=== PATIENT | male | born 1960 | race Caucasian/White ===

== ENCOUNTER 2017-02-27 17:40 | Emergency (ER) | payer MEDICARE ==
[~2017-02-27 17:40] MED LIST: APIX5TAB PO; ASPI-630 PO; ATOR20TA58 PO; FISH1CAP PO; GLIM4TAB2 PO; LISI2.5T PO; LOSA25TA4 PO; LOSA50TA6; Lisinopril PO; METF500T4 PO; METF500T9; METO-269 PO; METO50TA10; METO50TA2 PO; MULT-658 PO
[2017-02-27 17:55] VITALS: BP 146/93
[2017-02-27] MEDS ORDERED: DIPHTH,PERTUSS(ACELL),TET TOX 0.5 ML DISP.SYRIN. VAX IM ONE (18:00)
--- NOTE | 2017-02-27 18:25 | PHYS DOC ---
Past Medical History Past Medical History: Diabetes-Type II, High Cholesterol, Hypertension Past Surgical History: Appendectomy Alcohol Use: None Drug Use: None Adult General Chief Complaint Chief Complaint: LOWEREXTREMITY INJURY HPI HPI Patient is a 56 year old male presents to the emergency department with a history of left lower leg pain and discomfort. Patient states he was weed eating the yard when a branch came up and hit him in the left lower leg. Patient states he has bruising with bleeding and large black and blue area noted to the louie. Patient states he is a diabetic and wanted to have his legs evaluated. He is unsure when his last tetanus immunization occurred. Patient also states he is on Xarelto. Review of Systems Review of Systems Constitutional: Denies fever or chills [] Eyes: Denies change in visual acuity, redness, or eye pain [] HENT: Denies nasal congestion or sore throat [] Respiratory: Denies cough or shortness of breath [] Cardiovascular: No additional information not addressed in HPI [] GI: Denies abdominal pain, nausea, vomiting, bloody stools or diarrhea [] : Denies dysuria or hematuria [] Musculoskeletal: Denies back pain. C/o leg lower leg pain Integument: Denies rash or skin lesions. Abrasion, bruising and blister to left lower leg Neurologic: Denies headache, focal weakness or sensory changes [] Endocrine: Denies polyuria or polydipsia [] Current Medications Current Medications Current Medications Medications (Trade) Dose Ordered Sig/Missael Start Time Stop Time Status Last Admin Dose Admin Diphtheria/ Tetanus/Acell Pertussis (Boostrix) 0.5 ml ONCE ONCE 02/27/17 18:00 02/27/17 18:04 DC 02/27/17 18:45 0.5 ML Allergies Allergies Allergies Coded Allergies Type Severity Reaction Last Updated Verified No Known Drug Allergies 11/09/14 No Physical Exam Physical Exam Constitutional: Well developed, well nourished, no acute distress, non-toxic appearance. [] HENT: Normocephalic, atraumatic, bilateral external ears normal, oropharynx moist, no oral exudates, nose normal. [] Eyes: PERRLA, EOMI, conjunctiva normal, no discharge. [] Neck: Normal range of motion, no tenderness, supple, no stridor. [] Cardiovascular:Heart rate regular rhythm, no murmur [] Lungs & Thorax: Bilateral breath sounds clear to auscultation [] Skin: Warm, dry, no erythema, no rash. Left lower leg with bruising, tenderness , abrasion and swelling noted. Back: No tenderness Extremities: No tenderness, no cyanosis, no clubbing, ROM intact, no edema. Peripheral pulses 2+ cap refill brisk < 2 seconds. Neurologic: Alert and oriented X 3, normal motor function, normal sensory function, no focal deficits noted. [] Psychologic: Affect normal, judgement normal, mood normal. [] Current Patient Data Vital Signs Vital Signs Date Time Temp Pulse Resp B/P (MAP) Pulse Ox O2 Delivery O2 Flow Rate FiO2 02/27/17 17:55 97.6 75 16 96 Room Air 97.6 Lab Values Laboratory Tests Test 02/27/17 18:14 Prothrombin Time 20.2 SEC (11.7-14.0) H Prothrombin Time INR 1.9 (0.8-1.1) H EKG EKG [] Radiology/Procedures Radiology/Procedures [] Course & Med Decision Making Course & Med Decision Making Pertinent Labs and Imaging studies reviewed. (See chart for details) X-rays were negative for any bony abnormalities per Dr. Gandhi. Patient's PT/ INR was elevated secondary used to Xarelto. Patient will be placed on an antibiotic, Bactrim. Patient was encouraged to keep the area clean and dry. Recommended ice packs on 20 minutes off 20 minutes several times a day. Elevation as much as possible. Recommended Tylenol for pain and discomfort. Patient will also be encouraged to keep the pressure dressing over the area due to the fact of it possibility of increased bleeding. Patient was also instructed to call her primary care physician in regards to the elevation of the PT/INR. Patient will be discharged home in stable condition signs symptoms to return back to emergency department as been provided. [] Dragon Disclaimer Dragon Disclaimer This electronic medical record was generated, in whole or in part, using a voice recognition dictation system. Departure Departure Impression: Primary Impression: Left leg pain Additional Impression: Abrasion of left lower leg Disposition: HOME, SELF-CARE Condition: STABLE Referrals: NELLI BURRIS MD (PCP) Patient Instructions: Contusion, [id number], Wound Care, [id number] Additional Instructions: Your x-rays were negative for any bony abnormalities. Ice packs on 20 minutes off 20 minutes several times a day. Elevation as much as possible. Keep the area clean dry. Clean the site twice over soap and water and apply antibiotic ointment to the area. The pressure dressing may also help with controlled bleeding. You will need to call your primary care physician in regards to your PT INR being elevated. PT 20.2 and INR 1.9 Tylenol for pain and discomfort. Antibiotics as prescribed. Follow-up through primary care physician in 3-5 days. Call them tomorrow in regards to the information above. Return back to emergency department for signs and symptoms of become worse. Scripts Cephalexin (KEFLEX) 500 Mg Capsule 1 CAP PO BID, #20 CAP Prov: KIRAN GUY APRN 02/27/17 Problem Qualifiers KIRAN GUY APRN Feb 27, 2017 18:25
[2017-02-27 18:35] LABS: INR 1.9 (0.8-1.1); PROTHROMBIN TIME PATIENT 20.2 SEC (11.7-14.0)
[2017-02-27] MEDS ORDERED: NEOMY/BACITR/POLYMYXIN OINT PACKET. TP ONE (19:00)
[2017-02-27] MEDS ORDERED: CEPH-264 PO (19:05)
--- NOTE | 2017-02-28 07:52 | RAD ---
Two-view study of the left tibia and fibula History: [place] e[employer] accident. Pain and laceration injury of the distal tibial area. Findings: No acute fracture or dislocation or osteolytic process is seen. There is cortical thickening of the posterior aspect of the proximal right tibial shaft which may be related to an old injury. Plantar spur of the calcaneus is seen. Bandage is seen around the lower leg. Otherwise no other radiopaque foreign body is seen. IMPRESSION: No acute osseous abnormality.
== END 2017-02-27 19:12 | disposition home or self-care (01) ==
LOC: ER 17:40
DX: S80.12XA Contusion of left lower leg, initial encounter (principal); S80.812A Abrasion, left lower leg, initial encounter; E11.9 Type 2 diabetes mellitus without complications; E78.00 Pure hypercholesterolemia, unspecified; I10 Essential (primary) hypertension; Z90.49 Acquired absence of other specified parts of digestive tract; Z79.01 Long term (current) use of anticoagulants; W22.8XXA Striking against or struck by other objects, initial encounter; Y93.89 Activity, other specified; Y92.096 Garden or yard of other non-institutional residence as the place of occurrence of the external cause; Y99.8 Other external cause status
CPT/HCPCS: 36415; 73590; 85610; 90471; 90715; 99285-25

== ENCOUNTER → 2017-04-11 | Outpatient (CLI) | payer MEDICARE ==
[~2017-04-11] MED LIST changes: +CEPH-264 PO; +INSU100V13 SQ; +RISP0.2519 PO; +RIVA20TA2 PO
[2017-04-11 11:55] LABS: BASO # 0.1 x10^3/uL (0.0-0.2); BASO % 1 % (0-3); CREATININE 1.1 mg/dL (0.7-1.3); EOS % 1 % (0-3); GFR 68.8; HEMOGLOBIN 13.8 g/dL (13.0-17.5); LYMPH # 1.9 x10^3/uL (1.0-4.8); LYMPH % 37 % (24-48); MEAN CORPUSCULAR HEMOGLOBIN 30 pg (25-35); MEAN CORPUSCULAR HGB CONC 34 g/dL (31-37); MEAN CORPUSCULAR VOLUME 86 fL (79-100); MONO % 9 % (0-9); NEUT % 51 % (31-73); PLATELET COUNT 223 x10^3/uL (140-400); POTASSIUM 4.2 mmol/L (3.5-5.1); RED BLOOD COUNT 4.66 x10^6/uL (4.30-5.70); RED CELL DISTRIBUTION WIDTH 13.7 % (11.5-14.5); WHITE BLOOD COUNT 5.1 x10^3/uL (4.0-11.0)
--- NOTE | 2017-04-11 12:14 | EKG ---
[facility] [address] [place] [address] Test Date: 2017-04-11 Test Time: 12:17:26 Pat Name: MEGGAN CARDOSO Department: Room: Gender: M [employer]: : 1960 Requested By: HEIDE WERNER Order Number: [id number] Reading MD: Measurements Intervals Gila Rate: 73 P: 38 PA: 160 QRS: 7 QRSD: 80 T: 35 QT: 360 QTc: 400 Interpretive Statements SINUS RHYTHM NORMAL ECG RI6.01 Compared to ECG 08/25/2015 19:30:29 No significant changes
== END | disposition home or self-care (01) ==
LOC: SURGPAT 11:09
PROVIDERS: ATTEND Surgery
DX: K40.90 Unilateral inguinal hernia, without obstruction or gangrene, not specified as recurrent (principal)
CPT/HCPCS: 36415; 80048; 85027; 93005

== ENCOUNTER 2017-04-18 06:13 | Day surgery (SDC) | payer MEDICARE ==
[~2017-04-18] VITALS: Ht 175.3 cm; Wt 97.7 kg
[2017-04-18] MEDS ORDERED: fentaNYL PF VIAL 100 MCG/2 ML VIAL IV PRN ×2 (07:00)
[2017-04-18] MEDS ORDERED: PROCHLORPERAZINE 10 MG/2 ML VIAL. IV PRN (07:00)
[2017-04-18] MEDS ORDERED: MORPHINE SULFATE 2 MG/ML DISP.SYRIN. IV PRN (07:00)
[2017-04-18] MEDS ORDERED: HYDROmorphone 2 MG/ML VIAL IV PRN (07:00)
[2017-04-18] MEDS ORDERED: LIDOCAINE 1% 1 ML SYRINGE. ID PRN (07:00)
[2017-04-18] MEDS ORDERED: ONDANSETRON PF 4 MG/2 ML VIAL. IV PRN (07:00)
[2017-04-18] MEDS ORDERED: IV RINGERS,LACTATED 1000ML 1,000 ML IV SCH (07:00)
[2017-04-18] MEDS ORDERED: BUPIVACAINE-EPI 0.5%-1:200000 50 ML VIAL. ONE (07:05)
[2017-04-18] MEDS ORDERED: PROPOFOL 100 ML IV ONE (07:15)
[2017-04-18] MEDS ORDERED: ROCURONIUM 100 MG/10 ML VIAL. ONE (07:15)
[2017-04-18] MEDS ORDERED: LIDOCAINE 1% PF 5 ML VIAL. ONE (07:15)
[2017-04-18] MEDS ORDERED: fentaNYL PF VIAL 100 MCG/2 ML VIAL ONE ×2 (07:15→09:07)
[2017-04-18] MEDS ORDERED: SUCCINYLCHOLINE 200 MG/10 ML VIAL. ONE (07:16)
[2017-04-18] MEDS ORDERED: DEXAMETHASONE SOD PHOS 20 MG/5 ML VIAL. ONE (07:54)
[2017-04-18] MEDS ORDERED: DESFLURANE 31 TO 60 MINUTES IH ONE (07:54)
[2017-04-18] MEDS ORDERED: ONDANSETRON PF 4 MG/2 ML VIAL. ONE (08:06)
[2017-04-18] MEDS ORDERED: GLYCOPYRROLATE 1 MG/5 ML VIAL. ONE (08:06)
[2017-04-18] MEDS ORDERED: NEOSTIGMINE 10 MG/10 ML VIAL. ONE (08:06)
[2017-04-18] MEDS ORDERED: LIDOCAINE 2% PF Vial for OR 5 ML VIAL. ONE (08:22)
--- NOTE | 2017-04-18 08:51 | PDOC4 ---
Operative Note Operative Note Date: 04/18/2017 Preoperative diagnosis: Right inguinal hernia Postoperative diagnosis: The same Procedure: Robotic-assisted laparoscopic right inguinal hernia repair with mesh Specimen: None Surgeon: Ramez Dictation: Mr. Limon is a 56-year-old male with complaints of a painful bulge in his right groin. The procedure of robotic-assisted laparoscopic right inguinal hernia repair with mesh was explained to the patient in detail all risks benefits were also discussed including bleeding infection injury to intra- abdominal contents possibly necessitating further or an open operation. The patient seemed understanding gave both verbal and written consent to have the procedure performed. Patient was taken to the operating room placed in the supine position general anesthesia was initiated once the patient was asleep and intubated he was placed in low lithotomy and his abdomen was prepped and draped usual sterile fashion using ChloraPrep. An area just above the umbilicus was injected with half percent Marcaine with epinephrine and an incision was made with 11 blade scalpel a varies needle was placed within the abdomen and a pneumoperitoneum was achieved. At this point an 8 mm da Funmilayo port was placed and a camera was then placed within the abdomen and the abdomen was inspected no other abnormalities were noted other than an incarcerated right inguinal hernia. At this point 2 more 8 mm ports were placed under direct visualization one in the left mid abdomen and one in the right mid abdomen. The surgeon went to the robotic console using a grasper and Endo Gurpreet scissors the incarcerated omentum was reduced from the hernia defect. He peritoneum was then incised and a window was propagated inferiorly reducing the hernia sac from the hernia defect at this point a large piece of Pro help desk specialist mesh was placed over the hernia defect. The peritoneum was then closed with a running V lock suture. Once this was complete the V lock needle was removed and the pneumoperitoneum was reduced all ports removed. Skin incisions were all closed with 4 septic Monocryl Mastisol Steri-Strips and Band-Aids were applied as dressings. Patient was awakened and extubated in the operating room taken to recovery in stable condition all sponge instrument and needle counts were listed as correct. The middle blood loss 10 mL. HEIDE WERNER MD Apr 18, 2017 08:50
--- NOTE | 2017-04-18 08:52 | DISCH ---
DISCHARGE INSTRUCTIONS Condition on Discharge Condition on Discharge: Stable Activity After Discharge Activity Instructions for Disc: Avoid exertion Other activity instructions: No lifting>20lbs for 2 weeks Lifting Instructions after Dis: No heavy lifting Diet after Discharge Diet after Discharge: Regular Wound Incision Care Other wound/incision instructi: May shower in 24 hours Contacting the after DC Call your doctor for: If your condition worsens Follow-Up Follow up with: Dr Werner in 2 weeks HEIDE WERNER MD Apr 18, 2017 08:52
[2017-04-18] MEDS ORDERED: INSULIN ASPART 300 UNITS/3 ML INSULN.PEN SQ SCH (09:00)
[2017-04-18] MEDS ORDERED: HYDR-971 PO (09:12)
[2017-04-18] MEDS ORDERED: INSULIN ASPART 100 UNIT/ML 10ML VIAL. SQ ONE (09:15)
[2017-04-18] MEDS ORDERED: HYDROcodone/APAP 5/325MG 1 TAB TABLET ONE (09:19)
[2017-04-18 09:45] VITALS: BP 131/84
[2017-04-18] MEDS ORDERED: HYDROcodone/APAP 5/325MG 1 TAB TABLET PO ONE (09:45)
== END 2017-04-18 10:17 | disposition home or self-care (01) ==
LOC: SURG 06:13
PROVIDERS: ATTEND Surgery
DX: K40.90 Unilateral inguinal hernia, without obstruction or gangrene, not specified as recurrent (principal); E78.00 Pure hypercholesterolemia, unspecified; I48.91 Unspecified atrial fibrillation; I10 Essential (primary) hypertension; E11.9 Type 2 diabetes mellitus without complications; Z86.39 Personal history of other endocrine, nutritional and metabolic disease; Z83.3 Family history of diabetes mellitus; Z98.49 Cataract extraction status, unspecified eye
CPT/HCPCS: 49650; 82962; C1781; J0330; J0690; J1100; J1815; J2405; J2704; J2710; J3010; J3490; J2001

== ENCOUNTER → 2017-12-24 | Outpatient (CLI) | payer OTHER ==
[2017-12-24 10:15] LABS: ANION GAP 7 (6-14); BLOOD UREA NITROGEN 21 mg/dL (8-26); CALCIUM 9.5 mg/dL (8.5-10.1); CARBON DIOXIDE 28 mmol/L (21-32); CHLORIDE 107 mmol/L (98-107); GFR 76.5; GLUCOSE 73 mg/dL (70-99); POTASSIUM 4.4 mmol/L (3.5-5.1); SODIUM 142 mmol/L (136-145)
== END | disposition home or self-care (01) ==
LOC: LAB 09:45
DX: I10 Essential (primary) hypertension (principal)
CPT/HCPCS: 36415; 80048

== ENCOUNTER → 2018-01-14 | Outpatient (CLI) | payer OTHER ==
[2018-01-14 08:50] LABS: HEMATOCRIT 40.4 % (39.0-53.0); MEAN CORPUSCULAR HEMOGLOBIN 31 pg (25-35); MEAN CORPUSCULAR HGB CONC 35 g/dL (31-37); MEAN CORPUSCULAR VOLUME 88 fL (79-100); PLATELET COUNT 180 x10^3/uL (140-400); RED BLOOD COUNT 4.59 x10^6/uL (4.30-5.70); RED CELL DISTRIBUTION WIDTH 13.5 % (11.5-14.5); WHITE BLOOD COUNT 5.3 x10^3/uL (4.0-11.0)
[2018-01-14 09:16] LABS: ANION GAP 9 (6-14); BLOOD UREA NITROGEN 14 mg/dL (8-26); CALCIUM 9.5 mg/dL (8.5-10.1); CARBON DIOXIDE 28 mmol/L (21-32); CHLORIDE 106 mmol/L (98-107); CHOLESTEROL 102 mg/dL (0-200); CHOLESTEROL/HDL RATIO 2.6; GFR 76.5; GLUCOSE 82 mg/dL (70-99); HDLC 39 mg/dL (40-60); LDLC 41 mg/dL (0-100); NON-HDL CHOLESTEROL 63 mg/dL (0-129); POTASSIUM 3.6 mmol/L (3.5-5.1); SODIUM 143 mmol/L (136-145); TRIGLYCERIDES 109 mg/dL (0-150); VLDLC 22 mg/dL (0-40)
[2018-01-15 00:12] LABS: HEMOGLOBIN A1C 7.2 % (4.8-5.6)
[2018-01-15 11:24] LABS: MICROALBUMIN, RANDOM URINE 16.8 ug/mL (Not Estab.)
== END | disposition home or self-care (01) ==
LOC: LAB 07:35
DX: E11.65 Type 2 diabetes mellitus with hyperglycemia (principal); I10 Essential (primary) hypertension; E78.2 Mixed hyperlipidemia
CPT/HCPCS: 36415; 80048; 80061; 82043; 83036; 85027

== ENCOUNTER → 2018-03-26 | Day surgery (SDC) | payer OTHER ==
[~2018-03-26] MED LIST changes: -APIX5TAB PO; -ASPI-630 PO; -ATOR20TA58 PO; -CEPH-264 PO; +CIPROFLOXACIN 0.3% OPHTH SOLUTION 5ML BOTTLE. OS; +CYCLOPENTOLATE 1% OPTH SOLUTION 2ML BOTTLE. OS; -FISH1CAP PO; -GLIM4TAB2 PO; -INSU100V13 SQ; +IV RINGERS,LACTATED 1000ML 1,000 ML IV; +LIDOCAINE 1% PF 2 ML VIAL. ID; +LIDOCAINE 2% JELLY 6ML IN APPLICATOR. MM; -LISI2.5T PO; -LOSA25TA4 PO; -LOSA50TA6; -Lisinopril PO; -METF500T4 PO; -METF500T9; -METO-269 PO; -METO50TA10; -METO50TA2 PO; +MORPHINE SULFATE 2 MG/ML DISP.SYRIN. IV; -MULT-658 PO; +ONDANSETRON PF 4 MG/2 ML VIAL. IV; +PHENYLEPHRINE 10% OPHTH SOLUTION 5ML BOTTLE. OS; +PROCHLORPERAZINE 10 MG/2 ML VIAL. IV; +PROPARACAINE 0.5% OPHTH SOLUTION 15ML BOTTLE. OS; -RISP0.2519 PO; -RIVA20TA2 PO; +fentaNYL PF VIAL 100 MCG/2 ML VIAL IV
== END | disposition home or self-care (01) ==
LOC: SURG 08:38
DX: E11.36 Type 2 diabetes mellitus with diabetic cataract (principal); H26.9 Unspecified cataract; Z53.8 Procedure and treatment not carried out for other reasons; R06.02 Shortness of breath; Z98.42 Cataract extraction status, left eye; Z96.1 Presence of intraocular lens; E78.00 Pure hypercholesterolemia, unspecified; I48.91 Unspecified atrial fibrillation; I10 Essential (primary) hypertension; G47.30 Sleep apnea, unspecified; Z90.49 Acquired absence of other specified parts of digestive tract; K21.9 Gastro-esophageal reflux disease without esophagitis; F32.9 Major depressive disorder, single episode, unspecified; Z72.89 Other problems related to lifestyle; Z79.84 Long term (current) use of oral hypoglycemic drugs
CPT/HCPCS: 93005; J0171

== ENCOUNTER 2018-03-28 20:57 | Emergency (ER) | payer OTHER ==
[2018-03-28] MEDS: dilTIAZem IV PUSH 25 MG/5 ML VIAL IVP (21:16)
[2018-03-28 21:18] LABS: ADD MAN DIFF? NO
[2018-03-28 21:20] LABS: BASO # 0.1 x10^3/uL (0.0-0.2); BASO % 1 % (0-3); EOS # 0.1 x10^3/uL (0.0-0.7); EOS % 2 % (0-3); HEMATOCRIT 41.2 % (39.0-53.0); HEMOGLOBIN 14.7 g/dL (13.0-17.5); LYMPH # 2.2 x10^3/uL (1.0-4.8); LYMPH % 39 % (24-48); MEAN CORPUSCULAR HEMOGLOBIN 32 pg (25-35); MEAN CORPUSCULAR HGB CONC 36 g/dL (31-37); MEAN CORPUSCULAR VOLUME 89 fL (79-100); MONO # 0.6 x10^3/uL (0.0-1.1); MONO % 10 % (0-9); NEUT # 2.7 x10^3uL (1.8-7.7); NEUT % 48 % (31-73); PLATELET COUNT 172 x10^3/uL (140-400); RED BLOOD COUNT 4.65 x10^6/uL (4.30-5.70); WHITE BLOOD COUNT 5.6 x10^3/uL (4.0-11.0)
[2018-03-28 21:29] LABS: ANION GAP 7 (6-14); BLOOD UREA NITROGEN 14 mg/dL (8-26); BUN/CREATININE RATIO 14 (6-20); CARBON DIOXIDE 27 mmol/L (21-32); CHLORIDE 106 mmol/L (98-107); GFR 76.5; GLUCOSE 207 mg/dL (70-99); POTASSIUM 4.2 mmol/L (3.5-5.1); SODIUM 140 mmol/L (136-145)
[2018-03-28 21:35] LABS: ALBUMIN 3.6 g/dL (3.4-5.0); ALBUMIN/GLOBULIN RATIO 1.2 (1.0-1.7); ALK PHOS 58 U/L (46-116); ALT (SGPT) 28 U/L (16-63); AST (SGOT) 15 U/L (15-37); TOTAL BILIRUBIN 0.4 mg/dL (0.2-1.0); TOTAL PROTEIN 6.6 g/dL (6.4-8.2)
[2018-03-28 21:36] LABS: TROPONINI < 0.017 ng/mL (0.000-0.055)
[2018-03-28] MEDS ORDERED: METOPROLOL TARTRATE 5 MG/5 ML VIAL. IVP (22:15)
== END 2018-03-28 22:50 | disposition home or self-care (01) ==
LOC: ER 20:57
DX: I48.91 Unspecified atrial fibrillation (principal); R00.0 Tachycardia, unspecified; E11.9 Type 2 diabetes mellitus without complications; E78.00 Pure hypercholesterolemia, unspecified; I10 Essential (primary) hypertension
CPT/HCPCS: 36415; 71045; 80053; 84484; 85025; 93005; 96374; 99285-25; J3490

== ENCOUNTER → 2018-05-27 | Outpatient (CLI) | payer OTHER, MEDICARE ==
[2018-03-28 21:16] VITALS: BP 175/119
[~2018-05-27] MED LIST changes: +APIX5TAB PO; +ASPI-630 PO; +ATOR20TA58 PO; +CEPH-264 PO; -CIPROFLOXACIN 0.3% OPHTH SOLUTION 5ML BOTTLE. OS; -CYCLOPENTOLATE 1% OPTH SOLUTION 2ML BOTTLE. OS; +DILT180C29 PO; +FISH1CAP PO; +GLIM4TAB2 PO; +HYDR-971 PO; +INSU100I11 SQ; +INSU100V13 SQ; +INSU300I SQ; -IV RINGERS,LACTATED 1000ML 1,000 ML IV; -LIDOCAINE 1% PF 2 ML VIAL. ID; -LIDOCAINE 2% JELLY 6ML IN APPLICATOR. MM; +LISI-338 PO; +LISI10TA2 PO; +LISI2.5T PO; +LOSA25TA5 PO; +LOSA50TA7; +Lisinopril PO; +MELO15TA23 PO; +MELO7.5T29 PO; +METF500T16 PO; +METF500T9; +METO-269 PO; +METO50TA29; +METO50TA6 PO; -MORPHINE SULFATE 2 MG/ML DISP.SYRIN. IV; +MULT-658 PO; -ONDANSETRON PF 4 MG/2 ML VIAL. IV; -PHENYLEPHRINE 10% OPHTH SOLUTION 5ML BOTTLE. OS; -PROCHLORPERAZINE 10 MG/2 ML VIAL. IV; -PROPARACAINE 0.5% OPHTH SOLUTION 15ML BOTTLE. OS; +RISP0.2519 PO; +RIVA20TA2 PO; -fentaNYL PF VIAL 100 MCG/2 ML VIAL IV
[2018-05-28 01:13] LABS: HEMOGLOBIN A1C 9.6 % (4.8-5.6)
== END | disposition home or self-care (01) ==
LOC: LAB 09:57
PROVIDERS: ATTEND Family Medicine
DX: E11.65 Type 2 diabetes mellitus with hyperglycemia (principal)
CPT/HCPCS: 36415; 83036

== ENCOUNTER → 2018-06-02 | Outpatient (CLI) | payer OTHER, MEDICARE ==
[2018-03-28 21:16] VITALS: BP 175/119
[2018-06-02 12:47] LABS: BILIRUBIN,URINE NEGATIVE (NEG); CLARITY,URINE CLEAR; COLOR,URINE YELLOW; NITRITE,URINE NEGATIVE (NEG); PH,URINE 5.5; PROTEIN,URINE NEGATIVE (NEG-TRACE)
[2018-06-02 12:51] LABS: BASO % 1 % (0-3); EOS # 0.2 x10^3/uL (0.0-0.7); EOS % 3 % (0-3); HEMATOCRIT 41.9 % (39.0-53.0); HEMOGLOBIN 14.4 g/dL (13.0-17.5); LYMPH % 33 % (24-48); MEAN CORPUSCULAR HEMOGLOBIN 30 pg (25-35); MEAN CORPUSCULAR HGB CONC 34 g/dL (31-37); MEAN CORPUSCULAR VOLUME 89 fL (79-100); MONO # 0.6 x10^3/uL (0.0-1.1); MONO % 11 % (0-9); NEUT # 3.3 x10^3uL (1.8-7.7); NEUT % 53 % (31-73); PLATELET COUNT 201 x10^3/uL (140-400); RED BLOOD COUNT 4.73 x10^6/uL (4.30-5.70); RED CELL DISTRIBUTION WIDTH 13.5 % (11.5-14.5); WHITE BLOOD COUNT 6.1 x10^3/uL (4.0-11.0)
[2018-06-02 13:04] LABS: BACTERIA,URINE 0 /HPF (0-FEW); RBC,URINE 0 /HPF (0-2); WBC,URINE 0 /HPF (0-4)
[2018-06-02 13:10] LABS: CALCIUM 9.5 mg/dL (8.5-10.1); GFR 76.2; POTASSIUM 4.5 mmol/L (3.5-5.1)
== END | disposition home or self-care (01) ==
LOC: LAB 12:03
PROVIDERS: ATTEND Family Medicine
DX: I10 Essential (primary) hypertension (principal); R41.0 Disorientation, unspecified; E11.9 Type 2 diabetes mellitus without complications; E78.5 Hyperlipidemia, unspecified; E78.00 Pure hypercholesterolemia, unspecified; K21.9 Gastro-esophageal reflux disease without esophagitis; I48.0 Paroxysmal atrial fibrillation; Z86.39 Personal history of other endocrine, nutritional and metabolic disease; Z90.49 Acquired absence of other specified parts of digestive tract; Z83.3 Family history of diabetes mellitus; Z82.49 Family history of ischemic heart disease and other diseases of the circulatory system; Z82.3 Family history of stroke
CPT/HCPCS: 36415; 80048; 81001; 85025

== ENCOUNTER → 2018-08-08 | Day surgery (SDC) | payer OTHER, MEDICARE ==
[~2018-08-08] MED LIST changes: +FLEC100T PO; +HYDR-3164 PO; -HYDR-971 PO; +HYDROmorphone 2 MG/ML VIAL IV PRN; +IV RINGERS,LACTATED 1000ML 1,000 ML IV SCH; +LIDOCAINE 1% PF 2 ML VIAL. ID PRN; +LOSA-73; -LOSA25TA5 PO; +LOSA25TA54 PO; -LOSA50TA7; +MIDAZOLAM HCL/PF 2 MG/2 ML VIAL. IV PRN; +MORPHINE SULFATE 2 MG/ML VIAL. IV PRN; +ONDANSETRON PF 4 MG/2 ML VIAL. IV PRN; +PROCHLORPERAZINE 10 MG/2 ML VIAL. IV PRN; +PROPOFOL 40 ML IV ONE; +fentaNYL PF VIAL 100 MCG/2 ML VIAL IV PRN
[2018-08-08 08:50] VITALS: BP 99/63
== END | disposition home or self-care (01) ==
LOC: SURG 07:03
PROVIDERS: ATTEND Internal Medicine Gastroenterology
DX: Z12.11 Encounter for screening for malignant neoplasm of colon (principal); K57.30 Diverticulosis of large intestine without perforation or abscess without bleeding; K64.0 First degree hemorrhoids; I10 Essential (primary) hypertension; E11.9 Type 2 diabetes mellitus without complications; I25.10 Atherosclerotic heart disease of native coronary artery without angina pectoris; I25.2 Old myocardial infarction; Z79.84 Long term (current) use of oral hypoglycemic drugs; Z79.899 Other long term (current) drug therapy; Z90.49 Acquired absence of other specified parts of digestive tract
CPT/HCPCS: 45378; J2704

== ENCOUNTER → 2018-08-28 | Outpatient (CLI) | payer OTHER, MEDICARE ==
[2018-08-08 08:50] VITALS: BP 99/63
[~2018-08-28] MED LIST changes: -HYDROmorphone 2 MG/ML VIAL IV PRN; -IV RINGERS,LACTATED 1000ML 1,000 ML IV SCH; -LIDOCAINE 1% PF 2 ML VIAL. ID PRN; -MIDAZOLAM HCL/PF 2 MG/2 ML VIAL. IV PRN; -MORPHINE SULFATE 2 MG/ML VIAL. IV PRN; -ONDANSETRON PF 4 MG/2 ML VIAL. IV PRN; -PROCHLORPERAZINE 10 MG/2 ML VIAL. IV PRN; -PROPOFOL 40 ML IV ONE; -fentaNYL PF VIAL 100 MCG/2 ML VIAL IV PRN
[2018-08-28 11:37] LABS: CALCIUM 9.4 mg/dL (8.5-10.1); GFR 76.2; POTASSIUM 4.7 mmol/L (3.5-5.1)
[2018-08-28 20:10] LABS: HEMOGLOBIN A1C 9.3 % (4.8-5.6)
== END | disposition home or self-care (01) ==
LOC: LAB 10:48
PROVIDERS: ATTEND Family Medicine
DX: E11.65 Type 2 diabetes mellitus with hyperglycemia (principal); I48.91 Unspecified atrial fibrillation; I10 Essential (primary) hypertension; Z79.84 Long term (current) use of oral hypoglycemic drugs
CPT/HCPCS: 36415; 80048; 83036; 84443

== ENCOUNTER → 2018-11-05 | Outpatient (CLI) | payer OTHER, MEDICARE ==
[2018-08-08 08:50] VITALS: BP 99/63
[2018-11-06 00:11] LABS: HEMOGLOBIN A1C 10.5 % (4.8-5.6)
== END | disposition home or self-care (01) ==
LOC: LAB 09:49
PROVIDERS: ATTEND Family Medicine
DX: E11.65 Type 2 diabetes mellitus with hyperglycemia (principal)
CPT/HCPCS: 36415; 83036

== ENCOUNTER 2019-05-18 21:29 | Emergency (ER) | payer OTHER, MEDICARE ==
[~2019-05-18] VITALS: Ht 167.6 cm; Wt 113.4 kg
[~2019-05-18 21:29] MED LIST changes: +METF500T11; -METF500T9
[2019-05-18 22:18] LABS: BILIRUBIN,URINE SMALL (NEG); CLARITY,URINE CLEAR; COLOR,URINE AMBER; NITRITE,URINE NEGATIVE (NEG); PROTEIN,URINE NEGATIVE (NEG-TRACE)
[2019-05-18 22:22] LABS: HYALINE CASTS, URINE MANY /HPF
[2019-05-18 22:23] LABS: BACTERIA,URINE 0 /HPF (0-FEW); RBC,URINE 0 /HPF (0-2)
[2019-05-18] MEDS ORDERED: HYDR-3164 PO (22:29)
[2019-05-18] MEDS ORDERED: METH4TAB2 PO (22:29)
--- NOTE | 2019-05-18 22:30 | PHYS DOC ---
Past Medical History Past Medical History: A-Fib, Diabetes-Type II, High Cholesterol, Hypertension (KIRAN GILLESPIE APRN) Past Surgical History: Appendectomy Additional Past Surgical Histo: EYE (KRIAN GILLESPIE APRN) Alcohol Use: None Drug Use: None (KIRAN GILLESPIE APRN) Adult General Chief Complaint Chief Complaint: LOWER BACK PAIN OR INJURY HPI HPI Patient is a 59 year old male who presents with right lower back pain that is sharp and shooting down the back of his right leg into the buttock. Patient states is worse with movement. Patient rates his pain a 10 out of 10. Patient states that he's also been coughing up mucus for the last hour needs concerned about this. (KIRAN GILLESPIE APRN) Review of Systems Review of Systems Constitutional: Denies fever or chills [] Respiratory: cough or denies shortness of breath [] Musculoskeletal: Low back pain that radiates down the back of leg or joint pain [] All other systems were reviewed and found to be within normal limits, except as documented in this note. (KIRAN GILLESPIE APRN) Current Medications Current Medications Current Medications Medications (Trade) Dose Ordered Sig/Missael Start Time Stop Time Status Last Admin Dose Admin Acetaminophen/ Hydrocodone Bitart (Lortab 5/325) 1 tab 1X ONCE 05/18/19 22:45 05/18/19 22:46 DC 05/18/19 22:49 1 TAB Orphenadrine Citrate (Norflex) 60 mg 1X ONCE 05/18/19 22:45 05/18/19 22:46 DC 05/18/19 22:49 60 MG (GABY CRISOSTOMO DO) Allergies Allergies Allergies Coded Allergies Type Severity Reaction Last Updated Verified No Known Drug Allergies 08/08/18 No (GABY CRISOSTOMO DO) Physical Exam Physical Exam Constitutional: Well developed, well nourished, no acute distress, non-toxic appearance. [] HENT: Normocephalic, atraumatic, bilateral external ears normal, oropharynx moist, no oral exudates, nose normal. [] Eyes: PERRLA, EOMI, conjunctiva normal, no discharge. [] Cardiovascular:Heart rate regular rhythm, no murmur [] Lungs & Thorax: Bilateral breath sounds clear to auscultation [] Abdomen: Bowel sounds normal, soft, no tenderness, no masses, no pulsatile masses. [] Skin: Warm, dry, no erythema, no rash. [] Back: No tenderness, no CVA tenderness. [] Extremities: No tenderness, no cyanosis, no clubbing, ROM intact, no edema. [] Neurologic: Alert and oriented X 3, normal motor function, normal sensory function, no focal deficits noted. [] Psychologic: Affect normal, judgement normal, mood normal. [] (KIRAN GILLESPIE APRN) Current Patient Data Vital Signs Vital Signs Date Time Temp Pulse Resp B/P (MAP) Pulse Ox O2 Delivery O2 Flow Rate FiO2 05/18/19 23:00 90 18 136/84 (101) 95 Room Air 05/18/19 21:37 98.7 98.7 (GABY CRISOSTOMO DO) Lab Values Laboratory Tests Test 05/18/19 21:37 Urine Collection Type Unknown Urine Color Eliza Urine Clarity Clear Urine pH 5.0 Urine Specific [place] >=1.030 Urine Protein Negative mg/dL (NEG-TRACE) Urine Glucose (UA) >=1000 mg/dL (NEG) Urine Ketones (Stick) Negative mg/dL (NEG) Urine Blood Negative (NEG) Urine Nitrite Negative (NEG) Urine Bilirubin Small (NEG) Urine Urobilinogen Dipstick 1.0 mg/dL (0.2 mg/dL) Urine Leukocyte Esterase Negative (NEG) Urine RBC 0 /HPF (0-2) Urine WBC 5-10 /HPF (0-4) Urine Transitional Epithelial Cells Occ /LPF Urine Bacteria 0 /HPF (0-FEW) Urine Hyaline Casts Many /HPF Urine Mucus Marked /LPF (GABY CRISOSTOMO DO) Lab Values Laboratory Tests Test 05/18/19 21:37 Urine Collection Type Unknown Urine Color Eliza Urine Clarity Clear Urine pH 5.0 Urine Specific [place] >=1.030 Urine Protein Negative mg/dL (NEG-TRACE) Urine Glucose (UA) >=1000 mg/dL (NEG) Urine Ketones (Stick) Negative mg/dL (NEG) Urine Blood Negative (NEG) Urine Nitrite Negative (NEG) Urine Bilirubin Small (NEG) Urine Urobilinogen Dipstick 1.0 mg/dL (0.2 mg/dL) Urine Leukocyte Esterase Negative (NEG) Urine RBC 0 /HPF (0-2) Urine WBC 5-10 /HPF (0-4) Urine Transitional Epithelial Cells Occ /LPF Urine Bacteria 0 /HPF (0-FEW) Urine Hyaline Casts Many /HPF Urine Mucus Marked /LPF (KIRAN GILLESPIE APRN) EKG EKG [] (KIRAN GILLESPIE APRN) Radiology/Procedures Radiology/Procedures [] (KIRAN GILLESPIE APRN) Course & Med Decision Making Course & Med Decision Making Patient is a 59 year old male who presents with right lower back pain that is sharp and shooting down the back of his right leg into the buttock. Patient states is worse with movement. Patient rates his pain a 10 out of 10. Patient states that he's also been coughing up mucus for the last hour needs concerned about this. Ambulatory with a steady gait. No extremity edema. No CVA tenderness. No tenderness to the lower back with palpation. There is no bruising or swelling to lower back or the leg. Patient denies any fevers, numbness or tingling, dysuria, chest pain, sore throat, nasal congestion, abdominal pain, nausea, vomiting, diarrhea, shortness of air, headache, dizziness, palpitations. Abdomen is soft and nontender. Alert and oriented. Skin pink warm and dry. Mucus membranes moist. Patient speaks in full clear sentences. Urinalysis shows no infection. Patient is educated to drink plenty of fluids. Chest xray is read by Dr Crisostomo and shows possible bronchitis. (KIRAN GILLESPIE APRN) Dragon Disclaimer Dragon Disclaimer This electronic medical record was generated, in whole or in part, using a voice recognition dictation system. (KIRAN GILLESPIE APRN) Departure Departure Impression: Primary Impression: Sciatica Additional Impression: Cough Disposition: HOME, SELF-CARE Condition: STABLE Referrals: ALESHA MEYER MD (PCP) Patient Instructions: Bronchitis, Cough, Adult, Sciatica Additional Instructions: Follow up with primary care provider. Take medications with food and as prescribed. Scripts Amoxicillin (AMOXICILLIN) 500 Mg Capsule 1 CAP PO BID, #20 CAP Prov: KIRAN GILLESPIE APRN 05/18/19 Hydrocodone/Apap 5-325 (NORCO 5-325 TABLET) 1 Each Tablet 1 TAB PO PRN Q6HRS PRN for PAIN, #10 TAB 0 Refills Prov: KIRAN GILLESPIE APRN 05/18/19 Methylprednisolone (MEDROL) 4 Mg Tab.ds.pk 1 PKG PO UD, #1 PKG Prov: VERNAKIRAN Nice APRN 05/18/19 Attending Signature Attending Signature I have reviewed the PA/WARPER CREELER's note and plan of care. I was available for consultation as needed during the patient's visit in the emergency department. I agree with the clinical impression, plan, and disposition. (GABY CRISOSTOMO DO) Problem Qualifiers Primary Impression: Sciatica Laterality: right Qualified Codes: M54.31 - Sciatica, right side KIRAN GILLESPIE APRN May 18, 2019 22:30 GABY CRISOSTOMO DO May 19, 2019 04:36
[2019-05-18] MEDS ORDERED: HYDROcodone/APAP 5/325MG 1 TAB TABLET PO ONE (22:45)
[2019-05-18] MEDS ORDERED: ORPHENADRINE CITRATE 60 MG/2 ML VIAL. IM ONE (22:45)
[2019-05-18] MEDS ORDERED: AMOX500C PO (22:54)
[2019-05-18 23:00] VITALS: BP 136/84
--- NOTE | 2019-05-19 08:24 | RAD ---
Single AP view of the chest. Comparison: 03/28/2018. Indication: Cough and back pain Findings: There is an old right clavicular fracture. The heart is enlarged but stable. There is no pneumothorax or effusion. No air space or interstitial disease. Impression: 1. No acute cardiopulmonary process. Electronically signed by: Umair Ewing MD (05/19/2019 8:21 AM) [facility]
== END 2019-05-18 23:00 | disposition home or self-care (01) ==
LOC: ER 21:29
DX: M54.41 Lumbago with sciatica, right side (principal); R05 Cough; I48.91 Unspecified atrial fibrillation; E78.00 Pure hypercholesterolemia, unspecified; E11.9 Type 2 diabetes mellitus without complications; I10 Essential (primary) hypertension; Z90.89 Acquired absence of other organs
CPT/HCPCS: 71045; 81001; 87086; 96372; 99285; J2360

== ENCOUNTER 2019-06-05 11:05 | Day surgery (SDC) | payer OTHER, MEDICARE ==
[~2019-06-05 11:05] MED LIST changes: +AMOX500C PO; +CIPROFLOXACIN 0.3% OPHTH SOLUTION 5ML BOTTLE. OS ONE; -GLIM4TAB2 PO; +GLIM4TAB4 PO; +HYDROmorphone 2 MG/ML VIAL IV PRN; +IV RINGERS,LACTATED 1000ML 1,000 ML IV SCH; +LIDOCAINE 1% PF 2 ML VIAL. ID PRN; +LIDOCAINE 2% JELLY 6ML IN APPLICATOR. MM SCH; +METH4TAB2 PO; +MORPHINE SULFATE 2 MG/ML VIAL. IV PRN; +PROCHLORPERAZINE 10 MG/2 ML VIAL. IV PRN; +PROPARACAINE 0.5% OPHTH SOLUTION 15ML BOTTLE. OS ONE; +fentaNYL PF VIAL 100 MCG/2 ML VIAL IV PRN
[2019-06-05] MEDS: INSULIN LISPRO 100 UNIT/ML 3ML VIAL for OP,RR ONLY. SQ PRN ×2 (12:23→14:30)
[2019-06-05] MEDS: PHENYLEPHRINE 10% OPHTH SOLUTION 5ML BOTTLE. OS SCH ×3 (12:34→12:45)
[2019-06-05] MEDS: CYCLOPENTOLATE 1% OPTH SOLUTION 2ML BOTTLE. OS SCH ×3 (12:35→12:45)
[2019-06-05] MEDS ORDERED: NEO/POLYMYX/DEXAMETH OPHTH OINTMENT 3.5GM TUBE. ONE (13:20)
[2019-06-05] MEDS ORDERED: BALANCED SALT IRRIG OPHTH SOLN 15 ML BOTTLE. ONE (13:20)
[2019-06-05] MEDS ORDERED: CHONDROIT-SOD-HYALURONATE KIT. ONE (13:21)
[2019-06-05] MEDS ORDERED: LIDOCAINE 1% PF 2 ML VIAL. ONE (13:21)
[2019-06-05] MEDS ORDERED: LIDOCAINE 2% JELLY 6ML IN APPLICATOR. ONE (13:21)
--- NOTE | 2019-06-05 13:53 | OP ---
DATE OF SURGERY: 06/05/2019 PREOPERATIVE DIAGNOSIS: Senile cataract, left eye. POSTOPERATIVE DIAGNOSIS: Senile cataract, left eye. PROCEDURE: Phacoemulsification with posterior chamber lens implant, left eye. ANESTHESIA: Local with MAC. DESCRIPTION OF PROCEDURE: The patient's dilator and anesthetic drops were applied in the Outpatient Department and the [place] balloon cuff used for about 10 minutes. The patient was then brought to the operating room, positioned on the table. The eye was prepped and draped in the usual sterile manner for an intraocular procedure and a lid speculum placed between the eyelids. The operating microscope was brought into position and a paracentesis was made inferotemporally. A phenylid was injected into the anterior chamber, followed by an injection of Viscoat. A 2.4-mm incision was then made temporally. A capsulorrhexis was then made about the dilated pupillary border, which measured about 5.5 to 6 mm in diameter. The lens nucleus was then hydrodissected and then phacoemulsified with the phaco handpiece. The cortical cleanup was done with the I/A handpiece. Provisc was then injected into the anterior chamber to insufflate the bag and a posterior chamber lens placed into the bag without difficulty. The viscoelastic was aspirated with the I/A handpiece. The eye was pressurized by hydrating the temporal incision and the wound checked for leaks and there were none. The eye looked good at the end of the case, and the speculum and drape were removed. Maxitrol ointment was instilled in the conjunctival sac and the eye was shielded. The patient was taken to the recovery room in satisfactory condition. There were no complications and I will see the patient in 3 days in my office. I will follow up with him by phone if there are any problems. K DIAMANTE SHAFER MD DR: ESEQUIEL/pepper JOB#: [id number] / [id number]
[2019-06-05] MEDS ORDERED: MIDAZOLAM HCL/PF 2 MG/2 ML VIAL. ONE (13:54)
[2019-06-05 14:25] VITALS: BP 139/94
== END 2019-06-05 15:07 | disposition home or self-care (01) ==
LOC: SURG 11:05
PROVIDERS: ATTEND Ophthalmology
DX: H25.12 Age-related nuclear cataract, left eye (principal); E11.9 Type 2 diabetes mellitus without complications; I10 Essential (primary) hypertension; E78.5 Hyperlipidemia, unspecified; G47.30 Sleep apnea, unspecified; I48.91 Unspecified atrial fibrillation; Z98.890 Other specified postprocedural states; Z87.39 Personal history of other diseases of the musculoskeletal system and connective tissue; Z72.89 Other problems related to lifestyle; Z79.4 Long term (current) use of insulin; Z96.1 Presence of intraocular lens
CPT/HCPCS: 66984; 82962; C1780; J0171; J2250

== ENCOUNTER → 2019-11-10 | Outpatient (CLI) | payer OTHER, MEDICARE ==
[~2019-11-10] MED LIST changes: -CIPROFLOXACIN 0.3% OPHTH SOLUTION 5ML BOTTLE. OS ONE; -GLIM4TAB4 PO; +GLIM4TAB8 PO; -HYDROmorphone 2 MG/ML VIAL IV PRN; -IV RINGERS,LACTATED 1000ML 1,000 ML IV SCH; -LIDOCAINE 1% PF 2 ML VIAL. ID PRN; -LIDOCAINE 2% JELLY 6ML IN APPLICATOR. MM SCH; -MORPHINE SULFATE 2 MG/ML VIAL. IV PRN; -PROCHLORPERAZINE 10 MG/2 ML VIAL. IV PRN; -PROPARACAINE 0.5% OPHTH SOLUTION 15ML BOTTLE. OS ONE; -fentaNYL PF VIAL 100 MCG/2 ML VIAL IV PRN
[2019-11-10 09:39] LABS: HEMATOCRIT 44.3 % (39.0-53.0); HEMOGLOBIN 15.2 g/dL (13.0-17.5); RED BLOOD COUNT 5.04 x10^6/uL (4.30-5.70); RED CELL DISTRIBUTION WIDTH 13.5 % (11.5-14.5); WHITE BLOOD COUNT 5.5 x10^3/uL (4.0-11.0)
[2019-11-10 09:56] LABS: ALBUMIN 3.6 g/dL (3.4-5.0); ALBUMIN/GLOBULIN RATIO 1.1 (1.0-1.7); CALCIUM 9.1 mg/dL (8.5-10.1); POTASSIUM 4.2 mmol/L (3.5-5.1); TOTAL BILIRUBIN 0.5 mg/dL (0.2-1.0); TOTAL PROTEIN 6.8 g/dL (6.4-8.2)
[2019-11-10 10:01] LABS: CHOLESTEROL/HDL RATIO 3.3
[2019-11-10 23:08] LABS: HEMOGLOBIN A1C 10.4 % (4.8-5.6)
== END | disposition home or self-care (01) ==
LOC: LAB 09:04
PROVIDERS: ATTEND Family Medicine
DX: I10 Essential (primary) hypertension (principal); E11.65 Type 2 diabetes mellitus with hyperglycemia
CPT/HCPCS: 36415; 80053; 80061; 83036; 85027

== ENCOUNTER → 2020-02-23 | Outpatient (CLI) | payer OTHER, MEDICARE ==
[~2020-02-23] MED LIST changes: +METF-658; -METF500T11
[2020-02-23 11:49] LABS: ALBUMIN 3.6 g/dL (3.4-5.0); CREATININE 1.1 mg/dL (0.7-1.3); GFR 68.1; POTASSIUM 4.3 mmol/L (3.5-5.1); TOTAL BILIRUBIN 0.5 mg/dL (0.2-1.0); TOTAL PROTEIN 7.2 g/dL (6.4-8.2)
[2020-02-23 11:50] LABS: CHOLESTEROL/HDL RATIO 3.8
[2020-02-24 01:10] LABS: HEMOGLOBIN A1C 8.9 % (4.8-5.6)
== END | disposition home or self-care (01) ==
LOC: LAB 10:39
PROVIDERS: ATTEND Family Medicine
DX: E11.65 Type 2 diabetes mellitus with hyperglycemia (principal); E78.2 Mixed hyperlipidemia
CPT/HCPCS: 36415; 80053; 80061; 83036

== ENCOUNTER → 2020-04-29 | Outpatient (CLI) | payer OTHER, MEDICARE ==
[2020-04-29 13:13] LABS: ALBUMIN 3.6 g/dL (3.4-5.0); CALCIUM 8.8 mg/dL (8.5-10.1); CREATININE 1.1 mg/dL (0.7-1.3); GFR 68.1; POTASSIUM 4.4 mmol/L (3.5-5.1); TOTAL BILIRUBIN 0.3 mg/dL (0.2-1.0); TOTAL PROTEIN 7.2 g/dL (6.4-8.2)
[2020-04-29 13:15] LABS: CHOLESTEROL/HDL RATIO 3.6
== END ==
LOC: LAB 11:38
PROVIDERS: ATTEND Hospitalist
DX: E78.2 Mixed hyperlipidemia (principal); E11.9 Type 2 diabetes mellitus without complications; I10 Essential (primary) hypertension
CPT/HCPCS: 36415; 80053; 80061; 83036

== ENCOUNTER → 2020-05-24 | Outpatient (CLI) | payer OTHER, MEDICARE ==
--- NOTE | 2020-05-24 16:41 | KCIC ---
MRI Lumbar Spine without contrast History: Low back pain, right leg pain for 2 to 3 weeks, pain with walking, lumbar radiculopathy Technique: Multiplanar, multi sequential noncontrast MR imaging was performed of the lumbar spine. Comparison: CT lumbar spine exam November 09, 2014 Findings: There is transitional anatomy of the lumbar spine. Based on the assumption of 12 ribs and 5 lumbar type vertebral bodies, there is a rudimentary intervertebral disc space at what is considered L5-S1. Most inferior fully formed intervertebral disc space is considered L4-5. Lumbar vertebral body stature is mostly preserved other than small superior L4 and L3 Schmorl's nodes. Vertebral body AP alignment is overall maintained. There is mild degenerative disc disease L2-3 and L4-5 and mild disc desiccation at L3-4. Conus terminates at L1. L1-L2: This level was not included on the axial images. Neural foramina and spinal canal are adequate. L2-L3: There is minimal disc osteophyte complex and bulge. Spinal canal and neural foramina are adequate. There is mild facet hypertrophic change. L3-L4: There is very shallow posterior bulge with mild indentation upon the ventral thecal sac without significant spinal stenosis. There is mild facet degenerative change. There is mild neural foramina compromise bilaterally primarily from posteriorly by facets. L4-L5: There is moderate to severe facet degenerative change bilaterally, some fluid in the facet articulations bilaterally. There is mild buckling of the ligamentum flavum. There is synovial cyst in the right lateral recess on the order of 8 mm AP by about 8 mm transverse by 8 mm CC located at and just below the intervertebral disc space level. There is resultant fairly severe right lateral recess stenosis from posteriorly with contact of the descending right L5 nerve root in the right lateral recess. There is mild narrowing of the far left lateral recess. There is moderate to severe bilateral neural foramina compromise mostly from posteriorly by facet and ligamentum flavum although also very minimal disc osteophyte complex inferiorly. L5-S1: Spinal canal and neural foramina are adequate. Impression: 1. There is transitional anatomy of the lumbar spine as described, most inferior fully formed intervertebral disc space considered L4-5, rudimentary intervertebral disc space at what is considered L5-S1. 2. 8 mm synovial cyst contributes to fairly severe right lateral recess stenosis from posteriorly at the L4-5 level with contact of the descending right L5 nerve root. 3. There is moderate to severe neural foramina compromise bilaterally at L4-5, minimal narrowing bilaterally at L3-4. 4. There is mild degenerative disc disease greatest at L2-3 and L4-5. There is multilevel facet degenerative change greatest at L4-5. Electronically signed by: Ezequiel Ortiz MD (05/24/2020 4:38 PM) [id number]
== END ==
LOC: KCIC MRI 15:03
PROVIDERS: ATTEND Family Medicine
DX: M51.16 Intervertebral disc disorders with radiculopathy, lumbar region (principal); M48.061 Spinal stenosis, lumbar region without neurogenic claudication; M71.30 Other bursal cyst, unspecified site
CPT/HCPCS: 72148

== ENCOUNTER 2020-06-13 | Observation (INO) | payer OTHER, MEDICARE ==
[~2020-06-13] VITALS: Ht 167.6 cm; Wt 90.9 kg
[2020-06-13 00:46] LABS: BASO % 1 % (0-3); EOS # 0.2 x10^3/uL (0.0-0.7); EOS % 2 % (0-3); HEMATOCRIT 40.3 % (39.0-53.0); HEMOGLOBIN 13.8 g/dL (13.0-17.5); LYMPH # 2.6 x10^3/uL (1.0-4.8); LYMPH % 32 % (24-48); MEAN CORPUSCULAR HEMOGLOBIN 30 pg (25-35); MEAN CORPUSCULAR HGB CONC 34 g/dL (31-37); MEAN CORPUSCULAR VOLUME 88 fL (79-100); MONO # 0.8 x10^3/uL (0.0-1.1); MONO % 10 % (0-9); NEUT # 4.7 x10^3/uL (1.8-7.7); NEUT % 56 % (31-73); PLATELET COUNT 204 x10^3/uL (140-400); RED BLOOD COUNT 4.58 x10^6/uL (4.30-5.70); RED CELL DISTRIBUTION WIDTH 13.5 % (11.5-14.5); WHITE BLOOD COUNT 8.4 x10^3/uL (4.0-11.0)
--- NOTE | 2020-06-13 00:52 | PHYS DOC ---
Past Medical History Past Medical History: A-Fib, Diabetes-Type II, High Cholesterol, Hypertension Past Surgical History: Appendectomy Additional Past Surgical Histo: EYE Smoking Status: Never Smoker Alcohol Use: None Drug Use: None General Adult EDM: Chief Complaint: CHEST PAIN HPI: HPI: Patient is a 60 year old [f__sex] who presents with [] Review of Systems: Review of Systems: Constitutional: Denies fever or chills. [] Eyes: Denies change in visual acuity. [] HENT: Denies nasal congestion or sore throat. [] Respiratory: Denies cough or shortness of breath. [] Cardiovascular: Denies chest pain or edema. [] GI: Denies abdominal pain, nausea, vomiting, bloody stools or diarrhea. [] : Denies dysuria. [] Musculoskeletal: Denies back pain or joint pain. [] Integument: Denies rash. [] Neurologic: Denies headache, focal weakness or sensory changes. [] Endocrine: Denies polyuria or polydipsia. [] Lymphatic: Denies swollen glands. [] Psychiatric: Denies depression or anxiety. [] Heart Score: Risk Factors: Risk Factors: DM, Current or recent (<one month) smoker, HTN, HLP, family history of CAD, obesity. Risk Scores: Score 0 - 3: 2.5% MACE over next 6 weeks - Discharge Home Score 4 - 6: 20.3% MACE over next 6 weeks - Admit for Clinical Observation Score 7 - 10: 72.7% MACE over next 6 weeks - Early Invasive Strategies Current Medications: Current Medications Medications (Trade) Dose Ordered Sig/[facility] Start Time Stop Time Status Last Admin Dose Admin Aspirin (Mike Aspirin) 325 mg 1X ONCE 06/13/20 01:00 06/13/20 01:01 Fentanyl Citrate (Fentanyl 2ml Vial) 50 mcg 1X ONCE 06/13/20 01:00 06/13/20 01:01 Sodium Chloride 1,000 ml @ 1,000 mls/hr 1X ONCE 06/13/20 01:00 06/13/20 01:59 Allergies: Allergies: Allergies Coded Allergies Type Severity Reaction Last Updated Verified No Known Drug Allergies 06/05/19 No Physical Exam: PE: Constitutional: Well developed, well nourished, no acute distress, non-toxic appearance. [] HENT: Normocephalic, atraumatic, bilateral external ears normal, oropharynx moist, no oral exudates, nose normal. [] Eyes: PERRLA, EOMI, conjunctiva normal, no discharge. [] Neck: Normal range of motion, no tenderness, supple, no stridor. [] Cardiovascular:Heart rate regular rhythm, no murmur [] Lungs & Thorax: Bilateral breath sounds clear to auscultation [] Abdomen: Bowel sounds normal, soft, no tenderness, no masses, no pulsatile masses. [] Skin: Warm, dry, no erythema, no rash. [] Back: No tenderness, no CVA tenderness. [] Extremities: No tenderness, no cyanosis, no clubbing, ROM intact, no edema. [] Neurologic: Alert and oriented X 3, normal motor function, normal sensory function, no focal deficits noted. [] Psychologic: Affect normal, judgement normal, mood normal. [] Current Patient Data: Labs: Laboratory Tests Test 06/13/20 00:20 White Blood Count 8.4 x10^3/uL (4.0-11.0) Red Blood Count 4.58 x10^6/uL (4.30-5.70) Hemoglobin 13.8 g/dL (13.0-17.5) Hematocrit 40.3 % (39.0-53.0) Mean Corpuscular Volume 88 fL (79-100) Mean Corpuscular Hemoglobin 30 pg (25-35) Mean Corpuscular Hemoglobin Concent 34 g/dL (31-37) Red Cell Distribution Width 13.5 % (11.5-14.5) Platelet Count 204 x10^3/uL (140-400) Neutrophils (%) (Auto) 56 % (31-73) Lymphocytes (%) (Auto) 32 % (24-48) Monocytes (%) (Auto) 10 % (0-9) H Eosinophils (%) (Auto) 2 % (0-3) Basophils (%) (Auto) 1 % (0-3) Neutrophils # (Auto) 4.7 x10^3/uL (1.8-7.7) Lymphocytes # (Auto) 2.6 x10^3/uL (1.0-4.8) Monocytes # (Auto) 0.8 x10^3/uL (0.0-1.1) Eosinophils # (Auto) 0.2 x10^3/uL (0.0-0.7) Basophils # (Auto) 0.0 x10^3/uL (0.0-0.2) Laboratory Tests 06/13/20 00:20 EKG: EKG: @0009 Afib at 75bpm, NO ST elevation, QRS 82ms, QT/QTc 304/342ms Radiology/Procedures: Radiology/Procedures: [] Course & Med Decision Making: Course & Med Decision Making Pertinent Labs and Imaging studies reviewed. (See chart for details) [] Dragon Disclaimer: Dragon Disclaimer: This electronic medical record was generated, in whole or in part, using a voice recognition dictation system. Departure Departure Referrals: ALESHA MEYER MD (PCP) GABY CRISOSTOMO DO Jun 13, 2020 00:52
[2020-06-13 00:56] LABS: PROTHROMBIN TIME PATIENT 22.3 SEC (11.7-14.0)
[2020-06-13 01:00] LABS: CALCIUM 8.6 mg/dL (8.5-10.1); CREATININE 1.1 mg/dL (0.7-1.3); GFR 67.8; POTASSIUM 4.1 mmol/L (3.5-5.1)
[2020-06-13] MEDS ORDERED: IV NORMAL SALINE 1000ML BAG 1,000 ML IV ONE (01:00)
[2020-06-13] MEDS ORDERED: fentaNYL PF VIAL 100 MCG/2 ML VIAL IVP ONE (01:00)
[2020-06-13] MEDS ORDERED: ASPIRIN 325 MG TABLET PO ONE (01:00)
[2020-06-13 01:01] LABS: D-DIMER < 0.27 ug/mlFEU (0.00-0.50)
[2020-06-13 01:05] LABS: ALBUMIN 3.5 g/dL (3.4-5.0); ALBUMIN/GLOBULIN RATIO 1.3 (1.0-1.7); MAGNESIUM 1.4 mg/dL (1.8-2.4); TOTAL BILIRUBIN 0.4 mg/dL (0.2-1.0); TOTAL PROTEIN 6.2 g/dL (6.4-8.2)
--- NOTE | 2020-06-13 02:20 | RAD ---
EXAM: CHEST AP ONLY 06/13/2020 1:27 AM CLINICAL INDICATION: Left chest wall pain COMPARISON: Chest radiograph 05/18/2019 TECHNIQUE: AP upright view of the chest FINDINGS: Cardiomegaly is redemonstrated. Lungs are well-expanded and clear. No consolidation, pleural effusion, or pneumothorax. Pulmonary vascularity is normal. Old healed right mid clavicle fracture. No acute fracture. IMPRESSION: Cardiomegaly. Electronically signed by: Holly Perera MD (06/13/2020 2:17 AM) [id number]
[2020-06-13 02:32] LABS: DIG 0.9 ng/mL (0.9-2.0)
[2020-06-13] MEDS ORDERED: MAGNESIUM SULFATE 2GM 50 ML IV ONE (03:00)
[2020-06-13] MEDS ORDERED: DEXTROSE 50% 25 GM / 50ML DISP.SYRIN. IV PRN ×2 (03:00→08:15)
[2020-06-13] MEDS ORDERED: fentaNYL PF VIAL 100 MCG/2 ML VIAL IV PRN (03:00)
[2020-06-13] MEDS ORDERED: ZOLPIDEM 5 MG TABLET. PO PRN (08:00)
[2020-06-13] MEDS ORDERED: MORPHINE SULFATE 2 MG/ML VIAL. IV PRN ×2 (08:00)
[2020-06-13] MEDS ORDERED: ACETAMINOPHEN 325 MG TABLET. PO PRN (08:00)
[2020-06-13] MEDS ORDERED: INSULIN LISPRO 300 UNITS/3 ML VIAL. SQ SCH ×2 (08:00→12:00)
[2020-06-13] MEDS ORDERED: LISI-338 PO (08:04)
[2020-06-13] MEDS ORDERED: METO25TA4 PO (08:04)
[2020-06-13] MEDS ORDERED: INSU100C SQ (08:04)
--- NOTE | 2020-06-13 08:08 | PDOC1 ---
History and Physical Date of Admission Date of Admission DATE: 06/13/20 TIME: 07:59 Identification/Chief Complaint Chief Complaint Chest pain Source Source: Chart review, Patient History of Present Illness History of Present Illness Patient 60-year-old male with past medical history of type 2 diabetes, hypertension, who presents to the ER with complaints of left-sided chest pain since yesterday morning. Patient reports sharp, intermittent, left chest pain, 10/10, without radiation. Denies any aggravating factors, pain improved with medication received in the ER. Due to his cardiac risk factors asked to admit for further evaluation. Patient currently denies any aggravating factors, denies any chest pain at rest, but states his pain is reproducible. He takes Xarelto for history of A. fib. Denies any shortness of breath, nausea, vomiting, fever. Troponin <0.017 x 3, d-dimer <0.27, CBG 185, INR 2.0 Past Medical History Cardiovascular: AFIB, HTN, Hyperlipidemia Pulmonary: Other CENTRAL NERVOUS SYSTEM: Other Heme/Onc: No pertinent hx Hepatobiliary: No pertinent hx Psych: No pertinent hx Musculoskeletal: Osteoarthritis Rheumatologic: No pertinent hx Infectious disease: No pertinent hx Renal/: No pertinent hx Endocrine: Diabetes Past Surgical History Past Surgical History: Appendectomy, Cataract Removal, Hernia Repair, Tonsillectomy Family History Family History: Stroke Social History Smoke: No ALCOHOL: none Drugs: None Current Medications Current Medications Current Medications Aspirin (Mike Aspirin) 325 mg 1X ONCE PO Last administered on 06/13/20at 01:08; Start 06/13/20 at 01:00; Stop 06/13/20 at 01:01; Status DC Fentanyl Citrate (Fentanyl 2ml Vial) 50 mcg 1X ONCE IVP Last administered on 06/13/20at 01:08; Start 06/13/20 at 01:00; Stop 06/13/20 at 01:01; Status DC Sodium Chloride 1,000 ml @ 1,000 mls/hr 1X ONCE IV Last administered on 06/13/20at 01:09; Start 06/13/20 at 01:00; Stop 06/13/20 at 01:59; Status DC Magnesium Sulfate 50 ml @ 25 mls/hr 1X ONCE IV Last administered on 06/13/20at 03:00; Start 06/13/20 at 03:00; Stop 06/13/20 at 04:59; Status DC Fentanyl Citrate (Fentanyl 2ml Vial) 50 mcg PRN Q2HRS PRN IV SEVERE PAIN 7-10; Start 06/13/20 at 03:00 Insulin Human Lispro (HumaLOG) 0-5 UNITS TIDWMEALS SQ ; Start 06/13/20 at 08:00 Dextrose (Dextrose 50%-Water Syringe) 12.5 gm PRN Q15MIN PRN IV SEE COMMENTS; Start 06/13/20 at 03:00 Active Scripts Active Lisinopril 10 Mg Tablet 10 Mg PO DAILY Diltiazem 24HR Cd (Diltiazem Hcl) 180 Mg Cap.er.24h 180 Mg PO DAILY Xarelto (Rivaroxaban) 20 Mg Tablet 20 Mg PO QHS Reported Humalog (Insulin Lispro) 100 Unit/1 Ml Insuln.pen 15 Unit SQ TIDAC Toujeo Solostar (Insulin Glargine,Hum.rec.anlog) 300 Unit/1 Ml Insuln.pen 80 Unit SQ QHS Risperdal (Risperidone) 0.25 Mg Tablet 2 Mg PO HS Centrum Silver Tablet (Multivits-Min/Fa/Lycopene/Lut) 1 Each Tablet 1 Each PO DAILY Fish Oil 1,200 Mg Fish Oil (Fish Oil/Dha/Epa) 1 Each Capsule 1 Each PO DAILY Atorvastatin Calcium 20 Mg Tablet 20 Mg PO HS Metoprolol Tartrate 50 Mg Tablet 50 Mg PO BID Aspirin 81 Mg Tab.chew 81 Mg PO DAILY Glimepiride 4 Mg Tablet 4 Mg PO BID Metformin Hcl 500 Mg Tablet 1,000 Mg PO BIDWMEALS Allergies Allergies: Coded Allergies: No Known Drug Allergies (Unverified , 06/05/19) ROS Review of System GENERAL: No history of weight change, weakness or fevers. SKIN: No bruising, hair changes or rashes. EYES: No blurred, double or loss of vision. NOSE AND THROAT: No history of nosebleeds, hoarseness or sore throat. HEART: Chest pain. Denies palpitations. LUNGS: Denies cough, hemoptysis, wheezing or shortness of breath. GASTROINTESTINAL: Denies nausea, vomiting, abdominal pain. GENITOURINARY: Denies dysuria, frequency, urgency, hematuria. NEUROLOGIC: Denies history of numbness, tingling, tremor or weakness. PSYCHIATRIC: Denies anxiety, denies depression. ENDOCRINE: No history of heat or cold intolerance, polyuria or polydipsia. EXTREMITIES: Denies muscle weakness, joint pain, pain on walking or stiffness. Physical Exam Physical Exam General: Alert, Oriented X3, obese, cooperative, No acute distress HEENT: PERRLA, EOMI Lungs: Clear to auscultation, Normal air movement Heart: RRR, no murmurs Cardiovascular: S1, S2 Abdomen: Normal bowel sounds, Soft, No tenderness Extremities: No clubbing, No cyanosis Skin: No rashes, No significant lesion Neuro: Normal speech, Normal tone, Sensation intact Psych/Mental Status: Mental status NL, Mood NL Vitals Vitals Vital Signs Date Time Temp Pulse Resp B/P (MAP) Pulse Ox O2 Delivery O2 Flow Rate FiO2 06/13/20 07:50 97.7 85 16 148/101 (117) 97 Room Air 97.7 Labs Labs Laboratory Tests Test 06/13/20 00:20 06/13/20 02:58 06/13/20 06:05 06/13/20 07:37 White Blood Count 8.4 x10^3/uL (4.0-11.0) Red Blood Count 4.58 x10^6/uL (4.30-5.70) Hemoglobin 13.8 g/dL (13.0-17.5) Hematocrit 40.3 % (39.0-53.0) Mean Corpuscular Volume 88 fL (79-100) Mean Corpuscular Hemoglobin 30 pg (25-35) Mean Corpuscular Hemoglobin Concent 34 g/dL (31-37) Red Cell Distribution Width 13.5 % (11.5-14.5) Platelet Count 204 x10^3/uL (140-400) Neutrophils (%) (Auto) 56 % (31-73) Lymphocytes (%) (Auto) 32 % (24-48) Monocytes (%) (Auto) 10 % (0-9) Eosinophils (%) (Auto) 2 % (0-3) Basophils (%) (Auto) 1 % (0-3) Neutrophils # (Auto) 4.7 x10^3/uL (1.8-7.7) Lymphocytes # (Auto) 2.6 x10^3/uL (1.0-4.8) Monocytes # (Auto) 0.8 x10^3/uL (0.0-1.1) Eosinophils # (Auto) 0.2 x10^3/uL (0.0-0.7) Basophils # (Auto) 0.0 x10^3/uL (0.0-0.2) Prothrombin Time 22.3 SEC (11.7-14.0) Prothromb Time International Ratio 2.0 (0.8-1.1) D-Dimer (Susy) < 0.27 ug/mlFEU Sodium Level 139 mmol/L (136-145) Potassium Level 4.1 mmol/L (3.5-5.1) Chloride Level 103 mmol/L (98-107) Carbon Dioxide Level 26 mmol/L (21-32) Anion Gap 10 (6-14) Blood Urea Nitrogen 17 mg/dL (8-26) Creatinine 1.1 mg/dL (0.7-1.3) Estimated GFR (Cockcroft-Gault) 67.8 BUN/Creatinine Ratio 15 (6-20) Glucose Level 185 mg/dL (70-99) Calcium Level 8.6 mg/dL (8.5-10.1) Magnesium Level 1.4 mg/dL (1.8-2.4) Total Bilirubin 0.4 mg/dL (0.2-1.0) Aspartate Amino Transf (AST/SGOT) 16 U/L (15-37) Alanine Aminotransferase (ALT/SGPT) 27 U/L (16-63) Alkaline Phosphatase 44 U/L (46-116) Troponin I Quantitative < 0.017 ng/mL (0.000-0.055) < 0.017 ng/mL (0.000-0.055) < 0.017 ng/mL (0.000-0.055) PQ-Rvq-M-Type Natriuretic Peptide 468 pg/mL (0-124) Total Protein 6.2 g/dL (6.4-8.2) Albumin 3.5 g/dL (3.4-5.0) Albumin/Globulin Ratio 1.3 (1.0-1.7) Lipase 101 U/L (73-393) Digoxin Level 0.9 ng/mL (0.9-2.0) Digoxin Last Dose Date Digoxin Last Dose Time Glucose (Fingerstick) 80 mg/dL (70-99) Laboratory Tests Test 06/13/20 00:20 06/13/20 02:58 06/13/20 06:05 06/13/20 07:37 White Blood Count 8.4 x10^3/uL (4.0-11.0) Red Blood Count 4.58 x10^6/uL (4.30-5.70) Hemoglobin 13.8 g/dL (13.0-17.5) Hematocrit 40.3 % (39.0-53.0) Mean Corpuscular Volume 88 fL (79-100) Mean Corpuscular Hemoglobin 30 pg (25-35) Mean Corpuscular Hemoglobin Concent 34 g/dL (31-37) Red Cell Distribution Width 13.5 % (11.5-14.5) Platelet Count 204 x10^3/uL (140-400) Neutrophils (%) (Auto) 56 % (31-73) Lymphocytes (%) (Auto) 32 % (24-48) Monocytes (%) (Auto) 10 % (0-9) Eosinophils (%) (Auto) 2 % (0-3) Basophils (%) (Auto) 1 % (0-3) Neutrophils # (Auto) 4.7 x10^3/uL (1.8-7.7) Lymphocytes # (Auto) 2.6 x10^3/uL (1.0-4.8) Monocytes # (Auto) 0.8 x10^3/uL (0.0-1.1) Eosinophils # (Auto) 0.2 x10^3/uL (0.0-0.7) Basophils # (Auto) 0.0 x10^3/uL (0.0-0.2) Prothrombin Time 22.3 SEC (11.7-14.0) Prothromb Time International Ratio 2.0 (0.8-1.1) D-Dimer (Susy) < 0.27 ug/mlFEU Sodium Level 139 mmol/L (136-145) Potassium Level 4.1 mmol/L (3.5-5.1) Chloride Level 103 mmol/L (98-107) Carbon Dioxide Level 26 mmol/L (21-32) Anion Gap 10 (6-14) Blood Urea Nitrogen 17 mg/dL (8-26) Creatinine 1.1 mg/dL (0.7-1.3) Estimated GFR (Cockcroft-Gault) 67.8 BUN/Creatinine Ratio 15 (6-20) Glucose Level 185 mg/dL (70-99) Calcium Level 8.6 mg/dL (8.5-10.1) Magnesium Level 1.4 mg/dL (1.8-2.4) Total Bilirubin 0.4 mg/dL (0.2-1.0) Aspartate Amino Transf (AST/SGOT) 16 U/L (15-37) Alanine Aminotransferase (ALT/SGPT) 27 U/L (16-63) Alkaline Phosphatase 44 U/L (46-116) Troponin I Quantitative < 0.017 ng/mL (0.000-0.055) < 0.017 ng/mL (0.000-0.055) < 0.017 ng/mL (0.000-0.055) PE-Xer-J-Type Natriuretic Peptide 468 pg/mL (0-124) Total Protein 6.2 g/dL (6.4-8.2) Albumin 3.5 g/dL (3.4-5.0) Albumin/Globulin Ratio 1.3 (1.0-1.7) Lipase 101 U/L (73-393) Digoxin Level 0.9 ng/mL (0.9-2.0) Digoxin Last Dose Date Digoxin Last Dose Time Glucose (Fingerstick) 80 mg/dL (70-99) Images Images EXAM: CHEST AP ONLY 06/13/2020 1:27 AM CLINICAL INDICATION: Left chest wall pain COMPARISON: Chest radiograph 05/18/2019 TECHNIQUE: AP upright view of the chest FINDINGS: Cardiomegaly is redemonstrated. Lungs are well-expanded and clear. No consolidation, pleural effusion, or pneumothorax. Pulmonary vascularity is normal. Old healed right mid clavicle fracture. No acute fracture. IMPRESSION: Cardiomegaly. VTE Prophylaxis Ordered VTE Prophylaxis Devices: No VTE Pharmacological Prophylaxi: Yes Assessment/Plan Assessment/Plan Unstable angina Chest pain Type 2 diabetes Plan: Serial troponins undetectable. Pain is reproducible and discussed with patient and that this is musculoskeletal in nature Consultations placed to cardiology, will defer to their expertise for further work-up. Sliding-scale insulin Patient will likely discharge today, with close PCP follow-up. FEN - Cardiac diet PPX - Xarelto FULL CODE Dispo - observation for above Justifications for Admission Other Justification NICOLE CHOWDARY MD Jun 13, 2020 08:08
[2020-06-13] MEDS ORDERED: DILT180C64 PO (08:16)
--- NOTE | 2020-06-13 10:02 | NUR ---
Assumed care of patient this AM as ER hold. Patient stated he came in due to pain in his left chest that he believes is coming from his back. He has a known cyst in his back that needs surgical intervention but is causing lots of pain down his leg and believes now radiating to chest. at bedside stated patient may have heartburn pain. She stated she gave him a soda when he first complained about the pain and drinking the soda made him belch really loud. Advised for now and due to chest pain complaint, patient has to remain NPO until cardiology assesses patient
[2020-06-13 10:18] VITALS: BP 180/110
--- NOTE | 2020-06-13 10:44 | PDOC2 ---
KAYLENE STAFFORD [employer] ARCHITECT 06/13/20 1044: CARDIAC CONSULT DATE OF CONSULT Date of Consult DATE: 06/13/20 TIME: 10:41 REASON FOR CONSULT Reason for Consult: Chest pain REFERRING PHYSICIAN Referring Physician: Dr. Ramirez SOURCE Source: Chart review, Patient HISTORY OF PRESENT ILLNESS HISTORY OF PRESENT ILLNESS This is a 60 yo male who presented secondary to chest pain. Patient reports having intermittent stabbing in his left chest yesterday. Nonradiating. No associated dizziness, diaphoresis, palpitations, or SOA. Pain would last seconds and resolved without intervention. No recent illness/fevers. Pain was recurrent so he decided to come to the ED for further evaluation and treatment. Does report soreness in the left chest upon palpation. PAST MEDICAL HISTORY Cardiovascular: AFIB, HTN, Hyperlipidemia Endocrine: Diabetes PAST SURGICAL HISTORY Past Surgical History: Appendectomy, Cataract Removal, Tonsillectomy FAMILY HISTORY Family History: Diabetes, Stroke SOCIAL HISTORY Smoke: No ALCOHOL: none Drugs: None Lives: with Family CURRENT MEDICATIONS CURRENT MEDICATIONS Current Medications Medications (Trade) Dose Ordered Sig/[place] Route PRN Reason Start Time Stop Time Status Last Admin Dose Admin Aspirin (Mike Aspirin) 325 mg 1X ONCE PO 06/13/20 01:00 06/13/20 01:01 DC 06/13/20 01:08 Fentanyl Citrate (Fentanyl 2ml Vial) 50 mcg 1X ONCE IVP 06/13/20 01:00 06/13/20 01:01 DC 06/13/20 01:08 Sodium Chloride 1,000 ml @ 1,000 mls/hr 1X ONCE IV 06/13/20 01:00 06/13/20 01:59 DC 06/13/20 01:09 Magnesium Sulfate 50 ml @ 25 mls/hr 1X ONCE IV 06/13/20 03:00 06/13/20 04:59 DC 06/13/20 03:00 ALLERGIES ALLERGIES: Coded Allergies: No Known Drug Allergies (Unverified , 06/05/19) ROS Review of System 14 point ROS conducted with pertinent positives noted above in HPI PHYSICAL EXAM General: Alert, Oriented X3, Cooperative, No acute distress HEENT: Atraumatic, Mucous membr. moist/pink Lungs: Clear to auscultation Heart: Normal S1, Normal S2, Other (AFIB, rate controlled ) Abdomen: Soft, No tenderness Extremities: No edema, Normal pulses Skin: No significant lesion Neuro: Normal speech, Sensation intact Psych/Mental Status: Mental status NL, Mood NL MUSCULOSKELETAL: Osteoarthritic changes both hands VITALS/I&O VITALS/I&O: Vital Signs Date Time Temp Pulse Resp B/P (MAP) Pulse Ox O2 Delivery O2 Flow Rate FiO2 06/13/20 10:18 98.4 97 18 180/110 (133) 96 Room Air 98.4 I & O 06/12/20 06/12/20 06/13/20 15:00 23:00 07:00 Intake Total 1050 ml Balance 1050 ml LABS Lab: Laboratory Tests Test 06/13/20 00:20 06/13/20 02:58 06/13/20 06:05 06/13/20 07:37 White Blood Count 8.4 x10^3/uL (4.0-11.0) Red Blood Count 4.58 x10^6/uL (4.30-5.70) Hemoglobin 13.8 g/dL (13.0-17.5) Hematocrit 40.3 % (39.0-53.0) Mean Corpuscular Volume 88 fL (79-100) Mean Corpuscular Hemoglobin 30 pg (25-35) Mean Corpuscular Hemoglobin Concent 34 g/dL (31-37) Red Cell Distribution Width 13.5 % (11.5-14.5) Platelet Count 204 x10^3/uL (140-400) Neutrophils (%) (Auto) 56 % (31-73) Lymphocytes (%) (Auto) 32 % (24-48) Monocytes (%) (Auto) 10 % (0-9) H Eosinophils (%) (Auto) 2 % (0-3) Basophils (%) (Auto) 1 % (0-3) Neutrophils # (Auto) 4.7 x10^3/uL (1.8-7.7) Lymphocytes # (Auto) 2.6 x10^3/uL (1.0-4.8) Monocytes # (Auto) 0.8 x10^3/uL (0.0-1.1) Eosinophils # (Auto) 0.2 x10^3/uL (0.0-0.7) Basophils # (Auto) 0.0 x10^3/uL (0.0-0.2) Prothrombin Time 22.3 SEC (11.7-14.0) H Prothrombin Time INR 2.0 (0.8-1.1) H D-Dimer (Susy) < 0.27 ug/mlFEU Sodium Level 139 mmol/L (136-145) Potassium Level 4.1 mmol/L (3.5-5.1) Chloride Level 103 mmol/L (98-107) Carbon Dioxide Level 26 mmol/L (21-32) Anion Gap 10 (6-14) Blood Urea Nitrogen 17 mg/dL (8-26) Creatinine 1.1 mg/dL (0.7-1.3) Estimated GFR (Cockcroft-Gault) 67.8 BUN/Creatinine Ratio 15 (6-20) Glucose Level 185 mg/dL (70-99) H Calcium Level 8.6 mg/dL (8.5-10.1) Magnesium Level 1.4 mg/dL (1.8-2.4) L Total Bilirubin 0.4 mg/dL (0.2-1.0) Aspartate Amino Transferase (AST) 16 U/L (15-37) Alanine Aminotransferase (ALT) 27 U/L (16-63) Alkaline Phosphatase 44 U/L (46-116) L Troponin I Quantitative < 0.017 ng/mL (0.000-0.055) < 0.017 ng/mL (0.000-0.055) < 0.017 ng/mL (0.000-0.055) OP-Xpl-J-Type Natriuretic Peptide 468 pg/mL (0-124) H Total Protein 6.2 g/dL (6.4-8.2) L Albumin 3.5 g/dL (3.4-5.0) Albumin/Globulin Ratio 1.3 (1.0-1.7) Lipase 101 U/L (73-393) Digoxin Level 0.9 ng/mL (0.9-2.0) Digoxin Last Dose Date Digoxin Last Dose Time Glucose (Fingerstick) 80 mg/dL (70-99) Laboratory Tests 06/13/20 00:20 Laboratory Tests 06/13/20 00:20 ECHOCARDIOGRAM ECHOCARDIOGRAM <Conclusion> The left ventricular systolic function is normal and the ejection fraction is within normal range. The Ejection Fraction is 55-60%. There is normal LV segmental wall motion. DATE: 03/26/18 1724 STRESS TEST STRESS TEST Conclusion 1. No evidence of EKG changes with stress testing to suggest ischemia. 2. Normal perfusion at stress/rest. 3. Low risk study. 4. EF > 60%. DATE: 05/20/18 1051 ASSESSMENT/PLAN ASSESSMENT/PLAN 1. Chest pain, atypical; AMI ruled out. Most probably MSK in origin as pain is reproducible 2. Hypomagnesemia ; replaced 3. Chronic AFIB; rate controlled on Xarelto for stroke prophylaxis 4. Hypertension; mildly elevated 5. Hyperlipemia; statin 6. Diabetes, II 7. SUMMER with CPAP Recommendations Resume Cardizem, metoprolol for rate control Xarelto for stroke prophylaxis Will arrange outpatient echo to assess LV systolic function Consider outpatient ischemic evaluation Follow up with Dr. Li June 30 at 11:00am. KELLY LI MD 06/13/20 1706: CARDIAC CONSULT ASSESSMENT/PLAN ASSESSMENT/PLAN Patient seen and examined Atypical chest pain. Negative troponin x3. No acute ischemic changes. Most consistent with musculoskeletal pain. We will continue on Cardizem and metoprolol. Outpatient echo and outpatient ischemia evaluation. Chronic atrial fibrillation. Rate controlled. On Xarelto. Hypertension. Mildly elevated. Cardizem as above. Hypomagnesemia has been replaced. Hyperlipidemia. Will continue statin medication. Diabetes mellitus. As per the primary service. Thank you for allowing us to participate in the care of your patient KAYLENE STAFFORD REGINALD Jun 13, 2020 10:44 KELLY LI MD Jun 13, 2020 17:06
[2020-06-13] MEDS ORDERED: METOPROLOL TART IMMED RELEASE 25 MG TABLET. PO SCH (12:00)
[2020-06-13] MEDS ORDERED: LISINOPRIL 5 MG TABLET. PO SCH (12:00)
[2020-06-13 12:52] VITALS: BP 143/92
[2020-06-13 14:28] VITALS: BP 165/91
--- NOTE | 2020-06-13 15:25 | PDOC3 ---
Discharge Summary Visit Information Date of Admission: Jun 13, 2020 Date of Discharge: Jun 13, 2020 Brief Hospital Course Allergies Allergies Coded Allergies Type Severity Reaction Last Updated Verified No Known Drug Allergies 06/05/19 No Vital Signs Vital Signs Date Time Temp Pulse Resp B/P (MAP) Pulse Ox O2 Delivery O2 Flow Rate FiO2 06/13/20 14:55 Room Air 06/13/20 14:28 97.8 87 18 165/91 (115) 95 97.8 Lab Results Laboratory Tests Test 06/13/20 00:20 06/13/20 02:58 06/13/20 06:05 06/13/20 07:37 White Blood Count 8.4 x10^3/uL (4.0-11.0) Red Blood Count 4.58 x10^6/uL (4.30-5.70) Hemoglobin 13.8 g/dL (13.0-17.5) Hematocrit 40.3 % (39.0-53.0) Mean Corpuscular Volume 88 fL (79-100) Mean Corpuscular Hemoglobin 30 pg (25-35) Mean Corpuscular Hemoglobin Concent 34 g/dL (31-37) Red Cell Distribution Width 13.5 % (11.5-14.5) Platelet Count 204 x10^3/uL (140-400) Neutrophils (%) (Auto) 56 % (31-73) Lymphocytes (%) (Auto) 32 % (24-48) Monocytes (%) (Auto) 10 % (0-9) Eosinophils (%) (Auto) 2 % (0-3) Basophils (%) (Auto) 1 % (0-3) Neutrophils # (Auto) 4.7 x10^3/uL (1.8-7.7) Lymphocytes # (Auto) 2.6 x10^3/uL (1.0-4.8) Monocytes # (Auto) 0.8 x10^3/uL (0.0-1.1) Eosinophils # (Auto) 0.2 x10^3/uL (0.0-0.7) Basophils # (Auto) 0.0 x10^3/uL (0.0-0.2) Prothrombin Time 22.3 SEC (11.7-14.0) Prothromb Time International Ratio 2.0 (0.8-1.1) D-Dimer (Susy) < 0.27 ug/mlFEU Sodium Level 139 mmol/L (136-145) Potassium Level 4.1 mmol/L (3.5-5.1) Chloride Level 103 mmol/L (98-107) Carbon Dioxide Level 26 mmol/L (21-32) Anion Gap 10 (6-14) Blood Urea Nitrogen 17 mg/dL (8-26) Creatinine 1.1 mg/dL (0.7-1.3) Estimated GFR (Cockcroft-Gault) 67.8 BUN/Creatinine Ratio 15 (6-20) Glucose Level 185 mg/dL (70-99) Calcium Level 8.6 mg/dL (8.5-10.1) Magnesium Level 1.4 mg/dL (1.8-2.4) Total Bilirubin 0.4 mg/dL (0.2-1.0) Aspartate Amino Transf (AST/SGOT) 16 U/L (15-37) Alanine Aminotransferase (ALT/SGPT) 27 U/L (16-63) Alkaline Phosphatase 44 U/L (46-116) Troponin I Quantitative < 0.017 ng/mL (0.000-0.055) < 0.017 ng/mL (0.000-0.055) < 0.017 ng/mL (0.000-0.055) AM-Lww-Z-Type Natriuretic Peptide 468 pg/mL (0-124) Total Protein 6.2 g/dL (6.4-8.2) Albumin 3.5 g/dL (3.4-5.0) Albumin/Globulin Ratio 1.3 (1.0-1.7) Lipase 101 U/L (73-393) Digoxin Level 0.9 ng/mL (0.9-2.0) Digoxin Last Dose Date Digoxin Last Dose Time Glucose (Fingerstick) 80 mg/dL (70-99) Test 06/13/20 11:14 Glucose (Fingerstick) 76 mg/dL (70-99) Laboratory Tests Test 06/13/20 00:20 06/13/20 02:58 06/13/20 06:05 06/13/20 07:37 White Blood Count 8.4 x10^3/uL (4.0-11.0) Red Blood Count 4.58 x10^6/uL (4.30-5.70) Hemoglobin 13.8 g/dL (13.0-17.5) Hematocrit 40.3 % (39.0-53.0) Mean Corpuscular Volume 88 fL (79-100) Mean Corpuscular Hemoglobin 30 pg (25-35) Mean Corpuscular Hemoglobin Concent 34 g/dL (31-37) Red Cell Distribution Width 13.5 % (11.5-14.5) Platelet Count 204 x10^3/uL (140-400) Neutrophils (%) (Auto) 56 % (31-73) Lymphocytes (%) (Auto) 32 % (24-48) Monocytes (%) (Auto) 10 % (0-9) Eosinophils (%) (Auto) 2 % (0-3) Basophils (%) (Auto) 1 % (0-3) Neutrophils # (Auto) 4.7 x10^3/uL (1.8-7.7) Lymphocytes # (Auto) 2.6 x10^3/uL (1.0-4.8) Monocytes # (Auto) 0.8 x10^3/uL (0.0-1.1) Eosinophils # (Auto) 0.2 x10^3/uL (0.0-0.7) Basophils # (Auto) 0.0 x10^3/uL (0.0-0.2) Prothrombin Time 22.3 SEC (11.7-14.0) Prothromb Time International Ratio 2.0 (0.8-1.1) D-Dimer (Susy) < 0.27 ug/mlFEU Sodium Level 139 mmol/L (136-145) Potassium Level 4.1 mmol/L (3.5-5.1) Chloride Level 103 mmol/L (98-107) Carbon Dioxide Level 26 mmol/L (21-32) Anion Gap 10 (6-14) Blood Urea Nitrogen 17 mg/dL (8-26) Creatinine 1.1 mg/dL (0.7-1.3) Estimated GFR (Cockcroft-Gault) 67.8 BUN/Creatinine Ratio 15 (6-20) Glucose Level 185 mg/dL (70-99) Calcium Level 8.6 mg/dL (8.5-10.1) Magnesium Level 1.4 mg/dL (1.8-2.4) Total Bilirubin 0.4 mg/dL (0.2-1.0) Aspartate Amino Transf (AST/SGOT) 16 U/L (15-37) Alanine Aminotransferase (ALT/SGPT) 27 U/L (16-63) Alkaline Phosphatase 44 U/L (46-116) Troponin I Quantitative < 0.017 ng/mL (0.000-0.055) < 0.017 ng/mL (0.000-0.055) < 0.017 ng/mL (0.000-0.055) GN-Bob-C-Type Natriuretic Peptide 468 pg/mL (0-124) Total Protein 6.2 g/dL (6.4-8.2) Albumin 3.5 g/dL (3.4-5.0) Albumin/Globulin Ratio 1.3 (1.0-1.7) Lipase 101 U/L (73-393) Digoxin Level 0.9 ng/mL (0.9-2.0) Digoxin Last Dose Date Digoxin Last Dose Time Glucose (Fingerstick) 80 mg/dL (70-99) Test 06/13/20 11:14 Glucose (Fingerstick) 76 mg/dL (70-99) Brief Hospital Course Mr. Limon is a 60 old male who presented with chest pain. Troponins were trended and negative x3. D-dimer was undetectable. Consultations with cardiology. No cardiac intervention was necessary, recommended to follow-up with PCP. Discharge Information Condition at Discharge: Stable Follow Up: Weeks Disposition/Orders: D/C to Home Scheduled Aspirin (Aspirin) 81 Mg Tab.chew, 81 MG PO DAILY for heart, (Reported) Entered as Reported by: GABRIELA CLAROS on 11/10/14 1227 Last Action: Reviewed on 06/13/20803 by Alise Burr Atorvastatin Calcium (Atorvastatin Calcium) 20 Mg Tablet, 20 MG PO HS for FOR CHOLESTEROL, #30 Ref 0 (Reported) Entered as Reported by: NAZ CASTANEDA on 08/26/15 0133 Last Action: Reviewed on 06/13/20803 by Alise Burr Diltiazem Hcl (Cartia Xt) 180 Mg Cap.er.24h, 180 CAP PO BID for , (Reported) Entered as Reported by: Alise Burr on 06/13/20 0816 Last Taken: 180 on Unknown Date & Time Last Action: Continued on 06/13/201119 by Alise uBrr Fish Oil/Dha/Epa (Fish Oil 1,200 Mg Fish Oil) 1 Each Capsule, 1 EACH PO DAILY, (Reported) Entered as Reported by: NAZ CASTANEDA on 08/26/15 0133 Last Action: Reviewed on 06/13/20803 by Alise Burr Insulin Glargine,Hum.rec.anlog (Toujeo Solostar) 300 Unit/1 Ml Insuln.pen, 80 UNIT SQ QHS for DIABETES, (Reported) Entered as Reported by: SEPIDEH SUAREZ on 03/24/18 1648 Last Action: Reviewed on 06/13/20803 by Alise Burr Insulin Lispro (Humalog) 100 Unit/1 Ml Cartridge, 20 UNIT SQ TIDAFTMEAL for , (Reported) Entered as Reported by: Alise Burr on 06/13/20803 Last Action: New Order on 06/13/20803 by Alise Burr Lisinopril (Lisinopril) 5 Mg Tablet, 5 MG PO DAILY for FOR HYPERTENSION, #30 Ref 0 (Reported) Entered as Reported by: Alise Burr on 06/13/20803 Last Taken: 5 on Unknown Date & Time Last Action: Continued on 06/13/201119 by Alise Burr Metformin Hcl (Metformin Hcl) 500 Mg Tablet, 1,000 MG PO BIDWMEALS for ANTI- DIABETIC, Ref 0 (Reported) Entered as Reported by: ETHAN TOLBERT on 11/09/14 1342 Last Action: Reviewed on 06/13/20803 by Alise Burr Metoprolol Tartrate (Metoprolol Tartrate) 25 Mg Tablet, 25 MG PO BID for FOR HYPERTENSION, #60 Ref 0 (Reported) Entered as Reported by: Alise Burr on 06/13/20803 Last Action: Continued on 06/13/201119 by Alise Burr Multivits-Min/Fa/Lycopene/Lut (Centrum Silver Tablet) 1 Each Tablet, 1 EACH PO DAILY, (Reported) Entered as Reported by: NAZ CASTANEDA on 08/26/15132 Last Action: Reviewed on 06/13/20803 by Alise Burr Rivaroxaban (Xarelto) 20 Mg Tablet, 20 MG PO QHS, #30 Ref 2 Prescribed by: HESHAM UPTON on 03/27/18 0955 Last Action: Reviewed on 06/13/20803 by Alise Burr Discontinued Medications Metoprolol Tartrate (Metoprolol Tartrate) 50 Mg Tablet, 50 MG PO BID for FOR HYPERTENSION, #60 Ref 0 (Reported) Discontinued Reason: Prescription changed Entered as Reported by: NAZ CASTANEDA on 08/26/15132 Justicifation of Admission Dx: Justifications for Admission: Justification of Admission Dx: Yes (Chest pain) NICOLE CHOWDARY MD Jun 13, 2020 15:25
[2020-06-13] MEDS ORDERED: FLU VACC QS 2020-21(6MOS+)/PF 0.5 ML SYRINGE. VAX IM ONE (15:45)
--- NOTE | 2020-06-13 16:18 | NUR ---
Discharge Note: MEGGAN CARDOSO PED HOLD Discharge instructions and discharge home medications reviewed with Patient and a copy given. All questions have been answered and understanding verbalized. The following instructions and handouts were given: discharge medication list and follow up appointment Discontinued lines and drains: peripheral IV discontinued, dressing clean dry andintact. Patient discharged to home with via wheelchair
--- NOTE | 2020-06-13 17:09 | EKG ---
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
[2020-06-14] MEDS ORDERED: FLU VACC QS 2020-21(6MOS+)/PF 0.5 ML SYRINGE. VAX IM ONE (09:00)
== END 2020-06-13 16:25 | disposition home or self-care (01) ==
LOC: ER → ED HOLD 05:02
PROVIDERS: ADMIT Family Medicine; ATTEND Family Medicine
DX: I20.0 Unstable angina (principal); R07.89 Other chest pain; I10 Essential (primary) hypertension; E11.9 Type 2 diabetes mellitus without complications; I48.91 Unspecified atrial fibrillation; E78.00 Pure hypercholesterolemia, unspecified; I48.20 Chronic atrial fibrillation, unspecified; G47.33 Obstructive sleep apnea (adult) (pediatric); E83.42 Hypomagnesemia; E78.5 Hyperlipidemia, unspecified; M19.90 Unspecified osteoarthritis, unspecified site; Z23 Encounter for immunization; Z90.49 Acquired absence of other specified parts of digestive tract; Z98.49 Cataract extraction status, unspecified eye; Z98.890 Other specified postprocedural states; Z79.82 Long term (current) use of aspirin; Z79.4 Long term (current) use of insulin; Z79.899 Other long term (current) drug therapy
CPT/HCPCS: 36415; 71045; 80053; 80162; 82962; 83690; 83735; 83880; 84484; 85025; 85379; 85610; 90471; 90686; 93005; 96361; 96365; 96366; 96375; 99285; G0378; J1815; J3010; J3475; J7030; G0379

== ENCOUNTER → 2020-06-20 | Outpatient (CLI) | payer OTHER, MEDICARE ==
[2020-06-13 14:28] VITALS: BP 165/91
[~2020-06-20] MED LIST changes: +DILT180C64 PO; +INSU100C SQ; +METO25TA4 PO
--- NOTE | 2020-06-20 13:13 | CARD ---
MR#: [id number] Date of Study: 06/20/2020 Ordering Physician: KELLY LI, Referring Physician: KELLY LI, Tech: Cristela Mcarthur RDCS APPROVED REPORT EXAM: Two-dimensional and M-mode echocardiogram with Doppler and color Doppler. Other Information Quality : Good Rhythm : Atrial Fibrillation INDICATION Atrial Fibrillation 2D DIMENSIONS RVDd2.9 (2.9-3.5cm)Left Atrium(2D)4.4 (1.6-4.0cm) IVSd1.2 (0.7-1.1cm)Aortic Root(2D)3.8 (2.0-3.7cm) LVDd6.1 (3.9-5.9cm)LVOT Diameter2.3 (1.8-2.4cm) PWd1.2 (0.7-1.1cm)LVDs4.6 (2.5-4.0cm) FS (%) 24.7 %SV88.7 ml LVEF(%)48.1 (>50%) Aortic Valve AoV Peak Anthony.112.1cm/sAoV VTI18.5cm AO Peak GR.5.0mmHgLVOT Peak Anthony.102.1cm/s AO Mean GR.3mmHgAVA (VMAX)3.94cm2 GUSTAVO (VTI)4.00cm2 Tricuspid Valve TR P. Esvaotpp244xj/sRAP BZERKGSE8nvBq TR Peak Gr.57peZlSYLQ38vxGl Pulmonary Vein S1 Manvogfy55.7cm/sD2 Jxdwcrxu79.6cm/s LEFT VENTRICLE The Left Ventricle is mildly dilated. There is mild concentric left ventricular hypertrophy. Left barrett tricle systolic function is low normal. The Ejection Fraction is 50-55%. There is normal LV segmental wall motion. The left ventricular diastolic function and filling is normal for age. RIGHT VENTRICLE The right ventricle is normal size. The right ventricular systolic function is normal. ATRIA The left atrium is mildly dilated. The right atrium size is normal. The interatrial septum is intact with no evidence for an atrial septal defect or patent foramen ovale as noted on 2-D or Doppler imagi ng. AORTIC VALVE The aortic valve is calcified but opens well. Doppler and Color Flow revealed trace aortic regurgitat ion. There is no significant aortic valvular stenosis. MITRAL VALVE The mitral valve is calcified but opens well. There is no evidence of mitral valve prolapse. There is no mitral valve stenosis. Doppler and Color-flow revealed trace to mild mitral regurgitation. TRICUSPID VALVE The tricuspid valve is normal in structure and function. Doppler and Color Flow revealed trace tricus pid regurgitation. The PA pressure was estimated at 21 mmHg. There is no tricuspid valve stenosis. PULMONIC VALVE The pulmonic valve is not well visualized. Doppler and Color Flow revealed no pulmonic valvular regur gitation. There is no pulmonic valvular stenosis. GREAT VESSELS The aortic root is normal in size. The ascending aorta is not well seen. The IVC is normal in size an d collapses >50% with inspiration. PERICARDIAL EFFUSION There is no evidence of significant pericardial effusion. Critical Notification Critical Value: No <Conclusion> Left ventricle systolic function is low normal. The Ejection Fraction is 50-55%. There is normal LV segmental wall motion. Signed by : Andrew Robbins, Electronically Approved : 06/20/2020 13:12:48
== END ==
LOC: ECHO 10:22
PROVIDERS: ATTEND Internal Medicine Cardiovascular Disease
DX: I08.0 Rheumatic disorders of both mitral and aortic valves (principal); I48.91 Unspecified atrial fibrillation
CPT/HCPCS: 93306

== ENCOUNTER → 2020-07-04 | Outpatient (CLI) | payer OTHER, MEDICARE ==
[2020-06-13 14:28] VITALS: BP 165/91
[~2020-07-04] MED LIST changes: +DIGO250T3 PO; +DOCU-109 PO; +DULA1.5P SQ; +HYDR-2761 PO; +HYDR-3165 PO; +METH750T2 PO
--- NOTE | 2020-07-04 15:54 | EKG ---
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
[2020-07-04 15:56] LABS: BASO % 1 % (0-3); EOS % 1 % (0-3); HEMATOCRIT 42.1 % (39.0-53.0); HEMOGLOBIN 14.4 g/dL (13.0-17.5); LYMPH # 1.9 x10^3/uL (1.0-4.8); LYMPH % 21 % (24-48); MEAN CORPUSCULAR HEMOGLOBIN 31 pg (25-35); MEAN CORPUSCULAR HGB CONC 34 g/dL (31-37); MEAN CORPUSCULAR VOLUME 90 fL (79-100); MONO # 0.7 x10^3/uL (0.0-1.1); MONO % 8 % (0-9); NEUT # 6.4 x10^3/uL (1.8-7.7); NEUT % 71 % (31-73); PLATELET COUNT 228 x10^3/uL (140-400); RED CELL DISTRIBUTION WIDTH 13.5 % (11.5-14.5); WHITE BLOOD COUNT 9.1 x10^3/uL (4.0-11.0)
[2020-07-04 16:13] LABS: ALBUMIN 3.6 g/dL (3.4-5.0); ALBUMIN/GLOBULIN RATIO 1.2 (1.0-1.7); CALCIUM 8.7 mg/dL (8.5-10.1); CREATININE 1.3 mg/dL (0.7-1.3); GFR 55.9; POTASSIUM 4.2 mmol/L (3.5-5.1); TOTAL BILIRUBIN 0.6 mg/dL (0.2-1.0); TOTAL PROTEIN 6.7 g/dL (6.4-8.2)
[2020-07-05 06:15] LABS: HEMOGLOBIN A1C 7.6 % (4.8-5.6)
== END ==
LOC: SURGPAT 13:30
PROVIDERS: ATTEND Neurological Surgery
DX: Z01.818 Encounter for other preprocedural examination (principal); M71.38 Other bursal cyst, other site; M48.062 Spinal stenosis, lumbar region with neurogenic claudication; M54.16 Radiculopathy, lumbar region; R94.31 Abnormal electrocardiogram [ECG] [EKG]; I48.91 Unspecified atrial fibrillation; Z20.828 Contact with and (suspected) exposure to other viral communicable diseases
CPT/HCPCS: 80053; 83036; 85025; 87641; 93005; U0003

== ENCOUNTER 2020-07-07 07:01 | Day surgery (SDC) | payer OTHER, MEDICARE ==
--- NOTE | 2020-07-06 14:48 | HP ---
ADMIT DATE: 07/07/2020. DATE OF SURGERY: 07/07/2020. HISTORY OF PRESENT ILLNESS: The patient is a pleasant 60-year-old who is having difficulty with low back pain that radiates to his right hip, buttock and posterior lateral thigh and leg. He has no pain in the left leg. He said that the problem began on 04/13/2020 when he was getting up at night, he used the restroom and he fell. He rates his pain as a 10/10. He is in constant pain. He says that it is worse when he is walking, standing, and doing any activity. It improves with lying down. He has been taking hydrocodone. He did one visit with physical therapy, but was unable to afford it. He was given exercises, which he has been doing at home and those are not helping. He did receive steroid injection by his primary care office, which did help him, but also increased his blood sugars significantly. He ambulates with a cane. PAST MEDICAL HISTORY: Hypertension, diabetes, heart disease, arthritis. PAST SURGICAL HISTORY: Denies past surgical history. FAMILY HISTORY: Diabetes. SOCIAL HISTORY: He is retired. . Does not smoke. Drinks alcohol 1-2 times per year. ALLERGIES: No known drug allergies. CURRENT MEDICATIONS: [place], fish oil, Centrum, Xarelto, lisinopril, Cardizem, digoxin, metoprolol, metformin, atorvastatin, calcium, aspirin. REVIEW OF SYSTEMS: A 12-point review of systems was obtained and is noncontributory except that mentioned above. PHYSICAL EXAMINATION: NEUROSURGERY EXAMINATION: GENERAL APPEARANCE: Alert, pleasant, in no acute distress. HEAD: Normocephalic and atraumatic. SKIN: Warm and dry. MUSCULOSKELETAL: Lumbar paraspinal muscle bulk is normal, restricted range of motion of the lumbar spine, afmc-he-bxrzvbex tenderness of lower lumbar spine with palpation, normal range of motion of the lower extremities bilaterally. EXTREMITIES: No clubbing, cyanosis or edema. NEUROLOGIC: Alert and oriented x 3, normal recent and remote memory, strength is 5/5 in bilateral lower extremities, sensory was intact to light touch in bilateral lower extremities. Reflexes are present and symmetric in lower extremities bilaterally, negative straight leg raising bilaterally, ambulates with a cane. IMAGING: I reviewed a lumbar MRI scan. On that study at L4-L5, there is an 8 mm synovial cyst with severe right lateral recess stenosis and contact with the descending right L5 nerve root. ASSESSMENT/PLAN: I believe the problems at L4-L5 on the right are responsible for his symptoms. He has been doing physical therapy exercises with no improvement. He is unable to have further steroid injections due to issues with his diabetes and blood sugar elevation. I recommended a laminectomy at L4-5 with removal of synovial cyst. The surgery including the technique, risk and expected postoperative course. He understands. 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 We will make the arrangements. ROSAMARIA ANDERSON MD DR: TIFFANIE/pepper JOB#: [id number] / [id number] TORI
[~2020-07-07] VITALS: Ht 180.3 cm; Wt 110.7 kg
[~2020-07-07 07:01] MED LIST changes: +BACITRACIN 50,000 UNIT in IV NORMAL SALINE 1000ML BAG 1,000 ML IRR ONE; -DOCU-109 PO; +GELATIN SPONGE SIZE 100. ONE; -HYDR-3165 PO; +HYDROmorphone 2 MG/ML VIAL IV PRN; +KETOROLAC 60 MG/2 ML VIAL. ONE; +LIDOCAINE 1%/EPI 1:100,000 20 ML VIAL. ONE; +MORPHINE SULFATE 2 MG/ML VIAL. IV PRN; +ONDANSETRON PF 4 MG/2 ML VIAL. IV PRN; +PROCHLORPERAZINE 10 MG/2 ML VIAL. IV PRN; +THROMBIN TOPICAL 20,000 UNIT SPRAY.SYRN KIT TP ONE; +fentaNYL PF VIAL 100 MCG/2 ML VIAL IV PRN
[2020-07-07] MEDS ORDERED: PROPOFOL 10 MG/ML (20ML) VIAL. IV ONE (07:43)
[2020-07-07] MEDS ORDERED: ONDANSETRON PF 4 MG/2 ML VIAL. ONE (07:44)
[2020-07-07] MEDS ORDERED: LIDOCAINE 2% PF 5 ML VIAL. ONE (07:44)
[2020-07-07] MEDS ORDERED: ROCURONIUM 50 MG/5 ML VIAL. ONE (07:44)
[2020-07-07] MEDS ORDERED: DEXAMETHASONE SOD PHOS 4 MG/ML VIAL ONE (07:44)
[2020-07-07] MEDS: IV RINGERS,LACTATED 1000ML 1,000 ML IV SCH ×2 (07:45→13:44)
[2020-07-07] MEDS ORDERED: REMIFENTANIL 2 MG VIAL. IV ONE (08:12)
[2020-07-07] MEDS ORDERED: PROPOFOL 50 ML IV ONE ×2 (08:13→10:19)
[2020-07-07] MEDS ORDERED: GLYCOPYRROLATE 1 MG/5 ML VIAL. ONE (08:13)
[2020-07-07] MEDS ORDERED: DESFLURANE > 120 MINUTES IH ONE (08:13)
[2020-07-07] MEDS ORDERED: MIDAZOLAM HCL/PF 2 MG/2 ML VIAL. ONE (08:13)
[2020-07-07] MEDS ORDERED: PHENYLEPHRINE 10 MG/ML VIAL. ONE (08:17)
[2020-07-07] MEDS ORDERED: ePHEDrine PF IN SALINE 50 MG/10 ML SYRINGE. IV ONE (10:01)
[2020-07-07] MEDS ORDERED: NEOSTIGMINE METHYLSULFATE 5 MG/5 ML SYRINGE. ONE (10:43)
[2020-07-07] MEDS ORDERED: fentaNYL PF VIAL 100 MCG/2 ML VIAL ONE ×2 (10:58→13:36)
[2020-07-07] MEDS ORDERED: REMIFENTANIL 1 MG VIAL. IV ONE (11:45)
--- NOTE | 2020-07-07 13:27 | DISCH ---
DISCHARGE INSTRUCTIONS Condition on Discharge Condition on Discharge: Stable Activity After Discharge Activity Instructions for Disc: Activity as tolerated, Avoid exertion Other activity instructions: no driving for a week Lifting Instructions after Dis: No heavy lifting, No pulling or pushing, Do not lift >10 pounds Exercise Instruction after Dis: Progress as tolerated Weight Bearing Status after Di: As tolerated Diet after Discharge Diet after Discharge: Cardiac Additional Diet Restrictions: resume home diet Diet Texture: Regular Liquid Texture: Thin Liquid Swallowing Supervision: None needed Wound Incision Care Wound/Incision Care: Ice to area for comfort, No wound care needed Other wound/incision instructi: may remove dressing in 48 hours if dry, no soaking Checks after Discharge Checks after discharge: Check blood press - daily, Check blood sugar, ac/hs Contacting the DRNyla after DC Call your doctor for: Concerns you may have Follow-Up Follow up with: Dr. Anderson's nurse im 2 weeks [phone] Treatment/Equipment after DC Adaptive Equipment Issued: None ROSAMARIA ANDERSON MD Jul 07, 2020 13:27
[2020-07-07] MEDS ORDERED: DOCU-109 PO (13:30)
[2020-07-07] MEDS ORDERED: HYDR-3165 PO (13:30)
[2020-07-07] MEDS: fentaNYL PF VIAL 100 MCG/2 ML VIAL IV PRN ×2 (13:44→14:06)
[2020-07-07] MEDS ORDERED: HYDROcodone/APAP 7.5/325MG 1 TAB TABLET PO PRN (13:45)
[2020-07-07] MEDS ORDERED: HYDROcodone/APAP 7.5/325MG 1 TAB TABLET PO ONE (13:45)
[2020-07-07] MEDS ORDERED: INSULIN LISPRO 100 UNIT/ML 3ML VIAL for OP,RR ONLY. SQ PRN (14:00)
[2020-07-07] MEDS ORDERED: INSULIN LISPRO 100 UNIT/ML 3ML VIAL for OP,RR ONLY. SQ ONE (14:05)
[2020-07-07 14:45] VITALS: BP 124/61
--- NOTE | 2020-07-11 15:08 | PATHOLOGY ---
[facility] Accession Number: [id number] . 01 Material submitted: . vertebral column - LUMBAR DECOMPRESSION AND SYNOVIAL CYST . 01 Clinical history: . LUMBAR SYNOVIAL CYST, STENOSIS, RADICULOPATHY . 02 Diagnosis: Segments of fibrocartilaginous, synovial, and skeletal muscle tissue and bone, lumbar decompression and synovial cyst removal L4-5: - Degenerative changes of fibrocartilaginous tissue. - Focal presence of synovial tissue consistent with synovial cyst. (JPM:[facility] 07/11/2020) [facility] 07/11/2020 1449 Local . 02 Comment: There is no evidence of an acute inflammatory process or malignancy. (JPM:[facility] 07/11/2020) . 02 Electronically signed: . Carlos Grover MD, Pathologist NPI- [id number] . 01 Gross description: . Received in formalin labeled "Mack Limon, lumbar decompression and synovial cyst" is a 3.0 x 3.0 x 1.8 cm aggregate of patterson-white ragged tissue and scant possible bone. Optical Mechanic tissue is submitted in cassette A1. ([facility]; 07/10/2020) [facility] 07/10/2020 1020 Local . 02 Pathologist provided ICD-10: M51.36 . 02 CPT . 999515 Specimen Comment: A courtesy copy of this report has been sent to [phone], [phone] Specimen Comment: [id number] Specimen Comment: Report sent to / DR MEYER Performed at: 01 [facility] [address], [place], [place] [id number] MD Simon Marcos MD Phone: [phone] Performed at: [facility] [address] [place], [place] [id number] MD Carlos Grover MD Phone: [phone]
--- NOTE | 2020-07-21 17:41 | OP ---
DATE OF SURGERY: 07/07/2020 PREOPERATIVE DIAGNOSES: Synovial cyst, right L4-L5 with severe right lumbar radiculopathy. POSTOPERATIVE DIAGNOSES: Synovial cyst, right L4-L5 with severe right lumbar radiculopathy. OPERATION PERFORMED: Lumbar laminectomy, right direct L4-L5 with virtual complete removal of synovial cyst. The operation was done with multimodality monitoring including SSEP, EMG, fluoroscopy, microscopy were also used. SURGEON: Guillermo Anderson M.D. NATURAL GAS INSPECTOR: CECILIA West, assisted with the surgery. She assisted with the exposure, removal of synovial cyst as well as the closure. OPERATIVE INDICATIONS: The patient is a pleasant 60-year-old man who developed very severe pain in his right hip, buttock and right leg. On imaging studies, he was found to have a large synovial cyst based on the right lumbar facet which was protruding into the canal and markedly narrowing the right lateral recess. He did try physical therapy, but he was unable to afford it. He did home exercises, which did not help him. He received a steroid injection by his primary care, which did not help him. After evaluating the patient, I felt that the most prudent course would be to perform a surgery to remove the synovial cyst. I discussed this with him. DESCRIPTION OF PROCEDURE: Following general endotracheal anesthesia, the patient was positioned prone on the Felipe table. Lumbar region prepped and draped in the standard fashion. RAFAELA hose and AV impulse boots were applied for DVT prophylaxis. The microscope was draped. Fluoroscopy was draped and brought into field. Monitoring was established. Ancef 2 grams was given less than 1 hour prior to initiation of the surgery. Using fluoroscopic guidance, an incision was made directly over the L4-L5 interspace and dissected down through skin and subcutaneous tissue and reflected the paraspinal muscles, placed a [place] microdisk retractor. I brought in the microscope. I burred down a generous hemilaminotomy and carried from the midline and across the midline down to the right side and gently worked superiorly, inferiorly and created a wide exposure. I then began to peel down the ligamentum flavum from above, it was densely scarred to the underlying dura and as I worked, I was able to largely until I came to the mid portion of the synovial cyst. As I worked, I was able to remove the lateral portion of the synovial cyst, but medially the lining of the cyst was densely adherent to the dura and I was afraid I was going to cause a dural laceration. I did remove the vast majority of the synovial cyst and fully decompressed the root. I performed a generous partial foraminotomy. I went back to the facet and drilled this down to prevent a recurrence. I then irrigated copiously with antibiotic solution. I obtained excellent hemostasis with a combination of the bipolar as well as bone wax. I gently removed the retractor, obtained hemostasis in the muscle and I closed the wound in layers with absorbable suture. The skin was closed with 4-0 subcuticular stitch. I felt the surgery went very well and the patient was taken to recovery room in excellent condition. I was quite pleased with the surgery. GUILLERMO ANDERSON MD DR: TIFFANIE/pepper JOB#: [id number] / [id number] TORI
== END 2020-07-07 15:41 | disposition home or self-care (01) ==
LOC: SURG 07:01
PROVIDERS: ATTEND Neurological Surgery
DX: M71.38 Other bursal cyst, other site (principal); M48.062 Spinal stenosis, lumbar region with neurogenic claudication; M54.16 Radiculopathy, lumbar region; I11.9 Hypertensive heart disease without heart failure; E11.9 Type 2 diabetes mellitus without complications; M19.90 Unspecified osteoarthritis, unspecified site; E78.00 Pure hypercholesterolemia, unspecified; I48.91 Unspecified atrial fibrillation; K21.9 Gastro-esophageal reflux disease without esophagitis; F32.9 Major depressive disorder, single episode, unspecified; Z79.899 Other long term (current) drug therapy; Z98.890 Other specified postprocedural states; Z82.49 Family history of ischemic heart disease and other diseases of the circulatory system; Z83.3 Family history of diabetes mellitus; Z79.82 Long term (current) use of aspirin; Z79.4 Long term (current) use of insulin; Z87.891 Personal history of nicotine dependence
CPT/HCPCS: 63267; 76000; 82962; 88304; 97116; 97162; 97530; A7015; J0690; J1100; J1815; J1885; J2250; J2370; J2405; J2704; J2710; J3010; J3490; J7030

== ENCOUNTER → 2020-08-10 | Outpatient (CLI) | payer OTHER, MEDICARE ==
[~2020-08-10] MED LIST changes: -BACITRACIN 50,000 UNIT in IV NORMAL SALINE 1000ML BAG 1,000 ML IRR ONE; +DOCU-109 PO; -GELATIN SPONGE SIZE 100. ONE; +HYDR-3165 PO; -HYDROmorphone 2 MG/ML VIAL IV PRN; -KETOROLAC 60 MG/2 ML VIAL. ONE; -LIDOCAINE 1%/EPI 1:100,000 20 ML VIAL. ONE; -MORPHINE SULFATE 2 MG/ML VIAL. IV PRN; -ONDANSETRON PF 4 MG/2 ML VIAL. IV PRN; -PROCHLORPERAZINE 10 MG/2 ML VIAL. IV PRN; -THROMBIN TOPICAL 20,000 UNIT SPRAY.SYRN KIT TP ONE; -fentaNYL PF VIAL 100 MCG/2 ML VIAL IV PRN
[2020-08-10 08:56] LABS: ALBUMIN 3.7 g/dL (3.4-5.0); ALBUMIN/GLOBULIN RATIO 1.1 (1.0-1.7); CALCIUM 9.4 mg/dL (8.5-10.1); CHOLESTEROL/HDL RATIO 3.2; CREATININE 0.9 mg/dL (0.7-1.3); GFR 85.5; POTASSIUM 4.2 mmol/L (3.5-5.1); TOTAL BILIRUBIN 0.4 mg/dL (0.2-1.0)
[2020-08-11 01:08] LABS: HEMOGLOBIN A1C 7.5 % (4.8-5.6)
== END ==
LOC: LAB 08:04
PROVIDERS: ATTEND Internal Medicine
DX: E78.2 Mixed hyperlipidemia (principal); E11.9 Type 2 diabetes mellitus without complications
CPT/HCPCS: 36415; 80053; 80061; 83036

== ENCOUNTER → 2021-02-16 | Outpatient (CLI) | payer OTHER, MEDICARE ==
[~2021-02-16] MED LIST changes: -LISI-338 PO; +LISI-517 PO; +LISI10TA16 PO; -LISI10TA2 PO; +METH-562 PO; -METH750T2 PO
[2021-02-16 07:42] LABS: BASO # 0.1 x10^3/uL (0.0-0.2); BASO % 1 % (0-3); EOS # 0.1 x10^3/uL (0.0-0.7); EOS % 2 % (0-3); HEMATOCRIT 43.2 % (39.0-53.0); HEMOGLOBIN 14.7 g/dL (13.0-17.5); LYMPH # 2.4 x10^3/uL (1.0-4.8); LYMPH % 31 % (24-48); MEAN CORPUSCULAR HEMOGLOBIN 31 pg (25-35); MEAN CORPUSCULAR HGB CONC 34 g/dL (31-37); MEAN CORPUSCULAR VOLUME 91 fL (79-100); MONO # 0.7 x10^3/uL (0.0-1.1); MONO % 9 % (0-9); NEUT # 4.5 x10^3/uL (1.8-7.7); NEUT % 57 % (31-73); PLATELET COUNT 193 x10^3/uL (140-400); RED BLOOD COUNT 4.75 x10^6/uL (4.30-5.70); RED CELL DISTRIBUTION WIDTH 13.4 % (11.5-14.5); WHITE BLOOD COUNT 7.9 x10^3/uL (4.0-11.0)
[2021-02-16 08:17] LABS: ALBUMIN 3.7 g/dL (3.4-5.0); ALBUMIN/GLOBULIN RATIO 1.2 (1.0-1.7); CALCIUM 8.3 mg/dL (8.5-10.1); CREATININE 1.2 mg/dL (0.7-1.3); GFR 61.3; POTASSIUM 4.6 mmol/L (3.5-5.1); TOTAL BILIRUBIN 0.5 mg/dL (0.2-1.0); TOTAL PROTEIN 6.7 g/dL (6.4-8.2)
== END ==
LOC: LAB 07:16
PROVIDERS: ATTEND Family Medicine
DX: Z12.5 Encounter for screening for malignant neoplasm of prostate (principal); E11.65 Type 2 diabetes mellitus with hyperglycemia; E78.2 Mixed hyperlipidemia
CPT/HCPCS: 36415; 80053; 80061; 83036; 85025; G0103

== ENCOUNTER 2021-04-26 21:09 | Emergency (ER) | payer OTHER, MEDICARE ==
[~2021-04-26] VITALS: Ht 172.7 cm; Wt 122.7 kg
[~2021-04-26 21:09] MED LIST changes: -LISI2.5T PO; +LISI2.5T12 PO
--- NOTE | 2021-04-27 00:24 | PHYS DOC ---
Past Medical History Past Medical History: A-Fib, Diabetes-Type II, High Cholesterol, Hypertension Past Surgical History: Appendectomy Additional Past Surgical Histo: EYE Smoking Status: Former Smoker Alcohol Use: None Drug Use: None General Adult EDM: Chief Complaint: NAUSEA/VOMITING/DIARRHEA HPI: HPI: 60-year-old male presenting to the emergency department complaining of 3 days of periumbilical abdominal pain associated vomiting and diarrhea, he believes he may have eaten some bad tunafish, or a stomach bug he says, no fevers or chills, pain worse with eating, no chest pain or shortness of breath, no blood in urine or stool, says he does not have his appendix but does still have his gallbladder, no recent travel or antibiotic use and he says he is vaccinated to COVID-19 Review of Systems: Review of Systems: General: no fevers , no chills, no general weakness Eyes: no blurred vision, no diplopia Skin: no rashes Neck: no swelling, no neck stiffness, no neck pain Heme: no bleeding, no lymph node enlargement Ear/Nose/Throat: No sore throat, no runny nose, no hearing loss, no difficulty swallowing Cardiovascular: no Chest pain, no palpitations Respiratory: No dyspnea, no cough, no hemoptysis Gastrointestinal: positive for abdominal pain, vomiting and diarrhea, no blood in the stool Genitourinary: no dysuria, no hematuria Musculoskeletal: no back pain, no leg pain, no arm pain, no arthralgia Neurologic: no headaches, no dizziness, no focal numbness/tingling, no focal weakness Psych: no depression, no anxiety, no SI/HI *All review of systems are negative other than what is noted above Heart Score: C/O Chest Pain: No Risk Factors: Risk Factors: DM, Current or recent (<one month) smoker, HTN, HLP, family hist ory of CAD, obesity. Risk Scores: Score 0 - 3: 2.5% MACE over next 6 weeks - Discharge Home Score 4 - 6: 20.3% MACE over next 6 weeks - Admit for Clinical Observation Score 7 - 10: 72.7% MACE over next 6 weeks - Early Invasive Strategies Allergies: Allergies: Allergies Coded Allergies Type Severity Reaction Last Updated Verified No Known Drug Allergies 07/07/20 No Physical Exam: PE: Gen-well appearing, no acute distress Head: Normocephalic/Atraumatic ENT: atraumatic, PERRLA, EOMI, oropharynx clear Neck: supple, full ROM/strength, no JVD, no nuchal rigidity Lungs: no distress, speaks in full sentences, Clear to auscultation bilaterally CV: reg rate, rhythm, no murmus/rubs/gallops, peripheral pulses equal in all extremities Abdomen: soft/nontender, no guarding/rebound tenderness, no rigidity, non distended, normoactive bowel sounds Musculoskeletal: full ROM/strength in all extremities, atraumatic, no swelling Back: full range of motion/strength Skin: intact, no rashes Lymph: no gross DANIELLE Neuro: alert and oriented x 4, CN 2-12 grossly intact, Motor strength is 5/5 in all extremities, no focal sensory deficits, no focal ataxia, ambulatory with steady gait Psych: normal mood/affect Current Patient Data: Vital Signs: Vital Signs Date Time Temp Pulse Resp B/P (MAP) Pulse Ox O2 Delivery O2 Flow Rate FiO2 04/26/21 23:51 88 18 113/72 (82) 93 Room Air EKG: EKG: [] Twelve-lead EKG was done at 2:54 AM: A. fib, rate 78, inverted T waves laterally, Q waves in inferior leads, no old EKG for comparison Radiology/Procedures: Radiology/Procedures: [] Course & Med Decision Making: Course & Med Decision Making Pertinent Labs and Imaging studies reviewed. (See chart for details) [] Patient presents to the ER with lower abdominal pain as well as vomiting and diarrhea, the pertinent differential diagnosis includes but not limited to gastroenteritis, diverticulitis, colitis, pancreatitis, UTI/pyelonephritis, kidney stone, unlikely AAA, SBO, mesenteric ischemia, unlikely cholecystitis, no pain to proportion on exam, no clinical signs of incarcerated hernia, plan times check urine, labs and a CT of the abdomen pelvis, my suspicion for any acute cardiac etiology is very low, will closely monitor, reevaluate and reexamine the patient during his work-up to determine the best course of action is data becomes available Reevaluation 3:45 AM: Feeling better, abdomen not tender, work-up consistent with colitis but otherwise normal labs, light of clinical improvement and otherwise negative work-up I believe he is stable for discharge at this time Patient was seen in the ED for abdominal pain that appears to be clinically consistent with uncomplicated colitis there is no apparent evidence of any emergency medical pathology at this time, patient was advised follow-up with their primary care provider /physician in the next 24-48 hours and to return to the ED before then if any new or worsening / concerning symptoms had developed. All questions and concerns were addressed at time of disposition Aparna Disclaimer: Aparna Disclaimer: This electronic medical record was generated, in whole or in part, using a voice recognition dictation system. Departure Departure Impression: Primary Impression: Abdominal pain Qualified Codes: R10.33 - Periumbilical pain Additional Impression: Colitis Disposition: HOME / SELF CARE / HOMELESS Condition: IMPROVED Referrals: ALESHA MEYER MD (PCP) 2 days Patient Instructions: Colitis Additional Instructions: You have some inflammation in the colon, nothing to be worried about, I will give you some antibiotics and bowel medicine, drink plenty of fluids, follow-up with your primary care doctor in the next 48 hours and return to the ER before then if any new or worsening/concerning symptoms develop Scripts Metronidazole (FLAGYL) 375 Mg Capsule 375 MG PO TID for 7 Days, #21 TAB Prov: NADIA LEIGH MD 04/27/21 Ciprofloxacin Hcl (CIPRO) 250 Mg Tablet 1 TAB PO BID for infection, #14 TAB Prov: NADIA LEIGH MD 04/27/21 Ondansetron (ONDANSETRON ODT) 4 Mg Tab.rapdis 1 TAB PO PRN Q6-8HRS, #20 TAB Prov: NADIA LEIGH MD 04/27/21 Dicyclomine Hcl (DICYCLOMINE HCL) 20 Mg Tablet 1 TAB PO TID PRN for PAIN, #20 TAB 1 Refill Prov: NADIA LEIGH MD 04/27/21 NADIA LEIGH MD Apr 27, 2021 00:24
[2021-04-27 01:25] VITALS: BP 120/57
[2021-04-27 02:52] LABS: BASO % 1 % (0-3); EOS # 0.1 x10^3/uL (0.0-0.7); EOS % 1 % (0-3); HEMATOCRIT 42.4 % (39.0-53.0); HEMOGLOBIN 14.7 g/dL (13.0-17.5); LYMPH # 1.5 x10^3/uL (1.0-4.8); LYMPH % 26 % (24-48); MEAN CORPUSCULAR HEMOGLOBIN 31 pg (25-35); MEAN CORPUSCULAR HGB CONC 35 g/dL (31-37); MEAN CORPUSCULAR VOLUME 90 fL (79-100); MONO # 0.7 x10^3/uL (0.0-1.1); MONO % 13 % (0-9); NEUT # 3.4 x10^3/uL (1.8-7.7); NEUT % 60 % (31-73); PLATELET COUNT 172 x10^3/uL (140-400); RED CELL DISTRIBUTION WIDTH 13.4 % (11.5-14.5); WHITE BLOOD COUNT 5.8 x10^3/uL (4.0-11.0)
[2021-04-27 03:01] LABS: CALCIUM 8.7 mg/dL (8.5-10.1); CREATININE 1.2 mg/dL (0.7-1.3); GFR 61.3
[2021-04-27 03:07] LABS: ALBUMIN 3.3 g/dL (3.4-5.0); TOTAL BILIRUBIN 0.4 mg/dL (0.2-1.0); TOTAL PROTEIN 6.5 g/dL (6.4-8.2)
[2021-04-27] MEDS ORDERED: CONTRAST GIVEN. MC PRN (03:15)
[2021-04-27] MEDS ORDERED: IOHEXOL 300 MG/ML 100ML VIAL. IV ONE (03:30)
--- NOTE | 2021-04-27 03:40 | RAD ---
PQRS Compliance Statement: One or more of the following individualized dose reduction techniques were utilized for this examinat ion: 1. Automated exposure control 2. Adjustment of the mA and/or kV according to patient size 3. Use of iterative reconstruction technique CT ABDOMEN+PELVIS W Clinical Indication: Reason: abd pain Comparison: CT abdomen and pelvis without contrast November 09, 2014. Technique: Helical CT imaging of the abdomen and pelvis is performed after 75 cc of Omnipaque 300 IV contrast. Oral contrast not administered. Findings: Respiratory motion artifact degrades image quality. Minimal atelectasis or scarring in the bilateral lung bases. Cardiac size upper limits of normal. Cholelithiasis. Liver, spleen, pancreas, adrenal glands, abdominal aorta caliber, and kidneys are nor mal. The stomach is unremarkable. There is a 3.7 cm diverticulum of the distal duodenum. There is no dilat ed small bowel. There is wall thickening of the sigmoid colon. There is wall thickening of the descen ding colon. There is wall thickening of the colon at the hepatic flexure. The appendix is not identif ied, no secondary signs of appendicitis. There is ectasia of the left internal iliac artery measuring 1.7 cm. There is no abdominal adenopathy or free fluid. The urinary bladder is normal. The prostate and seminal vesicles are normal. There is no pelvic free fluid. No acute bone abnormality. Large posterior disc bulge of L5/S1. There appears to be right hemilaminot clau. IMPRESSION: 1. There is wall thickening of the descending and sigmoid colon and the colon at the hepatic flexure suggesting colitis, probably infectious or inflammatory bowel disease. 2. Cholelithiasis. 3. Duodenal diverticulum. Electronically signed by: Goran Murillo MD (04/27/2021 3:38 AM) [facility]
[2021-04-27] MEDS ORDERED: DICY20TA3 PO (03:46)
[2021-04-27] MEDS ORDERED: METR375C PO (03:46)
[2021-04-27] MEDS ORDERED: ONDA4TAB12 PO (03:46)
[2021-04-27] MEDS ORDERED: CIPR250T30 PO (03:46)
--- NOTE | 2021-04-27 05:03 | EKG ---
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
== END 2021-04-27 04:30 | disposition home or self-care (01) ==
LOC: ER 21:09
DX: K52.9 Noninfective gastroenteritis and colitis, unspecified (principal); I48.91 Unspecified atrial fibrillation; E11.9 Type 2 diabetes mellitus without complications; E78.00 Pure hypercholesterolemia, unspecified; I10 Essential (primary) hypertension; Z87.891 Personal history of nicotine dependence
CPT/HCPCS: 36415; 74177; 80053; 83690; 83880; 84484; 85025; 93005; 99285; Q9967

== ENCOUNTER 2021-06-02 12:48 | Day surgery (SDC) | payer OTHER, MEDICARE ==
[~2021-06-02] VITALS: Ht 167.6 cm; Wt 97.7 kg
[~2021-06-02 12:48] MED LIST changes: +CIPR250T30 PO; +DICY20TA3 PO; +HYDROmorphone 2 MG/ML VIAL IVP PRN; +IV RINGERS,LACTATED 1000ML 1,000 ML IV SCH; +METR375C PO; +MORPHINE SULFATE 2 MG/ML INJ. IVP PRN; +MULT-697 PO; +ONDA4TAB12 PO; +PROCHLORPERAZINE 10 MG/2 ML VIAL. IVP PRN; +fentaNYL PF VIAL 100 MCG/2 ML VIAL IVP PRN
[2021-06-02 13:22] VITALS: BP 128/84
[2021-06-02 13:25] LABS: BASO # 0.1 x10^3/uL (0.0-0.2); BASO % 1 % (0-3); EOS # 0.1 x10^3/uL (0.0-0.7); EOS % 2 % (0-3); HEMATOCRIT 44.8 % (39.0-53.0); HEMOGLOBIN 15.4 g/dL (13.0-17.5); LYMPH # 2.3 x10^3/uL (1.0-4.8); LYMPH % 37 % (24-48); MEAN CORPUSCULAR HEMOGLOBIN 31 pg (25-35); MEAN CORPUSCULAR HGB CONC 34 g/dL (31-37); MEAN CORPUSCULAR VOLUME 90 fL (79-100); MONO # 0.6 x10^3/uL (0.0-1.1); MONO % 10 % (0-9); NEUT # 3.1 x10^3/uL (1.8-7.7); NEUT % 51 % (31-73); PLATELET COUNT 200 x10^3/uL (140-400); RED BLOOD COUNT 4.96 x10^6/uL (4.30-5.70); WHITE BLOOD COUNT 6.2 x10^3/uL (4.0-11.0)
[2021-06-02 13:33] LABS: PROTHROMBIN TIME PATIENT 14.1 SEC (11.7-14.0)
[2021-06-02 13:34] LABS: ANION GAP 10 (6-14); BLOOD UREA NITROGEN 14 mg/dL (8-26); CALCIUM 8.8 mg/dL (8.5-10.1); CARBON DIOXIDE 27 mmol/L (21-32); CHLORIDE 103 mmol/L (98-107); CREATININE 1.1 mg/dL (0.7-1.3); GFR 67.6; GLUCOSE 112 mg/dL (70-99); POTASSIUM 3.9 mmol/L (3.5-5.1); SODIUM 140 mmol/L (136-145)
[2021-06-02 13:44] LABS: DIG 0.7 ng/mL (0.9-2.0)
--- NOTE | 2021-06-02 13:51 | EKG ---
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
[2021-06-02] MEDS ORDERED: LIDOCAINE 2% VISCOUS 15 ML SOLUTION. SWSW ONE (14:15)
[2021-06-02] MEDS ORDERED: BENZOCAINE ONE 20% MUCOSAL SPRAY. MM (14:15)
[2021-06-02] MEDS ORDERED: LIDOCAINE 2% PF 5 ML VIAL. ONE (14:33)
[2021-06-02] MEDS ORDERED: PROPOFOL 10 MG/ML (20ML) VIAL. IV ONE (14:33)
--- NOTE | 2021-06-02 15:18 | EKG ---
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
[2021-06-02 15:25] VITALS: BP 146/84
--- NOTE | 2021-06-02 16:26 | PDOC4 ---
Procedure Note: Procedure Note: Procedure electrical cardioversion. The patient is a 61-year-old male with a history of atrial fibrillation. The patient has had increased rate on his atrial fibrillation and was seen by the EP service. He was started on flecainide and scheduled for outpatient cardioversion. Morning lab was within normal limits with a normal potassium and digoxin level. Risks and benefits of the procedure were discussed with the patient. The anesthesiology service reviewed and examined the patient. The patient gave consent for an electrocardioversion. As per the anesthesiology service the patient was sedated to an appropriate level of consciousness. He was cardioverted from atrial fibrillation to sinus rhythm with 1 synchronized 200 J discharge. He awoke normally from the procedure. He remained in sinus rhythm. Conclusion. Successful cardioversion of atrial fibrillation to a sinus rhythm. KELLY LI MD Jun 02, 2021 16:26
== END 2021-06-02 15:45 | disposition home or self-care (01) ==
LOC: SURG 12:48
PROVIDERS: ATTEND Internal Medicine Cardiovascular Disease
DX: I48.91 Unspecified atrial fibrillation (principal); I10 Essential (primary) hypertension; E78.00 Pure hypercholesterolemia, unspecified; G47.30 Sleep apnea, unspecified; K21.9 Gastro-esophageal reflux disease without esophagitis; E11.9 Type 2 diabetes mellitus without complications; F41.9 Anxiety disorder, unspecified; F32.9 Major depressive disorder, single episode, unspecified; Z79.82 Long term (current) use of aspirin; Z79.84 Long term (current) use of oral hypoglycemic drugs; Z79.899 Other long term (current) drug therapy; Z86.73 Personal history of transient ischemic attack (TIA), and cerebral infarction without residual deficits; Z98.890 Other specified postprocedural states; Z82.49 Family history of ischemic heart disease and other diseases of the circulatory system; Z83.3 Family history of diabetes mellitus
CPT/HCPCS: 36415; 80048; 80162; 85025; 85610; 85730; 92960; 93005; J2704

== ENCOUNTER 2021-07-29 19:33 | Emergency (ER) | payer OTHER, MEDICARE ==
[~2021-07-29] VITALS: Ht 167.6 cm; Wt 97.0 kg
[~2021-07-29 19:33] MED LIST changes: +DICY20TA PO; -DICY20TA3 PO; -HYDROmorphone 2 MG/ML VIAL IVP PRN; -IV RINGERS,LACTATED 1000ML 1,000 ML IV SCH; -LISI-517 PO; +LISI5TAB15 PO; -MORPHINE SULFATE 2 MG/ML INJ. IVP PRN; -PROCHLORPERAZINE 10 MG/2 ML VIAL. IVP PRN; -fentaNYL PF VIAL 100 MCG/2 ML VIAL IVP PRN
--- NOTE | 2021-07-29 20:04 | PHYS DOC ---
Past Medical History Past Medical History: A-Fib, Diabetes-Type II, High Cholesterol, Hypertension (KIRAN GILLESPIE SIGNAL SUPERVISOR) Past Surgical History: Appendectomy Additional Past Surgical Histo: EYE (KIRAN GILLESPIE SIGNAL SUPERVISOR) Smoking Status: Never Smoker Alcohol Use: None Drug Use: None (KIRAN GILLESPIE APRN) General Adult EDM: Chief Complaint: CHEST PAIN HPI: HPI: Patient is a 61 year old male who presents with 30 minutes ago began having sharp chest pain on the left side that feels like " being stuck with a needle in the heart" and tingling to his left fingers and hand. He states her last couple nights he has been getting these pains. He states on this coming supposed to have a heart surgery for a " leaky valve". He denies shortness of air, abdominal pain, nausea, vomiting, diarrhea, fever, cough, dizziness, headache, back pain, focal weakness, vision change. Patient has a history of A. fib for which she is on Xarelto, high cholesterol, diabetes, hypertension, spinal stenosis, appendectomy, incarcerated hernia. His bodywork therapist is Dr. Flores. Rating his pain a 8 out of 10. (KIRAN GILLESPIE SIGNAL SUPERVISOR) Review of Systems: Review of Systems: Constitutional: Denies fever or chills. [] Eyes: Denies change in visual acuity. [] HENT: Denies nasal congestion or sore throat. [] Respiratory: Denies cough or shortness of breath. [] Cardiovascular: +chest pain or denies edema. [] GI: Denies abdominal pain, nausea, vomiting, bloody stools or diarrhea. [] : Denies dysuria. [] Musculoskeletal: Denies back pain or joint pain. [] Integument: Denies rash. [] Neurologic: Denies headache, focal weakness or sensory changes. +Left hand t ingling Endocrine: Denies polyuria or polydipsia. [] Lymphatic: Denies swollen glands. [] Psychiatric: Denies depression or anxiety. [] (KIRAN GILLESPIE SIGNAL SUPERVISOR) Heart Score: C/O Chest Pain: Yes HEART Score for Chest Pain: HEART Score for Chest Pain Response (Comments) Value History Moderately Suspicious 1 ECG Nonspecific Repolarizatio 1 Age >45 - < 65 1 Risk Factors 1 or 2 Risk Factors 1 Troponin < Normal Limit 0 Total 4 Risk Factors: Risk Factors: DM, Current or recent (<one month) smoker, HTN, HLP, family history of CAD, obesity. Risk Scores: Score 0 - 3: 2.5% MACE over next 6 weeks - Discharge Home Score 4 - 6: 20.3% MACE over next 6 weeks - Admit for Clinical Observation Score 7 - 10: 72.7% MACE over next 6 weeks - Early Invasive Strategies ([facility]) Current Medications: Current Medications Medications (Trade) Dose Ordered Sig/Missael Start Time Stop Time Status Last Admin Dose Admin Nitroglycerin (Nitrostat) 0.4 mg PRN Q5MIN PRN 07/29/21 20:00 UNV ([facility]VIS[facility]) Allergies: Allergies: Allergies Coded Allergies Type Severity Reaction Last Updated Verified No Known Drug Allergies 07/07/20 No ([facility] SIGNAL SUPERVISOR) Physical Exam: PE: Constitutional: Well developed, well nourished, no acute distress, non-toxic appearance. [] HENT: Normocephalic, atraumatic, bilateral external ears normal, oropharynx moist, no oral exudates, nose normal. [] Eyes: PERRLA, EOMI, conjunctiva normal, no discharge. [] Neck: Normal range of motion, no tenderness, supple, no stridor. [] Cardiovascular:Heart rate irregular afib rhythm, no murmur [] Lungs & Thorax: Bilateral upper breath sounds clear and lower diminished to auscultation [] Abdomen: Bowel sounds normal, soft, no tenderness, no masses, no pulsatile masses. [] Skin: Warm, dry, no erythema, no rash. [] Back: No tenderness, no CVA tenderness. [] Extremities: No tenderness, no cyanosis, no clubbing, ROM intact, no edema. [] Neurologic: Alert and oriented X 3, normal motor function, normal sensory function, no focal deficits noted. [] Psychologic: Affect normal, judgement normal, mood normal. [] ([facility]) EKG: EK and read by Dr. Roque as A. fib but no STEMI ([facility] Radiology/Procedures: Radiology/Procedures: [] Impression: [facility] [address] [place] [address] IMAGING REPORT Signed PATIENT: MEGGAN CARDOSO ACCOUNT: [id number] : 1960 LOCATION: ER AGE: 61 SEX: M EXAM STATUS: REG ER ORD. PHYSICIAN: KIRAN GILLESPIE APRN REASON: chest pain PROCEDURE: PORTABLE CHEST 1V Exam: Chest one view INDICATION: Chest pain TECHNIQUE: Frontal view of the chest Comparisons: 06/13/2020 FINDINGS: Heart is mildly enlarged pulmonary vessels are within normal limits. The lung and pleural spaces are clear. IMPRESSION: No acute pulmonary process. Electronically signed by: Nadeem Mendez MD (07/29/2021 9:31 PM) [facility] DICTATED and SIGNED BY: NADEEM MENDEZ MD DATE: 07/29/[id number] 0 (KIRAN GILLESPIE APRN) Course & Med Decision Making: Course & Med Decision Making Pertinent Labs and Imaging studies reviewed. (See chart for details) See HPI. Alert and oriented x4. Ambulatory steady gait. Speaks in full clear sentences. Vital signs are within normal limits. He is in A. fib but at a stable rate at 79. Skin pink warm and dry. Chest x-ray read by Dr. Roque as no obvious acute findings. Troponin negative. Patient's magnesium is slightly low so it will be replaced in the ED. Patient is admitted to the hospital by hospitalist. He was given 1 nitroglycerin sublingual he states that he has no chest pain. Vital signs remained stable. [] (KIRAN GILLESPIE APRN) Course & Med Decision Making Patients Care and treatment plan provided by ER Nurse Practitioner. I was available for consult. Patient's chart reviewed. (DAYNE ROQUE DO) Aparna Disclaimer: Aparna Disclaimer: This electronic medical record was generated, in whole or in part, using a voice recognition dictation system. (KIRAN GILLESPIE APRN) Departure Departure Impression: Primary Impression: Chest pain Qualified Codes: R07.9 - Chest pain, unspecified Additional Impression: Hypomagnesemia Disposition: ADMITTED INPATIENT Admitting Physician: MYA (KIRAN GILLESPIE APRN) Condition: STABLE Referrals: ALESHA MEYER MD (PCP) Scripts Metoprolol Tartrate (METOPROLOL TARTRATE) 25 Mg Tablet 25 MG PO BID for FOR HYPERTENSION for 30 Days, #60 TAB 0 Refills Prov: ALTHEA LOPEZ MD 07/30/21 KIRAN GILLESPIE APRN Jul 29, 2021 20:04 DAYNE ROQUE DO Jul 31, 2021 01:30
[2021-07-29 20:08] LABS: BASO # 0.1 x10^3/uL (0.0-0.2); BASO % 1 % (0-3); EOS # 0.2 x10^3/uL (0.0-0.7); EOS % 2 % (0-3); HEMATOCRIT 43.5 % (39.0-53.0); HEMOGLOBIN 15.3 g/dL (13.0-17.5); LYMPH # 2.6 x10^3/uL (1.0-4.8); LYMPH % 37 % (24-48); MEAN CORPUSCULAR HEMOGLOBIN 32 pg (25-35); MEAN CORPUSCULAR HGB CONC 35 g/dL (31-37); MEAN CORPUSCULAR VOLUME 90 fL (79-100); MONO # 0.7 x10^3/uL (0.0-1.1); MONO % 10 % (0-9); NEUT # 3.5 x10^3/uL (1.8-7.7); NEUT % 49 % (31-73); PLATELET COUNT 242 x10^3/uL (140-400); RED BLOOD COUNT 4.84 x10^6/uL (4.30-5.70); RED CELL DISTRIBUTION WIDTH 13.2 % (11.5-14.5); WHITE BLOOD COUNT 7.1 x10^3/uL (4.0-11.0)
[2021-07-29] MEDS: NITROGLYCERIN SUBLINGUAL 0.4 MG BOTTLE OF 25. SL PRN ×2 (20:15→20:29)
[2021-07-29 20:17] LABS: PROTHROMBIN TIME PATIENT 11.6 SEC (11.7-14.0)
[2021-07-29 20:21] LABS: CALCIUM 8.9 mg/dL (8.5-10.1); GFR 75.5
[2021-07-29 20:27] LABS: ALBUMIN 3.6 g/dL (3.4-5.0); MAGNESIUM 1.6 mg/dL (1.8-2.4); TOTAL BILIRUBIN 0.5 mg/dL (0.2-1.0)
[2021-07-29 20:44] LABS: TOTAL PROTEIN 7.1 g/dL (6.4-8.2)
[2021-07-29] MEDS ORDERED: MAGNESIUM SULFATE 2GM 50 ML IV ONE (21:00)
--- NOTE | 2021-07-29 21:33 | RAD ---
Exam: Chest one view INDICATION: Chest pain TECHNIQUE: Frontal view of the chest Comparisons: 06/13/2020 FINDINGS: Heart is mildly enlarged pulmonary vessels are within normal limits. The lung and pleural spaces are clear. IMPRESSION: No acute pulmonary process. Electronically signed by: Nadeem Anders MD (07/29/2021 9:31 PM) JUSTIN
--- NOTE | 2021-07-29 22:25 | EKG ---
[facility] [address] [place] [address] Test Date: 2021-07-29 Test Time: 19:49:50 Pat Name: MEGGAN CARDOSO Department: Room: ED HOLD 21 Gender: M Lap Layer: : 1960 Requested By: KIRAN GILLESPIE Order Number: [id number] Reading MD: Andrew Robbins MD Measurements Intervals [place] Rate: 79 P: [place]: QRS: -23 QRSD: 94 T: 141 QT: 302 QTc: 347 Interpretive Statements ATRIAL FIBRILLATION Electronically Signed On 07-30-2021 9:01:14 GOVERNMENT AFFAIRS DIRECTOR by Andrew Robbins MD
[2021-07-29 23:14] LABS: BILIRUBIN,URINE NEGATIVE (NEG); CLARITY,URINE CLEAR; COLOR,URINE YELLOW; NITRITE,URINE NEGATIVE (NEG); PROTEIN,URINE NEGATIVE (NEG-TRACE); UROBILINOGEN,URINE 0.2 mg/dL (0.2 mg/dL)
[2021-07-29 23:22] LABS: BACTERIA,URINE 0 /HPF (0-FEW); RBC,URINE 0 /HPF (0-2); WBC,URINE RARE /HPF (0-4)
[2021-07-30] MEDS ORDERED: DEXTROSE 50% 25 GM / 50ML DISP.SYRIN. IV PRN (07:30)
[2021-07-30] MEDS ORDERED: ONDANSETRON PF 4 MG/2 ML VIAL. IVP PRN (07:30)
[2021-07-30] MEDS ORDERED: ACETAMINOPHEN 325 MG TABLET. PO PRN (07:30)
[2021-07-30] MEDS ORDERED: traMADol 50 MG TABLET PO PRN (07:30)
[2021-07-30] MEDS ORDERED: INSULIN LISPRO 300 UNITS/3 ML VIAL. SQ SCH (08:00)
[2021-07-30 08:45] LABS: CALCIUM 8.3 mg/dL (8.5-10.1); CREATININE 0.9 mg/dL (0.7-1.3); GFR 85.2; MAGNESIUM 1.8 mg/dL (1.8-2.4); POTASSIUM 3.9 mmol/L (3.5-5.1)
[2021-07-30] MEDS ORDERED: METOPROLOL TART IMMED RELEASE 25 MG TABLET. PO SCH (09:00)
[2021-07-30] MEDS ORDERED: ASPIRIN CHEWABLE 81 MG TABLET. PO SCH (09:00)
[2021-07-30] MEDS ORDERED: LISINOPRIL 5 MG TABLET. PO SCH (09:00)
[2021-07-30] MEDS ORDERED: FLECAINIDE ACETATE 50 MG TABLET. PO SCH (09:00)
[2021-07-30] MEDS ORDERED: FAMOTIDINE 20 MG/2 ML VIAL IVP SCH (09:00)
--- NOTE | 2021-07-30 09:13 | PDOC1 ---
History and Physical Date of Admission Date of Admission DATE: 07/30/21 TIME: 08:59 Identification/Chief Complaint Chief Complaint Chest pain Source Source: Patient History of Present Illness History of Present Illness Mr Limon is a 61 yo male with PMHx HLD, HTN, DM2, afib who presents to the ED for chest pain that was sudden onset at 08 30 on 07/29/2021 about an hour after completing dinner. He had some pain after lunch earlier in the day that was similar and has not recurred his insisted he come to the emergency department. He noted some pain in his left arm and some numbness in his left hand that was associated had mild nausea as well. Pain resolved with rest and was also given nitroglycerin. He recently underwent cardioversion in June and has been on Xarelto metoprolol and Cardizem. He has had digoxin and flecainide added. He notes he has had a referral to CT surgery for valve assessment this coming 08/03/2021 No abdominal pain, nausea, vomiting, diarrhea, fever, cough, dizziness, headache, back pain, focal weakness, vision change EKG atrial fibrillation with rate of 79 bpm Labs with WBC 7.1, Hb 15.3, platelets 242, K4 magnesium 1.6, glucose 352, urinalysis bland, rapid COVID-19 negative, INR 0.8. NT proBNP 243 and high-sensitivity troponin is 7 chest radiograph with no acute abnormalities. Admitted for observation Past Medical History Cardiovascular: AFIB, HTN, Hyperlipidemia Pulmonary: Other CENTRAL NERVOUS SYSTEM: Other Heme/Onc: No pertinent hx Hepatobiliary: No pertinent hx Psych: No pertinent hx Musculoskeletal: Osteoarthritis Rheumatologic: No pertinent hx Infectious disease: No pertinent hx Renal/: No pertinent hx Endocrine: Diabetes Past Surgical History Past Surgical History: Appendectomy, Cataract Removal, Tonsillectomy Family History Family History: Diabetes, Stroke Social History Smoke: 1 pack per day ALCOHOL: none Drugs: None Current Problem List Problem List Problems Medical Problems: (1) Chest pain Status: Acute (2) Hypomagnesemia Status: Acute Current Medications Current Medications Current Medications Nitroglycerin (Nitrostat) 0.4 mg PRN Q5MIN PRN SL CHEST PAIN Last administered on 07/29/21at 20:29; Start 07/29/21 at 20:00 Magnesium Sulfate 50 ml @ 25 mls/hr 1X ONCE IV Last administered on 07/29/21at 21:11; Start 07/29/21 at 21:00; Stop 07/29/21 at 22:59; Status DC Insulin Human Lispro (HumaLOG) 0-9 UNITS TIDWMEALS SQ Last administered on 07/30/21at 07:44; Start 07/30/21 at 08:00 Dextrose (Dextrose 50%-Water Syringe) 12.5 gm PRN Q15MIN PRN IV SEE COMMENTS; Start 07/30/21 at 07:30 Ondansetron HCl (Zofran) 4 mg PRN Q4HRS PRN IVP NAUSEA/VOMITING; Start 07/30/21 at 07:30 Acetaminophen (Tylenol) 650 mg PRN Q6HRS PRN PO MILD PAIN / TEMP > 100.3'F; Start 07/30/21 at 07:30 Tramadol HCl (Ultram) 50 mg PRN Q6HRS PRN PO PAIN; Start 07/30/21 at 07:30 Famotidine (Pepcid Vial) 20 mg BID IVP ; Start 07/30/21 at 09:00 Aspirin (Aspirin Chewable) 81 mg DAILY PO ; Start 07/30/21 at 09:00 Atorvastatin Calcium (Lipitor) 20 mg HS PO ; Start 07/30/21 at 21:00 Diltiazem HCl (Cardizem 24hr Cd) 180 mg BID PO Last administered on 07/30/21at 08:48; Start 07/30/21 at 09:00 Lisinopril (Prinivil) 5 mg DAILY PO ; Start 07/30/21 at 09:00 Metoprolol Tartrate (Lopressor) 25 mg BID PO ; Start 07/30/21 at 09:00 Flecainide Acetate (Tambocor) 100 mg Q12HR PO ; Start 07/30/21 at 09:00 Rivaroxaban (Xarelto) 20 mg DAILYWSUP PO ; Start 07/30/21 at 17:00 Active Scripts Active Xarelto (Rivaroxaban) 20 Mg Tablet 20 Mg PO QHS Reported Flecainide Acetate 100 Mg Tablet 100 Mg PO BID Centrum Adults Tablet (Multivitamin/Iron/Folic Acid) 1 Each Tablet 1 Each PO DAILY Trulicity (Dulaglutide) 1.5 Mg/0.5 Ml Pen.injctr 0.75 Mg SQ WEEKLY Digoxin 250 Mcg Tablet 250 Mcg PO DAILYWSUP Cartia Xt (Diltiazem Hcl) 180 Mg Cap.er.24h 180 Mg PO BID Lisinopril 5 Mg Tablet 5 Mg PO DAILY Humalog (Insulin Lispro) 100 Unit/1 Ml Cartridge 28 Unit SQ TIDAFTMEAL Metoprolol Tartrate 25 Mg Tablet 25 Mg PO BID Tourachel Solostar (Insulin Glargine,Hum.rec.anlog) 300 Unit/1 Ml Insuln.pen 100 Unit SQ QHS Fish Oil 1,200 Mg Fish Oil (Fish Oil/Dha/Epa) 1 Each Capsule 1 Each PO DAILY Atorvastatin Calcium 20 Mg Tablet 20 Mg PO HS Aspirin 81 Mg Tab.chew 81 Mg PO DAILY Metformin Hcl 500 Mg Tablet 1,000 Mg PO BIDWMEALS Allergies Allergies: Coded Allergies: No Known Drug Allergies (Unverified , 07/07/20) ROS General: No: Chills, Night Sweats, Fatigue, Malaise, Appetite, Other PSYCHOLOGICAL ROS: No: Anxiety, Behavioral Disorder, Concentration difficultie, Decreased libido, Depression, Disorientation, Hallucinations, Hostility, Irritablity, Memory difficulties, Mood Swings, Obsessive thoughts, Physical abuse, Sexual abuse, Sleep disturbances, Suicidal ideation, Other Eyes: No Blurry vision, No Decreased vision, No Double vision, No Dry eyes, No Excessive tearing, No Eye Pain, No Itchy Eyes, No Loss of vision, No Photophobia, No Scotomata, No Uses contacts, No Uses glasses, No Other HEENT: No: Heacaches, Visual Changes, Hearing change, Nasal congestion, Nasal discharge, Oral lesions, Sinus pain, Sore Throat, Epistaxis, Sneezing, Snoring, Tinnitus, Vertigo, Vocal changes, Other ALLERGY AND IMMUNOLOGY: No: Hives, Insect Bite Sensitivity, Itchy/Watery Eyes, Nasal Congestion, Post Nasal Drip, Seasonal Allergies, Other Hematological and Lymphatic: No: Bleeding Problems, Blood Clots, Blood Transfusions, Brusing, Night Sweats, Pallor, Swollen Lymph Nodes, Other ENDOCRINE: No: Breast Changes, Galactorrhea, Hair Pattern Changes, Hot Flashes, Malaise/lethargy, Mood Swings, Palpitations, Polydipsia/polyuria, Skin Changes, Temperature Intolerance, Unexpected Weight Changes, Other Breast: No New/Changing Breast Lumps, No Nipple changes, No Nipple discharge, No Other Respiratory: No: Cough, Hemoptysis, Orthopnea, Pleuritic Pain, Shortness of breath, SOB with excertion, Sputum Changes, Stridor, Tachypnea, Wheezing, Other Cardiovascular: yes Chest Pain; No Palpitations, No Orthopnea, No Paroxysmal Noc. Dyspnea, No Edema, No Lt Headedness, No Other Gastrointestinal: Yes Nausea; No Vomiting, No Abdominal Pain, No Diarrhea, No Constipation, No Melena, No Hematochezia, No Other Genitourinary: No Dysuria, No Frequency, No Incontinence, No Hematuria, No Retention, No Discharge, No Urgency, No Pain, No Flank Pain, No Other, No , No , No , No , No , No , No Musculoskeletal: No Gait Disturbance, No Joint Pain, No Joint Stiffness, No Joint Swelling, No Muscle Pain, No Muscular Weakness, No Pain In:, No Swelling In:, No Other Neurological: No Behavorial Changes, No Bowel/Bladder ControlChng, No Confusion, No Dizziness, No Gait Disturbance, No Headaches, No Impaired Coord/balance, No Memory Loss, No Numbness/Tingling, No Seizures, No Speech Problems, No Tremors, No Visual Changes, No Weakness, No Other Skin: No Dry Skin, No Eczema, No Hair Changes, No Lumps, No Mole Changes, No Mottling, No Nail Changes, No Pruritus, No Rash, No Skin Lesion Changes, No Other, No Acne Physical Exam General: Alert, Oriented X3, Cooperative, No acute distress HEENT: Atraumatic, PERRLA, EOMI, Mucous membr. moist/pink Lungs: Clear to auscultation, Normal air movement Heart: irregularly irregular Extremities: No clubbing, No cyanosis, No edema, Normal pulses, No tenderness/swelling Skin: No rashes, No breakdown, No significant lesion Neuro: Normal gait, Normal speech, Strength at 5/5 X4 ext, Normal tone, Sensation intact, Cranial nerves 3-12 NL, Reflexes 2+ Psych/Mental Status: Mental status NL, Mood NL Vitals Vitals Vital Signs Date Time Temp Pulse Resp B/P (MAP) Pulse Ox O2 Delivery O2 Flow Rate FiO2 07/30/21 08:48 75 167/95 07/30/21 08:24 16 95 Room Air 07/29/21 19:40 98.6 98.6 Labs Labs Laboratory Tests Test 07/29/21 20:00 07/29/21 21:06 07/29/21 22:50 07/29/21 23:08 White Blood Count 7.1 x10^3/uL (4.0-11.0) Red Blood Count 4.84 x10^6/uL (4.30-5.70) Hemoglobin 15.3 g/dL (13.0-17.5) Hematocrit 43.5 % (39.0-53.0) Mean Corpuscular Volume 90 fL (79-100) Mean Corpuscular Hemoglobin 32 pg (25-35) Mean Corpuscular Hemoglobin Concent 35 g/dL (31-37) Red Cell Distribution Width 13.2 % (11.5-14.5) Platelet Count 242 x10^3/uL (140-400) Neutrophils (%) (Auto) 49 % (31-73) Lymphocytes (%) (Auto) 37 % (24-48) Monocytes (%) (Auto) 10 % (0-9) Eosinophils (%) (Auto) 2 % (0-3) Basophils (%) (Auto) 1 % (0-3) Neutrophils # (Auto) 3.5 x10^3/uL (1.8-7.7) Lymphocytes # (Auto) 2.6 x10^3/uL (1.0-4.8) Monocytes # (Auto) 0.7 x10^3/uL (0.0-1.1) Eosinophils # (Auto) 0.2 x10^3/uL (0.0-0.7) Basophils # (Auto) 0.1 x10^3/uL (0.0-0.2) Prothrombin Time 11.6 SEC (11.7-14.0) Prothromb Time International Ratio 0.8 (0.8-1.1) Sodium Level 137 mmol/L (136-145) Potassium Level 4.0 mmol/L (3.5-5.1) Chloride Level 98 mmol/L (98-107) Carbon Dioxide Level 28 mmol/L (21-32) Anion Gap 11 (6-14) Blood Urea Nitrogen 22 mg/dL (8-26) Creatinine 1.0 mg/dL (0.7-1.3) Estimated GFR (Cockcroft-Gault) 75.5 BUN/Creatinine Ratio 22 (6-20) Glucose Level 352 mg/dL (70-99) Calcium Level 8.9 mg/dL (8.5-10.1) Magnesium Level 1.6 mg/dL (1.8-2.4) Total Bilirubin 0.5 mg/dL (0.2-1.0) Aspartate Amino Transf (AST/SGOT) 24 U/L (15-37) Alanine Aminotransferase (ALT/SGPT) 33 U/L (16-63) Alkaline Phosphatase 78 U/L (46-116) Troponin I High Sensitivity 7 ng/L (4-75) 7 ng/L (4-75) VV-Lxa-O-Type Natriuretic Peptide 273 pg/mL (0-124) Total Protein 7.1 g/dL (6.4-8.2) Albumin 3.6 g/dL (3.4-5.0) Albumin/Globulin Ratio 1.0 (1.0-1.7) SARS-CoV-2 Antigen (Rapid) Negative (NEGATIVE) Urine Collection Type Unknown Urine Color Yellow Urine Clarity Clear Urine pH 6.0 (<5.0-8.0) Urine Specific [place] >=1.030 (1.000-1.030) Urine Protein Negative mg/dL (NEG-TRACE) Urine Glucose (UA) >=1000 mg/dL (NEG) Urine Ketones (Stick) Trace mg/dL (NEG) Urine Blood Negative (NEG) Urine Nitrite Negative (NEG) Urine Bilirubin Negative (NEG) Urine Urobilinogen Dipstick 0.2 mg/dL (0.2 mg/dL) Urine Leukocyte Esterase Negative (NEG) Urine RBC 0 /HPF (0-2) Urine WBC Rare /HPF (0-4) Urine Squamous Epithelial Cells Occ /LPF Urine Bacteria 0 /HPF (0-FEW) Test 07/30/21 01:55 07/30/21 07:20 07/30/21 07:33 Troponin I High Sensitivity 7 ng/L (4-75) Glucose (Fingerstick) 254 mg/dL (70-99) Sodium Level 137 mmol/L (136-145) Potassium Level 3.9 mmol/L (3.5-5.1) Chloride Level 100 mmol/L (98-107) Carbon Dioxide Level 26 mmol/L (21-32) Anion Gap 11 (6-14) Blood Urea Nitrogen 17 mg/dL (8-26) Creatinine 0.9 mg/dL (0.7-1.3) Estimated GFR (Cockcroft-Gault) 85.2 Glucose Level 250 mg/dL (70-99) Calcium Level 8.3 mg/dL (8.5-10.1) Magnesium Level 1.8 mg/dL (1.8-2.4) Laboratory Tests Test 07/29/21 20:00 07/29/21 21:06 07/29/21 22:50 07/29/21 23:08 White Blood Count 7.1 x10^3/uL (4.0-11.0) Red Blood Count 4.84 x10^6/uL (4.30-5.70) Hemoglobin 15.3 g/dL (13.0-17.5) Hematocrit 43.5 % (39.0-53.0) Mean Corpuscular Volume 90 fL (79-100) Mean Corpuscular Hemoglobin 32 pg (25-35) Mean Corpuscular Hemoglobin Concent 35 g/dL (31-37) Red Cell Distribution Width 13.2 % (11.5-14.5) Platelet Count 242 x10^3/uL (140-400) Neutrophils (%) (Auto) 49 % (31-73) Lymphocytes (%) (Auto) 37 % (24-48) Monocytes (%) (Auto) 10 % (0-9) Eosinophils (%) (Auto) 2 % (0-3) Basophils (%) (Auto) 1 % (0-3) Neutrophils # (Auto) 3.5 x10^3/uL (1.8-7.7) Lymphocytes # (Auto) 2.6 x10^3/uL (1.0-4.8) Monocytes # (Auto) 0.7 x10^3/uL (0.0-1.1) Eosinophils # (Auto) 0.2 x10^3/uL (0.0-0.7) Basophils # (Auto) 0.1 x10^3/uL (0.0-0.2) Prothrombin Time 11.6 SEC (11.7-14.0) Prothromb Time International Ratio 0.8 (0.8-1.1) Sodium Level 137 mmol/L (136-145) Potassium Level 4.0 mmol/L (3.5-5.1) Chloride Level 98 mmol/L (98-107) Carbon Dioxide Level 28 mmol/L (21-32) Anion Gap 11 (6-14) Blood Urea Nitrogen 22 mg/dL (8-26) Creatinine 1.0 mg/dL (0.7-1.3) Estimated GFR (Cockcroft-Gault) 75.5 BUN/Creatinine Ratio 22 (6-20) Glucose Level 352 mg/dL (70-99) Calcium Level 8.9 mg/dL (8.5-10.1) Magnesium Level 1.6 mg/dL (1.8-2.4) Total Bilirubin 0.5 mg/dL (0.2-1.0) Aspartate Amino Transf (AST/SGOT) 24 U/L (15-37) Alanine Aminotransferase (ALT/SGPT) 33 U/L (16-63) Alkaline Phosphatase 78 U/L (46-116) Troponin I High Sensitivity 7 ng/L (4-75) 7 ng/L (4-75) CP-Zck-F-Type Natriuretic Peptide 273 pg/mL (0-124) Total Protein 7.1 g/dL (6.4-8.2) Albumin 3.6 g/dL (3.4-5.0) Albumin/Globulin Ratio 1.0 (1.0-1.7) SARS-CoV-2 Antigen (Rapid) Negative (NEGATIVE) Urine Collection Type Unknown Urine Color Yellow Urine Clarity Clear Urine pH 6.0 (<5.0-8.0) Urine Specific [place] >=1.030 (1.000-1.030) Urine Protein Negative mg/dL (NEG-TRACE) Urine Glucose (UA) >=1000 mg/dL (NEG) Urine Ketones (Stick) Trace mg/dL (NEG) Urine Blood Negative (NEG) Urine Nitrite Negative (NEG) Urine Bilirubin Negative (NEG) Urine Urobilinogen Dipstick 0.2 mg/dL (0.2 mg/dL) Urine Leukocyte Esterase Negative (NEG) Urine RBC 0 /HPF (0-2) Urine WBC Rare /HPF (0-4) Urine Squamous Epithelial Cells Occ /LPF Urine Bacteria 0 /HPF (0-FEW) Test 07/30/21 01:55 07/30/21 07:20 07/30/21 07:33 Troponin I High Sensitivity 7 ng/L (4-75) Glucose (Fingerstick) 254 mg/dL (70-99) Sodium Level 137 mmol/L (136-145) Potassium Level 3.9 mmol/L (3.5-5.1) Chloride Level 100 mmol/L (98-107) Carbon Dioxide Level 26 mmol/L (21-32) Anion Gap 11 (6-14) Blood Urea Nitrogen 17 mg/dL (8-26) Creatinine 0.9 mg/dL (0.7-1.3) Estimated GFR (Cockcroft-Gault) 85.2 Glucose Level 250 mg/dL (70-99) Calcium Level 8.3 mg/dL (8.5-10.1) Magnesium Level 1.8 mg/dL (1.8-2.4) Images Images Chest radiograph: Heart is mildly enlarged pulmonary vessels are within normal limits. The lung and pleural spaces are clear. IMPRESSION: No acute pulmonary process. VTE Prophylaxis Ordered VTE Prophylaxis Devices: No VTE Pharmacological Prophylaxi: Yes Assessment/Plan Assessment/Plan A/P: Chest pain - not completely typical, though did remit after NTG. High sensitivity troponin negative. EKG rate controlled afib. Will d/w cardiology, this is likely GERD HLD - statin HTN - cont BB, CCB DM2 - insulin, metformin, continue therapy Afib - on BB, CCB, and digoxin, flecainide as well as xarelto. FEN - Cardiac ADA diet PPX - xarelto FULL CODE Dispo - observation Justifications for Admission Other Justification ALTHEA LOPEZ MD Jul 30, 2021 09:13
--- NOTE | 2021-07-30 09:17 | PDOC2 ---
CARDIOLOGY CONSULT NOTE DATE OF SERVICE: DATE: 07/30/21 TIME: 09:08 CHIEF COMPLAINT: Chest discomfort HPI: Mr. Limon is a 61-year-old man with past medical history as noted below who presented to the hospital yesterday evening with onset of chest discomfort. He apparently was in his usual state of health and began to notice some discomfort and some palpitations. Upon arrival to the ER he was noted to have recurrent atrial fibrillation. Patient of note was recently cardioverted in June to sinus rhythm and is currently planned for possible atrial fibrillation ablation. The details of which are currently unclear but the patient denies any current angina or exertional dyspnea. He denies any syncope. No orthopnea or PND. He reports compliance with his medications. No other recent hospitalizations or ER visits. The patient does report to me that there may be some concern for valvular heart disease as he thinks he has a leaky heart valve for which he is supposed to see a doctor but I feel that he may be confused and is referring to the ablation he has scheduled for atrial fibrillation in the near future. PMHX: 1. Persistent atrial fibrillation 2. Hypertension 3. Dyslipidemia 4. Obstructive sleep apnea 5. Type 2 diabetes SOCHX: No alcohol, tobacco or illicit drug use. He lives at home with his . FAMHX: Noncontributory CURRENT MEDS: Diltiazem 100 mg twice daily Digoxin 0.250 mg daily Flecainide 100 mg p.o. twice daily Xarelto 20 mg daily ALLERGIES: Allergies Coded Allergies Type Severity Reaction Last Updated Verified No Known Drug Allergies 07/07/20 No ROS: Negative for 10 out of 14 systems reviewed unless otherwise mentioned above in HPI PHYSICAL EXAM: Vital Signs/I&O: Vital Signs Date Time Temp Pulse Resp B/P (MAP) Pulse Ox O2 Delivery O2 Flow Rate FiO2 07/30/21 08:48 75 167/95 07/30/21 08:24 16 95 Room Air 07/29/21 19:40 98.6 98.6 I & O 07/29/21 07/29/21 07/30/21 15:00 23:00 07:00 Intake Total 50 ml Balance 50 ml Physical Exam: The patient appeared well nourished and normally developed. He does appear to have some mild cognitive impairment with his speech. Head exam is unremarkable. No scleral icterus or corneal arcus noted. Neck is without jugular venous distension, thyromegaly, or carotid bruits. Carotid upstrokes are brisk bilaterally. Lungs are clear to auscultation and percussion. Cardiac exam reveals the PMI to be normally sized and situated. Rhythm is irregular. First and second heart sounds normal. No murmurs, rubs or gallops. Abdominal exam reveals normal bowel sounds, no masses, no organomegaly and no aortic enlargement. Extremities are nonedematous and both femoral and pedal pulses are normal. Msk: No traumua Neuro: No focal deficits DIAGNOSTIC TESTING: Echocardiogram and stress testing in 2019 were unremarkable Current EKG demonstrates atrial fibrillation with a controlled ventricular response Cardiac enzymes are negative Laboratory studies are unremarkable ASSESSMENT: 1. Recurrent atrial fibrillation, failed flecainide therapy 2. Hypertension 3. Dyslipidemia PLAN: 1. At this present time the patient appears to be rate controlled. We will stop his flecainide as he has failed this antiarrhythmic drug therapy. Initiate metoprolol 25 mg p.o. twice daily and we will uptitrate on an outpatient basis as needed. 2. Continue diltiazem and digoxin. He has a atrial fibrillation ablation planned in the near future. Supportive care for now. Okay to discharge from a cardiovascular perspective on anticoagul ation, metoprolol, diltiazem and digoxin. We will follow along closely if he remains in the hospital. EYL POTTS MD Jul 30, 2021 09:17
[2021-07-30] MEDS ORDERED: METO25TA4 PO (09:55)
--- NOTE | 2021-07-30 10:13 | PDOC3 ---
Discharge Summary Visit Information Date of Admission: Jul 30, 2021 Date of Discharge: Jul 30, 2021 Admitting Diagnosis: Chest pain Final Diagnosis Problems Medical Problems: (1) Chest pain Status: Acute (2) Hypomagnesemia Status: Acute Brief Hospital Course Allergies Allergies Coded Allergies Type Severity Reaction Last Updated Verified No Known Drug Allergies 07/07/20 No Vital Signs Vital Signs Date Time Temp Pulse Resp B/P (MAP) Pulse Ox O2 Delivery O2 Flow Rate FiO2 07/30/21 09:12 77 167/95 07/30/21 08:24 16 95 Room Air 07/29/21 19:40 98.6 98.6 Lab Results Laboratory Tests Test 07/29/21 20:00 07/29/21 21:06 07/29/21 22:50 07/29/21 23:08 White Blood Count 7.1 x10^3/uL (4.0-11.0) Red Blood Count 4.84 x10^6/uL (4.30-5.70) Hemoglobin 15.3 g/dL (13.0-17.5) Hematocrit 43.5 % (39.0-53.0) Mean Corpuscular Volume 90 fL (79-100) Mean Corpuscular Hemoglobin 32 pg (25-35) Mean Corpuscular Hemoglobin Concent 35 g/dL (31-37) Red Cell Distribution Width 13.2 % (11.5-14.5) Platelet Count 242 x10^3/uL (140-400) Neutrophils (%) (Auto) 49 % (31-73) Lymphocytes (%) (Auto) 37 % (24-48) Monocytes (%) (Auto) 10 % (0-9) Eosinophils (%) (Auto) 2 % (0-3) Basophils (%) (Auto) 1 % (0-3) Neutrophils # (Auto) 3.5 x10^3/uL (1.8-7.7) Lymphocytes # (Auto) 2.6 x10^3/uL (1.0-4.8) Monocytes # (Auto) 0.7 x10^3/uL (0.0-1.1) Eosinophils # (Auto) 0.2 x10^3/uL (0.0-0.7) Basophils # (Auto) 0.1 x10^3/uL (0.0-0.2) Prothrombin Time 11.6 SEC (11.7-14.0) Prothromb Time International Ratio 0.8 (0.8-1.1) Sodium Level 137 mmol/L (136-145) Potassium Level 4.0 mmol/L (3.5-5.1) Chloride Level 98 mmol/L (98-107) Carbon Dioxide Level 28 mmol/L (21-32) Anion Gap 11 (6-14) Blood Urea Nitrogen 22 mg/dL (8-26) Creatinine 1.0 mg/dL (0.7-1.3) Estimated GFR (Cockcroft-Gault) 75.5 BUN/Creatinine Ratio 22 (6-20) Glucose Level 352 mg/dL (70-99) Calcium Level 8.9 mg/dL (8.5-10.1) Magnesium Level 1.6 mg/dL (1.8-2.4) Total Bilirubin 0.5 mg/dL (0.2-1.0) Aspartate Amino Transf (AST/SGOT) 24 U/L (15-37) Alanine Aminotransferase (ALT/SGPT) 33 U/L (16-63) Alkaline Phosphatase 78 U/L (46-116) Troponin I High Sensitivity 7 ng/L (4-75) 7 ng/L (4-75) EM-Khp-Q-Type Natriuretic Peptide 273 pg/mL (0-124) Total Protein 7.1 g/dL (6.4-8.2) Albumin 3.6 g/dL (3.4-5.0) Albumin/Globulin Ratio 1.0 (1.0-1.7) SARS-CoV-2 Antigen (Rapid) Negative (NEGATIVE) Urine Collection Type Unknown Urine Color Yellow Urine Clarity Clear Urine pH 6.0 (<5.0-8.0) Urine Specific [place] >=1.030 (1.000-1.030) Urine Protein Negative mg/dL (NEG-TRACE) Urine Glucose (UA) >=1000 mg/dL (NEG) Urine Ketones (Stick) Trace mg/dL (NEG) Urine Blood Negative (NEG) Urine Nitrite Negative (NEG) Urine Bilirubin Negative (NEG) Urine Urobilinogen Dipstick 0.2 mg/dL (0.2 mg/dL) Urine Leukocyte Esterase Negative (NEG) Urine RBC 0 /HPF (0-2) Urine WBC Rare /HPF (0-4) Urine Squamous Epithelial Cells Occ /LPF Urine Bacteria 0 /HPF (0-FEW) Test 07/30/21 01:55 07/30/21 07:20 07/30/21 07:33 Troponin I High Sensitivity 7 ng/L (4-75) Glucose (Fingerstick) 254 mg/dL (70-99) Sodium Level 137 mmol/L (136-145) Potassium Level 3.9 mmol/L (3.5-5.1) Chloride Level 100 mmol/L (98-107) Carbon Dioxide Level 26 mmol/L (21-32) Anion Gap 11 (6-14) Blood Urea Nitrogen 17 mg/dL (8-26) Creatinine 0.9 mg/dL (0.7-1.3) Estimated GFR (Cockcroft-Gault) 85.2 Glucose Level 250 mg/dL (70-99) Calcium Level 8.3 mg/dL (8.5-10.1) Magnesium Level 1.8 mg/dL (1.8-2.4) Laboratory Tests Test 07/29/21 20:00 07/29/21 21:06 07/29/21 22:50 07/29/21 23:08 White Blood Count 7.1 x10^3/uL (4.0-11.0) Red Blood Count 4.84 x10^6/uL (4.30-5.70) Hemoglobin 15.3 g/dL (13.0-17.5) Hematocrit 43.5 % (39.0-53.0) Mean Corpuscular Volume 90 fL (79-100) Mean Corpuscular Hemoglobin 32 pg (25-35) Mean Corpuscular Hemoglobin Concent 35 g/dL (31-37) Red Cell Distribution Width 13.2 % (11.5-14.5) Platelet Count 242 x10^3/uL (140-400) Neutrophils (%) (Auto) 49 % (31-73) Lymphocytes (%) (Auto) 37 % (24-48) Monocytes (%) (Auto) 10 % (0-9) Eosinophils (%) (Auto) 2 % (0-3) Basophils (%) (Auto) 1 % (0-3) Neutrophils # (Auto) 3.5 x10^3/uL (1.8-7.7) Lymphocytes # (Auto) 2.6 x10^3/uL (1.0-4.8) Monocytes # (Auto) 0.7 x10^3/uL (0.0-1.1) Eosinophils # (Auto) 0.2 x10^3/uL (0.0-0.7) Basophils # (Auto) 0.1 x10^3/uL (0.0-0.2) Prothrombin Time 11.6 SEC (11.7-14.0) Prothromb Time International Ratio 0.8 (0.8-1.1) Sodium Level 137 mmol/L (136-145) Potassium Level 4.0 mmol/L (3.5-5.1) Chloride Level 98 mmol/L (98-107) Carbon Dioxide Level 28 mmol/L (21-32) Anion Gap 11 (6-14) Blood Urea Nitrogen 22 mg/dL (8-26) Creatinine 1.0 mg/dL (0.7-1.3) Estimated GFR (Cockcroft-Gault) 75.5 BUN/Creatinine Ratio 22 (6-20) Glucose Level 352 mg/dL (70-99) Calcium Level 8.9 mg/dL (8.5-10.1) Magnesium Level 1.6 mg/dL (1.8-2.4) Total Bilirubin 0.5 mg/dL (0.2-1.0) Aspartate Amino Transf (AST/SGOT) 24 U/L (15-37) Alanine Aminotransferase (ALT/SGPT) 33 U/L (16-63) Alkaline Phosphatase 78 U/L (46-116) Troponin I High Sensitivity 7 ng/L (4-75) 7 ng/L (4-75) YF-Cxr-H-Type Natriuretic Peptide 273 pg/mL (0-124) Total Protein 7.1 g/dL (6.4-8.2) Albumin 3.6 g/dL (3.4-5.0) Albumin/Globulin Ratio 1.0 (1.0-1.7) SARS-CoV-2 Antigen (Rapid) Negative (NEGATIVE) Urine Collection Type Unknown Urine Color Yellow Urine Clarity Clear Urine pH 6.0 (<5.0-8.0) Urine Specific [place] >=1.030 (1.000-1.030) Urine Protein Negative mg/dL (NEG-TRACE) Urine Glucose (UA) >=1000 mg/dL (NEG) Urine Ketones (Stick) Trace mg/dL (NEG) Urine Blood Negative (NEG) Urine Nitrite Negative (NEG) Urine Bilirubin Negative (NEG) Urine Urobilinogen Dipstick 0.2 mg/dL (0.2 mg/dL) Urine Leukocyte Esterase Negative (NEG) Urine RBC 0 /HPF (0-2) Urine WBC Rare /HPF (0-4) Urine Squamous Epithelial Cells Occ /LPF Urine Bacteria 0 /HPF (0-FEW) Test 07/30/21 01:55 07/30/21 07:20 07/30/21 07:33 Troponin I High Sensitivity 7 ng/L (4-75) Glucose (Fingerstick) 254 mg/dL (70-99) Sodium Level 137 mmol/L (136-145) Potassium Level 3.9 mmol/L (3.5-5.1) Chloride Level 100 mmol/L (98-107) Carbon Dioxide Level 26 mmol/L (21-32) Anion Gap 11 (6-14) Blood Urea Nitrogen 17 mg/dL (8-26) Creatinine 0.9 mg/dL (0.7-1.3) Estimated GFR (Cockcroft-Gault) 85.2 Glucose Level 250 mg/dL (70-99) Calcium Level 8.3 mg/dL (8.5-10.1) Magnesium Level 1.8 mg/dL (1.8-2.4) Brief Hospital Course Mr Limon is a 61 yo male with PMHx HLD, HTN, DM2, afib who presents to the ED for chest pain that was sudden onset at 08 30 on 07/29/2021 about an hour after completing dinner. He had some pain after lunch earlier in the day that was similar and has not recurred his insisted he come to the emergency department. He noted some pain in his left arm and some numbness in his left hand that was associated had mild nausea as well. Pain resolved with rest and was also given nitroglycerin. He recently underwent cardioversion in June and has been on Xarelto metoprolol and Cardizem. He has had digoxin and flecainide added. He notes he has had a referral to CT surgery for valve assessment this coming 08/03/2021 No abdominal pain, nausea, vomiting, diarrhea, fever, cough, dizziness, headache, back pain, focal weakness, vision change EKG atrial fibrillation with rate of 79 bpm Labs with WBC 7.1, Hb 15.3, platelets 242, K4 magnesium 1.6, glucose 352, urinalysis bland, rapid COVID-19 negative, INR 0.8. NT proBNP 243 and high-sensitivity troponin is 7 chest radiograph with no acute abnormalities. Admitted for observation Troponins trended negative. His telemetry was rate controlled afib. Cardiology was consulted and patient was counseled on outpatient flecainide, cardizem, metoprolol and xarelto, has outpatient ablation scheduled as well. Questions answered. Pain resolved. Physical exam on repeat evaluation: General: Alert, Oriented X3, Cooperative, No acute distress HEENT: Atraumatic, PERRLA, EOMI, Mucous membr. moist/pink Lungs: Clear to auscultation, Normal air movement Heart: irregularly irregular Extremities: No clubbing, No cyanosis, No edema, Normal pulses, No tenderness/swelling Skin: No rashes, No breakdown, No significant lesion Neuro: Normal gait, Normal speech, Strength at 5/5 X4 ext, Normal tone, Sensation intact, Cranial nerves 3-12 NL, Reflexes 2+ Psych/Mental Status: Mental status NL, Mood NL Problem list: Chest pain - not completely typical, though did remit after NTG. High sensitivity troponin negative. EKG rate controlled afib. After d/w cardiology, this is likely GERD HLD - statin HTN - cont BB, CCB DM2 - insulin, metformin, continue therapy Afib - on BB, CCB, and digoxin, flecainide as well as xarelto. 135 minutes spent on same day admit and d/c Discharge Information Condition at Discharge: Improved Follow Up: Weeks (1) Disposition/Orders: D/C to Home Scheduled Aspirin (Aspirin) 81 Mg Tab.chew, 81 MG PO DAILY for heart, (Reported) Entered as Reported by: GABRIELA LCAROS on 11/10/14 1227 Last Action: Continued on 07/30/21 0834 by ALTHEA LOPEZ MD Atorvastatin Calcium (Atorvastatin Calcium) 20 Mg Tablet, 20 MG PO HS for FOR CHOLESTEROL, #30 Ref 0 (Reported) Entered as Reported by: NAZ CASTANEDA on 08/26/15 0133 Last Action: Continued on 07/30/21 0834 by ALTHEA LOPEZ MD Digoxin (Digoxin) 250 Mcg Tablet, 250 MCG PO DAILYWSUP for AFIB/HEART FAILURE, (Reported) Entered as Reported by: OBDULIA BERNARD on 07/05/20 1352 Diltiazem Hcl (Cartia Xt) 180 Mg Cap.er.24h, 180 MG PO BID for , (Reported) Entered as Reported by: Alise Burr on 06/13/20 0816 Last Action: Edited on 07/30/21 08 by Rehana Santamaria [facility] Dulaglutide (Trulicity) 1.5 Mg/0.5 Ml Pen.injctr, 0.75 MG SQ WEEKLY for DIABETES CONTROL, (Reported) Entered as Reported by: OBDULIA BERNARD on 07/05/20 1352 Fish Oil/Dha/Epa (Fish Oil 1,200 Mg Fish Oil) 1 Each Capsule, 1 EACH PO DAILY, (Reported) Entered as Reported by: NAZ CASTANEDA on 08/26/15 0133 Flecainide Acetate (Flecainide Acetate) 100 Mg Tablet, 100 MG PO BID for HEART RHYTHM, (Reported) Entered as Reported by: OBDULIA BERNARD on 06/01/21 1043 Last Action: Converted on 07/30/21833 by ALTHEA LOPEZ MD Insulin Glargine,Hum.rec.anlog (Toujeo Solostar) 300 Unit/1 Ml Insuln.pen, 100 UNIT SQ QHS for DIABETES, (Reported) Entered as Reported by: SEPIDEH SUAREZ on 03/24/18 1648 Insulin Lispro (Humalog) 100 Unit/1 Ml Cartridge, 28 UNIT SQ TIDAFTMEAL for , (Reported) Entered as Reported by: Alise Burr on 06/13/20 0804 Lisinopril (Lisinopril) 5 Mg Tablet, 5 MG PO DAILY for FOR HYPERTENSION, #30 Ref 0 (Reported) Entered as Reported by: Alise Burr on 06/13/20 08 Last Action: Continued on 07/30/21 0834 by ALTHEA LOPEZ MD Metformin Hcl (Metformin Hcl) 500 Mg Tablet, 1,000 MG PO BIDWMEALS for ANTI- DIABETIC, Ref 0 (Reported) Entered as Reported by: ETHAN TOLBERT on 11/09/14 1342 Metoprolol Tartrate (Metoprolol Tartrate) 25 Mg Tablet, 25 MG PO BID for FOR HYPERTENSION for 30 Days, #60 Ref 0 Prescribed by: ALTHEA LOPEZ MD on 07/30/21 0955 Multivitamin/Iron/Folic Acid (Centrum Adults Tablet) 1 Each Tablet, 1 EACH PO DAILY for SUPPLEMENT, (Reported) Entered as Reported by: OBDULIA BERNARD on 06/01/21 0928 Rivaroxaban (Xarelto) 20 Mg Tablet, 20 MG PO QHS, #30 Ref 2 Prescribed by: HESHAM UPTON on 03/27/18 0955 Last Action: Converted on 07/30/21 0834 by ALTHEA LOPEZ MD Justicifation of Admission Dx: Justifications for Admission: Justification of Admission Dx: Yes ALTHEA LOPEZ MD Jul 30, 2021 10:13
[2021-07-30 10:24] VITALS: BP 150/100
[2021-07-30] MEDS ORDERED: RIVAROXABAN 10 MG TABLET. PO SCH (17:00)
[2021-07-30] MEDS ORDERED: ATORVASTATIN CALCIUM 20 MG TABLET PO SCH (21:00)
== END 2021-07-30 22:00 | disposition home or self-care (01) ==
LOC: ER 19:33 → ED HOLD 20:43 → UNDOADMOB 20:43 → ED HOLD 22:08 → ER 22:08 → ED HOLD 07-31 13:55
DX: R07.89 Other chest pain (principal); E83.42 Hypomagnesemia; R20.2 Paresthesia of skin; I48.91 Unspecified atrial fibrillation; E11.9 Type 2 diabetes mellitus without complications; E78.00 Pure hypercholesterolemia, unspecified; I10 Essential (primary) hypertension; Z20.822 Contact with and (suspected) exposure to COVID-19; Z90.89 Acquired absence of other organs
CPT/HCPCS: 36415; 71045; 80048; 80053; 81001; 82962; 83735; 83880; 84484; 85025; 85610; 87426; 93005; 96365; 96366; 96372; 96375; 99285; J1815; J3475; J3490; U0003; U0005

== ENCOUNTER 2021-09-15 14:27 | Observation (INO) | payer OTHER, MEDICARE ==
[~2021-09-15] VITALS: Ht 177.8 cm; Wt 100.9 kg
[2021-09-15 14:59] LABS: BASO % 0 % (0-3); EOS % 0 % (0-3); HEMATOCRIT 44.7 % (39.0-53.0); HEMOGLOBIN 15.5 g/dL (13.0-17.5); LYMPH # 1.8 x10^3/uL (1.0-4.8); LYMPH % 20 % (24-48); MEAN CORPUSCULAR HEMOGLOBIN 31 pg (25-35); MEAN CORPUSCULAR HGB CONC 35 g/dL (31-37); MEAN CORPUSCULAR VOLUME 88 fL (79-100); MONO # 0.5 x10^3/uL (0.0-1.1); MONO % 6 % (0-9); NEUT # 6.5 x10^3/uL (1.8-7.7); NEUT % 73 % (31-73); PLATELET COUNT 212 x10^3/uL (140-400); RED BLOOD COUNT 5.06 x10^6/uL (4.30-5.70); RED CELL DISTRIBUTION WIDTH 13.4 % (11.5-14.5); WHITE BLOOD COUNT 8.9 x10^3/uL (4.0-11.0)
[2021-09-15] MEDS ORDERED: NITROGLYCERIN SUBLINGUAL 0.4 MG BOTTLE OF 25. SL PRN (15:00)
[2021-09-15] MEDS ORDERED: ASPIRIN CHEWABLE 81 MG TABLET. PO ONE (15:00)
[2021-09-15 15:07] LABS: CALCIUM 9.3 mg/dL (8.5-10.1); GFR 75.5; POTASSIUM 4.1 mmol/L (3.5-5.1)
[2021-09-15 15:13] LABS: ALBUMIN 4.2 g/dL (3.4-5.0); ALBUMIN/GLOBULIN RATIO 1.2 (1.0-1.7); TOTAL BILIRUBIN 0.7 mg/dL (0.2-1.0); TOTAL PROTEIN 7.8 g/dL (6.4-8.2)
--- NOTE | 2021-09-15 15:25 | RAD ---
Left hip 2 views with one view pelvis, AP chest. HISTORY: Atraumatic hip pain, chest pain Left hip Single view was taken of the pelvis with AP and lateral views of the left hip. Right hip appears unre markable. A pelvic fracture is not identified. There is slight spurring at the femoral head on the le ft from mild arthritis. IMPRESSION: 1. No pelvic fracture or acute osseous abnormality. 2. Mild arthritis left hip, no other osseous abnormality left hip. End impression AP chest AP view was taken of the chest. There is an old healed right clavicle fracture. Heart is normal in si ze. Lungs are free of infiltrates. There is no effusion. IMPRESSION: 1. No acute chest disease. Electronically signed by: El Jenkins MD (09/15/2021 3:23 PM) [facility]
[2021-09-15] MEDS ORDERED: MORPHINE SULFATE 2 MG/ML INJ. IVP ONE (15:30)
--- NOTE | 2021-09-15 15:41 | PHYS DOC ---
Past Medical History Past Medical History: A-Fib, Diabetes-Type II, High Cholesterol, Hypertension Past Surgical History: Other Additional Past Surgical Histo: EYE Smoking Status: Never Smoker Alcohol Use: None Drug Use: None General Adult EDM: Chief Complaint: CHEST PAIN HPI: HPI: Patient is a 61 year old male with history of valvular replacement, A. fib on Xarelto, HTN, HLD, DM who presents with chest pain and left hip pain. States left hip pain started on Saturday of this week. Is atraumatic. Has progressively worsened. Has been put on some sort of pain medication as an outpatient (patient does not know what) and stated that there was a plan for x- ray if did not improve. Today at approximately 2 PM started having substernal chest pain. Described as sharp. Not pleuritic. Does complain of shortness of breath. He initially states that he has had a coronary stent in the past, but later states that he has had a valve replacement. On further questioning he is certain that he has had a valve replacement, (does not know what valve) but does not know if he has had coronary stents. Chart review shows that he was admitted in July of last year with chest pain and had serial negative troponins, but further provocative or invasive testing was not pursued. Review of Systems: Review of Systems: Constitutional: Denies fever or chills. [] Eyes: Denies change in visual acuity. [] HENT: Denies nasal congestion or sore throat. [] Respiratory: Denies cough or shortness of breath. [] Cardiovascular: Reports chest pain GI: Denies abdominal pain, nausea, vomiting, bloody stools or diarrhea. [] : Denies dysuria. [] Musculoskeletal: Reports left hip and leg pain Integument: Denies rash. [] Neurologic: Denies headache, focal weakness or sensory changes. [] Endocrine: Denies polyuria or polydipsia. [] Lymphatic: Denies swollen glands. [] Psychiatric: Denies depression or anxiety. [] Heart Score: C/O Chest Pain: Yes HEART Score for Chest Pain: HEART Score for Chest Pain Response (Comments) Value History Moderately Suspicious [address] Depression 2 Age >45 - < 65 1 Risk Factors >3 Risk Factors or Hx CAD 2 Troponin < Normal Limit 0 Total 6 Risk Factors: Risk Factors: DM, HTN, HLD (? CAD, patient is unsure) Risk Scores: Score 4 - 6: 20.3% MACE over next 6 weeks - Admit for Clinical Observation Current Medications: Current Medications Medications (Trade) Dose Ordered Sig/Missael Start Time Stop Time Status Last Admin Dose Admin Aspirin (Aspirin Chewable) 324 mg 1X ONCE 09/15/21 15:00 09/15/21 15:01 DC 09/15/21 15:00 324 MG Morphine Sulfate (Morphine Sulfate) 2 mg 1X ONCE 09/15/21 15:30 09/15/21 15:31 09/15/21 15:25 2 MG Nitroglycerin (Nitrostat) 0.4 mg PRN Q5MIN PRN 09/15/21 15:00 09/15/21 15:14 0.4 MG Allergies: Allergies: Allergies Coded Allergies Type Severity Reaction Last Updated Verified No Known Drug Allergies 07/07/20 No Physical Exam: PE: Constitutional: Appears uncomfortable. Mild tachypnea. Neck: Normal range of motion, no tenderness, supple, no stridor. [] Cardiovascular:Heart rate regular rhythm, no murmur [] Lungs & Thorax: Mild tachypnea, bilateral breath sounds clear to auscultation [] Abdomen: Bowel sounds normal, soft, no tenderness, no masses, no pulsatile masses. [] Skin: Warm, dry, no erythema, no rash. [] Extremities: Tenderness over the greater trochanter on the left hip. Complains of pain with passive range of motion of the entire left leg. Brisk cap refill. DP and PT pulse 2+. Neurologic: Alert and oriented X 3, normal motor function, normal sensory function, no focal deficits noted. [] Psychologic: Affect normal, judgement normal, mood normal. [] Current Patient Data: Labs: Laboratory Tests Test 09/15/21 14:43 White Blood Count 8.9 x10^3/uL (4.0-11.0) Red Blood Count 5.06 x10^6/uL (4.30-5.70) Hemoglobin 15.5 g/dL (13.0-17.5) Hematocrit 44.7 % (39.0-53.0) Mean Corpuscular Volume 88 fL (79-100) Mean Corpuscular Hemoglobin 31 pg (25-35) Mean Corpuscular Hemoglobin Concent 35 g/dL (31-37) Red Cell Distribution Width 13.4 % (11.5-14.5) Platelet Count 212 x10^3/uL (140-400) Neutrophils (%) (Auto) 73 % (31-73) Lymphocytes (%) (Auto) 20 % (24-48) L Monocytes (%) (Auto) 6 % (0-9) Eosinophils (%) (Auto) 0 % (0-3) Basophils (%) (Auto) 0 % (0-3) Neutrophils # (Auto) 6.5 x10^3/uL (1.8-7.7) Lymphocytes # (Auto) 1.8 x10^3/uL (1.0-4.8) Monocytes # (Auto) 0.5 x10^3/uL (0.0-1.1) Eosinophils # (Auto) 0.0 x10^3/uL (0.0-0.7) Basophils # (Auto) 0.0 x10^3/uL (0.0-0.2) D-Dimer (Susy) 0.31 ug/mlFEU (0.00-0.50) Sodium Level 140 mmol/L (136-145) Potassium Level 4.1 mmol/L (3.5-5.1) Chloride Level 104 mmol/L (98-107) Carbon Dioxide Level 21 mmol/L (21-32) Anion Gap 15 (6-14) H Blood Urea Nitrogen 15 mg/dL (8-26) Creatinine 1.0 mg/dL (0.7-1.3) Estimated GFR (Cockcroft-Gault) 75.5 BUN/Creatinine Ratio 15 (6-20) Glucose Level 214 mg/dL (70-99) H Calcium Level 9.3 mg/dL (8.5-10.1) Total Bilirubin 0.7 mg/dL (0.2-1.0) Aspartate Amino Transferase (AST) 26 U/L (15-37) Alanine Aminotransferase (ALT) 48 U/L (16-63) Alkaline Phosphatase 66 U/L (46-116) Troponin I High Sensitivity 9 ng/L (4-75) Total Protein 7.8 g/dL (6.4-8.2) Albumin 4.2 g/dL (3.4-5.0) Albumin/Globulin Ratio 1.2 (1.0-1.7) Laboratory Tests 09/15/21 14:43 Laboratory Tests 09/15/21 14:43 Vital Signs: Vital Signs Date Time Temp Pulse Resp B/P (MAP) Pulse Ox O2 Delivery O2 Flow Rate FiO2 09/15/21 15:25 Room Air 09/15/21 15:14 90 219/100 09/15/21 14:45 98.4 16 95 98.4 EKG: EKG: Sinus rhythm. Rate 70. Left axis deviation. Inferior Q waves. ST depression mild in [address]VL[address] And slight [address] depression laterally in the 46. [] Radiology/Procedures: Radiology/Procedures: [] Impression: [facility] [address] [place], [place] [id number] IMAGING REPORT Signed PATIENT: MEGGAN CARDOSO ACCOUNT: [id number] : 1960 LOCATION: ER AGE: 61 SEX: M EXAM STATUS: PRE ER ORD. PHYSICIAN: LATOSHA LANZA MD REASON: chest pain PROCEDURE: CHEST AP ONLY Left hip 2 views with one view pelvis, AP chest. HISTORY: Atraumatic hip pain, chest pain Left hip Single view was taken of the pelvis with AP and lateral views of the left hip. Right hip appears unremarkable. A pelvic fracture is not identified. There is slight spurring at the femoral head on the left from mild arthritis. IMPRESSION: 1. No pelvic fracture or acute osseous abnormality. 2. Mild arthritis left hip, no other osseous abnormality left hip. End impression AP chest AP view was taken of the chest. There is an old healed right clavicle fracture. Heart is normal in size. Lungs are free of infiltrates. There is no effusion. IMPRESSION: 1. No acute chest disease. Electronically signed by: El Jenkins MD (09/15/2021 3:23 PM) [facility] DICTATED and SIGNED BY: EL JENKINS MD DATE: 09/15/21 [id number] 0 Course & Med Decision Making: Course & Med Decision Making Pertinent Labs and Imaging studies reviewed. (See chart for details) Patient is 61-year-old male with history of HTN, HLD, DM, A. fib, valvular replacement on Xarelto, and ? CAD (pt does not know if he has had coronary stents) who presents with chest pain and atraumatic left hip pain. On arrival is afebrile and hemodynamically stable. Slightly tachypneic on exam but with clear lung. He does have tenderness over the left greater trochanter. X-ray does not show any acute fracture. Chest x-ray without acute process. EKG shows ST depressions in the high lateral and lateral leads with acute deflections in the inferior leads. Initial troponin is negative, but given pain onset just 1 hour prior to arrival will require serial examinations to exclude myocardial infarction. HEART score is 6, has been admitted as recently as July for chest pain observation, but just had serial troponins without provocative or invasive testing at that time. Left leg is warm, well perfused, with good distal pulses. Doubt vascular occlusion. Doubt aortic dissection. Dimer negative and no lower extremity edema. No further work up for PE. Feel patient will require observation admission for high risk chest pain. [id number] Aparna Disclaimer: Aparna Disclaimer: This electronic medical record was generated, in whole or in part, using a voice recognition dictation system. Departure Departure Impression: Primary Impression: Chest pain Additional Impression: Left hip pain Disposition: ADMITTED INPATIENT Condition: STABLE Referrals: ALESHA MEYER MD (PCP) LATOSHA LANZA MD Sep 15, 2021 15:41
--- NOTE | 2021-09-15 18:07 | EKG ---
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
--- NOTE | 2021-09-15 18:16 | PDOC2 ---
CONSULT Date of Consult Date of Consult DATE: 09/15/21 TIME: 18:10 Reason for Consult Reason for Consult: Chest pain, atrial fibrillation Referring Physician Referring Physician: Dr. Armenta Identification/Chief Complaint Chief Complaint Chest pain and hip pain Source Source: Chart review, Patient History of Present Illness Reason for Visit: The patient is a 61-year-old male who developed left hip and back pain approximately 5 days ago. This has been attempted to be treated as an outpatient but has progressively increased. Also this afternoon the patient developed episodes of chest pain. He was brought to the emergency room. His history as per old records is significant for atrial fibrillation for which she has been treated with anticoagulation and beta-blockers. He is being evaluated by the EP service for possible ablation although do we do not have updated records on this. Earlier this year he had a low risk Lexiscan nuclear stress test. Echocardiogram from 06/20/2020 shows normal left ventricular size and systolic function with trace tricuspid regurgitation and mild mitral regurgitation. His initial labs significant for troponin of 9 and a D-dimer of 0.31. He has no documented history of coronary disease or valve replacement. Past Medical History Cardiovascular: AFIB, HTN, Hyperlipidemia Pulmonary: Pneumonia, Other (Sleep apnea) CENTRAL NERVOUS SYSTEM: Other Heme/Onc: No pertinent hx Hepatobiliary: No pertinent hx Psych: No pertinent hx Musculoskeletal: Osteoarthritis Rheumatologic: No pertinent hx Infectious disease: No pertinent hx Renal/: No pertinent hx Endocrine: Diabetes Past Surgical History Past Surgical History: Appendectomy, Cataract Removal, Tonsillectomy Family History Family History: Diabetes, Stroke Social History No ALCOHOL: none Drugs: None Lives: with Family Domestic Violence: Neg Current Problem List Problem List Problems Medical Problems: (1) Chest pain Status: Acute (2) Left hip pain Status: Acute Current Medications Current Medications Current Medications Aspirin (Aspirin Chewable) 324 mg 1X ONCE PO Last administered on 09/15/21at 15:00; Start 09/15/21 at 15:00; Stop 09/15/21 at 15:01; Status DC Nitroglycerin (Nitrostat) 0.4 mg PRN Q5MIN PRN SL CHEST PAIN Last administered on 09/15/21at 15:14; Start 09/15/21 at 15:00 Morphine Sulfate (Morphine Sulfate) 2 mg 1X ONCE IVP Last administered on 09/15/21at 15:25; Start 09/15/21 at 15:30; Stop 09/15/21 at 15:31; Status DC Active Scripts Active Metoprolol Tartrate 25 Mg Tablet 25 Mg PO BID 30 Days Xarelto (Rivaroxaban) 20 Mg Tablet 20 Mg PO QHS Reported Flecainide Acetate 100 Mg Tablet 100 Mg PO BID Centrum Adults Tablet (Multivitamin/Iron/Folic Acid) 1 Each Tablet 1 Each PO DAILY Trulicity (Dulaglutide) 1.5 Mg/0.5 Ml Pen.injctr 0.75 Mg SQ WEEKLY Digoxin 250 Mcg Tablet 250 Mcg PO DAILYWSUP Cartia Xt (Diltiazem Hcl) 180 Mg Cap.er.24h 180 Mg PO BID Lisinopril 5 Mg Tablet 5 Mg PO DAILY Humalog (Insulin Lispro) 100 Unit/1 Ml Cartridge 28 Unit SQ TIDAFTMEAL Toujeo Solostar (Insulin Glargine,Hum.rec.anlog) 300 Unit/1 Ml Insuln.pen 100 Un it SQ QHS Fish Oil 1,200 Mg Fish Oil (Fish Oil/Dha/Epa) 1 Each Capsule 1 Each PO DAILY Atorvastatin Calcium 20 Mg Tablet 20 Mg PO HS Aspirin 81 Mg Tab.chew 81 Mg PO DAILY Metformin Hcl 500 Mg Tablet 1,000 Mg PO BIDWMEALS Allergies Allergies: Coded Allergies: No Known Drug Allergies (Unverified , 07/07/20) ROS General: YES: Fatigue Cardiovascular: yes Chest Pain Musculoskeletal: Yes Other (Left hip pain) Physical Exam General: mild distress HEENT: Atraumatic Lungs: Clear to auscultation Heart: Other (Irregular rhythm) Abdomen: Normal bowel sounds Extremities: Normal pulses Vitals VITALS Vital Signs Date Time Temp Pulse Resp B/P (MAP) Pulse Ox O2 Delivery O2 Flow Rate FiO2 09/15/21 16:46 97 16 195/113 (140) 98 Room Air 09/15/21 14:45 98.4 98.4 Labs Labs Laboratory Tests Test 09/15/21 14:43 White Blood Count 8.9 x10^3/uL (4.0-11.0) Red Blood Count 5.06 x10^6/uL (4.30-5.70) Hemoglobin 15.5 g/dL (13.0-17.5) Hematocrit 44.7 % (39.0-53.0) Mean Corpuscular Volume 88 fL (79-100) Mean Corpuscular Hemoglobin 31 pg (25-35) Mean Corpuscular Hemoglobin Concent 35 g/dL (31-37) Red Cell Distribution Width 13.4 % (11.5-14.5) Platelet Count 212 x10^3/uL (140-400) Neutrophils (%) (Auto) 73 % (31-73) Lymphocytes (%) (Auto) 20 % (24-48) Monocytes (%) (Auto) 6 % (0-9) Eosinophils (%) (Auto) 0 % (0-3) Basophils (%) (Auto) 0 % (0-3) Neutrophils # (Auto) 6.5 x10^3/uL (1.8-7.7) Lymphocytes # (Auto) 1.8 x10^3/uL (1.0-4.8) Monocytes # (Auto) 0.5 x10^3/uL (0.0-1.1) Eosinophils # (Auto) 0.0 x10^3/uL (0.0-0.7) Basophils # (Auto) 0.0 x10^3/uL (0.0-0.2) D-Dimer (Susy) 0.31 ug/mlFEU (0.00-0.50) Sodium Level 140 mmol/L (136-145) Potassium Level 4.1 mmol/L (3.5-5.1) Chloride Level 104 mmol/L (98-107) Carbon Dioxide Level 21 mmol/L (21-32) Anion Gap 15 (6-14) Blood Urea Nitrogen 15 mg/dL (8-26) Creatinine 1.0 mg/dL (0.7-1.3) Estimated GFR (Cockcroft-Gault) 75.5 BUN/Creatinine Ratio 15 (6-20) Glucose Level 214 mg/dL (70-99) Calcium Level 9.3 mg/dL (8.5-10.1) Total Bilirubin 0.7 mg/dL (0.2-1.0) Aspartate Amino Transf (AST/SGOT) 26 U/L (15-37) Alanine Aminotransferase (ALT/SGPT) 48 U/L (16-63) Alkaline Phosphatase 66 U/L (46-116) Troponin I High Sensitivity 9 ng/L (4-75) Total Protein 7.8 g/dL (6.4-8.2) Albumin 4.2 g/dL (3.4-5.0) Albumin/Globulin Ratio 1.2 (1.0-1.7) Laboratory Tests Test 09/15/21 14:43 White Blood Count 8.9 x10^3/uL (4.0-11.0) Red Blood Count 5.06 x10^6/uL (4.30-5.70) Hemoglobin 15.5 g/dL (13.0-17.5) Hematocrit 44.7 % (39.0-53.0) Mean Corpuscular Volume 88 fL (79-100) Mean Corpuscular Hemoglobin 31 pg (25-35) Mean Corpuscular Hemoglobin Concent 35 g/dL (31-37) Red Cell Distribution Width 13.4 % (11.5-14.5) Platelet Count 212 x10^3/uL (140-400) Neutrophils (%) (Auto) 73 % (31-73) Lymphocytes (%) (Auto) 20 % (24-48) Monocytes (%) (Auto) 6 % (0-9) Eosinophils (%) (Auto) 0 % (0-3) Basophils (%) (Auto) 0 % (0-3) Neutrophils # (Auto) 6.5 x10^3/uL (1.8-7.7) Lymphocytes # (Auto) 1.8 x10^3/uL (1.0-4.8) Monocytes # (Auto) 0.5 x10^3/uL (0.0-1.1) Eosinophils # (Auto) 0.0 x10^3/uL (0.0-0.7) Basophils # (Auto) 0.0 x10^3/uL (0.0-0.2) D-Dimer (Susy) 0.31 ug/mlFEU (0.00-0.50) Sodium Level 140 mmol/L (136-145) Potassium Level 4.1 mmol/L (3.5-5.1) Chloride Level 104 mmol/L (98-107) Carbon Dioxide Level 21 mmol/L (21-32) Anion Gap 15 (6-14) Blood Urea Nitrogen 15 mg/dL (8-26) Creatinine 1.0 mg/dL (0.7-1.3) Estimated GFR (Cockcroft-Gault) 75.5 BUN/Creatinine Ratio 15 (6-20) Glucose Level 214 mg/dL (70-99) Calcium Level 9.3 mg/dL (8.5-10.1) Total Bilirubin 0.7 mg/dL (0.2-1.0) Aspartate Amino Transf (AST/SGOT) 26 U/L (15-37) Alanine Aminotransferase (ALT/SGPT) 48 U/L (16-63) Alkaline Phosphatase 66 U/L (46-116) Troponin I High Sensitivity 9 ng/L (4-75) Total Protein 7.8 g/dL (6.4-8.2) Albumin 4.2 g/dL (3.4-5.0) Albumin/Globulin Ratio 1.2 (1.0-1.7) Images Images Chest x-ray with no acute disease. X-ray of the hip and pelvis showed no acute changes Assessment/Plan Assessment/Plan 1. Chest pain. Initial troponin is normal. Would rule out patient on a rule out protocol. Continue baseline medications. 2. Atrial fibrillation. Rate control and anticoagulation. 3. Hypertension. Continue home medications and monitor. 4. Progressive hip pain. Outpatient management has not been successful. As per the primary service. 5. Hyperlipidemia. Continue present medications and check morning lab. 6. Diabetes mellitus. Continue present treatment. KELLY LI MD Sep 15, 2021 18:16
[2021-09-15] MEDS ORDERED: RIVAROXABAN 10 MG TABLET. PO SCH (18:30)
[2021-09-15] MEDS ORDERED: CALCIUM CARBONATE 500 MG TAB.CHEW PO PRN (18:30)
[2021-09-15] MEDS ORDERED: ZOLPIDEM 5 MG TABLET. PO PRN (18:30)
[2021-09-15] MEDS ORDERED: ONDANSETRON PF 4 MG/2 ML VIAL. IVP PRN (18:30)
[2021-09-15] MEDS ORDERED: hydrALAZINE 20 MG/ML VIAL. IVP PRN (18:30)
[2021-09-15] MEDS ORDERED: oxyCODONE/APAP 5/325 1 TAB TABLET PO PRN (18:30)
[2021-09-15] MEDS ORDERED: ACETAMINOPHEN 325 MG TABLET. PO PRN (18:30)
[2021-09-15] MEDS ORDERED: DIGOXIN 125 MCG TABLET. PO SCH (18:30)
[2021-09-15] MEDS ORDERED: ELECTROLYTE (NON-ICU) PROTOCOL. MC PRN (18:30)
[2021-09-15] MEDS: metFORMIN 500 MG TABLET PO SCH (18:31)
[2021-09-15] MEDS: oxyCODONE/APAP 5/325 1 TAB TABLET PO PRN (18:32)
--- NOTE | 2021-09-15 18:43 | PDOC1 ---
History and Physical Date of Service: DOS: DATE: 09/15/21 TIME: 18:39 Chief Complaint: Chief Complain: chest pain History of Present Illness: HPI: Patient is a 61 year old male with history of valvular replacement, A. fib on Xarelto, HTN, HLD, DM who presents with chest pain and left hip pain. States left hip pain started on Saturday of this week. Is atraumatic. Has progressively worsened. Has been put on some sort of pain medication as an outpatient (patient does not know what) and stated that there was a plan for x-ray if did not improve. Today at approximately 2 PM started having substernal chest pain. Described as sharp. Not pleuritic. Does complain of shortness of breath. He initially states that he has had a coronary stent in the past, but later states that he has had a valve replacement. On further questioning he is certain that he has had a valve replacement, (does not know what valve) but does not know if he has had coronary stents. Chart review shows that he was admitted in July of last year with chest pain and had serial negative troponins, but further provocative or invasive testing was not pursued. Past Medical/Surgical History: PMH/PSH: Past Medical History: A-Fib, Diabetes-Type II, High Cholesterol, Hypertension Additional Past Surgical Histo: EYE Allergies: Allergies: Coded Allergies: No Known Drug Allergies (Unverified , 07/07/20) Family History: Family History: HTN Social History: Social History: Smoking Status: Never Smoker Alcohol Use: None Drug Use: None Current Medications: Current Medications Current Medications Aspirin (Aspirin Chewable) 324 mg 1X ONCE PO Last administered on 09/15/21at 15:00; Start 09/15/21 at 15:00; Stop 09/15/21 at 15:01; Status DC Nitroglycerin (Nitrostat) 0.4 mg PRN Q5MIN PRN SL CHEST PAIN Last administered on 09/15/21at 15:14; Start 09/15/21 at 15:00 Morphine Sulfate (Morphine Sulfate) 2 mg 1X ONCE IVP Last administered on 09/15/21at 15:25; Start 09/15/21 at 15:30; Stop 09/15/21 at 15:31; Status DC Aspirin (Aspirin Chewable) 81 mg DAILY PO ; Start 09/16/21 at 09:00 Atorvastatin Calcium (Lipitor) 20 mg HS PO ; Start 09/15/21 at 21:00 Diltiazem HCl (Cardizem 24hr Cd) 180 mg BID PO ; Start 09/15/21 at 21:00 Lisinopril (Prinivil) 5 mg DAILY PO ; Start 09/16/21 at 09:00 Metformin HCl (Glucophage) 1,000 mg BIDWMEALS PO Last administered on 09/15/21at 18:31; Start 09/15/21 at 18:30 Metoprolol Tartrate (Lopressor) 25 mg BID PO ; Start 09/15/21 at 21:00 Digoxin (Lanoxin) 250 mcg DAILYWSUP PO ; Start 09/15/21 at 18:30 Flecainide Acetate (Tambocor) 100 mg BID PO ; Start 09/15/21 at 21:00 Insulin Glargine (Lantus Syringe) 80 unit QHS SQ ; Start 09/15/21 at 21:00 Insulin Human Lispro (HumaLOG) 28 units TIDWMEALS SQ ; Start 09/16/21 at 08:00 Rivaroxaban (Xarelto) 20 mg DAILYWSUP PO ; Start 09/15/21 at 18:30 Hydralazine HCl (Apresoline Inj) 10 mg PRN Q4HRS PRN IVP ELEVATED BP, SEE COMMENTS; Start 09/15/21 at 18:30 Ondansetron HCl (Zofran) 4 mg PRN Q6HRS PRN IVP NAUSEA/VOMITING; Start 09/15/21 at 18:30 Calcium Carbonate/ Glycine (Tums) 500 mg PRN Q3HRS PRN PO UPSET STOMACH; Start 09/15/21 at 18:30 Zolpidem Tartrate (Ambien) 5 mg PRN QHS PRN PO INSOMNIA, MAY REPEAT IN 1HR; Start 09/15/21 at 18:30 Info (Non-Icu Electrolyte Protocol) 1 ea PRN DAILY PRN MC SEE COMMENTS; Start 09/15/21 at 18:30 Oxycodone/ Acetaminophen (Percocet 5/325) 1 tab PRN Q4HRS PRN PO MILD PAIN, 1ST CHOICE; Start 09/15/21 at 18:30 Oxycodone/ Acetaminophen (Percocet 5/325) 2 tab PRN Q4HRS PRN PO MODERATE PAIN, SEVERE PAIN Last administered on 09/15/21at 18:32; Start 09/15/21 at 18:30 Acetaminophen (Tylenol) 650 mg PRN Q6HRS PRN PO Headaches, Temp > 101.5F; Start 09/15/21 at 18:30 Senna/Docusate Sodium (Senna Plus) 1 tab BID PO ; Start 09/15/21 at 21:00 Active Scripts Active Metoprolol Tartrate 25 Mg Tablet 25 Mg PO BID 30 Days Xarelto (Rivaroxaban) 20 Mg Tablet 20 Mg PO QHS Reported Flecainide Acetate 100 Mg Tablet 100 Mg PO BID Centrum Adults Tablet (Multivitamin/Iron/Folic Acid) 1 Each Tablet 1 Each PO DAILY Trulicity (Dulaglutide) 1.5 Mg/0.5 Ml Pen.injctr 0.75 Mg SQ WEEKLY Digoxin 250 Mcg Tablet 250 Mcg PO DAILYWSUP Cartia Xt (Diltiazem Hcl) 180 Mg Cap.er.24h 180 Mg PO BID Lisinopril 5 Mg Tablet 5 Mg PO DAILY Humalog (Insulin Lispro) 100 Unit/1 Ml Cartridge 28 Unit SQ TIDAFTMEAL Toujeo Solostar (Insulin Glargine,Hum.rec.anlog) 300 Unit/1 Ml Insuln.pen 100 Unit SQ QHS Fish Oil 1,200 Mg Fish Oil (Fish Oil/Dha/Epa) 1 Each Capsule 1 Each PO DAILY Atorvastatin Calcium 20 Mg Tablet 20 Mg PO HS Aspirin 81 Mg Tab.chew 81 Mg PO DAILY Metformin Hcl 500 Mg Tablet 1,000 Mg PO BIDWMEALS ROS: Review of Systems Review of System Last known HPI 14 point review of systems was negative Physical Exam: Vital Signs: Vital Signs Date Time Temp Pulse Resp B/P (MAP) Pulse Ox O2 Delivery O2 Flow Rate FiO2 09/15/21 18:32 Room Air 09/15/21 16:46 97 16 195/113 (140) 98 09/15/21 14:45 98.4 98.4 Physcial Exam: GEN: No apparent distress. Alert and oriented HEENT: Normal cephalic, atraumatic, external auditory canals are patent EYES: Extraocular muscles are intact, pupil are equally round and reactive to light and accommodation MUSCULOSKELETAL: Well developed , well nourished, good range of motion ENDOCRINE: No thyromegaly was palpated LYMPHATICS: No cervical chain or axillary nodes were noted HEMATOPOIETIC: No bruising NECK: Supple, no JVD, no thyromegaly was noted LUNGS: Clear to auscultation in all lung blair without rhonchi or wheezing HEART: RRR, S!, S2 present. Peripheral pulses intact, no obvious murmurs noted ABDOMEN: Soft, nontender. Positive bowel sounds, no organomegaly, normal bowel sounds EXTREMITIES: Without clubbing, cyanosis, or edema. Pedal pulses intact. Negative Homans sign NEUROLOGIC: Normal speech and tone. A&O x 3, moves all extremities, no obvious focal deficits PSYCHIATRIC: Normal affect, normal mood. Stable SKIN: No ulcerations or rashes, good skin turgor, no jaundice VASCULAR: Good capillary refill, neurovascular bundle appears to be intact Labs: Labs: Laboratory Tests Test 09/15/21 14:43 White Blood Count 8.9 x10^3/uL (4.0-11.0) Red Blood Count 5.06 x10^6/uL (4.30-5.70) Hemoglobin 15.5 g/dL (13.0-17.5) Hematocrit 44.7 % (39.0-53.0) Mean Corpuscular Volume 88 fL (79-100) Mean Corpuscular Hemoglobin 31 pg (25-35) Mean Corpuscular Hemoglobin Concent 35 g/dL (31-37) Red Cell Distribution Width 13.4 % (11.5-14.5) Platelet Count 212 x10^3/uL (140-400) Neutrophils (%) (Auto) 73 % (31-73) Lymphocytes (%) (Auto) 20 % (24-48) Monocytes (%) (Auto) 6 % (0-9) Eosinophils (%) (Auto) 0 % (0-3) Basophils (%) (Auto) 0 % (0-3) Neutrophils # (Auto) 6.5 x10^3/uL (1.8-7.7) Lymphocytes # (Auto) 1.8 x10^3/uL (1.0-4.8) Monocytes # (Auto) 0.5 x10^3/uL (0.0-1.1) Eosinophils # (Auto) 0.0 x10^3/uL (0.0-0.7) Basophils # (Auto) 0.0 x10^3/uL (0.0-0.2) D-Dimer (Susy) 0.31 ug/mlFEU (0.00-0.50) Sodium Level 140 mmol/L (136-145) Potassium Level 4.1 mmol/L (3.5-5.1) Chloride Level 104 mmol/L (98-107) Carbon Dioxide Level 21 mmol/L (21-32) Anion Gap 15 (6-14) Blood Urea Nitrogen 15 mg/dL (8-26) Creatinine 1.0 mg/dL (0.7-1.3) Estimated GFR (Cockcroft-Gault) 75.5 BUN/Creatinine Ratio 15 (6-20) Glucose Level 214 mg/dL (70-99) Calcium Level 9.3 mg/dL (8.5-10.1) Total Bilirubin 0.7 mg/dL (0.2-1.0) Aspartate Amino Transf (AST/SGOT) 26 U/L (15-37) Alanine Aminotransferase (ALT/SGPT) 48 U/L (16-63) Alkaline Phosphatase 66 U/L (46-116) Troponin I High Sensitivity 9 ng/L (4-75) Total Protein 7.8 g/dL (6.4-8.2) Albumin 4.2 g/dL (3.4-5.0) Albumin/Globulin Ratio 1.2 (1.0-1.7) Laboratory Tests Test 09/15/21 14:43 White Blood Count 8.9 x10^3/uL (4.0-11.0) Red Blood Count 5.06 x10^6/uL (4.30-5.70) Hemoglobin 15.5 g/dL (13.0-17.5) Hematocrit 44.7 % (39.0-53.0) Mean Corpuscular Volume 88 fL (79-100) Mean Corpuscular Hemoglobin 31 pg (25-35) Mean Corpuscular Hemoglobin Concent 35 g/dL (31-37) Red Cell Distribution Width 13.4 % (11.5-14.5) Platelet Count 212 x10^3/uL (140-400) Neutrophils (%) (Auto) 73 % (31-73) Lymphocytes (%) (Auto) 20 % (24-48) Monocytes (%) (Auto) 6 % (0-9) Eosinophils (%) (Auto) 0 % (0-3) Basophils (%) (Auto) 0 % (0-3) Neutrophils # (Auto) 6.5 x10^3/uL (1.8-7.7) Lymphocytes # (Auto) 1.8 x10^3/uL (1.0-4.8) Monocytes # (Auto) 0.5 x10^3/uL (0.0-1.1) Eosinophils # (Auto) 0.0 x10^3/uL (0.0-0.7) Basophils # (Auto) 0.0 x10^3/uL (0.0-0.2) D-Dimer (Susy) 0.31 ug/mlFEU (0.00-0.50) Sodium Level 140 mmol/L (136-145) Potassium Level 4.1 mmol/L (3.5-5.1) Chloride Level 104 mmol/L (98-107) Carbon Dioxide Level 21 mmol/L (21-32) Anion Gap 15 (6-14) Blood Urea Nitrogen 15 mg/dL (8-26) Creatinine 1.0 mg/dL (0.7-1.3) Estimated GFR (Cockcroft-Gault) 75.5 BUN/Creatinine Ratio 15 (6-20) Glucose Level 214 mg/dL (70-99) Calcium Level 9.3 mg/dL (8.5-10.1) Total Bilirubin 0.7 mg/dL (0.2-1.0) Aspartate Amino Transf (AST/SGOT) 26 U/L (15-37) Alanine Aminotransferase (ALT/SGPT) 48 U/L (16-63) Alkaline Phosphatase 66 U/L (46-116) Troponin I High Sensitivity 9 ng/L (4-75) Total Protein 7.8 g/dL (6.4-8.2) Albumin 4.2 g/dL (3.4-5.0) Albumin/Globulin Ratio 1.2 (1.0-1.7) Assessment/Plan Assessment/Plan Chest pain with significant cardiac history; left hip pain; hypertensive urgency. History of atrial fibrillation and hypertension. -Patient presenting with left hip pain and chest pain -Imaging on left hip normal -We will try lidocaine patch. PT OT. If no improvement can consider consult for hip injection -Patient with history of valve replacement. A. fib on home Xarelto resumed this -Continue to trend troponins overnight -Cardiology consulted -Blood pressure meds resumed. As needed hydralazine -Other home meds resumed as indicated -Xarelto serve as dvt ppx -diabetic cardiac diet Justifications for Admission Other Justification ALTHEA NICOLE MD Sep 15, 2021 18:42
[2021-09-15] MEDS ORDERED: PATCH REMOVAL. MC SCH (21:00)
[2021-09-15] MEDS ORDERED: ATORVASTATIN CALCIUM 20 MG TABLET PO SCH (21:00)
[2021-09-15] MEDS ORDERED: INSULIN GLARGINE SYRINGE. SQ SCH (21:00)
[2021-09-15 21:09] VITALS: BP 171/89
[2021-09-15] MEDS: METOPROLOL TART IMMED RELEASE 25 MG TABLET. PO SCH (21:46)
[2021-09-15] MEDS: FLECAINIDE ACETATE 50 MG TABLET. PO SCH (21:46)
[2021-09-15] MEDS: SENNOSIDES/DOCUSATE 8.6/50MG TABLET. PO SCH (21:46)
[2021-09-15 22:55] VITALS: BP 140/96
[2021-09-16] MEDS: oxyCODONE/APAP 5/325 1 TAB TABLET PO PRN (01:42)
[2021-09-16 03:00] VITALS: BP 145/90
[2021-09-16 06:06] VITALS: BP 140/81
[2021-09-16 07:00] VITALS: BP 155/76
[2021-09-16] MEDS ORDERED: INSULIN LISPRO 300 UNITS/3 ML VIAL. SQ SCH (08:00)
[2021-09-16] MEDS ORDERED: LIDOCAINE (700MG/PATCH) PATCH. TD SCH (09:00)
[2021-09-16] MEDS ORDERED: ASPIRIN CHEWABLE 81 MG TABLET. PO SCH (09:00)
[2021-09-16] MEDS ORDERED: LISINOPRIL 5 MG TABLET. PO SCH (09:00)
[2021-09-16] MEDS: METOPROLOL TART IMMED RELEASE 25 MG TABLET. PO SCH (09:07)
[2021-09-16] MEDS: FLECAINIDE ACETATE 50 MG TABLET. PO SCH (09:07)
[2021-09-16] MEDS: SENNOSIDES/DOCUSATE 8.6/50MG TABLET. PO SCH (09:08)
[2021-09-16] MEDS: metFORMIN 500 MG TABLET PO SCH (09:08)
[2021-09-16] MEDS ORDERED: OXYC1TAB15 PO (10:58)
[2021-09-16] MEDS ORDERED: LIDO700A21 TD (10:58)
[2021-09-16 11:00] VITALS: BP 142/76
--- NOTE | 2021-09-16 11:03 | PDOC3 ---
Discharge Summary Visit Information Date of Admission: Sep 15, 2021 Date of Discharge: Sep 16, 2021 Final Diagnosis Chest pain with significant cardiac history; left hip pain; hypertensive urgency. History of atrial fibrillation and hypertension. -Patient presenting with left hip pain and chest pain -Imaging on left hip normal -We will try lidocaine patch. PT OT. If no improvement can consider consult for hip injection -Patient with history of valve replacement. A. fib on home Xarelto resumed this -Continue to trend troponins overnight -Cardiology consulted -Blood pressure meds resumed. As needed hydralazine -Other home meds resumed as indicated -Xarelto serve as dvt ppx -diabetic cardiac diet Problems Medical Problems: (1) Chest pain Status: Acute (2) Left hip pain Status: Acute Brief Hospital Course Allergies Allergies Coded Allergies Type Severity Reaction Last Updated Verified No Known Drug Allergies 07/07/20 No Vital Signs Vital Signs Date Time Temp Pulse Resp B/P (MAP) Pulse Ox O2 Delivery O2 Flow Rate FiO2 09/16/21 09:17 64 140/81 09/16/21 08:00 Room Air 09/16/21 07:00 97.6 20 100 97.6 Lab Results Laboratory Tests Test 09/15/21 14:43 09/15/21 21:01 09/16/21 03:30 09/16/21 07:40 White Blood Count 8.9 x10^3/uL (4.0-11.0) Red Blood Count 5.06 x10^6/uL (4.30-5.70) Hemoglobin 15.5 g/dL (13.0-17.5) Hematocrit 44.7 % (39.0-53.0) Mean Corpuscular Volume 88 fL (79-100) Mean Corpuscular Hemoglobin 31 pg (25-35) Mean Corpuscular Hemoglobin Concent 35 g/dL (31-37) Red Cell Distribution Width 13.4 % (11.5-14.5) Platelet Count 212 x10^3/uL (140-400) Neutrophils (%) (Auto) 73 % (31-73) Lymphocytes (%) (Auto) 20 % (24-48) Monocytes (%) (Auto) 6 % (0-9) Eosinophils (%) (Auto) 0 % (0-3) Basophils (%) (Auto) 0 % (0-3) Neutrophils # (Auto) 6.5 x10^3/uL (1.8-7.7) Lymphocytes # (Auto) 1.8 x10^3/uL (1.0-4.8) Monocytes # (Auto) 0.5 x10^3/uL (0.0-1.1) Eosinophils # (Auto) 0.0 x10^3/uL (0.0-0.7) Basophils # (Auto) 0.0 x10^3/uL (0.0-0.2) D-Dimer (Susy) 0.31 ug/mlFEU (0.00-0.50) Sodium Level 140 mmol/L (136-145) Potassium Level 4.1 mmol/L (3.5-5.1) Chloride Level 104 mmol/L (98-107) Carbon Dioxide Level 21 mmol/L (21-32) Anion Gap 15 (6-14) Blood Urea Nitrogen 15 mg/dL (8-26) Creatinine 1.0 mg/dL (0.7-1.3) Estimated GFR (Cockcroft-Gault) 75.5 BUN/Creatinine Ratio 15 (6-20) Glucose Level 214 mg/dL (70-99) Calcium Level 9.3 mg/dL (8.5-10.1) Total Bilirubin 0.7 mg/dL (0.2-1.0) Aspartate Amino Transf (AST/SGOT) 26 U/L (15-37) Alanine Aminotransferase (ALT/SGPT) 48 U/L (16-63) Alkaline Phosphatase 66 U/L (46-116) Troponin I High Sensitivity 9 ng/L (4-75) 12 ng/L (4-75) Total Protein 7.8 g/dL (6.4-8.2) Albumin 4.2 g/dL (3.4-5.0) Albumin/Globulin Ratio 1.2 (1.0-1.7) Glucose (Fingerstick) 169 mg/dL (70-99) 73 mg/dL (70-99) Laboratory Tests Test 09/15/21 14:43 09/15/21 21:01 09/16/21 03:30 09/16/21 07:40 White Blood Count 8.9 x10^3/uL (4.0-11.0) Red Blood Count 5.06 x10^6/uL (4.30-5.70) Hemoglobin 15.5 g/dL (13.0-17.5) Hematocrit 44.7 % (39.0-53.0) Mean Corpuscular Volume 88 fL (79-100) Mean Corpuscular Hemoglobin 31 pg (25-35) Mean Corpuscular Hemoglobin Concent 35 g/dL (31-37) Red Cell Distribution Width 13.4 % (11.5-14.5) Platelet Count 212 x10^3/uL (140-400) Neutrophils (%) (Auto) 73 % (31-73) Lymphocytes (%) (Auto) 20 % (24-48) Monocytes (%) (Auto) 6 % (0-9) Eosinophils (%) (Auto) 0 % (0-3) Basophils (%) (Auto) 0 % (0-3) Neutrophils # (Auto) 6.5 x10^3/uL (1.8-7.7) Lymphocytes # (Auto) 1.8 x10^3/uL (1.0-4.8) Monocytes # (Auto) 0.5 x10^3/uL (0.0-1.1) Eosinophils # (Auto) 0.0 x10^3/uL (0.0-0.7) Basophils # (Auto) 0.0 x10^3/uL (0.0-0.2) D-Dimer (Susy) 0.31 ug/mlFEU (0.00-0.50) Sodium Level 140 mmol/L (136-145) Potassium Level 4.1 mmol/L (3.5-5.1) Chloride Level 104 mmol/L (98-107) Carbon Dioxide Level 21 mmol/L (21-32) Anion Gap 15 (6-14) Blood Urea Nitrogen 15 mg/dL (8-26) Creatinine 1.0 mg/dL (0.7-1.3) Estimated GFR (Cockcroft-Gault) 75.5 BUN/Creatinine Ratio 15 (6-20) Glucose Level 214 mg/dL (70-99) Calcium Level 9.3 mg/dL (8.5-10.1) Total Bilirubin 0.7 mg/dL (0.2-1.0) Aspartate Amino Transf (AST/SGOT) 26 U/L (15-37) Alanine Aminotransferase (ALT/SGPT) 48 U/L (16-63) Alkaline Phosphatase 66 U/L (46-116) Troponin I High Sensitivity 9 ng/L (4-75) 12 ng/L (4-75) Total Protein 7.8 g/dL (6.4-8.2) Albumin 4.2 g/dL (3.4-5.0) Albumin/Globulin Ratio 1.2 (1.0-1.7) Glucose (Fingerstick) 169 mg/dL (70-99) 73 mg/dL (70-99) Brief Hospital Course Mr. Limon is a 61 old male, admit with chest pain, back pain, pain better with lidoderm patch, has hip pain, Afib stable CV consult, will follow outpatient Discharge Information Condition at Discharge: Improved Follow Up: Weeks Disposition/Orders: D/C to Home Scheduled Aspirin (Aspirin) 81 Mg Tab.chew, 81 MG PO DAILY for heart, (Reported) Entered as Reported by: GABRIELA CLAROS on 11/10/14 1227 Last Action: Continued on 09/15/211815 by ALTHEA NICOLE MD Atorvastatin Calcium (Atorvastatin Calcium) 20 Mg Tablet, 20 MG PO HS for FOR CHOLESTEROL, #30 Ref 0 (Reported) Entered as Reported by: NAZ CASTANEDA on 08/26/15 0133 Last Action: Continued on 09/15/211815 by ALTHEA NICOLE MD Digoxin (Digoxin) 250 Mcg Tablet, 250 MCG PO DAILYWSUP for AFIB/HEART FAILURE, (Reported) Entered as Reported by: OBDULIA BERNARD on 07/05/20 1352 Last Action: Converted on 09/15/211815 by ALTHEA NICOLE MD Diltiazem Hcl (Cartia Xt) 180 Mg Cap.er.24h, 180 MG PO BID for , (Reported) Entered as Reported by: Alise Burr on 06/13/20 0816 Last Action: Continued on 09/15/211815 by ALTHEA NICOLE MD Dulaglutide (Trulicity) 1.5 Mg/0.5 Ml Pen.injctr, 0.75 MG SQ WEEKLY for DIABETES CONTROL, (Reported) Entered as Reported by: OBDULIA BERNARD on 07/05/20 1352 Last Action: HELD on 09/15/211815 by ALTHEA NICOLE MD Fish Oil/Dha/Epa (Fish Oil 1,200 Mg Fish Oil) 1 Each Capsule, 1 EACH PO DAILY, (Reported) Entered as Reported by: NAZ CASTANEDA on 08/26/15 0133 Last Action: HELD on 09/15/211815 by ALTHEA NICOLE MD Flecainide Acetate (Flecainide Acetate) 100 Mg Tablet, 100 MG PO BID for HEART RHYTHM, (Reported) Entered as Reported by: OBDULIA BERNARD on 06/01/21 1043 Last Action: Converted on 09/15/211815 by ALTHEA NICOLE MD Insulin Glargine,Hum.rec.anlog (Toujeo Solostar) 300 Unit/1 Ml Insuln.pen, 100 UNIT SQ QHS for DIABETES, (Reported) Entered as Reported by: SEPIDEH SUAREZ on 03/24/18 1648 Last Action: Converted on 09/15/211815 by ALTHEA NICOLE MD Insulin Lispro (Humalog) 100 Unit/1 Ml Cartridge, 28 UNIT SQ TIDAFTMEAL for , (Reported) Entered as Reported by: Alise Burr on 06/13/20 0804 Last Action: Converted on 09/15/211815 by ALTHEA NICOLE MD Lidocaine (Lidocaine PATCH ) 1 Each Adh..patch, 1 PATCH TD DAILY for hip pain, #7 Prescribed by: HESHAM UPTON on 09/16/21 1058 Lisinopril (Lisinopril) 5 Mg Tablet, 5 MG PO DAILY for FOR HYPERTENSION, #30 Ref 0 (Reported) Entered as Reported by: Alise Burr on 06/13/20 0804 Last Action: Continued on 09/15/211815 by ALTHEA NICOLE MD Metformin Hcl (Metformin Hcl) 500 Mg Tablet, 1,000 MG PO BIDWMEALS for ANTI- DIABETIC, Ref 0 (Reported) Entered as Reported by: ETHAN TOLBERT on 11/09/14 1342 Last Action: Continued on 09/15/211815 by ATLHEA NICOLE MD Metoprolol Tartrate (Metoprolol Tartrate) 25 Mg Tablet, 25 MG PO BID for FOR HYPERTENSION for 30 Days, #60 Ref 0 Prescribed by: ALTHEA LOPEZ MD on 07/30/21954 Last Action: Continued on 09/15/211815 by ALTHEA NICOLE MD Multivitamin/Iron/Folic Acid (Centrum Adults Tablet) 1 Each Tablet, 1 EACH PO DAILY for SUPPLEMENT, (Reported) Entered as Reported by: OBDULIA BERNARD on 06/01/21927 Last Action: HELD on 09/15/211815 by ALTHEA NICOLE MD Rivaroxaban (Xarelto) 20 Mg Tablet, 20 MG PO QHS, #30 Ref 2 Prescribed by: HESHAM UPTON on 03/27/18954 Last Action: Converted on 09/15/211815 by ALTHEA NICOLE MD Scheduled PRN Oxycodone/Apap 5-325 (Percocet 5-325 Mg Tablet ) 1 Each Tablet, 1 TAB PO PRN Q4HRS PRN for PAIN, #20 Prescribed by: HESHAM UPTON on 09/16/21 1101 Patient Instructions Patient Instructions pt seen face to face DC obs Justicifation of Admission Dx: Justifications for Admission: Justification of Admission Dx: Yes HESHAM UPTON MD Sep 16, 2021 11:03
--- NOTE | 2021-09-16 12:45 | NUR ---
DISCHARGED PATIENT HOME. DISCHARGE INSTRUCTIONS GIVEN. PIV AND HEART MONITOR REMOVED. ESCORTED OFF UNIT PER WHEELCHAIR INTO A PRIVATE VEHICLE.
--- NOTE | 2021-09-16 14:01 | PDOC ---
PROGRESS NOTES Date of Service DATE: 09/16/21 TIME: 13:59 Subjective Subjective Patient seen and examined Objective Objective Vital Signs Date Time Temp Pulse Resp B/P (MAP) Pulse Ox O2 Delivery O2 Flow Rate FiO2 09/16/21 11:00 98.0 63 22 142/76 (98) 96 Room Air 98.0 Intake and Output 09/16/21 07:00 Intake Total 260 ml Output Total 150 ml Balance 110 ml Intake Oral 260 ml Output Urine Total 150 ml Physical Exam Abdomen: Normal bowel sounds Heart: Regular rate General: No acute distress Lungs: Clear to auscultation Assessment Assessment Problems Medical Problems: (1) Chest pain Status: Acute (2) Left hip pain Status: Acute 1. Chest pain. Chest pain has resolved. Troponins x2 are normal. We will continue baseline medications. We will arrange outpatient follow-up. 2. Atrial fibrillation. Rate control and anticoagulation. 3. Hypertension. Controlled. Continue home medications and monitor. 4. Progressive hip pain. Outpatient management has not been successful. As per the primary service. 5. Hyperlipidemia. Continue present medications. 6. Diabetes mellitus. Continue present treatment. Comment Review of Relevant I have reviewed the following items noris (where applicable) has been applied. Labs Laboratory Tests Test 09/15/21 14:43 09/15/21 21:01 09/16/21 03:30 09/16/21 07:40 White Blood Count 8.9 x10^3/uL (4.0-11.0) Red Blood Count 5.06 x10^6/uL (4.30-5.70) Hemoglobin 15.5 g/dL (13.0-17.5) Hematocrit 44.7 % (39.0-53.0) Mean Corpuscular Volume 88 fL (79-100) Mean Corpuscular Hemoglobin 31 pg (25-35) Mean Corpuscular Hemoglobin Concent 35 g/dL (31-37) Red Cell Distribution Width 13.4 % (11.5-14.5) Platelet Count 212 x10^3/uL (140-400) Neutrophils (%) (Auto) 73 % (31-73) Lymphocytes (%) (Auto) 20 % (24-48) Monocytes (%) (Auto) 6 % (0-9) Eosinophils (%) (Auto) 0 % (0-3) Basophils (%) (Auto) 0 % (0-3) Neutrophils # (Auto) 6.5 x10^3/uL (1.8-7.7) Lymphocytes # (Auto) 1.8 x10^3/uL (1.0-4.8) Monocytes # (Auto) 0.5 x10^3/uL (0.0-1.1) Eosinophils # (Auto) 0.0 x10^3/uL (0.0-0.7) Basophils # (Auto) 0.0 x10^3/uL (0.0-0.2) D-Dimer (Susy) 0.31 ug/mlFEU (0.00-0.50) Sodium Level 140 mmol/L (136-145) Potassium Level 4.1 mmol/L (3.5-5.1) Chloride Level 104 mmol/L (98-107) Carbon Dioxide Level 21 mmol/L (21-32) Anion Gap 15 (6-14) Blood Urea Nitrogen 15 mg/dL (8-26) Creatinine 1.0 mg/dL (0.7-1.3) Estimated GFR (Cockcroft-Gault) 75.5 BUN/Creatinine Ratio 15 (6-20) Glucose Level 214 mg/dL (70-99) Calcium Level 9.3 mg/dL (8.5-10.1) Total Bilirubin 0.7 mg/dL (0.2-1.0) Aspartate Amino Transf (AST/SGOT) 26 U/L (15-37) Alanine Aminotransferase (ALT/SGPT) 48 U/L (16-63) Alkaline Phosphatase 66 U/L (46-116) Troponin I High Sensitivity 9 ng/L (4-75) 12 ng/L (4-75) Total Protein 7.8 g/dL (6.4-8.2) Albumin 4.2 g/dL (3.4-5.0) Albumin/Globulin Ratio 1.2 (1.0-1.7) Glucose (Fingerstick) 169 mg/dL (70-99) 73 mg/dL (70-99) Test 09/16/21 11:10 Glucose (Fingerstick) 139 mg/dL (70-99) Laboratory Tests Test 09/15/21 14:43 09/15/21 21:01 09/16/21 03:30 1/15/22 07:40 White Blood Count 8.9 x10^3/uL (4.0-11.0) Red Blood Count 5.06 x10^6/uL (4.30-5.70) Hemoglobin 15.5 g/dL (13.0-17.5) Hematocrit 44.7 % (39.0-53.0) Mean Corpuscular Volume 88 fL (79-100) Mean Corpuscular Hemoglobin 31 pg (25-35) Mean Corpuscular Hemoglobin Concent 35 g/dL (31-37) Red Cell Distribution Width 13.4 % (11.5-14.5) Platelet Count 212 x10^3/uL (140-400) Neutrophils (%) (Auto) 73 % (31-73) Lymphocytes (%) (Auto) 20 % (24-48) Monocytes (%) (Auto) 6 % (0-9) Eosinophils (%) (Auto) 0 % (0-3) Basophils (%) (Auto) 0 % (0-3) Neutrophils # (Auto) 6.5 x10^3/uL (1.8-7.7) Lymphocytes # (Auto) 1.8 x10^3/uL (1.0-4.8) Monocytes # (Auto) 0.5 x10^3/uL (0.0-1.1) Eosinophils # (Auto) 0.0 x10^3/uL (0.0-0.7) Basophils # (Auto) 0.0 x10^3/uL (0.0-0.2) D-Dimer (Susy) 0.31 ug/mlFEU (0.00-0.50) Sodium Level 140 mmol/L (136-145) Potassium Level 4.1 mmol/L (3.5-5.1) Chloride Level 104 mmol/L (98-107) Carbon Dioxide Level 21 mmol/L (21-32) Anion Gap 15 (6-14) Blood Urea Nitrogen 15 mg/dL (8-26) Creatinine 1.0 mg/dL (0.7-1.3) Estimated GFR (Cockcroft-Gault) 75.5 BUN/Creatinine Ratio 15 (6-20) Glucose Level 214 mg/dL (70-99) Calcium Level 9.3 mg/dL (8.5-10.1) Total Bilirubin 0.7 mg/dL (0.2-1.0) Aspartate Amino Transf (AST/SGOT) 26 U/L (15-37) Alanine Aminotransferase (ALT/SGPT) 48 U/L (16-63) Alkaline Phosphatase 66 U/L (46-116) Troponin I High Sensitivity 9 ng/L (4-75) 12 ng/L (4-75) Total Protein 7.8 g/dL (6.4-8.2) Albumin 4.2 g/dL (3.4-5.0) Albumin/Globulin Ratio 1.2 (1.0-1.7) Glucose (Fingerstick) 169 mg/dL (70-99) 73 mg/dL (70-99) Test 09/16/21 11:10 Glucose (Fingerstick) 139 mg/dL (70-99) Medications Current Medications Aspirin (Aspirin Chewable) 324 mg 1X ONCE PO Last administered on 09/15/21at 15:00; Start 09/15/21 at 15:00; Stop 09/15/21 at 15:01; Status DC Nitroglycerin (Nitrostat) 0.4 mg PRN Q5MIN PRN SL CHEST PAIN Last administered on 09/15/21at 15:14; Start 09/15/21 at 15:00; Stop 09/16/21 at 13:13; Status DC Morphine Sulfate (Morphine Sulfate) 2 mg 1X ONCE IVP Last administered on 09/15/21at 15:25; Start 09/15/21 at 15:30; Stop 09/15/21 at 15:31; Status DC Aspirin (Aspirin Chewable) 81 mg DAILY PO Last administered on 09/16/21at 09:07; Start 09/16/21 at 09:00; Stop 09/16/21 at 13:13; Status DC Atorvastatin Calcium (Lipitor) 20 mg HS PO Last administered on 09/15/21at 2 1:44; Start 09/15/21 at 21:00; Stop 09/16/21 at 13:13; Status DC Diltiazem HCl (Cardizem 24hr Cd) 180 mg BID PO Last administered on 09/16/21at 09:17; Start 09/15/21 at 21:00; Stop 09/16/21 at 13:13; Status DC Lisinopril (Prinivil) 5 mg DAILY PO Last administered on 09/16/21at 09:08; Start 09/16/21 at 09:00; Stop 09/16/21 at 13:13; Status DC Metformin HCl (Glucophage) 1,000 mg BIDWMEALS PO Last administered on 09/16/21at 09:08; Start 09/15/21 at 18:30; Stop 09/16/21 at 13:13; Status DC Metoprolol Tartrate (Lopressor) 25 mg BID PO Last administered on 09/16/21at 09:07; Start 09/15/21 at 21:00; Stop 09/16/21 at 13:13; Status DC Digoxin (Lanoxin) 250 mcg DAILYWSUP PO Last administered on 09/15/21at 21:47; Start 09/15/21 at 18:30; Stop 09/16/21 at 13:13; Status DC Flecainide Acetate (Tambocor) 100 mg BID PO Last administered on 09/16/21at 09:07; Start 09/15/21 at 21:00; Stop 09/16/21 at 13:13; Status DC Insulin Glargine (Lantus Syringe) 80 unit QHS SQ Last administered on 09/15/21at 21:53; Start 09/15/21 at 21:00; Stop 09/16/21 at 13:13; Status DC Insulin Human Lispro (HumaLOG) 28 units TIDWMEALS SQ ; Start 09/16/21 at 08:00; Stop 09/16/21 at 13:13; Status DC Rivaroxaban (Xarelto) 20 mg DAILYWSUP PO Last administered on 09/15/21at 21:45; Start 09/15/21 at 18:30; Stop 09/16/21 at 13:13; Status DC Hydralazine HCl (Apresoline Inj) 10 mg PRN Q4HRS PRN IVP ELEVATED BP, SEE COMMENTS; Start 09/15/21 at 18:30; Stop 09/16/21 at 13:13; Status DC Ondansetron HCl (Zofran) 4 mg PRN Q6HRS PRN IVP NAUSEA/VOMITING; Start 09/15/21 at 18:30; Stop 09/16/21 at 13:13; Status DC Calcium Carbonate/ Glycine (Tums) 500 mg PRN Q3HRS PRN PO UPSET STOMACH; Start 09/15/21 at 18:30; Stop 09/16/21 at 13:13; Status DC Zolpidem Tartrate (Ambien) 5 mg PRN QHS PRN PO INSOMNIA, MAY REPEAT IN 1HR; Start 09/15/21 at 18:30; Stop 09/16/21 at 13:13; Status DC Info (Non-Icu Electrolyte Protocol) 1 ea PRN DAILY PRN MC SEE COMMENTS; Start 09/15/21 at 18:30; Stop 09/16/21 at 13:13; Status DC Oxycodone/ Acetaminophen (Percocet 5/325) 1 tab PRN Q4HRS PRN PO MILD PAIN, 1ST CHOICE; Start 09/15/21 at 18:30; Stop 09/16/21 at 13:13; Status DC Oxycodone/ Acetaminophen (Percocet 5/325) 2 tab PRN Q4HRS PRN PO MODERATE PAIN, SEVERE PAIN Last administered on 09/16/21at 01:42; Start 09/15/21 at 18:30; Stop 09/16/21 at 13:13; Status DC Acetaminophen (Tylenol) 650 mg PRN Q6HRS PRN PO Headaches, Temp > 101.5F; Start 09/15/21 at 18:30; Stop 09/16/21 at 13:13; Status DC Senna/Docusate Sodium (Senna Plus) 1 tab BID PO Last administered on 09/16/21at 09:08; Start 09/15/21 at 21:00; Stop 09/16/21 at 13:13; Status DC Lidocaine (Lidoderm) 1 patch DAILY TD Last administered on 09/16/21at 09:06; Start 09/16/21 at 09:00; Stop 09/16/21 at 13:13; Status DC Miscellaneous (Lidoderm Patch Removal) 1 ea QHS MC ; Start 09/15/21 at 21:00; Stop 09/16/21 at 13:13; Status DC Active Scripts Active Percocet 5-325 Mg Tablet (Oxycodone/Acetaminophen) 1 Each Tablet 1 Tab PO PRN Q4HRS PRN Lidocaine PATCH (Lidocaine) 1 Each Adh..patch 1 Patch TD DAILY Metoprolol Tartrate 25 Mg Tablet 25 Mg PO BID 30 Days Xarelto (Rivaroxaban) 20 Mg Tablet 20 Mg PO QHS Reported Flecainide Acetate 100 Mg Tablet 100 Mg PO BID Centrum Adults Tablet (Multivitamin/Iron/Folic Acid) 1 Each Tablet 1 Each PO DAILY Trulicity (Dulaglutide) 1.5 Mg/0.5 Ml Pen.injctr 0.75 Mg SQ WEEKLY Digoxin 250 Mcg Tablet 250 Mcg PO DAILYWSUP Cartia Xt (Diltiazem Hcl) 180 Mg Cap.er.24h 180 Mg PO BID Lisinopril 5 Mg Tablet 5 Mg PO DAILY Humalog (Insulin Lispro) 100 Unit/1 Ml Cartridge 28 Unit SQ TIDAFTMEAL Toujeo Solostar (Insulin Glargine,Hum.rec.anlog) 300 Unit/1 Ml Insuln.pen 100 Unit SQ QHS Fish Oil 1,200 Mg Fish Oil (Fish Oil/Dha/Epa) 1 Each Capsule 1 Each PO DAILY Atorvastatin Calcium 20 Mg Tablet 20 Mg PO HS Aspirin 81 Mg Tab.chew 81 Mg PO DAILY Metformin Hcl 500 Mg Tablet 1,000 Mg PO BIDWMEALS Vitals/I & O Vital Sign - Last 24 Hours 09/15/21 09/15/21 09/15/21 09/15/21 14:45 15:14 15:25 16:46 Temp 98.4 98.4 Pulse 76 90 97 Resp 16 16 B/P (MAP) 219/103 (141) 219/100 195/113 (140) Pulse Ox 95 98 O2 Delivery Room Air Room Air Room Air 09/15/21 09/15/21 09/15/21 09/15/21 18:32 18:50 19:55 20:25 Pulse 92 89 94 Resp 15 18 18 B/P (MAP) 166/94 (118) 166/94 (118) 163/92 (115) Pulse Ox 98 97 98 O2 Delivery Room Air Room Air Room Air Room Air 09/15/21 09/15/21 09/15/21 09/15/21 21:00 21:09 21:46 21:46 Temp 98.6 98.6 Pulse 88 88 88 Resp 22 B/P (MAP) 171/89 (116) 171/89 171/89 Pulse Ox 97 O2 Delivery Room Air Room Air 09/15/21 09/15/21 09/15/21 09/16/21 21:47 21:47 22:55 01:42 Temp 98.6 98.6 Pulse 88 88 80 Resp 18 18 B/P (MAP) 171/89 171/89 140/96 (111) Pulse Ox 97 97 O2 Delivery Room Air Room Air 09/16/21 09/16/21 09/16/21 09/16/21 02:12 03:00 06:06 07:00 Temp 98.1 98.0 97.6 98.1 98.0 97.6 Pulse 68 64 71 Resp 18 20 18 20 B/P (MAP) 145/90 (108) 140/81 (100) 155/76 (102) Pulse Ox 97 96 97 100 O2 Delivery Room Air Room Air Room Air Room Air 09/16/21 09/16/21 09/16/21 09/16/21 08:00 09:07 09:07 09:08 Pulse 64 64 64 B/P (MAP) 140/81 140/81 140/81 O2 Delivery Room Air 09/16/21 09/16/21 09:17 11:00 Temp 98.0 98.0 Pulse 64 63 Resp 22 B/P (MAP) 140/81 142/76 (98) Pulse Ox 96 O2 Delivery Room Air Intake and Output 09/15/21 09/15/21 09/16/21 15:00 23:00 07:00 Intake Total 260 ml Output Total 150 ml Balance 110 ml Justifications for Admission Other Justification KELLY LI MD Sep 16, 2021 14:01
== END 2021-09-16 12:45 | disposition home or self-care (01) ==
LOC: ER 14:27 → ED HOLD 16:19 → 6 SOUTH 20:54
PROVIDERS: ADMIT Student in an Organized Health Care Education/Training Program; ATTEND Student in an Organized Health Care Education/Training Program
DX: R07.89 Other chest pain (principal); I16.0 Hypertensive urgency; I48.91 Unspecified atrial fibrillation; I10 Essential (primary) hypertension; M25.552 Pain in left hip; E11.9 Type 2 diabetes mellitus without complications; E78.00 Pure hypercholesterolemia, unspecified; E78.5 Hyperlipidemia, unspecified; M16.12 Unilateral primary osteoarthritis, left hip; G47.30 Sleep apnea, unspecified; Z79.01 Long term (current) use of anticoagulants; Z95.2 Presence of prosthetic heart valve; Z95.5 Presence of coronary angioplasty implant and graft; Z79.899 Other long term (current) drug therapy; Z98.890 Other specified postprocedural states; Z98.49 Cataract extraction status, unspecified eye; Z90.49 Acquired absence of other specified parts of digestive tract
CPT/HCPCS: 36415; 71045; 73502; 80053; 82962; 84484; 85025; 85379; 93005; 96372; 96374; 99285; G0378; J1815; J2270; G0379

== ENCOUNTER → 2021-09-18 | Outpatient (CLI) | payer OTHER, MEDICARE ==
[2021-09-16 11:00] VITALS: BP 142/76
[~2021-09-18] MED LIST changes: +LIDO700A21 TD; +OXYC1TAB15 PO
--- NOTE | 2021-09-18 10:13 | KCIC ---
STUDY: MRI of the lumbar spine without contrast INDICATION: Lumbar radiculopathy. 6. Severe left leg pain and weakness. COMPARISON: Lumbar spine MRI 05/24/2020 TECHNIQUE: Multiplanar MR imaging of the lumbar spine performed without the use of intravenous contra st. FINDINGS: Transitional lumbosacral anatomy. The same numbering scheme is utilized from the comparison MRI with a rudimentary disc at L5-S1. Normal signal and configuration of the conus medullaris which terminates at the upper aspect of L1. U nremarkable cauda equina. Grade 1 anterolisthesis of L4 on L5. Interval operative changes on the right at L4-L5. Similar config uration of the disc spaces from the comparison without disc space collapse. There is a component michael ccation from L2-L3 through L4-L5. Mild degenerative/reactive marrow edema at the posterior/inferior c orner of L4. Degenerative marrow and mild soft tissue edema associated with advanced facet arthrosis on the left at L4-L5. Small facet joint effusion at this location. Small T2 hyperintense cystic focus at the upper pole of the left kidney, image 6 series 7. Mild parti ally assessed arthrosis at the left more so than right sacroiliac joints. T10-11: Only evaluated on the sagittal sequences. Mild facet arthrosis on the right without significa nt neural foraminal stenosis. Patent central canal and left neural foramen. T11-T12: Mild facet arthrosis. Patent central canal and neural foramina. T12-L1: Mild facet hypertrophy. Patent central canal and neural foramina. L1-L2: Mild facet and ligamentum flavum hypertrophy. No significant disc bulge. Patent central canal and neural foramina. L2-L3: Mild facet and ligamentum flavum hypertrophy. Mild lobulated disc bulge and minimal endplate o steophytic ridging. Patent central canal and neural foramina. L3-L4: Mild facet and ligamentum flavum hypertrophy. Mild lobulated disc bulge and minimal endplate o steophytic ridging. Minimal central canal stenosis with a mid sagittal dimension of 9.5 mm. Mild bila teral neural foraminal stenosis. L4-L5: Operative level. The previously described right facet joint cyst is no longer seen. Advanced f acet arthrosis. Anterolisthesis with disc uncovering. Superimposed posterior disc bulge with a centra l protrusion/cephalad extrusion with an annular tear. Decompressed central canal which is patent with a mid sagittal dimension of 1 cm. Development of a mildly complex facet joint cyst on the left exten ding anterior and inferior to the facet joint and propagating downward and lateral into the left L5 s acral foramen. This is difficult to measure but is approximately 11 mm transverse by 8 mm AP on image 22 series 5 and extends craniocaudal by around 12 mm. Compression of the left L5 nerve root. Severe left and moderate/severe right neural foraminal stenosis at L4-L5. L5-S1: Patent central canal and right neural foramen. Compression of the descending and exiting left L5 nerve root from the described facet joint cyst. IMPRESSION: 1. Transitional lumbosacral anatomy. In keeping with the numbering scheme from the comparison MRI th ere is a rudimentary disc at what is considered L5-S1. 2. 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 Resultant compression of the descen ding and exiting L5 nerve root. The cyst is measured at approximately 11 x 8 x 12 mm. 3. Interval operative changes at L4-L5 with the right facet joint cyst at this level on the comparis on no longer seen. 4. On a multifactorial basis, severe left and moderate/severe right neural foraminal stenosis at L4- L5. Also at this level is a posterior disc bulge with a central protrusion/cephalad extrusion with an associated annular tear. The central canal is decompressed/patent. 5. Less pronounced degenerative changes as additional levels described in the body of the report. Electronically signed by: SALMA SOTO MD (09/18/2021 10:10 AM) [facility]
== END ==
LOC: KCIC MRI 08:30
PROVIDERS: ATTEND Family Medicine
DX: M47.26 Other spondylosis with radiculopathy, lumbar region (principal); M43.16 Spondylolisthesis, lumbar region; M48.061 Spinal stenosis, lumbar region without neurogenic claudication; M51.26 Other intervertebral disc displacement, lumbar region; M51.36 Other intervertebral disc degeneration, lumbar region; Z98.1 Arthrodesis status
CPT/HCPCS: 72148

== ENCOUNTER → 2021-11-21 | Outpatient (CLI) | payer OTHER, MEDICARE ==
[~2021-11-21] MED LIST changes: +OMEG1CAP27 PO
[2021-11-21 13:49] LABS: BASO % 1 % (0-3); EOS # 0.1 x10^3/uL (0.0-0.7); EOS % 2 % (0-3); HEMATOCRIT 43.4 % (39.0-53.0); HEMOGLOBIN 14.5 g/dL (13.0-17.5); LYMPH # 2.4 x10^3/uL (1.0-4.8); LYMPH % 40 % (24-48); MEAN CORPUSCULAR HEMOGLOBIN 30 pg (25-35); MEAN CORPUSCULAR HGB CONC 34 g/dL (31-37); MEAN CORPUSCULAR VOLUME 89 fL (79-100); MONO # 0.6 x10^3/uL (0.0-1.1); MONO % 11 % (0-9); NEUT # 2.8 x10^3/uL (1.8-7.7); NEUT % 46 % (31-73); PLATELET COUNT 201 x10^3/uL (140-400); RED BLOOD COUNT 4.86 x10^6/uL (4.30-5.70); RED CELL DISTRIBUTION WIDTH 13.4 % (11.5-14.5); WHITE BLOOD COUNT 6.1 x10^3/uL (4.0-11.0)
[2021-11-21 14:07] LABS: ALBUMIN 3.7 g/dL (3.4-5.0); CALCIUM 9.1 mg/dL (8.5-10.1); GFR 75.5; POTASSIUM 4.3 mmol/L (3.5-5.1); TOTAL BILIRUBIN 0.3 mg/dL (0.2-1.0); TOTAL PROTEIN 7.3 g/dL (6.4-8.2)
[2021-11-22 00:08] LABS: HEMOGLOBIN A1C 8.1 % (4.8-5.6)
== END ==
LOC: SURGPAT 13:19
PROVIDERS: ATTEND Neurological Surgery
DX: Z01.812 Encounter for preprocedural laboratory examination (principal); M71.30 Other bursal cyst, unspecified site; M51.16 Intervertebral disc disorders with radiculopathy, lumbar region
CPT/HCPCS: 36415; 80053; 83036; 85025; 87641

== ENCOUNTER 2021-11-30 06:57 | Day surgery (SDC) | payer OTHER, MEDICARE ==
[2021-11-21 13:47] VITALS: BP 152/99
--- NOTE | 2021-11-29 15:54 | PREOP HP ---
DATE OF SERVICE: 11/30/2021 PREOPERATIVE HISTORY AND PHYSICAL HISTORY OF PRESENT ILLNESS: The patient is a pleasant 61-year-old. He is having difficulty with low back pain, left buttock pain and left posterior thigh pain, which radiates into his leg and into the bottom of his left foot. The problem has been present for several months. He said the pain is severe. He has been to the Emergency Room. Turning over in bed increases his pain. The pain is present all of the time. He said his pain has markedly increased with sneezing. Lying down helps. He is taking tizanidine and hydrocodone. He reports having a cardiac stenting done a few months ago. Occasionally, he uses a crutch because of pain. He has not fallen yet. There is no problem on the right side. He has undergone surgery at L4-L5 on the right in 07/2020 and did well. CURRENT MEDICATIONS: Tizanidine, hydrocodone, fish oil, Centrum, Xarelto, lisinopril, Cardizem, digoxin, metoprolol, metformin, atorvastatin, aspirin, hydrocodone. PAST MEDICAL HISTORY: Hypertension, diabetes, heart disease, arthritis. PAST SURGICAL HISTORY: Lumbar laminectomy, right direct L4-L5 with removal of synovial cyst in 07/2020. FAMILY HISTORY: Diabetes. SOCIAL HISTORY: Retired, , does not smoke. Drinks alcohol 1-2 times per year. ALLERGIES: No known drug allergies. REVIEW OF SYSTEMS: A 12-point review of systems was performed and is noncontributory except that mentioned above. PHYSICAL EXAMINATION: GENERAL: Alert, pleasant, in no acute distress. HEENT: Head is normocephalic, atraumatic. SKIN: Warm and dry. Well-healed lumbar incision. MUSCULOSKELETAL: Lumbar paraspinal muscle bulk is normal, restricted range of motion of the lumbar spine, [id number] tenderness of the lower lumbar spine with palpation, normal range of motion of the lower extremities bilaterally. EXTREMITIES: No clubbing, cyanosis or edema. NEUROLOGIC: Alert and oriented x3. Strength is 5/5 in the lower extremities bilaterally. Sensory is intact to light touch in the lower extremities bilaterally except for decreased sensation in the posterior leg and heel as well as the bottom of his left foot. Reflexes were present and symmetric in the lower extremities bilaterally except for an absent left ankle jerk. There was a positive straight leg raising on the left, relieved by Lasegue's maneuver; negative straight leg raising on the right; antalgic gait favoring his left leg. IMAGING: I reviewed a lumbar MRI scan from 09/18/2021. On that study, there are postoperative changes on the right at L4-L5. On the left side, there is a complex facet joint cyst. It extends anteriorly and inferiorly compressing the left L5 nerve root. It also extends into the left L5 sacral foramen. The cyst measures 11 mm transverse x 8 mm AP by 12 mm craniocaudal. ASSESSMENT AND PLAN: He has a large synovial cyst with significant lumbar radiculopathy related to it and nerve compression associated with the cyst. My recommendation is that he undergo lumbar microsurgery to decompress the nerve root and remove the cyst at L4-L5 on the left. I did speak with him about the rationale, the technique and the risk of surgery as well as the expected postoperative course. He understands and would like to proceed. SAI DR: Josh TID: [id number]
[~2021-11-30] VITALS: Ht 177.8 cm; Wt 101.0 kg
[~2021-11-30 06:57] MED LIST changes: +BUPIVACAINE-EPI 0.5% 30 ML VIAL KIT. ONE; +DEXAMETHASONE SOD PHOS 4 MG/ML VIAL ONE; +GELATIN SPONGE SIZE 100. ONE; +HYDROmorphone 2 MG/ML INJ. IVP PRN; +IV RINGERS,LACTATED 1000ML 1,000 ML IV SCH; +KETOROLAC 60 MG/2 ML VIAL. ONE; +LIDOCAINE 2% PF 5 ML VIAL. ONE; +MORPHINE SULFATE 2 MG/ML INJ. IVP PRN; +ONDANSETRON PF 4 MG/2 ML VIAL. ONE; +PHENYLEPHRINE 10 MG/ML VIAL. ONE; +PROCHLORPERAZINE 10 MG/2 ML VIAL. IVP PRN; +PROPOFOL 10 MG/ML (20ML) VIAL. IV ONE; +PROPOFOL 50 ML IV ONE; +REMIFENTANIL 1 MG VIAL. IV ONE; +SEVOFLURANE > 120 MINUTES. IH ONE; +SUCCINYLCHOLINE 200 MG/10 ML VIAL. ONE; +THROMBIN TOPICAL 20,000 UNIT SPRAY.SYRN KIT TP ONE; +ceFAZolin SODIUM 1 GM in IV NORMAL SALINE 1000ML BAG 1,000 ML IRR ONE; +fentaNYL PF VIAL 100 MCG/2 ML VIAL IVP PRN; +fentaNYL PF VIAL 100 MCG/2 ML VIAL ONE
[2021-11-30] MEDS ORDERED: KETAMINE HCL IN NACL, ISO-OSM 50 MG/5 ML SYRINGE ONE (07:17)
[2021-11-30 07:27] VITALS: BP 144/83
[2021-11-30] MEDS: INSULIN LISPRO 100 UNIT/ML 3ML VIAL for OP,RR ONLY. SQ PRN ×2 (07:55→12:38)
[2021-11-30] MEDS ORDERED: PROPOFOL 10 MG/ML (20ML) VIAL. IV ONE ×3 (08:14→09:15)
[2021-11-30] MEDS ORDERED: DOCU-109 PO (11:59)
[2021-11-30] MEDS ORDERED: METH-562 PO (11:59)
--- NOTE | 2021-11-30 12:01 | DISCH ---
DISCHARGE INSTRUCTIONS Condition on Discharge Condition on Discharge: Stable Activity After Discharge Activity Instructions for Disc: Activity as tolerated, Avoid exertion Other activity instructions: no driving for a week Lifting Instructions after Dis: No heavy lifting, No pulling or pushing, Do not lift >10 pounds Exercise Instruction after Dis: Progress as tolerated Weight Bearing Status after Di: No restrictions Diet after Discharge Diet after Discharge: Cardiac, Diabetic No Calorie Level Additional Diet Restrictions: resume home diet Diet Texture: Regular Liquid Texture: Thin Liquid Swallowing Supervision: None needed Wound Incision Care Wound/Incision Care: Ice to area for comfort, No wound care needed Other wound/incision instructi: may remove dressing in 48 hours if dry, leave steri strips in place Wound Care Equipment: Dressings Checks after Discharge Checks after discharge: Check blood press - daily, Check blood sugar, ac/hs Contacting the DRNyla after DC Call your doctor for: Concerns you may have Follow-Up Follow up with: Dr. Anderson in 2 weeks [phone] Treatment/Equipment after DC Adaptive Equipment Issued: None ROSAMARIA ANDERSON MD Nov 30, 2021 12:01
[2021-11-30] MEDS ORDERED: OXYC1TAB15 PO (12:06)
[2021-11-30] MEDS ORDERED: INSULIN LISPRO 100 UNIT/ML 3ML VIAL for OP,RR ONLY. SQ ONE ×2 (12:40)
[2021-11-30] MEDS ORDERED: oxyCODONE/APAP 5/325 1 TAB TABLET PO ONE (12:45)
[2021-11-30 13:35] VITALS: BP 133/71
--- NOTE | 2021-11-30 22:49 | OP ---
DATE OF SURGERY: 11/30/2021 PREOPERATIVE DIAGNOSIS: Synovial cyst, L4-5 left with compression of the left L5 nerve root. POSTOPERATIVE DIAGNOSIS: Synovial cyst, L4-5 left with compression of the left L5 nerve root. OPERATIONS PERFORMED: Lumbar laminectomy, left L4-5 with transfacet exposure and decompression of the nerve root with excision of synovial cyst. SURGEON: Guillermo Perry M.D. FILM MOUNTER: CECILIA West; assisted with the exposure, the removal of synovial cyst as well as the closure. The operation also incorporated multimodality monitoring including EMG, SSEP. We used fluoroscopy and microscope for microscopic dissection. OPERATIVE INDICATIONS: The patient is a pleasant 61-year-old man who in the past had a right-sided synovial cyst, which was excised and he did well. He then developed problems with left lumbar radiculopathy and found to have a complex synovial cyst, which appeared to emanate from both superior and inferior aspects of the facet at L4-5 on the left and I recommended excision of the cyst and decompression of the nerve root. He understood the surgery and the risks. He wished to go ahead. DESCRIPTION OF PROCEDURE: Following general endotracheal anesthesia, the patient was positioned prone on the Felipe table. Lumbar region was prepped and draped in standard fashion. RAFAELA hose and AV impulse boots were applied for DVT prophylaxis. Microscope was draped, fluoroscopy was draped and brought in the field. The monitoring was established. Ancef 2 grams was given less than 1 hour prior to initiation of surgery. Using fluoroscopic guidance, an incision was made over the midline. I dissected down through skin and subcutaneous tissue, reflected the paraspinal muscles, placed a [place] microdisk retractor, brought in the microscope and the remainder of the surgery was done with microscope using microscopic technique. I confirmed my position fluoroscopically. I used a high-speed air drill to perform significant bone removal above and below the disc space at L4-5 on the left. I followed the nerve root out and did a transfacet exposure and visualized the nerve out into the foramen. Then inferiorly there was a focus of synovial cyst. I then grasped and peeled away ligamentum flavum and followed this by using microscopic technique and the synovial cyst from the underlying dura moving from medial to laterally and then out into the foramen and fully decompressed the cyst at this location. I then worked inferiorly to a separate location and again there was a large synovial cyst, which I freed up from the surrounding dura, unroofed and removed. I then explored carefully. The roots were quite free throughout the course. I felt that the cyst had been removed. I irrigated it copiously. I then closed the wound in layers with absorbable suture and the skin was closed with 4-0 subcuticular stitch. I felt the surgery went very well. TIFFANIE/JACQUELIN/STEPHANIE DR: Mary TID: [id number] TORI
--- NOTE | 2021-12-04 18:06 | PATHOLOGY ---
[facility] Accession Number: [id number] . 01 Material submitted: . vertebral column - LUMBAR DECOMPRESSION AND SYNOVIAL CYST. Modifiers: L4-5 . 01 Clinical history: . SYNOVIAL CYST, HERNIATED DISC WITH RADICULOPATHY . 02 Diagnosis: Segments of fibrocartilaginous and synovial tissue and bone, lumbar decompression and synovial cyst: - Degenerative changes of fibrocartilaginous tissue with focal fibrosis and hemosiderin-laden macrophages, and focal synovial tissue consistent with synovial cyst. (JPM:amaury; 12/04/2021) R 12/04/2021 1719 Local . 02 Comment: There is no evidence of an acute inflammatory process or malignancy. (JPM:amaury; 12/04/2021) . 02 Electronically signed: . Carlos Grover MD, Pathologist NPI- [id number] . 01 Gross description: . The specimen is received in formalin, labeled "Mack Limon, lumbar decompression, synovial cyst". The site is further designated in the operative procedure as "L4-5". Received are multiple segments of pink-patterson fibrous tissue admixed with gritty fragments of bone measuring 3.8 x 3.8 x 0.9 cm in aggregate dimensions. The specimen is submitted representatively in cassette A1, following light decalcification. (CAA; 11/30/2021) QAC/QAC 11/30/2021 1513 Local . 02 Pathologist provided ICD-10: M71.38 . 02 CPT . 361495, [id number] Specimen Comment: A courtesy copy of this report has been sent to [phone], [phone] Specimen Comment: 1510 Specimen Comment: Report sent to / DR MEYER Performed at: 01 [facility] [address], [place] [id number] MD Simon Marcos MD Phone: [phone] Performed at: 02 [facility] [address] [place], [place] [id number] MD Carlos Grover MD Phone: [phone]
== END 2021-11-30 15:04 | disposition home or self-care (01) ==
LOC: SURG 06:57
PROVIDERS: ATTEND Neurological Surgery
DX: M71.38 Other bursal cyst, other site (principal); E11.9 Type 2 diabetes mellitus without complications; I11.9 Hypertensive heart disease without heart failure; M19.90 Unspecified osteoarthritis, unspecified site; I48.91 Unspecified atrial fibrillation; G47.30 Sleep apnea, unspecified; E66.9 Obesity, unspecified; K21.9 Gastro-esophageal reflux disease without esophagitis; F41.9 Anxiety disorder, unspecified; F32.9 Major depressive disorder, single episode, unspecified; Z79.82 Long term (current) use of aspirin; Z79.84 Long term (current) use of oral hypoglycemic drugs; Z79.899 Other long term (current) drug therapy; Z98.890 Other specified postprocedural states; Z82.49 Family history of ischemic heart disease and other diseases of the circulatory system; Z83.3 Family history of diabetes mellitus
CPT/HCPCS: 63267; 82962; 88304; 88311; 97116; 97162; A4364; A4556; A4930; A6254; A6258; J0330; J0690; J1815; J1885; J2370; J2405; J2704; J3010; J3490; J7030; 76000; A4222; A4452; J1100

== ENCOUNTER 2021-12-14 16:04 | Inpatient (IN) | payer OTHER, MEDICARE ==
[~2021-12-14] VITALS: Ht 177.8 cm; Wt 101.7 kg
[~2021-12-14 16:04] MED LIST changes: -BUPIVACAINE-EPI 0.5% 30 ML VIAL KIT. ONE; -DEXAMETHASONE SOD PHOS 4 MG/ML VIAL ONE; -GELATIN SPONGE SIZE 100. ONE; -HYDROmorphone 2 MG/ML INJ. IVP PRN; -IV RINGERS,LACTATED 1000ML 1,000 ML IV SCH; -KETOROLAC 60 MG/2 ML VIAL. ONE; -LIDOCAINE 2% PF 5 ML VIAL. ONE; -MORPHINE SULFATE 2 MG/ML INJ. IVP PRN; -ONDANSETRON PF 4 MG/2 ML VIAL. ONE; -PHENYLEPHRINE 10 MG/ML VIAL. ONE; -PROCHLORPERAZINE 10 MG/2 ML VIAL. IVP PRN; -PROPOFOL 10 MG/ML (20ML) VIAL. IV ONE; -PROPOFOL 50 ML IV ONE; -REMIFENTANIL 1 MG VIAL. IV ONE; -SEVOFLURANE > 120 MINUTES. IH ONE; -SUCCINYLCHOLINE 200 MG/10 ML VIAL. ONE; -THROMBIN TOPICAL 20,000 UNIT SPRAY.SYRN KIT TP ONE; -ceFAZolin SODIUM 1 GM in IV NORMAL SALINE 1000ML BAG 1,000 ML IRR ONE; -fentaNYL PF VIAL 100 MCG/2 ML VIAL IVP PRN; -fentaNYL PF VIAL 100 MCG/2 ML VIAL ONE
[2021-12-14 16:25] VITALS: BP 103/78
[2021-12-14] MEDS ORDERED: MAGNESIUM HYDROXIDE 2,400 MG/30 ML ORAL.SUSP. PO PRN (16:30)
[2021-12-14] MEDS ORDERED: 0.9 % SODIUM CHLORIDE 10 ML DISP.SYRIN. IV PRN (16:30)
[2021-12-14] MEDS ORDERED: diphenhydrAMINE HCL 25 MG CAPSULE PO PRN (16:30)
[2021-12-14] MEDS ORDERED: NALOXONE 0.4 MG/ML VIAL. IV PRN (16:30)
[2021-12-14] MEDS ORDERED: fentaNYL PF VIAL 100 MCG/2 ML VIAL IVP PRN (16:30)
[2021-12-14] MEDS ORDERED: METHOCARBAMOL 750 MG TABLET PO PRN (16:30)
[2021-12-14] MEDS ORDERED: CALCIUM CARBONATE 500 MG TAB.CHEW PO PRN (16:30)
[2021-12-14] MEDS ORDERED: MAG HYDROX/ALUMINUM HYD/SIMETH 30 ML ORAL.SUSP PO PRN (16:30)
[2021-12-14 17:06] LABS: BASO # 0.1 x10^3/uL (0.0-0.2); BASO % 1 % (0-3); EOS % 0 % (0-3); HEMATOCRIT 43.5 % (39.0-53.0); HEMOGLOBIN 14.8 g/dL (13.0-17.5); LYMPH # 1.4 x10^3/uL (1.0-4.8); LYMPH % 9 % (24-48); MEAN CORPUSCULAR HEMOGLOBIN 30 pg (25-35); MEAN CORPUSCULAR HGB CONC 34 g/dL (31-37); MEAN CORPUSCULAR VOLUME 89 fL (79-100); MONO % 6 % (0-9); NEUT % 84 % (31-73); PLATELET COUNT 247 x10^3/uL (140-400); RED BLOOD COUNT 4.91 x10^6/uL (4.30-5.70); RED CELL DISTRIBUTION WIDTH 13.4 % (11.5-14.5); WHITE BLOOD COUNT 16.6 x10^3/uL (4.0-11.0)
[2021-12-14] MEDS ORDERED: IV DEXTROSE 5% 250 ML BAG. IV PRN (17:15)
[2021-12-14] MEDS ORDERED: DEXTROSE 50% 25 GM / 50ML DISP.SYRIN. IV PRN (17:15)
[2021-12-14 17:26] LABS: ALBUMIN 3.9 g/dL (3.4-5.0); CALCIUM 9.7 mg/dL (8.5-10.1); CREATININE 1.2 mg/dL (0.7-1.3); GFR 61.1; TOTAL BILIRUBIN 1.1 mg/dL (0.2-1.0); TOTAL PROTEIN 7.9 g/dL (6.4-8.2)
[2021-12-14 17:46] LABS: % LYMPHS 5 % (24-48); % MONOS 6 % (0-10); % SEGS 89 % (35-66); PLT ESTIMATE ADEQUATE (ADEQUATE)
--- NOTE | 2021-12-14 17:47 | PDOC2 ---
CONSULT Date of Consult Date of Consult DATE: 12/14/21 TIME: 17:02 Reason for Consult Reason for Consult: Medical management Referring Physician Referring Physician: Dr. Guillermo Perry Identification/Chief Complaint Chief Complaint Back pain Source Source: Patient History of Present Illness Reason for Visit: Mr Limon is a 61yo male with PMHx chronic afib, HTN, HLD, DM2, SUMMER on CPAP (hasn't worn it in 1-2years) who comes as a direct admission from neurosurgery clinic for concerns about surgical site infection and worsening left leg pain. He underwent L4-5 laminectomy and L5 nerve root decompression on 11/30/2021 without event and was home recuperating with symptomatic improvement in his left leg pain and weakness, but overnight on 12/13/2021 after holding his grandchild and changing diaper he noted a pop in his back and severe pain in his left gluteal area shooting down his left leg into his foot and noted some leaking down his back and some reddish discharge at the top of his underwear. He also noted subjective fever and chills overnight and pain on urination and on defecation. He had neurosurgery clinic follow up and was sent to the hospital for further care. Bedside his wound does look red, no discharge noted, some right toe tingling and left gluteal pain on palpation. He hasn't check his blood glucose, thinks it is high. CT lumbar spine on my interpretation has post-operative changes and no subcutaneous air-fluid levels, though some soft tissue swelling. No radiology read yet. Past Medical History Cardiovascular: AFIB, HTN, Hyperlipidemia Pulmonary: Pneumonia, Other CENTRAL NERVOUS SYSTEM: Other Heme/Onc: No pertinent hx Hepatobiliary: No pertinent hx Psych: No pertinent hx Musculoskeletal: Osteoarthritis Rheumatologic: No pertinent hx Infectious disease: No pertinent hx Renal/: No pertinent hx Endocrine: Diabetes Past Surgical History Past Surgical History: Appendectomy, Cataract Removal, Tonsillectomy, Other (Lumbar laminectomy 11/30/2021) Family History Family History: Diabetes, Stroke Social History No ALCOHOL: none Drugs: None Lives: with Family Domestic Violence: Neg Current Medications Current Medications Current Medications Fentanyl Citrate (Fentanyl 2ml Vial) 50 mcg PRN Q2HR PRN IVP MODERATE TO SEVERE PAIN; Start 12/14/21 at 16:30 Acetaminophen (Tylenol) 650 mg PRN Q6HRS PRN PO MILD PAIN / TEMP > 100.3'F; Start 12/14/21 at 16:30 Al Hydroxide/Mg Hydroxide (Mylanta Plus Xs) 30 ml PRN Q3HRS PRN PO HEARTBURN / GAS; Start 12/14/21 at 16:30 Calcium Carbonate/ Glycine (Tums) 500 mg PRN Q3HRS PRN PO INDIGESTION; Start 12/14/21 at 16:30 Diphenhydramine HCl (Benadryl) 25 mg PRN Q6HRS PRN PO ITCHING; Start 12/14/21 at 16:30 Naloxone HCl (Narcan) 0.1 mg PRN Q2MIN PRN IV SEE COMMENTS; Start 12/14/21 at 1 6:30 Sodium Chloride (Normal Saline Flush) 3 ml QSHIFT PRN IV AFTER MEDS AND BLOOD DRAWS; Start 12/14/21 at 16:30 Oxycodone/ Acetaminophen (Percocet 5/325) 1 tab PRN Q4HRS PRN PO MILD PAIN, 1ST CHOICE; Start 12/14/21 at 16:30 Oxycodone/ Acetaminophen (Percocet 5/325) 2 tab PRN Q4HRS PRN PO MODERATE PAIN, SEVERE PAIN; Start 12/14/21 at 16:30 Methocarbamol (Robaxin) 750 mg PRN TID PRN PO MUSCLE SPASMS; Start 12/14/21 at 16:30 Docusate Sodium (Colace) 100 mg BID PO ; Start 12/14/21 at 21:00 Magnesium Hydroxide (Milk Of Magnesia) 2,400 mg PRN Q12HR PRN PO CONSTIPATION; Start 12/14/21 at 16:30 Active Scripts Active Percocet 5-325 Mg Tablet (Oxycodone/Acetaminophen) 1 Each Tablet 1 Tab PO QIDPRN PRN MDD 4 Tablet(s) 5 Days Colace (Docusate Sodium) 100 Mg Capsule 100 Mg PO BID Methocarbamol 750 Mg Tablet 750 Mg PO TID PRN PRN Metoprolol Tartrate 25 Mg Tablet 25 Mg PO BID 30 Days Xarelto (Rivaroxaban) 20 Mg Tablet 20 Mg PO QHS Reported Fish Oil 1,000 Mg Softgel (Milan-3 Fatty Acids/Fish Oil) 1 Each Capsule 1 Each PO DAILY Humalog (Insulin Lispro) 100 Unit/1 Ml Cartridge 36 Unit SQ TIDAC Ondansetron Odt (Ondansetron) 4 Mg Tab.rapdis 8 Mg PO BID PRN Trulicity (Dulaglutide) 1.5 Mg/0.5 Ml Pen.injctr 0.75 Mg SQ WEEKLY Digoxin 250 Mcg Tablet 250 Mcg PO DAILYWSUP Cartia Xt (Diltiazem Hcl) 180 Mg Cap.er.24h 180 Mg PO BID Lisinopril 5 Mg Tablet 5 Mg PO DAILY Tourachel Solostar (Insulin Glargine,Hum.rec.anlog) 300 Unit/1 Ml Insuln.pen 100 Unit SQ QHS Fish Oil 1,200 Mg Fish Oil (Fish Oil/Dha/Epa) 1 Each Capsule 1 Each PO DAILY Atorvastatin Calcium 20 Mg Tablet 20 Mg PO HS Aspirin 81 Mg Tab.chew 81 Mg PO DAILY Metformin Hcl 500 Mg Tablet 1,000 Mg PO BIDWMEALS Allergies Allergies: Coded Allergies: No Known Drug Allergies (Unverified , 11/30/21) ROS General: YES: Fatigue, Malaise; No: Chills, Night Sweats, Appetite, Other PSYCHOLOGICAL ROS: No: Anxiety, Behavioral Disorder, Concentration difficultie, Decreased libido, Depression, Disorientation, Hallucinations, Hostility, Irritablity, Memory difficulties, Mood Swings, Obsessive thoughts, Physical abuse, Sexual abuse, Sleep disturbances, Suicidal ideation, Other Eyes: No Blurry vision, No Decreased vision, No Double vision, No Dry eyes, No Excessive tearing, No Eye Pain, No Itchy Eyes, No Loss of vision, No Photophobia, No Scotomata, No Uses contacts, No Uses glasses, No Other HEENT: No: Heacaches, Visual Changes, Hearing change, Nasal congestion, Nasal discharge, Oral lesions, Sinus pain, Sore Throat, Epistaxis, Sneezing, Snoring, Tinnitus, Vertigo, Vocal changes, Other ALLERGY AND IMMUNOLOGY: No: Hives, Insect Bite Sensitivity, Itchy/Watery Eyes, Nasal Congestion, Post Nasal Drip, Seasonal Allergies, Other Hematological and Lymphatic: No: Bleeding Problems, Blood Clots, Blood Transfusions, Brusing, Night Sweats, Pallor, Swollen Lymph Nodes, Other ENDOCRINE: No: Breast Changes, Galactorrhea, Hair Pattern Changes, Hot Flashes, Malaise/lethargy, Mood Swings, Palpitations, Polydipsia/polyuria, Skin Changes, Temperature Intolerance, Unexpected Weight Changes, Other Breast: No New/Changing Breast Lumps, No Nipple changes, No Nipple discharge, No Other Respiratory: No: Cough, Hemoptysis, Orthopnea, Pleuritic Pain, Shortness of breath, SOB with excertion, Sputum Changes, Stridor, Tachypnea, Wheezing, Other Cardiovascular: No Chest Pain, No Palpitations, No Orthopnea, No Paroxysmal Noc. Dyspnea, No Edema, No Lt Headedness, No Other Gastrointestinal: Yes Nausea; No Vomiting, No Abdominal Pain, No Diarrhea, No Constipation, No Melena, No Hematochezia, No Other Genitourinary: No Dysuria, No Frequency, No Incontinence, No Hematuria, No Retention, No Discharge, No Urgency, No Pain, No Flank Pain, No Other, No , No , No , No , No , No , No Musculoskeletal: No Gait Disturbance, No Joint Pain, No Joint Stiffness, No Joint Swelling, No Muscle Pain, No Muscular Weakness, No Pain In:, No Swelling In:, No Other Neurological: No Behavorial Changes, No Bowel/Bladder ControlChng, No Confusion, No Dizziness, No Gait Disturbance, No Headaches, No Impaired Coord/balance, No Memory Loss, No Numbness/Tingling, No Seizures, No Speech Problems, No Tremors, No Visual Changes, No Weakness, No Other Skin: Yes Rash; No Dry Skin, No Eczema, No Hair Changes, No Lumps, No Mole Changes, No Mottling, No Nail Changes, No Pruritus, No Skin Lesion Changes, No Other, No Acne Physical Exam General: Alert, Oriented X3, Cooperative, moderate distress HEENT: Atraumatic, PERRLA, EOMI, Mucous membr. moist/pink Lungs: Clear to auscultation, Normal air movement Heart: Regular rate, Normal S1, Normal S2, No murmurs Abdomen: Normal bowel sounds, Soft, No tenderness, No hepatosplenomegaly, No masses Extremities: No clubbing, No cyanosis, Normal pulses, Other (swelling lower back, bruising on left gluteal area, point tenderness) Skin: Other (Redness at surgical incision with small scab at inferior margin. 4x8cm redness with fluctuance and tenderness) Neuro: Normal gait, Normal speech, Strength at 5/5 X4 ext, Normal tone, Sensation intact, Cranial nerves 3-12 NL, Reflexes 2+ MUSCULOSKELETAL: No joint tenderness, No deformity, No swelling Assessment/Plan Assessment/Plan Cellulitis - with possible abscess of back given fluctuance though on my CT interpretation is likely early infection. Would try to express fluid from wound site, culture, obtain blood cultures and start on antibiotics at the direction of ID Back and left leg pain - redness at laminectomy site, no dehiscence. There is a small site at inferior margin of surgical site that has a scab Chronic AFIB - rate controlled, actually sinus currently on Xarelto for stroke prophylaxis. Will hold pending surgical recommendations. took at dose around 2100 on 12/13/2021 Hypertension - cont home meds, toprol, lisinopril Hyperlipemia - statin Diabetes, II - sliding scale, jardiance. Split his toujeo 100u into 50u BID lantus SUMMER with CPAP - not compliant for 2 years due to missing parts Fever and chills - will check blood and wound cultures FEN - NPO after midnight PPX - xarelto (took dose on 12/13/2021) FULL CODE Dispo - inpatient for concern for abscess on back ALTHEA LOPEZ MD Dec 14, 2021 17:47
[2021-12-14 19:00] VITALS: BP 143/71
--- NOTE | 2021-12-14 19:34 | HP ---
DATE OF SERVICE: 12/14/2021 ADMIT DATE: 12/14/2021 HISTORY OF PRESENT ILLNESS: The patient is a pleasant 61-year-old who underwent lumbar surgery on 11/30/2021 which included a laminectomy at L4-L5 on the left with excision of synovial cyst. He did well following surgery. He was seen in the office today and reports that he was doing well until a few days ago when he developed increasing back and left leg pain. The pain has become severe. He denies fever. He has been taking Percocet as needed for pain. His pain is increased with activity. He also reports that his blood sugars have not been well controlled. PAST MEDICAL HISTORY: Hypertension, diabetes, heart disease, arthritis. PAST SURGICAL HISTORY: Lumbar laminectomy at L4-L5, right with removal of synovial cyst in July of 2020 and 11/30/2021 lumbar laminectomy at L4-L5, left with removal of synovial cyst. MEDICATIONS: Listed on the MRAD. ALLERGIES: No known drug allergies. FAMILY HISTORY: Diabetes. SOCIAL HISTORY: Retired, , does not smoke. Drinks alcohol 1-2 times per year. REVIEW OF SYSTEMS: A 12-point review of systems was performed and is noncontributory except that mentioned above. PHYSICAL EXAMINATION: GENERAL: Alert, pleasant, in moderate distress because of back and left leg pain. HEENT: Head is normocephalic, atraumatic. SKIN: Warm and dry. The lumbar incision has erythema and is tender to touch. There was no drainage noted. MUSCULOSKELETAL: Lumbar paraspinal muscle bulk is normal, restricted range of motion of the lumbar spine, tenderness around the incisional area with palpation. EXTREMITIES: No clubbing, cyanosis or edema. NEUROLOGIC: Alert and oriented x 3. Strength and sensation are intact. Antalgic gait favoring his left leg. ASSESSMENT AND PLAN: The patient will need to be admitted for further evaluation of a postoperative infection. We will obtain a CT scan and laboratory studies. We will consult Infectious Disease. HILDA/IRENE MARRERO: Josh TID: [id number]
[2021-12-14] MEDS: METOPROLOL TART IMMED RELEASE 25 MG TABLET. PO SCH (21:00)
[2021-12-14] MEDS: DOCUSATE SODIUM 100 MG CAPSULE. PO SCH (21:00)
[2021-12-14] MEDS: ATORVASTATIN CALCIUM 20 MG TABLET PO SCH (21:00)
[2021-12-14] MEDS: oxyCODONE/APAP 5/325 1 TAB TABLET PO PRN (21:41)
[2021-12-14] MEDS: INSULIN LISPRO 300 UNITS/3 ML VIAL. SQ SCH (22:06)
[2021-12-14] MEDS: INSULIN GLARGINE SYRINGE. SQ SCH (22:07)
[2021-12-14 23:00] VITALS: BP 117/81
[2021-12-15] VITALS (10 sets, daily range): BP systolic 103–162; BP diastolic 51–79
[2021-12-15] MEDS: INSULIN LISPRO 300 UNITS/3 ML VIAL. SQ SCH ×7 (07:30→21:00)
--- NOTE | 2021-12-15 08:19 | RAD ---
CT LUMBAR SPINE WO History: Postop pain and infection. Technique: Noncontrast CT was performed of the lumbar spine. Multiplanar reconstructions were perform ed. Comparison: MRI lumbar spine 05/24/2020 Findings: There is transitional lumbosacral anatomy with rudimentary L5-S1 disc and sacralization of the transv erse processes of L5. Postsurgical changes from left foraminotomy and partial facet resection at L4-L 5. In the subcutaneous fat overlying the L4-S1 levels, there is a heterogeneous collection of fluid and gas measuring 5.1 x 3.0 x 5.8 cm which approaches the skin surface at the superior aspect and abuts t he paraspinal musculature, approaching the L4 spinous process. Extension into the epidural space is n ot identified. Disc space narrowing redemonstrated at L2-L3, L3-L4 and L4-L5. Rudimentary L5-S1 disc. Mild anterolis thesis of L4 on L5. Limited evaluation of the intra-abdominal contents demonstrates aortoiliac calcification with tortuou s and ectatic common iliac arteries. Mild colonic diverticulosis. Impression: 1. Postsurgical changes at the lower lumbar spine with heterogeneous fluid collection in the subcuta neous fat extending from the near the skin surface to approaching the L4 spinous process most consist ent with abscess. No epidural spread is identified on limited noncontrast evaluation. Exposure: One or more of the following individualized dose reduction techniques were utilized for thi s examination: 1. Automated exposure control 2. Adjustment of the mA and/or kV according to patient size 3. Use of iterative reconstruction technique. Electronically signed by: Odin Wiseman MD (12/15/2021 8:17 AM) [id number]
[2021-12-15 08:32] LABS: BASO % 0 % (0-3); EOS # 0.1 x10^3/uL (0.0-0.7); EOS % 1 % (0-3); HEMATOCRIT 41.6 % (39.0-53.0); HEMOGLOBIN 13.8 g/dL (13.0-17.5); LYMPH # 1.9 x10^3/uL (1.0-4.8); LYMPH % 17 % (24-48); MEAN CORPUSCULAR HEMOGLOBIN 30 pg (25-35); MEAN CORPUSCULAR HGB CONC 33 g/dL (31-37); MEAN CORPUSCULAR VOLUME 89 fL (79-100); MONO % 9 % (0-9); NEUT # 8.2 x10^3/uL (1.8-7.7); NEUT % 73 % (31-73); PLATELET COUNT 216 x10^3/uL (140-400); RED BLOOD COUNT 4.67 x10^6/uL (4.30-5.70); RED CELL DISTRIBUTION WIDTH 13.6 % (11.5-14.5); WHITE BLOOD COUNT 11.3 x10^3/uL (4.0-11.0)
[2021-12-15 08:34] LABS: CALCIUM 8.9 mg/dL (8.5-10.1); CREATININE 0.9 mg/dL (0.7-1.3); GFR 85.2; POTASSIUM 3.6 mmol/L (3.5-5.1)
[2021-12-15] MEDS: INSULIN GLARGINE SYRINGE. SQ SCH ×2 (09:00→21:05)
[2021-12-15] MEDS: METOPROLOL TART IMMED RELEASE 25 MG TABLET. PO SCH ×2 (09:00→20:57)
--- NOTE | 2021-12-15 11:03 | PDOC ---
[employer] PROGRESS NOTE Date of Service DOS: DATE: 12/15/21 TIME: 10:56 Chief Complaint Chief Complaint Cellulitis - with possible abscess of back given fluctuance though on my CT interpretation is likely early infection. Would try to express fluid from wound site, culture, obtain blood cultures and start on antibiotics at the direction of ID Back and left leg pain - redness at laminectomy site, no dehiscence. There is a small site at inferior margin of surgical site that has a scab Chronic AFIB - rate controlled, actually sinus currently on Xarelto for stroke prophylaxis. Will hold pending surgical recommendations. took at dose around 2100 on 12/13/2021 Hypertension - cont home meds, toprol, lisinopril Hyperlipemia - statin Diabetes, II - sliding scale, jardiance. Split his toujeo 100u into 50u BID lantus SUMMER with CPAP - not compliant for 2 years due to missing parts Fever and chills - will check blood and wound cultures History of Present Illness History of Present Illness 12/15: Patient seen working with PT today. I was able to express some fluid from his wound site and collection aerobic and anaerobic cultures; sent to lab. I will defer antibiotic management to ID. Still complaining of back pain 04/11. Discussed with patient, will still keep n.p.o. as to not interfere with any surgical intervention neurosurgery as planned. Discussed with RN. Vitals/I&O Vitals/I&O: Vital Signs Date Time Temp Pulse Resp B/P (MAP) Pulse Ox O2 Delivery O2 Flow Rate FiO2 12/15/21 07:00 97.9 75 18 121/62 (81) 95 Room Air 97.9 I & O 12/14/21 12/14/21 12/15/21 15:00 23:00 07:00 Intake Total 0 ml Output Total 400 ml Balance 0 ml -400 ml Physical Exam General: Alert, Oriented X3, Cooperative, moderate distress Heart: Regular rate, Normal S1, Normal S2, No murmurs Lungs: Clear Abdomen: Normal bowel sounds, Soft, No tenderness, No hepatosplenomegaly, No masses Extremities: No clubbing, No cyanosis, Normal pulses, Other (swelling lower back, bruising on left gluteal area, point tenderness) Skin: Other (Redness at surgical incision with small scab at inferior margin. 4x8cm redness with fluctuance and tenderness) Labs Labs: Laboratory Tests Test 12/14/21 16:48 12/14/21 17:31 12/14/21 20:42 12/15/21 07:05 White Blood Count 16.6 x10^3/uL (4.0-11.0) 11.3 x10^3/uL (4.0-11.0) Red Blood Count 4.91 x10^6/uL (4.30-5.70) 4.67 x10^6/uL (4.30-5.70) Hemoglobin 14.8 g/dL (13.0-17.5) 13.8 g/dL (13.0-17.5) Hematocrit 43.5 % (39.0-53.0) 41.6 % (39.0-53.0) Mean Corpuscular Volume 89 fL (79-100) 89 fL (79-100) Mean Corpuscular Hemoglobin 30 pg (25-35) 30 pg (25-35) Mean Corpuscular Hemoglobin Concent 34 g/dL (31-37) 33 g/dL (31-37) Red Cell Distribution Width 13.4 % (11.5-14.5) 13.6 % (11.5-14.5) Platelet Count 247 x10^3/uL (140-400) 216 x10^3/uL (140-400) Neutrophils (%) (Auto) 84 % (31-73) 73 % (31-73) Lymphocytes (%) (Auto) 9 % (24-48) 17 % (24-48) Monocytes (%) (Auto) 6 % (0-9) 9 % (0-9) Eosinophils (%) (Auto) 0 % (0-3) 1 % (0-3) Basophils (%) (Auto) 1 % (0-3) 0 % (0-3) Neutrophils # (Auto) 14.0 x10^3/uL (1.8-7.7) 8.2 x10^3/uL (1.8-7.7) Lymphocytes # (Auto) 1.4 x10^3/uL (1.0-4.8) 1.9 x10^3/uL (1.0-4.8) Monocytes # (Auto) 1.0 x10^3/uL (0.0-1.1) 1.0 x10^3/uL (0.0-1.1) Eosinophils # (Auto) 0.0 x10^3/uL (0.0-0.7) 0.1 x10^3/uL (0.0-0.7) Basophils # (Auto) 0.1 x10^3/uL (0.0-0.2) 0.0 x10^3/uL (0.0-0.2) Segmented Neutrophils % 89 % (35-66) Lymphocytes % 5 % (24-48) Monocytes % 6 % (0-10) Platelet Estimate Adequate (ADEQUATE) Erythrocyte Sedimentation Rate 13 (0-15) Sodium Level 134 mmol/L (136-145) 134 mmol/L (136-145) Potassium Level 4.0 mmol/L (3.5-5.1) 3.6 mmol/L (3.5-5.1) Chloride Level 100 mmol/L (98-107) 99 mmol/L (98-107) Carbon Dioxide Level 23 mmol/L (21-32) 28 mmol/L (21-32) Anion Gap 11 (6-14) 7 (6-14) Blood Urea Nitrogen 16 mg/dL (8-26) 15 mg/dL (8-26) Creatinine 1.2 mg/dL (0.7-1.3) 0.9 mg/dL (0.7-1.3) Estimated GFR (Cockcroft-Gault) 61.1 85.2 BUN/Creatinine Ratio 13 (6-20) Glucose Level 173 mg/dL (70-99) 83 mg/dL (70-99) Calcium Level 9.7 mg/dL (8.5-10.1) 8.9 mg/dL (8.5-10.1) Total Bilirubin 1.1 mg/dL (0.2-1.0) Aspartate Amino Transf (AST/SGOT) 15 U/L (15-37) Alanine Aminotransferase (ALT/SGPT) 23 U/L (16-63) Alkaline Phosphatase 67 U/L (46-116) Total Protein 7.9 g/dL (6.4-8.2) Albumin 3.9 g/dL (3.4-5.0) Albumin/Globulin Ratio 1.0 (1.0-1.7) Glucose (Fingerstick) 181 mg/dL (70-99) 213 mg/dL (70-99) Test 12/15/21 08:07 Glucose (Fingerstick) 92 mg/dL (70-99) Comment Review of Relevant I have reviewed the following items noris (where applicable) has been applied. Medications: Current Medications Medications (Trade) Dose Ordered Sig/Missael Route PRN Reason Start Time Stop Time Status Last Admin Dose Admin Oxycodone/ Acetaminophen (Percocet 5/325) 2 tab PRN Q4HRS PRN PO MODERATE PAIN, SEVERE PAIN 12/14/21 16:30 12/14/21 21:41 Insulin Human Lispro (HumaLOG) 0-9 UNITS TIDACHC SQ 12/14/21 21:00 12/14/21 22:06 Insulin Glargine (Lantus Syringe) 50 unit BID SQ 12/14/21 21:00 12/14/21 22:07 Atorvastatin Calcium (Lipitor) 20 mg HS PO 12/14/21 21:00 12/14/21 21:00 Diltiazem HCl (Cardizem 24hr Cd) 180 mg BID PO 12/14/21 21:00 12/14/21 21:00 Metoprolol Tartrate (Lopressor) 25 mg BID PO 12/14/21 21:00 12/14/21 21:00 Justifications for Admission Other Justification NICOLE CHOWDARY MD Dec 15, 2021 11:03
[2021-12-15] MEDS ORDERED: LIDOCAINE WITH 8.4% SOD BICARB 3 ML DISP.SYRIN. ONE (11:40)
[2021-12-15] MEDS ORDERED: fentaNYL PF VIAL 100 MCG/2 ML VIAL ONE (11:41)
[2021-12-15] MEDS ORDERED: MIDAZOLAM HCL/PF 2 MG/2 ML VIAL. ONE (11:41)
[2021-12-15] MEDS ORDERED: fentaNYL PF VIAL 100 MCG/2 ML VIAL IV ONE (12:00)
[2021-12-15] MEDS ORDERED: LIDOCAINE WITH 8.4% SOD BICARB 3 ML DISP.SYRIN. IJ ONE (12:00)
[2021-12-15] MEDS ORDERED: MIDAZOLAM HCL/PF 2 MG/2 ML VIAL. IV ONE (12:00)
[2021-12-15] MEDS: oxyCODONE/APAP 5/325 1 TAB TABLET PO PRN ×2 (12:51→20:59)
[2021-12-15] MEDS: DOCUSATE SODIUM 100 MG CAPSULE. PO SCH ×2 (12:52→20:56)
[2021-12-15] MEDS: LISINOPRIL 5 MG TABLET. PO SCH (12:52)
[2021-12-15] MEDS: EMPAGLIFLOZIN 10 MG TABLET. PO SCH (12:52)
--- NOTE | 2021-12-15 12:55 | RAD ---
Ultrasound-guided placement of a subcutaneous drain the posterior lumbar region. 12/15/2021 INDICATION: Seroma/abscess/phlegmon COMPARISON STUDY: Lumbar spine CT, yesterday Consent: The procedure was explained in its entirety to the patient or the patients designated repres entative by a member of the treatment team, including a discussion of the risks, benefits and commonl y accepted alternatives to the procedure, as well as the expected consequences of no therapy whatsoev er. Discussion of the risks included, but was not limited to, those that are most frequent and thos e that are rare but possibly severe or life-threatening, as well as the possibility of unforeseen com plications. Discussion: Ultrasound evaluation demonstrates a heterogenous collection in the subcutaneous tissues of the posterior pelvis/lumbar region. There are overlying skin was prepped and draped using sterile barrier technique. 1% lidocaine was administered for local anesthesia. Under direct ultrasound guidan ce a 5 Slovak sheathed needle was advanced into the collection. A guidewire was advanced in the colle ction over which following dilatation an 8 Slovak drain was placed. Approximately 10 cc of fluid was aspirated and sent for Gram stain and culture. Catheter secured in place. Sterile dressings were appl ied. No immediate complications were identified. IMPRESSION: Ultrasound-guided drainage, subcutaneous lumbar fluid collection Electronically signed by: Demetrius Waggoner MD (12/15/2021 12:53 PM) [id number]
--- NOTE | 2021-12-15 13:55 | PDOC ---
PROGRESS NOTES Date of Service DATE: 12/15/21 TIME: 13:52 Subjective Subjective c/o back and left leg pain but improved some since admission IR aspiration and drain placement this AM Objective Objective Vital Signs Date Time Temp Pulse Resp B/P (MAP) Pulse Ox O2 Delivery O2 Flow Rate FiO2 12/15/21 12:52 87 109/82 12/15/21 12:51 18 Room Air 12/15/21 12:16 98 2.0 12/15/21 11:00 99.2 99.2 Intake and Output 12/15/21 07:00 Intake Total 0 ml Output Total 400 ml Balance -400 ml Intake Oral 0 ml Output Urine Total 400 ml Physical Exam General: Alert, Oriented X3, Cooperative MUSCULOSKELETAL: Other ([place]) Neuro: Normal speech, Other (normal strength) Skin: Other (dressing intact, drain in place with yellow tinged serous fluid) Plan Plan of Care wound care, drain await cultures Antibiotics per ID OOB as tolerated SCDS Comment Review of Relevant I have reviewed the following items noris (where applicable) has been applied. Labs Laboratory Tests Test 12/14/21 16:48 12/14/21 17:31 12/14/21 20:42 12/15/21 07:05 White Blood Count 16.6 x10^3/uL (4.0-11.0) 11.3 x10^3/uL (4.0-11.0) Red Blood Count 4.91 x10^6/uL (4.30-5.70) 4.67 x10^6/uL (4.30-5.70) Hemoglobin 14.8 g/dL (13.0-17.5) 13.8 g/dL (13.0-17.5) Hematocrit 43.5 % (39.0-53.0) 41.6 % (39.0-53.0) Mean Corpuscular Volume 89 fL (79-100) 89 fL (79-100) Mean Corpuscular Hemoglobin 30 pg (25-35) 30 pg (25-35) Mean Corpuscular Hemoglobin Concent 34 g/dL (31-37) 33 g/dL (31-37) Red Cell Distribution Width 13.4 % (11.5-14.5) 13.6 % (11.5-14.5) Platelet Count 247 x10^3/uL (140-400) 216 x10^3/uL (140-400) Neutrophils (%) (Auto) 84 % (31-73) 73 % (31-73) Lymphocytes (%) (Auto) 9 % (24-48) 17 % (24-48) Monocytes (%) (Auto) 6 % (0-9) 9 % (0-9) Eosinophils (%) (Auto) 0 % (0-3) 1 % (0-3) Basophils (%) (Auto) 1 % (0-3) 0 % (0-3) Neutrophils # (Auto) 14.0 x10^3/uL (1.8-7.7) 8.2 x10^3/uL (1.8-7.7) Lymphocytes # (Auto) 1.4 x10^3/uL (1.0-4.8) 1.9 x10^3/uL (1.0-4.8) Monocytes # (Auto) 1.0 x10^3/uL (0.0-1.1) 1.0 x10^3/uL (0.0-1.1) Eosinophils # (Auto) 0.0 x10^3/uL (0.0-0.7) 0.1 x10^3/uL (0.0-0.7) Basophils # (Auto) 0.1 x10^3/uL (0.0-0.2) 0.0 x10^3/uL (0.0-0.2) Segmented Neutrophils % 89 % (35-66) Lymphocytes % 5 % (24-48) Monocytes % 6 % (0-10) Platelet Estimate Adequate (ADEQUATE) Erythrocyte Sedimentation Rate 13 (0-15) Sodium Level 134 mmol/L (136-145) 134 mmol/L (136-145) Potassium Level 4.0 mmol/L (3.5-5.1) 3.6 mmol/L (3.5-5.1) Chloride Level 100 mmol/L (98-107) 99 mmol/L (98-107) Carbon Dioxide Level 23 mmol/L (21-32) 28 mmol/L (21-32) Anion Gap 11 (6-14) 7 (6-14) Blood Urea Nitrogen 16 mg/dL (8-26) 15 mg/dL (8-26) Creatinine 1.2 mg/dL (0.7-1.3) 0.9 mg/dL (0.7-1.3) Estimated GFR (Cockcroft-Gault) 61.1 85.2 BUN/Creatinine Ratio 13 (6-20) Glucose Level 173 mg/dL (70-99) 83 mg/dL (70-99) Calcium Level 9.7 mg/dL (8.5-10.1) 8.9 mg/dL (8.5-10.1) Total Bilirubin 1.1 mg/dL (0.2-1.0) Aspartate Amino Transf (AST/SGOT) 15 U/L (15-37) Alanine Aminotransferase (ALT/SGPT) 23 U/L (16-63) Alkaline Phosphatase 67 U/L (46-116) Total Protein 7.9 g/dL (6.4-8.2) Albumin 3.9 g/dL (3.4-5.0) Albumin/Globulin Ratio 1.0 (1.0-1.7) Glucose (Fingerstick) 181 mg/dL (70-99) 213 mg/dL (70-99) Test 12/15/21 08:07 12/15/21 12:40 Glucose (Fingerstick) 92 mg/dL (70-99) 111 mg/dL (70-99) Laboratory Tests Test 12/14/21 16:48 12/14/21 17:31 12/14/21 20:42 12/15/21 07:05 White Blood Count 16.6 x10^3/uL (4.0-11.0) 11.3 x10^3/uL (4.0-11.0) Red Blood Count 4.91 x10^6/uL (4.30-5.70) 4.67 x10^6/uL (4.30-5.70) Hemoglobin 14.8 g/dL (13.0-17.5) 13.8 g/dL (13.0-17.5) Hematocrit 43.5 % (39.0-53.0) 41.6 % (39.0-53.0) Mean Corpuscular Volume 89 fL (79-100) 89 fL (79-100) Mean Corpuscular Hemoglobin 30 pg (25-35) 30 pg (25-35) Mean Corpuscular Hemoglobin Concent 34 g/dL (31-37) 33 g/dL (31-37) Red Cell Distribution Width 13.4 % (11.5-14.5) 13.6 % (11.5-14.5) Platelet Count 247 x10^3/uL (140-400) 216 x10^3/uL (140-400) Neutrophils (%) (Auto) 84 % (31-73) 73 % (31-73) Lymphocytes (%) (Auto) 9 % (24-48) 17 % (24-48) Monocytes (%) (Auto) 6 % (0-9) 9 % (0-9) Eosinophils (%) (Auto) 0 % (0-3) 1 % (0-3) Basophils (%) (Auto) 1 % (0-3) 0 % (0-3) Neutrophils # (Auto) 14.0 x10^3/uL (1.8-7.7) 8.2 x10^3/uL (1.8-7.7) Lymphocytes # (Auto) 1.4 x10^3/uL (1.0-4.8) 1.9 x10^3/uL (1.0-4.8) Monocytes # (Auto) 1.0 x10^3/uL (0.0-1.1) 1.0 x10^3/uL (0.0-1.1) Eosinophils # (Auto) 0.0 x10^3/uL (0.0-0.7) 0.1 x10^3/uL (0.0-0.7) Basophils # (Auto) 0.1 x10^3/uL (0.0-0.2) 0.0 x10^3/uL (0.0-0.2) Segmented Neutrophils % 89 % (35-66) Lymphocytes % 5 % (24-48) Monocytes % 6 % (0-10) Platelet Estimate Adequate (ADEQUATE) Erythrocyte Sedimentation Rate 13 (0-15) Sodium Level 134 mmol/L (136-145) 134 mmol/L (136-145) Potassium Level 4.0 mmol/L (3.5-5.1) 3.6 mmol/L (3.5-5.1) Chloride Level 100 mmol/L (98-107) 99 mmol/L (98-107) Carbon Dioxide Level 23 mmol/L (21-32) 28 mmol/L (21-32) Anion Gap 11 (6-14) 7 (6-14) Blood Urea Nitrogen 16 mg/dL (8-26) 15 mg/dL (8-26) Creatinine 1.2 mg/dL (0.7-1.3) 0.9 mg/dL (0.7-1.3) Estimated GFR (Cockcroft-Gault) 61.1 85.2 BUN/Creatinine Ratio 13 (6-20) Glucose Level 173 mg/dL (70-99) 83 mg/dL (70-99) Calcium Level 9.7 mg/dL (8.5-10.1) 8.9 mg/dL (8.5-10.1) Total Bilirubin 1.1 mg/dL (0.2-1.0) Aspartate Amino Transf (AST/SGOT) 15 U/L (15-37) Alanine Aminotransferase (ALT/SGPT) 23 U/L (16-63) Alkaline Phosphatase 67 U/L (46-116) Total Protein 7.9 g/dL (6.4-8.2) Albumin 3.9 g/dL (3.4-5.0) Albumin/Globulin Ratio 1.0 (1.0-1.7) Glucose (Fingerstick) 181 mg/dL (70-99) 213 mg/dL (70-99) Test 12/15/21 08:07 12/15/21 12:40 Glucose (Fingerstick) 92 mg/dL (70-99) 111 mg/dL (70-99) Medications Current Medications Fentanyl Citrate (Fentanyl 2ml Vial) 50 mcg PRN Q2HR PRN IVP MODERATE TO SEVERE PAIN Last administered on 12/15/21at 11:05; Start 12/14/21 at 16:30 Acetaminophen (Tylenol) 650 mg PRN Q6HRS PRN PO TEMP > 100.3'F; Start 12/14/21 at 16:30 Al Hydroxide/Mg Hydroxide (Mylanta Plus Xs) 30 ml PRN Q3HRS PRN PO HEARTBURN / GAS; Start 12/14/21 at 16:30 Calcium Carbonate/ Glycine (Tums) 500 mg PRN Q3HRS PRN PO INDIGESTION; Start 12/14/21 at 16:30 Diphenhydramine HCl (Benadryl) 25 mg PRN Q6HRS PRN PO ITCHING; Start 12/14/21 at 16:30 Naloxone HCl (Narcan) 0.1 mg PRN Q2MIN PRN IV SEE COMMENTS; Start 12/14/21 at 16:30 Sodium Chloride (Normal Saline Flush) 3 ml QSHIFT PRN IV AFTER MEDS AND BLOOD DRAWS; Start 12/14/21 at 16:30 Oxycodone/ Acetaminophen (Percocet 5/325) 1 tab PRN Q4HRS PRN PO MILD PAIN, 1ST CHOICE; Start 12/14/21 at 16:30 Oxycodone/ Acetaminophen (Percocet 5/325) 2 tab PRN Q4HRS PRN PO MODERATE PAIN, SEVERE PAIN Last administered on 12/15/21at 12:51; Start 12/14/21 at 16:30 Methocarbamol (Robaxin) 750 mg PRN TID PRN PO MUSCLE SPASMS; Start 12/14/21 at 16:30 Docusate Sodium (Colace) 100 mg BID PO Last administered on 12/15/21at 12:52; Start 12/14/21 at 21:00 Magnesium Hydroxide (Milk Of Magnesia) 2,400 mg PRN Q12HR PRN PO CONSTIPATION; Start 12/14/21 at 16:30 Empaglifozin (Jardiance) 10 mg DAILY PO Last administered on 12/15/21at 12:52; Start 12/15/21 at 09:00 Insulin Human Lispro (HumaLOG) 0-9 UNITS TIDACHC SQ Last administered on 12/14/21at 22:06; Start 12/14/21 at 21:00 Dextrose (Dextrose 50%-Water Syringe) 12.5 gm PRN Q15MIN PRN IV SEE COMMENTS; Start 12/14/21 at 17:15 Dextrose (Iv Dextrose 5%) 250 ml PRN Q15MIN PRN IV SEE COMMENTS; Start 12/14/21 at 17:15 Insulin Glargine (Lantus Syringe) 50 unit BID SQ Last administered on 12/14/21at 22:07; Start 12/14/21 at 21:00 Insulin Human Lispro (HumaLOG) 10 units TIDAC SQ Last administered on 12/15/21at 11:30; Start 12/15/21 at 07:30 Atorvastatin Calcium (Lipitor) 20 mg HS PO Last administered on 12/14/21at 21:00; Start 12/14/21 at 21:00 Diltiazem HCl (Cardizem 24hr Cd) 180 mg BID PO Last administered on 12/14/21at 21:00; Start 12/14/21 at 21:00 Lisinopril (Prinivil) 5 mg DAILY PO Last administered on 12/15/21at 12:52; Start 12/15/21 at 09:00 Metoprolol Tartrate (Lopressor) 25 mg BID PO Last administered on 12/14/21at 21:00; Start 12/14/21 at 21:00 Lidocaine HCl (Buffered Lidocaine 1%) 3 ml STK-MED ONCE .ROUTE ; Start 12/15/21 at 11:40; Stop 12/15/21 at 11:41; Status DC Midazolam HCl (Versed) 2 mg STK-MED ONCE .ROUTE ; Start 12/15/21 at 11:41; Stop 12/15/21 at 11:42; Status DC Fentanyl Citrate (Fentanyl 2ml Vial) 100 mcg STK-MED ONCE .ROUTE ; Start 12/15/21 at 11:41; Stop 12/15/21 at 11:42; Status DC Lidocaine HCl (Buffered Lidocaine 1%) 3 ml 1X ONCE IJ ; Start 12/15/21 at 12:00; Stop 12/15/21 at 12:01; Status DC Midazolam HCl (Versed) 2 mg 1X ONCE IV ; Start 12/15/21 at 12:00; Stop 12/15/21 at 12:01; Status DC Fentanyl Citrate (Fentanyl 2ml Vial) 100 mcg 1X ONCE IV ; Start 12/15/21 at 12:00; Stop 12/15/21 at 12:01; Status DC Active Scripts Active Percocet 5-325 Mg Tablet (Oxycodone/Acetaminophen) 1 Each Tablet 1 Tab PO QIDPRN PRN MDD 4 Tablet(s) 5 Days Methocarbamol 750 Mg Tablet 750 Mg PO TID PRN PRN Metoprolol Tartrate 25 Mg Tablet 25 Mg PO BID 30 Days Xarelto (Rivaroxaban) 20 Mg Tablet 20 Mg PO QHS Reported Humalog (Insulin Lispro) 100 Unit/1 Ml Cartridge 36 Unit SQ TIDAC Ondansetron Odt (Ondansetron) 4 Mg Tab.rapdis 8 Mg PO BID PRN Trulicity (Dulaglutide) 1.5 Mg/0.5 Ml Pen.injctr 0.75 Mg SQ WEEKLY Digoxin 250 Mcg Tablet 250 Mcg PO DAILYWSUP Cartia Xt (Diltiazem Hcl) 180 Mg Cap.er.24h 180 Mg PO BID Lisinopril 5 Mg Tablet 5 Mg PO DAILY Toujeo Solostar (Insulin Glargine,Hum.rec.anlog) 300 Unit/1 Ml Insuln.pen 100 Unit SQ QHS Fish Oil 1,200 Mg Fish Oil (Fish Oil/Dha/Epa) 1 Each Capsule 1 Each PO DAILY Atorvastatin Calcium 20 Mg Tablet 20 Mg PO HS Aspirin 81 Mg Tab.chew 81 Mg PO DAILY Metformin Hcl 500 Mg Tablet 1,000 Mg PO BIDWMEALS Vitals/I & O Vital Sign - Last 24 Hours 12/14/21 12/14/21 12/14/21 12/14/21 16:25 17:25 19:00 20:00 Temp 98.7 98.0 98.7 98.0 Pulse 90 92 Resp 20 20 B/P (MAP) 103/78 (86) 143/71 (95) Pulse Ox 96 97 O2 Delivery Room Air Room Air Room Air 12/14/21 12/14/21 12/14/21 12/15/21 21:00 21:00 23:00 03:00 Temp 98.1 97.7 98.1 97.7 Pulse 90 90 84 70 Resp 22 18 B/P (MAP) 103/78 103/78 117/81 (93) 132/79 (96) Pulse Ox 94 97 12/15/21 12/15/21 12/15/21 12/15/21 07:00 11:00 11:05 12:01 Temp 97.9 99.2 97.9 99.2 Pulse 75 101 82 Resp 18 18 18 26 B/P (MAP) 121/62 (81) 162/73 (102) Pulse Ox 95 96 99 O2 Delivery Room Air Room Air Room Air Nasal Cannula O2 Flow Rate 2.0 12/15/21 12/15/21 12/15/21 12/15/21 12:06 12:11 12:16 12:51 Pulse 86 86 87 Resp 23 23 23 18 Pulse Ox 98 98 98 O2 Delivery Nasal Cannula Nasal Cannula Nasal Cannula Room Air O2 Flow Rate 2.0 2.0 2.0 12/15/21 12:52 Pulse 87 B/P (MAP) 109/82 Intake and Output 12/14/21 12/14/21 12/15/21 15:00 23:00 07:00 Intake Total 0 ml Output Total 400 ml Balance 0 ml -400 ml Justifications for Admission Other Justification ROSAMARIA ANDERSON MD Dec 15, 2021 13:55
[2021-12-15] MEDS: DAPTOmycin (GENERIC) IVPB 500 MG in IV NORMAL SALINE 50ML 50 ML IV SCH (15:52)
[2021-12-15] MEDS: PIPERACILLIN/TAZOBACTAM 3.375 GM in IV NORMAL SALINE 50ML 50 ML IV SCH (18:24)
[2021-12-15] MEDS: LACTOBACILLUS RHAMNOSUS GG 1 CAPSULE. PO SCH (20:58)
[2021-12-15] MEDS: ATORVASTATIN CALCIUM 20 MG TABLET PO SCH (20:58)
--- NOTE | 2021-12-15 21:28 | CONS ---
DATE OF CONSULTATION: 12/15/2021 REQUESTING PHYSICIAN: Dr. Perry. REASON FOR CONSULTATION: Postsurgical spine infection. HISTORY OF PRESENT ILLNESS: This is a 61-year-old gentleman who had undergone lumbar surgery on 11/30/2021 with laminectomy at L4-L5 and on the left with excision of synovial cyst. The patient about a week or 10 days ago, she started developing pain and started having drainage. She has had increasing pain in the back and the left leg. The patient was seen and was admitted for further management. The patient's CT showed fluid collection. CT-guided drainage with SELENE drain has been placed now and cultures have been taken. The patient is not on any antibiotics. The patient denies any nausea, vomiting, diarrhea, chest pain, shortness of breath, abdominal pain, urinary symptoms or bowel symptoms. The patient's white count on admission was 16,000. PAST MEDICAL HISTORY: Positive for diabetes mellitus, hypertension, coronary artery disease, valvular heart disease, valve replacement done, sleep apnea, obesity, gastroesophageal reflux disease, abdominal surgery, history of depression, anxiety. SOCIAL HISTORY: Negative for smoking, alcohol, drug use. ALLERGIES: No known drug allergies. CURRENT MEDICATIONS: No antibiotics. REVIEW OF SYSTEMS: As per HPI. All other systems reviewed are negative. PHYSICAL EXAMINATION: GENERAL: Alert, oriented gentleman, not in distress. VITAL SIGNS: Temperature 99.2, pulse 101, respirations 18, blood pressure 162/73. HEENT: Both pupils are round and reacting. No conjunctival lesion, no lesion in the mouth. NECK: Supple, no JVP, no lymphadenopathy. LUNGS: Clear. HEART: S1, S2, regular. ABDOMEN: Soft, nontender, no organomegaly. EXTREMITIES: No edema, cyanosis. SKIN: Unremarkable. Surgical site, lower part of the incision has a SELENE drain in place, which is draining. NEUROLOGIC: The patient is alert, awake, and appropriate. No focal neurologic deficit. LABORATORY DATA: White count 16,000 on admission, now down to 11.3. Sed rate is 13. BUN and creatinine is normal. Cultures are pending. CT of the spine did show postsurgical changes of the lower lumbar spine with a heterogeneous fluid collection in the subcutaneous fat extending from near the skin surface to approaching the L4 spinous process, most consistent with abscess. IMPRESSION: 1. Lumbar laminectomy on 11/30/2021. 2. Postsurgical infection with abscess, status post drainage. 3. Leukocytosis. 4. Low-grade fever. 5. Diabetes. 6. Hypertension. RECOMMENDATIONS: Would start daptomycin and Zosyn. Supportive care. We will follow the cultures and adjust. Thank you very much, Dr. Perry for giving me opportunity to participate in this patient's care. YANICK DR: Loyda TID: [id number]
[2021-12-16] MEDS: PIPERACILLIN/TAZOBACTAM 3.375 GM in IV NORMAL SALINE 50ML 50 ML IV SCH ×4 (00:24→17:34)
[2021-12-16 03:00] VITALS: BP 126/60
[2021-12-16 07:00] VITALS: BP 146/67
[2021-12-16] MEDS: INSULIN LISPRO 300 UNITS/3 ML VIAL. SQ SCH ×5 (07:30→21:00)
[2021-12-16] MEDS: EMPAGLIFLOZIN 10 MG TABLET. PO SCH (08:36)
[2021-12-16] MEDS: DOCUSATE SODIUM 100 MG CAPSULE. PO SCH ×2 (08:36→21:06)
[2021-12-16] MEDS: METOPROLOL TART IMMED RELEASE 25 MG TABLET. PO SCH ×2 (08:36→21:08)
[2021-12-16] MEDS: LISINOPRIL 5 MG TABLET. PO SCH (08:37)
[2021-12-16] MEDS: LACTOBACILLUS RHAMNOSUS GG 1 CAPSULE. PO SCH ×2 (08:37→21:06)
[2021-12-16] MEDS: INSULIN GLARGINE SYRINGE. SQ SCH ×2 (09:13→21:15)
--- NOTE | 2021-12-16 09:57 | PDOC ---
[employer] PROGRESS NOTE Date of Service DOS: DATE: 12/16/21 TIME: 09:52 Chief Complaint Chief Complaint Cellulitis - with abscess of back status post IR drain with Staphylococcus. ID consulted Back and left leg pain - redness at laminectomy site, no dehiscence. There is a small site at inferior margin of surgical site that has a scab Chronic AFIB - rate controlled, actually sinus currently on Xarelto for stroke prophylaxis. Will hold pending surgical recommendations. took at dose around 2100 on 12/13/2021 Hypertension - cont home meds, toprol, lisinopril Hyperlipemia - statin Diabetes, II - sliding scale, jardiance. Split his toujeo 100u into 50u BID lantus SUMMER with CPAP - not compliant for 2 years due to missing parts Fever and chills - will check blood and wound cultures History of Present Illness History of Present Illness 12/15: Patient seen working with PT today. I was able to express some fluid from his wound site and collection aerobic and anaerobic cultures; sent to lab. I will defer antibiotic management to ID. Still complaining of back pain 04/11. Discussed with patient, will still keep n.p.o. as to not interfere with any surgical intervention neurosurgery as planned. Discussed with RN. 12/16: SELENE drain with serosanguineous fluid 50 cc. Staph on preliminary culture results. He had pretty severe pain overnight around 3 AM. Still with pain on having a bowel movement. On vancomycin and Zosyn. Vitals/I&O Vitals/I&O: Vital Signs Date Time Temp Pulse Resp B/P (MAP) Pulse Ox O2 Delivery O2 Flow Rate FiO2 12/16/21 08:37 60 146/67 12/16/21 07:00 97.8 14 95 Room Air 97.8 12/15/21 20:00 2.0 I & O 12/15/21 12/15/21 12/16/21 15:00 23:00 07:00 Intake Total 100 ml 180 ml 250 ml Output Total 360 ml 350 ml 1100 ml Balance -260 ml -170 ml -850 ml Physical Exam General: Alert, Oriented X3, Cooperative Heart: Regular rate, Normal S1, Normal S2, No murmurs Lungs: Clear Abdomen: Normal bowel sounds, Soft, No tenderness, No hepatosplenomegaly, No masses Extremities: No clubbing, No cyanosis, Normal pulses, Other (swelling lower back, bruising on left gluteal area, point tenderness) Skin: Other (dressing intact, drain in place with yellow tinged serous fluid) Labs Labs: Laboratory Tests Test 12/15/21 12:40 12/15/21 16:55 12/15/21 20:35 12/16/21 07:53 Glucose (Fingerstick) 111 mg/dL (70-99) 168 mg/dL (70-99) 136 mg/dL (70-99) 76 mg/dL (70-99) Comment Review of Relevant I have reviewed the following items noris (where applicable) has been applied. Medications: Current Medications Medications (Trade) Dose Ordered Sig/Missael Route PRN Reason Start Time Stop Time Status Last Admin Dose Admin Daptomycin 500 mg/ Sodium Chloride 50 ml @ 100 mls/hr Q24H IV 12/15/21 16:00 12/15/21 15:52 Piperacillin Sod/ Tazobactam Sod 3.375 gm/Sodium Chloride 50 ml @ 100 mls/hr Q6HRS IV 12/15/21 18:00 12/16/21 06:44 Lactobacillus Rhamnosus (Culturelle) 1 cap BID PO 12/15/21 21:00 12/16/21 08:37 Justifications for Admission Other Justification ALTHEA LOPEZ MD Dec 16, 2021 09:57
[2021-12-16 11:00] VITALS: BP 112/61
[2021-12-16] MEDS ORDERED: ONDANSETRON ODT 4 MG TAB.RAPDIS. PO PRN (11:30)
[2021-12-16] MEDS: oxyCODONE/APAP 5/325 1 TAB TABLET PO PRN ×2 (12:28→21:08)
--- NOTE | 2021-12-16 14:13 | PDOC ---
Infectious Disease Note Subjective Subjective Patient is feeling good ROS ROS No nausea vomiting diarrhea Vital Sign Vital Signs Vital Signs Date Time Temp Pulse Resp B/P (MAP) Pulse Ox O2 Delivery O2 Flow Rate FiO2 12/16/21 12:28 Room Air 12/16/21 11:00 97.5 72 14 112/61 (78) 95 97.5 12/15/21 20:00 2.0 Physical Exam PHYSICAL EXAM GENERAL: Alert, oriented gentleman, not in distress. VITAL SIGNS: Stable HEENT: Both pupils are round and reacting. No conjunctival lesion, no lesion in the mouth. NECK: Supple, no JVP, no lymphadenopathy. LUNGS: Clear. HEART: S1, S2, regular. ABDOMEN: Soft, nontender, no organomegaly. EXTREMITIES: No edema, cyanosis. SKIN: Unremarkable. Surgical site, lower part of the incision has a SELENE drain in place, which is draining. NEUROLOGIC: The patient is alert, awake, and appropriate. No focal neurologic deficit. Labs Lab Laboratory Tests Test 12/15/21 16:55 12/15/21 20:35 12/16/21 07:53 12/16/21 11:36 Glucose (Fingerstick) 168 mg/dL (70-99) 136 mg/dL (70-99) 76 mg/dL (70-99) 134 mg/dL (70-99) Micro Microbiology 12/15/21 Gram Stain - Final, Resulted 12/15/21 Aerobic and Anaerobic Culture - Preliminary, Resulted Staphylococcus Aureus 12/15/21 Gram Stain - Final, Resulted 12/15/21 Aerobic and Anaerobic Culture - Preliminary, Resulted Staphylococcus Aureus 12/14/21 Blood Culture - Preliminary, Resulted NO GROWTH AFTER 1 DAY Objective Assessment IMPRESSION: 1. Lumbar laminectomy on 11/30/2021. 2. Postsurgical infection with abscess, status post drainage. 3. Leukocytosis. 4. Low-grade fever. 5. Diabetes. 6. Hypertension. Plan Plan of Care Continue antibiotics for his susceptibilities are pending. Patient is going to need PICC line and long-term IV antibiotics. ELANA TERRY MD Dec 16, 2021 14:13
[2021-12-16 15:00] VITALS: BP 104/64
[2021-12-16] MEDS: DAPTOmycin (GENERIC) IVPB 500 MG in IV NORMAL SALINE 50ML 50 ML IV SCH (16:29)
[2021-12-16] MEDS: RIVAROXABAN 10 MG TABLET. PO SCH (17:38)
[2021-12-16 19:00] VITALS: BP 100/64
[2021-12-16] MEDS: ATORVASTATIN CALCIUM 20 MG TABLET PO SCH (21:07)
[2021-12-16 23:00] VITALS: BP 108/73
[2021-12-17] MEDS: PIPERACILLIN/TAZOBACTAM 3.375 GM in IV NORMAL SALINE 50ML 50 ML IV SCH ×2 (00:54→06:12)
[2021-12-17 03:00] VITALS: BP 120/81
[2021-12-17 06:29] VITALS: BP 111/78
[2021-12-17] MEDS: INSULIN LISPRO 300 UNITS/3 ML VIAL. SQ SCH ×4 (07:30→21:00)
[2021-12-17] MEDS: oxyCODONE/APAP 5/325 1 TAB TABLET PO PRN ×2 (08:22→19:43)
[2021-12-17] MEDS: EMPAGLIFLOZIN 10 MG TABLET. PO SCH (08:22)
[2021-12-17] MEDS: LACTOBACILLUS RHAMNOSUS GG 1 CAPSULE. PO SCH ×2 (08:22→21:33)
[2021-12-17] MEDS: LISINOPRIL 5 MG TABLET. PO SCH (08:22)
[2021-12-17] MEDS: METOPROLOL TART IMMED RELEASE 25 MG TABLET. PO SCH ×2 (08:22→21:34)
[2021-12-17] MEDS: DOCUSATE SODIUM 100 MG CAPSULE. PO SCH ×2 (08:23→21:33)
[2021-12-17 08:46] LABS: ANION GAP 11 (6-14); BLOOD UREA NITROGEN 13 mg/dL (8-26); CALCIUM 8.4 mg/dL (8.5-10.1); CARBON DIOXIDE 23 mmol/L (21-32); CHLORIDE 101 mmol/L (98-107); DIG 0.3 ng/mL (0.9-2.0); GFR 75.5; GLUCOSE 93 mg/dL (70-99); POTASSIUM 3.7 mmol/L (3.5-5.1); SODIUM 135 mmol/L (136-145)
[2021-12-17 11:00] VITALS: BP 107/72
--- NOTE | 2021-12-17 11:23 | PDOC ---
Infectious Disease Note Subjective Subjective Patient is feeling good ROS ROS no n/v/d/ Vital Sign Vital Signs Vital Signs Date Time Temp Pulse Resp B/P (MAP) Pulse Ox O2 Delivery O2 Flow Rate FiO2 12/17/21 10:15 Room Air 12/17/21 08:22 69 111/78 12/17/21 06:29 97.9 18 96 97.9 12/16/21 20:00 2.0 Physical Exam PHYSICAL EXAM GENERAL: Alert, oriented gentleman, not in distress. VITAL SIGNS: Stable HEENT: Both pupils are round and reacting. No conjunctival lesion, no lesion in the mouth. NECK: Supple, no JVP, no lymphadenopathy. LUNGS: Clear. HEART: S1, S2, regular. ABDOMEN: Soft, nontender, no organomegaly. EXTREMITIES: No edema, cyanosis. SKIN: Unremarkable. Surgical site, lower part of the incision has a SELENE drain in place, which is draining. NEUROLOGIC: The patient is alert, awake, and appropriate. No focal neurologic deficit. Labs Lab Laboratory Tests Test 12/16/21 11:36 12/16/21 16:56 12/16/21 20:44 12/17/21 07:30 Glucose (Fingerstick) 134 mg/dL (70-99) 191 mg/dL (70-99) 163 mg/dL (70-99) Sodium Level 135 mmol/L (136-145) Potassium Level 3.7 mmol/L (3.5-5.1) Chloride Level 101 mmol/L (98-107) Carbon Dioxide Level 23 mmol/L (21-32) Anion Gap 11 (6-14) Blood Urea Nitrogen 13 mg/dL (8-26) Creatinine 1.0 mg/dL (0.7-1.3) Estimated GFR (Cockcroft-Gault) 75.5 Glucose Level 93 mg/dL (70-99) Calcium Level 8.4 mg/dL (8.5-10.1) Digoxin Level 0.3 ng/mL (0.9-2.0) Digoxin Last Dose Date 12/03/21 Digoxin Last Dose Time 0900 Test 12/17/21 07:50 Glucose (Fingerstick) 92 mg/dL (70-99) Micro Microbiology 12/15/21 Gram Stain - Final, Resulted 12/15/21 Aerobic and Anaerobic Culture - Preliminary, Resulted Staphylococcus Aureus 12/15/21 Gram Stain - Final, Resulted 12/15/21 Aerobic and Anaerobic Culture - Preliminary, Resulted Staphylococcus Aureus 12/14/21 Blood Culture - Preliminary, Resulted NO GROWTH AFTER 1 DAY Objective Assessment IMPRESSION: 1. Lumbar laminectomy on 11/30/2021. 2. Postsurgical infection with abscess, status post drainage. MSSA 3. Leukocytosis. 4. Low-grade fever. 5. Diabetes. 6. Hypertension. Plan Plan of Care Change in antibiotics to cefazolin, patient is going to need PICC line and long-term IV antibiotics. Discussed with at the bedside ELANA TERRY MD Dec 17, 2021 11:23
--- NOTE | 2021-12-17 12:48 | PDOC ---
[facility] [facility] PROGRESS NOTE Date of Service DOS: DATE: 12/17/21 TIME: 12:47 Chief Complaint Chief Complaint Cellulitis - with abscess of back status post IR drain with Staphylococcus. ID consulted Back and left leg pain - redness at laminectomy site, no dehiscence. There is a small site at inferior margin of surgical site that has a scab Chronic AFIB - rate controlled, actually sinus currently on Xarelto for stroke prophylaxis. Will hold pending surgical recommendations. took at dose around 2100 on 12/13/2021 Hypertension - cont home meds, toprol, lisinopril Hyperlipemia - statin Diabetes, II - sliding scale, jardiance. Split his toujeo 100u into 50u BID lantus SUMMER with CPAP - not compliant for 2 years due to missing parts FEN - ADA diet PPX - xarelto FULL CODE DIspo - PICC, rehab History of Present Illness History of Present Illness Mr Limon is a 61yo male with PMHx chronic afib, HTN, HLD, DM2, SUMMER on CPAP (hasn't worn it in 1-2years) who comes as a direct admission from neurosurgery clinic for concerns about surgical site infection and worsening left leg pain. He underwent L4-5 laminectomy and L5 nerve root decompression on 11/30/2021 without event and was home recuperating with symptomatic improvement in his left leg pain and weakness, but overnight on 12/13/2021 after holding his grandchild and changing diaper he noted a pop in his back and severe pain in his left gluteal area shooting down his left leg into his foot and noted some leaking down his back and some reddish discharge at the top of his underwear. He also noted subjective fever and chills overnight and pain on urination and on defecation. He had neurosurgery clinic follow up and was sent to the hospital for further care. Bedside his wound does look red, no discharge noted, some right toe tingling and left gluteal pain on palpation. He hasn't check his blood glucose, thinks it is high. CT lumbar spine with abscess. Consults: Infectious diseases 12/15: Patient seen working with PT today. I was able to express some fluid from his wound site and collection aerobic and anaerobic cultures; sent to lab. I will defer antibiotic management to ID. Still complaining of back pain 8/10. Discussed with patient, will still keep n.p.o. as to not interfere with any surgical intervention neurosurgery as planned. Discussed with RN. 12/16: SELENE drain with serosanguineous fluid 50 cc. Staph on preliminary culture results. He had pretty severe pain overnight around 3 AM. Still with pain on having a bowel movement. On vancomycin and Zosyn. 12/17: Changed to IV cefazolin per ID. Discussed with neurosurgery will take over as primary as there are no surgical issues currently. Still with significant drain output. Still with some pain with bowel movements. Will need PICC and plan to place on 12/18/2021 and set up outpatient infusions for antibiotics. Will need graded physical therapy program as well and likely will need acute rehab versus SNF Vitals/I&O Vitals/I&O: Vital Signs Date Time Temp Pulse Resp B/P (MAP) Pulse Ox O2 Delivery O2 Flow Rate FiO2 12/17/21 11:00 97.7 69 18 107/72 (84) 92 Room Air 97.7 12/16/21 20:00 2.0 I & O 12/16/21 12/16/21 12/17/21 15:00 23:00 07:00 Intake Total 120 ml Output Total 500 ml 930 ml 1350 ml Balance -500 ml -810 ml -1350 ml Physical Exam Physical Exam: GENERAL: Alert, oriented gentleman, not in distress. VITAL SIGNS: Stable HEENT: Both pupils are round and reacting. No conjunctival lesion, no lesion in the mouth. NECK: Supple, no JVP, no lymphadenopathy. LUNGS: Clear. HEART: S1, S2, regular. ABDOMEN: Soft, nontender, no organomegaly. EXTREMITIES: No edema, cyanosis. SKIN: Unremarkable. Surgical site, lower part of the incision has a SELENE drain in place, which is draining. NEUROLOGIC: The patient is alert, awake, and appropriate. No focal neurologic deficit. General: Alert, Oriented X3, Cooperative Heart: Regular rate, Normal S1, Normal S2, No murmurs Lungs: Clear Abdomen: Normal bowel sounds, Soft, No tenderness, No hepatosplenomegaly, No masses Extremities: No clubbing, No cyanosis, Normal pulses, Other (swelling lower back, bruising on left gluteal area, point tenderness) Skin: Other (dressing intact, drain in place with yellow tinged serous fluid) Labs Labs: Laboratory Tests Test 12/16/21 16:56 12/16/21 20:44 12/17/21 07:30 12/17/21 07:50 Glucose (Fingerstick) 191 mg/dL (70-99) 163 mg/dL (70-99) 92 mg/dL (70-99) Sodium Level 135 mmol/L (136-145) Potassium Level 3.7 mmol/L (3.5-5.1) Chloride Level 101 mmol/L (98-107) Carbon Dioxide Level 23 mmol/L (21-32) Anion Gap 11 (6-14) Blood Urea Nitrogen 13 mg/dL (8-26) Creatinine 1.0 mg/dL (0.7-1.3) Estimated GFR (Cockcroft-Gault) 75.5 Glucose Level 93 mg/dL (70-99) Calcium Level 8.4 mg/dL (8.5-10.1) Digoxin Level 0.3 ng/mL (0.9-2.0) Digoxin Last Dose Date 12/03/21 Digoxin Last Dose Time 0900 Test 12/17/21 11:58 Glucose (Fingerstick) 152 mg/dL (70-99) Comment Review of Relevant I have reviewed the following items noris (where applicable) has been applied. Medications: Current Medications Medications (Trade) Dose Ordered Sig/Missael Route PRN Reason Start Time Stop Time Status Last Admin Dose Admin Insulin Glargine (Lantus Syringe) 50 unit QHS SQ 12/16/21 21:00 12/16/21 21:15 Rivaroxaban (Xarelto) 20 mg QEVNG PO 12/16/21 18:00 12/16/21 17:38 Justifications for Admission Other Justification ALTHEA LOPEZ MD Dec 17, 2021 12:48
[2021-12-17] MEDS: ANTI-COAG MONITOR BY PHARMACY. MC PRN (13:14)
[2021-12-17 15:00] VITALS: BP 111/75
[2021-12-17] MEDS: RIVAROXABAN 10 MG TABLET. PO SCH (17:49)
[2021-12-17 19:00] VITALS: BP 116/61
[2021-12-17] MEDS: ATORVASTATIN CALCIUM 20 MG TABLET PO SCH (21:33)
[2021-12-17] MEDS: INSULIN GLARGINE SYRINGE. SQ SCH (21:40)
[2021-12-17 23:00] VITALS: BP 92/61
[2021-12-18] MEDS: oxyCODONE/APAP 5/325 1 TAB TABLET PO PRN ×3 (01:06→15:21)
[2021-12-18 03:00] VITALS: BP 105/70
[2021-12-18 04:07] LABS: CALCIUM 8.7 mg/dL (8.5-10.1); CREATININE 1.2 mg/dL (0.7-1.3); GFR 61.1; POTASSIUM 3.9 mmol/L (3.5-5.1)
[2021-12-18 07:15] VITALS: BP 128/82
[2021-12-18] MEDS: INSULIN LISPRO 300 UNITS/3 ML VIAL. SQ SCH ×4 (07:30→21:41)
[2021-12-18] MEDS ORDERED: LIDOCAINE WITH 8.4% SOD BICARB 3 ML DISP.SYRIN. ONE (08:34)
[2021-12-18] MEDS: DOCUSATE SODIUM 100 MG CAPSULE. PO SCH ×2 (09:00→21:37)
[2021-12-18] MEDS: LACTOBACILLUS RHAMNOSUS GG 1 CAPSULE. PO SCH ×2 (09:01→21:34)
[2021-12-18] MEDS: EMPAGLIFLOZIN 10 MG TABLET. PO SCH (09:02)
[2021-12-18] MEDS: LISINOPRIL 5 MG TABLET. PO SCH (09:03)
[2021-12-18] MEDS: METOPROLOL TART IMMED RELEASE 25 MG TABLET. PO SCH ×2 (09:06→21:38)
[2021-12-18] MEDS ORDERED: LIDOCAINE WITH 8.4% SOD BICARB 3 ML DISP.SYRIN. INJ ONE (09:30)
[2021-12-18] MEDS: ANTI-COAG MONITOR BY PHARMACY. MC PRN (11:04)
[2021-12-18 11:09] VITALS: BP 122/75
--- NOTE | 2021-12-18 11:53 | PDOC ---
[employer] [facility] PROGRESS NOTE Date of Service DOS: DATE: 12/18/21 TIME: 11:52 Chief Complaint Chief Complaint Cellulitis - with abscess of back status post IR drain with Staphylococcus. ID consulted Back and left leg pain - redness at laminectomy site, no dehiscence. There is a small site at inferior margin of surgical site that has a scab Chronic AFIB - rate controlled, actually sinus currently on Xarelto for stroke prophylaxis. Will hold pending surgical recommendations. took at dose around 2100 on 12/13/2021 Hypertension - cont home meds, toprol, lisinopril Hyperlipemia - statin Diabetes, II - sliding scale, jardiance. Split his toujeo 100u into 50u BID lantus SUMMER with CPAP - not compliant for 2 years due to missing parts FEN - ADA diet PPX - xarelto FULL CODE DIspo - PICC, rehab History of Present Illness History of Present Illness 12/18/2021 Patient seen and examined Discussed with RN Chart reviewed He has a SELENE drain in the lumbar spine region He is going for PICC line today States he would like to have home health on discharge Mr Limon is a 61yo male with PMHx chronic afib, HTN, HLD, DM2, SUMMER on CPAP (hasn't worn it in 1-2years) who comes as a direct admission from neurosurgery clinic for concerns about surgical site infection and worsening left leg pain. He underwent L4-5 laminectomy and L5 nerve root decompression on 11/30/2021 without event and was home recuperating with symptomatic improvement in his left leg pain and weakness, but overnight on 12/13/2021 after holding his grandchild and changing diaper he noted a pop in his back and severe pain in his left gluteal area shooting down his left leg into his foot and noted some leaking down his back and some reddish discharge at the top of his underwear. He also noted subjective fever and chills overnight and pain on urination and on defecation. He had neurosurgery clinic follow up and was sent to the hospital for further care. Bedside his wound does look red, no discharge noted, some right toe tingling and left gluteal pain on palpation. He hasn't check his blood glucose, thinks it is high. CT lumbar spine with abscess. Consults: Infectious diseases 12/15: Patient seen working with PT today. I was able to express some fluid from his wound site and collection aerobic and anaerobic cultures; sent to lab. I will defer antibiotic management to ID. Still complaining of back pain 04/11. Discussed with patient, will still keep n.p.o. as to not interfere with any surgical intervention neurosurgery as planned. Discussed with RN. 12/16: SELENE drain with serosanguineous fluid 50 cc. Staph on preliminary culture results. He had pretty severe pain overnight around 3 AM. Still with pain on having a bowel movement. On vancomycin and Zosyn. 12/17: Changed to IV cefazolin per ID. Discussed with neurosurgery will take over as primary as there are no surgical issues currently. Still with significant drain output. Still with some pain with bowel movements. Will need PICC and plan to place on 12/18/2021 and set up outpatient infusions for antibiotics. Will need graded physical therapy program as well and likely will need acute rehab versus SNF Vitals/I&O Vitals/I&O: Vital Signs Date Time Temp Pulse Resp B/P (MAP) Pulse Ox O2 Delivery O2 Flow Rate FiO2 12/18/21 11:09 97.6 72 18 122/75 (91) 96 Room Air 97.6 12/17/21 20:00 2.0 I & O 12/17/21 12/17/21 12/18/21 15:00 23:00 07:00 Intake Total 500 ml Output Total 1600 ml 1030 ml 750 ml Balance -1600 ml -1030 ml -250 ml Physical Exam Physical Exam: GENERAL: Alert, oriented gentleman, not in distress. VITAL SIGNS: Stable HEENT: Both pupils are round and reacting. No conjunctival lesion, no lesion in the mouth. NECK: Supple, no JVP, no lymphadenopathy. LUNGS: Clear. HEART: S1, S2, regular. ABDOMEN: Soft, nontender, no organomegaly. EXTREMITIES: No edema, cyanosis. SKIN: Unremarkable. Surgical site, lower part of the incision has a SELENE drain in place, which is draining. NEUROLOGIC: The patient is alert, awake, and appropriate. No focal neurologic deficit. General: Alert, Oriented X3, Cooperative Heart: Regular rate, Normal S1, Normal S2, No murmurs Lungs: Clear Abdomen: Normal bowel sounds, Soft, No tenderness, No hepatosplenomegaly, No masses Extremities: No clubbing, No cyanosis, Normal pulses, Other (swelling lower back, bruising on left gluteal area, point tenderness) Skin: Other (dressing intact, drain in place with yellow tinged serous fluid) Labs Labs: Laboratory Tests Test 12/17/21 11:58 12/17/21 16:42 12/17/21 20:32 12/18/21 02:50 Glucose (Fingerstick) 152 mg/dL (70-99) 225 mg/dL (70-99) 192 mg/dL (70-99) Sodium Level 137 mmol/L (136-145) Potassium Level 3.9 mmol/L (3.5-5.1) Chloride Level 102 mmol/L (98-107) Carbon Dioxide Level 27 mmol/L (21-32) Anion Gap 8 (6-14) Blood Urea Nitrogen 12 mg/dL (8-26) Creatinine 1.2 mg/dL (0.7-1.3) Estimated GFR (Cockcroft-Gault) 61.1 Glucose Level 125 mg/dL (70-99) Calcium Level 8.7 mg/dL (8.5-10.1) Test 12/18/21 07:49 12/18/21 11:24 Glucose (Fingerstick) 127 mg/dL (70-99) 198 mg/dL (70-99) Assessment and Plan Assessmemt and Plan Lumbar spine infection Plan IV antibiotics Wound care Follow labs Monitor SELENE drain He is going for PICC line today We hope to discharge with home health with IV antibiotics at home soon Comment Review of Relevant I have reviewed the following items noris (where applicable) has been applied. Medications: Current Medications Medications (Trade) Dose Ordered Sig/Missael Route PRN Reason Start Time Stop Time Status Last Admin Dose Admin Cefazolin Sodium/ Dextrose 50 ml @ 100 mls/hr Q8HRS IV 12/17/21 14:00 12/18/21 06:09 Info (Anti-Coagulation Monitoring By Pharmacy) 1 each PRN DAILY PRN MC PER PROTOCOL 12/17/21 13:15 12/18/21 11:04 Justifications for Admission Other Justification FLORESITA MURRAY III DO Dec 18, 2021 11:53
--- NOTE | 2021-12-18 13:52 | PDOC ---
Infectious Disease Note Subjective: Subjective Patient is feeling good Still has pain at the drain site but improving slowly Denies any further episodes of night sweats Denies fever, nausea, vomiting, shortness of breath, diarrhea, abdominal pain, rash Otherwise as above Vital Signs: Vital Signs Vital Signs Date Time Temp Pulse Resp B/P (MAP) Pulse Ox O2 Delivery O2 Flow Rate FiO2 12/18/21 11:09 97.6 72 18 122/75 (91) 96 Room Air 97.6 12/17/21 20:00 2.0 Physical Exam: PHYSICAL EXAM GENERAL: Alert, oriented gentleman, not in distress. VITAL SIGNS: Stable HEENT: Both pupils are round and reacting. No conjunctival lesion, no lesion in the mouth. NECK: Supple, no JVP, no lymphadenopathy. LUNGS: Clear. HEART: S1, S2, regular. ABDOMEN: Soft, nontender, no organomegaly. EXTREMITIES: No edema, cyanosis. SKIN: Unremarkable. Surgical site, lower part of the incision has a SELENE drain in place, which is draining. NEUROLOGIC: The patient is alert, awake, and appropriate. No focal neurologic deficit. Medications: Inpatient Meds: Medications reviewed. Labs: Lab Laboratory Tests Test 12/17/21 16:42 12/17/21 20:32 12/18/21 02:50 12/18/21 07:49 Glucose (Fingerstick) 225 mg/dL (70-99) 192 mg/dL (70-99) 127 mg/dL (70-99) Sodium Level 137 mmol/L (136-145) Potassium Level 3.9 mmol/L (3.5-5.1) Chloride Level 102 mmol/L (98-107) Carbon Dioxide Level 27 mmol/L (21-32) Anion Gap 8 (6-14) Blood Urea Nitrogen 12 mg/dL (8-26) Creatinine 1.2 mg/dL (0.7-1.3) Estimated GFR (Cockcroft-Gault) 61.1 Glucose Level 125 mg/dL (70-99) Calcium Level 8.7 mg/dL (8.5-10.1) Test 12/18/21 11:24 Glucose (Fingerstick) 198 mg/dL (70-99) Objective: Assessment: 2. Postsurgical infection with abscess, status post drainage December 15 2021. Operative cultures positive for MSSA Blood cultures negative 2. Lumbar laminectomy on 11/30/2021. 3. Leukocytosis. 4. Low-grade fever. 5. Diabetes. 6. Hypertension. Plan: Plan of Care Continue cefazolin Monitor labs and cultures Continue supportive care PICC optical effects line up person PT and OT as tolerated Discussed with [id number] at bedside Discussed with VIDAL MARCANO MD Dec 18, 2021 13:52
[2021-12-18 14:53] VITALS: BP 125/65
[2021-12-18] MEDS: RIVAROXABAN 10 MG TABLET. PO SCH (17:26)
[2021-12-18 19:00] VITALS: BP 100/72
[2021-12-18] MEDS: ATORVASTATIN CALCIUM 20 MG TABLET PO SCH (21:38)
[2021-12-18] MEDS: INSULIN GLARGINE SYRINGE. SQ SCH (21:41)
[2021-12-18 23:00] VITALS: BP 139/65
[2021-12-19 03:01] VITALS: BP 129/78
[2021-12-19] MEDS: oxyCODONE/APAP 5/325 1 TAB TABLET PO PRN ×3 (03:14→18:09)
[2021-12-19 05:29] LABS: CALCIUM 8.8 mg/dL (8.5-10.1); CREATININE 1.1 mg/dL (0.7-1.3); GFR 67.6; POTASSIUM 3.8 mmol/L (3.5-5.1)
[2021-12-19 07:00] VITALS: BP 121/84
[2021-12-19] MEDS: INSULIN LISPRO 300 UNITS/3 ML VIAL. SQ SCH ×4 (07:30→21:58)
[2021-12-19] MEDS: LACTOBACILLUS RHAMNOSUS GG 1 CAPSULE. PO SCH ×2 (09:24→21:40)
[2021-12-19] MEDS: EMPAGLIFLOZIN 10 MG TABLET. PO SCH (09:25)
[2021-12-19] MEDS: LISINOPRIL 5 MG TABLET. PO SCH (09:25)
[2021-12-19] MEDS: METOPROLOL TART IMMED RELEASE 25 MG TABLET. PO SCH ×2 (09:25→21:41)
[2021-12-19] MEDS: DOCUSATE SODIUM 100 MG CAPSULE. PO SCH ×2 (09:25→21:40)
--- NOTE | 2021-12-19 10:44 | PDOC ---
[employer] PROGRESS NOTE Date of Service DOS: DATE: 12/19/21 TIME: 10:43 Chief Complaint Chief Complaint Cellulitis - with abscess of back status post IR drain with Staphylococcus. ID consulted Back and left leg pain - redness at laminectomy site, no dehiscence. There is a small site at inferior margin of surgical site that has a scab Chronic AFIB - rate controlled, actually sinus currently on Xarelto for stroke prophylaxis. Will hold pending surgical recommendations. took at dose around 2100 on 12/13/2021 Hypertension - cont home meds, toprol, lisinopril Hyperlipemia - statin Diabetes, II - sliding scale, jardiance. Split his toujeo 100u into 50u BID lantus SUMMER with CPAP - not compliant for 2 years due to missing parts FEN - ADA diet PPX - xarelto FULL CODE DIspo - PICC, rehab History of Present Illness History of Present Illness 12/20/2019 Patient seen and examined Discussed with RN Chart reviewed He still has a SELENE drain in the lumbar spine Dressing appears clean dry and intact 12/18/2021 Patient seen and examined Discussed with RN Chart reviewed He has a SELENE drain in the lumbar spine region He is going for PICC line today States he would like to have home health on discharge Mr Limon is a 61yo male with PMHx chronic afib, HTN, HLD, DM2, SUMMER on CPAP (hasn't worn it in 1-2years) who comes as a direct admission from neurosurgery clinic for concerns about surgical site infection and worsening left leg pain. He underwent L4-5 laminectomy and L5 nerve root decompression on 11/30/2021 without event and was home recuperating with symptomatic improvement in his left leg pain and weakness, but overnight on 12/13/2021 after holding his grandchild and changing diaper he noted a pop in his back and severe pain in his left gluteal area shooting down his left leg into his foot and noted some leaking down his back and some reddish discharge at the top of his underwear. He also noted subjective fever and chills overnight and pain on urination and on defecation. He had neurosurgery clinic follow up and was sent to the hospital for further care. Bedside his wound does look red, no discharge noted, some right toe tingling and left gluteal pain on palpation. He hasn't check his blood glucose, thinks it is high. CT lumbar spine with abscess. Consults: Infectious diseases 12/15: Patient seen working with PT today. I was able to express some fluid from his wound site and collection aerobic and anaerobic cultures; sent to lab. I will defer antibiotic management to ID. Still complaining of back pain 04/11. Discussed with patient, will still keep n.p.o. as to not interfere with any surgical intervention neurosurgery as planned. Discussed with RN. 12/16: SELENE drain with serosanguineous fluid 50 cc. Staph on preliminary culture results. He had pretty severe pain overnight around 3 AM. Still with pain on having a bowel movement. On vancomycin and Zosyn. 12/17: Changed to IV cefazolin per ID. Discussed with neurosurgery will take over as primary as there are no surgical issues currently. Still with significant drain output. Still with some pain with bowel movements. Will need PICC and plan to place on 12/18/2021 and set up outpatient infusions for antibiotics. Will need graded physical therapy program as well and likely will need acute rehab versus SNF Vitals/I&O Vitals/I&O: Vital Signs Date Time Temp Pulse Resp B/P (MAP) Pulse Ox O2 Delivery O2 Flow Rate FiO2 12/19/21 09:25 64 121/84 12/19/21 09:24 BiPAP/CPAP 12/19/21 07:00 97.4 18 100 97.4 I & O 12/18/21 12/18/21 12/19/21 15:00 23:00 07:00 Intake Total 600 ml Output Total 1950 ml Balance 600 ml -1950 ml Physical Exam Physical Exam: GENERAL: Alert, oriented gentleman, not in distress. VITAL SIGNS: Stable HEENT: Both pupils are round and reacting. No conjunctival lesion, no lesion in the mouth. NECK: Supple, no JVP, no lymphadenopathy. LUNGS: Clear. HEART: S1, S2, regular. ABDOMEN: Soft, nontender, no organomegaly. EXTREMITIES: No edema, cyanosis. SKIN: Unremarkable. Surgical site, lower part of the incision has a SELENE drain in place, which is draining. NEUROLOGIC: The patient is alert, awake, and appropriate. No focal neurologic deficit. General: Alert, Oriented X3, Cooperative Heart: Regular rate, Normal S1, Normal S2, No murmurs Lungs: Clear Abdomen: Normal bowel sounds, Soft, No tenderness, No hepatosplenomegaly, No masses Extremities: No clubbing, No cyanosis, Normal pulses, Other (swelling lower back, bruising on left gluteal area, point tenderness) Skin: Other (dressing intact, drain in place with yellow tinged serous fluid) Labs Labs: Laboratory Tests Test 12/18/21 11:24 12/18/21 16:58 12/18/21 20:34 12/19/21 03:50 Glucose (Fingerstick) 198 mg/dL (70-99) 239 mg/dL (70-99) 214 mg/dL (70-99) Sodium Level 137 mmol/L (136-145) Potassium Level 3.8 mmol/L (3.5-5.1) Chloride Level 102 mmol/L (98-107) Carbon Dioxide Level 26 mmol/L (21-32) Anion Gap 9 (6-14) Blood Urea Nitrogen 12 mg/dL (8-26) Creatinine 1.1 mg/dL (0.7-1.3) Estimated GFR (Cockcroft-Gault) 67.6 Glucose Level 117 mg/dL (70-99) Calcium Level 8.8 mg/dL (8.5-10.1) Test 12/19/21 07:16 12/19/21 10:24 Glucose (Fingerstick) 143 mg/dL (70-99) 187 mg/dL (70-99) Assessment and Plan Assessmemt and Plan Lumbar spine infection Plan IV antibiotics Wound care Encourage p.o. intake DVT prophylaxis Full code Follow labs Monitor SELENE drain He is going for PICC line today We hope to discharge with home health with IV antibiotics when okay with consu ltants Comment Review of Relevant I have reviewed the following items noris (where applicable) has been applied. Justifications for Admission Other Justification FLORESITA MURRAY III DO Dec 19, 2021 10:44
[2021-12-19 11:00] VITALS: BP 122/89
--- NOTE | 2021-12-19 11:06 | PDOC ---
Infectious Disease Note Subjective: Subjective Patient feeling much better Denies fever, nausea, vomiting, shortness of breath, diarrhea, abdominal pain, rash Otherwise as above Vital Signs: Vital Signs Vital Signs Date Time Temp Pulse Resp B/P (MAP) Pulse Ox O2 Delivery O2 Flow Rate FiO2 12/19/21 09:25 64 121/84 12/19/21 09:24 BiPAP/CPAP 12/19/21 07:00 97.4 18 100 97.4 Physical Exam: PHYSICAL EXAM GENERAL: Alert, oriented gentleman, not in distress. VITAL SIGNS: Stable HEENT: Both pupils are round and reacting. No conjunctival lesion, no lesion in the mouth. NECK: Supple, no JVP, no lymphadenopathy. LUNGS: Clear. HEART: S1, S2, regular. ABDOMEN: Soft, nontender, no organomegaly. EXTREMITIES: No edema, cyanosis. SKIN: Unremarkable. Surgical site, lower part of the incision has a SELENE drain in place, which is draining. NEUROLOGIC: The patient is alert, awake, and appropriate. No focal neurologic deficit. Medications: Inpatient Meds: Medications reviewed. Labs: Lab Laboratory Tests Test 12/18/21 11:24 12/18/21 16:58 12/18/21 20:34 12/19/21 03:50 Glucose (Fingerstick) 198 mg/dL (70-99) 239 mg/dL (70-99) 214 mg/dL (70-99) Sodium Level 137 mmol/L (136-145) Potassium Level 3.8 mmol/L (3.5-5.1) Chloride Level 102 mmol/L (98-107) Carbon Dioxide Level 26 mmol/L (21-32) Anion Gap 9 (6-14) Blood Urea Nitrogen 12 mg/dL (8-26) Creatinine 1.1 mg/dL (0.7-1.3) Estimated GFR (Cockcroft-Gault) 67.6 Glucose Level 117 mg/dL (70-99) Calcium Level 8.8 mg/dL (8.5-10.1) Test 12/19/21 07:16 12/19/21 10:24 Glucose (Fingerstick) 143 mg/dL (70-99) 187 mg/dL (70-99) Objective: Assessment: 2. Postsurgical infection with abscess, status post drainage December 15 2021. Operative cultures positive for MSSA Blood cultures negative 2. Lumbar laminectomy on 11/30/2021. 3. Leukocytosis. 4. Low-grade fever. 5. Diabetes. 6. Hypertension. 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
--- NOTE | 2021-12-19 11:38 | RAD ---
Procedure: Upper extremity PICC line placement Clinical Indication: Adult male requiring central venous access Sedation: Local anesthesia only was provided Antibiotics: None Exposure: Kerma-Area Product: mGycm2 Fluoro Time: 0.9 minutes # of Images: 1 Contrast: None Sterility: All elements of maximal sterile barrier technique including the use of a cap, mask, steril e gown, sterile gloves, large sterile sheet, appropriate hand hygiene, and 2% chlorhexidine for cutan eous antisepsis (or acceptable alternative antiseptic per current guidelines) were followed for this procedure. Consent: The procedure was explained in its entirety to the patient or the patients designated repres entative by a member of the treatment team, including a discussion of the risks, benefits and commonl y accepted alternatives to the procedure, as well as the expected consequences of no therapy whatsoev er. Discussion of the risks included, but was not limited to, those that are most frequent and thos e that are rare but possibly severe or life-threatening, as well as the possibility of unforeseen com plications. Technique and Findings: Following informed consent, the patient was prepped and draped in the usual s terile fashion. Ultrasound interrogation of the right arm revealed patency and compressibility of th e right basilic vein. A hard copy ultrasound image was recorded. 1% Lidocaine was used to achieve l ocal anesthesia and a 21-gauge micropuncture needle was used to gain access to the targeted vein. Th e needle was exchanged over wire for a 5 Latvian peel-away sheath which was used to deploy a PICC line under fluoroscopic guidance such that the distal tip resided at the cavoatrial junction. The cathet er flushed and aspirated with ease and was sutured to the skin. Complications: No immediate Impression: 1. Ultrasound guided PICC line placement as described. Electronically signed by: Delonte Maurer MD (12/19/2021 11:35 AM) [id number]
--- NOTE | 2021-12-19 14:00 | NUR ---
Call from pt, he states "he's pulled something out", upon entering the room the patient has accidently pulled out the tubing of his pigtail jayce drain. Call to Dr Upton he states it is ok with him for the drain to come out but is unsure who placed it. Advised him this nurse would contact IR for next steps. Page to nursing script supervisor to get in contact with IR. Addendum: 12/19/21 at 1432 by FAISAL HEAD LPN LPN Drain/wire wrapped in gauze and tapped up and attached to patients back.
--- NOTE | 2021-12-19 15:00 | NUR ---
Call to IR advised of the situation was advised that someone would be coming down to look at the drain. on assessment advised that they would be taking the drain out as it is broken. drain removed, no adverse reactions. no other needs.
[2021-12-19] MEDS: RIVAROXABAN 10 MG TABLET. PO SCH (18:09)
[2021-12-19 19:00] VITALS: BP 109/78
[2021-12-19] MEDS: ATORVASTATIN CALCIUM 20 MG TABLET PO SCH (21:40)
[2021-12-19] MEDS: INSULIN GLARGINE SYRINGE. SQ SCH (22:01)
[2021-12-19 23:00] VITALS: BP 112/65
[2021-12-20] MEDS: oxyCODONE/APAP 5/325 1 TAB TABLET PO PRN ×2 (01:08→21:40)
[2021-12-20 03:00] VITALS: BP 122/77
[2021-12-20 07:00] VITALS: BP 117/81
[2021-12-20] MEDS: INSULIN LISPRO 300 UNITS/3 ML VIAL. SQ SCH ×4 (07:30→21:45)
[2021-12-20] MEDS: DOCUSATE SODIUM 100 MG CAPSULE. PO SCH ×2 (08:27→21:40)
[2021-12-20] MEDS: METOPROLOL TART IMMED RELEASE 25 MG TABLET. PO SCH ×2 (08:28→21:41)
[2021-12-20] MEDS: LACTOBACILLUS RHAMNOSUS GG 1 CAPSULE. PO SCH ×2 (08:28→21:41)
[2021-12-20] MEDS: EMPAGLIFLOZIN 10 MG TABLET. PO SCH (08:29)
[2021-12-20] MEDS: LISINOPRIL 5 MG TABLET. PO SCH (08:31)
[2021-12-20] MEDS ORDERED: INSU100V8 SQ (08:59)
[2021-12-20] MEDS ORDERED: EMPA10TA3 PO (08:59)
[2021-12-20 11:00] VITALS: BP 116/74
--- NOTE | 2021-12-20 12:23 | PDOC ---
[facility] PROGRESS NOTE Date of Service DOS: DATE: 12/20/21 TIME: 12:22 Chief Complaint Chief Complaint Cellulitis - with abscess of back status post IR drain with Staphylococcus. ID consulted Back and left leg pain - redness at laminectomy site, no dehiscence. There is a small site at inferior margin of surgical site that has a scab Chronic AFIB - rate controlled, actually sinus currently on Xarelto for stroke prophylaxis. Will hold pending surgical recommendations. took at dose around 2100 on 12/13/2021 Hypertension - cont home meds, toprol, lisinopril Hyperlipemia - statin Diabetes, II - sliding scale, jardiance. Split his toujeo 100u into 50u BID lantus SUMMER with CPAP - not compliant for 2 years due to missing parts FEN - ADA diet PPX - xarelto FULL CODE DIspo - PICC, rehab History of Present Illness History of Present Illness 12/20/2021 Patient seen and examined Discussed with RN Chart reviewed His SELENE drain came out of his back yesterday He is close to his baseline we will hope to discharge soon 12/20/2019 Patient seen and examined Discussed with RN Chart reviewed He still has a SELENE drain in the lumbar spine Dressing appears clean dry and intact 12/18/2021 Patient seen and examined Discussed with RN Chart reviewed He has a SELENE drain in the lumbar spine region He is going for PICC line today States he would like to have home health on discharge Mr Limon is a 61yo male with PMHx chronic afib, HTN, HLD, DM2, SUMMER on CPAP (hasn't worn it in 1-2years) who comes as a direct admission from neurosurgery clinic for concerns about surgical site infection and worsening left leg pain. He underwent L4-5 laminectomy and L5 nerve root decompression on 11/30/2021 without event and was home recuperating with symptomatic improvement in his left leg pain and weakness, but overnight on 12/13/2021 after holding his grandchild and changing diaper he noted a pop in his back and severe pain in his left gluteal area shooting down his left leg into his foot and noted some leaking down his back and some reddish discharge at the top of his underwear. He also noted subjective fever and chills overnight and pain on urination and on defecation. He had neurosurgery clinic follow up and was sent to the hospital for further care. Bedside his wound does look red, no discharge noted, some right toe tingling and left gluteal pain on palpation. He hasn't check his blood glucose, thinks it is high. CT lumbar spine with abscess. Consults: Infectious diseases 12/15: Patient seen working with PT today. I was able to express some fluid from his wound site and collection aerobic and anaerobic cultures; sent to lab. I will defer antibiotic management to ID. Still complaining of back pain 04/11. Discussed with patient, will still keep n.p.o. as to not interfere with any surgical intervention neurosurgery as planned. Discussed with RN. 12/16: SELENE drain with serosanguineous fluid 50 cc. Staph on preliminary culture results. He had pretty severe pain overnight around 3 AM. Still with pain on having a bowel movement. On vancomycin and Zosyn. 12/17: Changed to IV cefazolin per ID. Discussed with neurosurgery will take over as primary as there are no surgical issues currently. Still with signi ficant drain output. Still with some pain with bowel movements. Will need PICC and plan to place on 12/18/2021 and set up outpatient infusions for antibiotics. Will need graded physical therapy program as well and likely will need acute rehab versus SNF Vitals/I&O Vitals/I&O: Vital Signs Date Time Temp Pulse Resp B/P (MAP) Pulse Ox O2 Delivery O2 Flow Rate FiO2 12/20/21 11:00 98.2 65 18 116/74 (88) 96 Room Air 98.2 I & O 12/19/21 12/19/21 12/20/21 15:00 23:00 07:00 Intake Total 480 ml 290 ml 1600 ml Output Total 1200 ml 950 ml 1250 ml Balance -720 ml -660 ml 350 ml Physical Exam Physical Exam: GENERAL: Alert, oriented gentleman, not in distress. VITAL SIGNS: Stable HEENT: Both pupils are round and reacting. No conjunctival lesion, no lesion in the mouth. NECK: Supple, no JVP, no lymphadenopathy. LUNGS: Clear. HEART: S1, S2, regular. ABDOMEN: Soft, nontender, no organomegaly. EXTREMITIES: No edema, cyanosis. SKIN: Unremarkable. Surgical site, lower part of the incision has a SELENE drain in place, which is draining. NEUROLOGIC: The patient is alert, awake, and appropriate. No focal neurologic deficit. General: Alert, Oriented X3, Cooperative Heart: Regular rate, Normal S1, Normal S2, No murmurs Lungs: Clear Abdomen: Normal bowel sounds, Soft, No tenderness, No hepatosplenomegaly, No masses Extremities: No clubbing, No cyanosis, Normal pulses, Other (swelling lower back, bruising on left gluteal area, point tenderness) Skin: Other (dressing intact, drain in place with yellow tinged serous fluid) Labs Labs: Laboratory Tests Test 12/19/21 16:25 12/19/21 21:08 12/20/21 08:00 12/20/21 11:10 Glucose (Fingerstick) 164 mg/dL (70-99) 192 mg/dL (70-99) 127 mg/dL (70-99) 192 mg/dL (70-99) Assessment and Plan Assessmemt and Plan Lumbar spine infection Plan We are hoping to discharge to [facility] or home with home health soon For now continue the following; IV antibiotics Wound care Encourage p.o. intake DVT prophylaxis Full code Follow labs Comment Review of Relevant I have reviewed the following items noris (where applicable) has been applied. Justifications for Admission Other Justification FLORESITA MURRAY III DO Dec 20, 2021 12:23
--- NOTE | 2021-12-20 12:40 | PDOC ---
Infectious Disease Note Subjective Subjective Patient feeling much better Denies fever, nausea, vomiting, shortness of breath, diarrhea, abdominal pain, rash Otherwise as above Vital Sign Vital Signs Vital Signs Date Time Temp Pulse Resp B/P (MAP) Pulse Ox O2 Delivery O2 Flow Rate FiO2 12/20/21 11:00 98.2 65 18 116/74 (88) 96 Room Air 98.2 Physical Exam PHYSICAL EXAM GENERAL: Alert, oriented gentleman, not in distress. VITAL SIGNS: Stable HEENT: Both pupils are round and reacting. No conjunctival lesion, no lesion in the mouth. NECK: Supple, no JVP, no lymphadenopathy. LUNGS: Clear. HEART: S1, S2, regular. ABDOMEN: Soft, nontender, no organomegaly. EXTREMITIES: No edema, cyanosis. SKIN: Unremarkable. Surgical site, lower part of the incision has a SELENE drain in place, which is draining. NEUROLOGIC: The patient is alert, awake, and appropriate. No focal neurologic deficit. Labs Lab Laboratory Tests Test 12/19/21 16:25 12/19/21 21:08 12/20/21 08:00 12/20/21 11:10 Glucose (Fingerstick) 164 mg/dL (70-99) 192 mg/dL (70-99) 127 mg/dL (70-99) 192 mg/dL (70-99) Micro Microbiology 12/15/21 Gram Stain - Final, Resulted 12/15/21 Aerobic and Anaerobic Culture - Preliminary, Resulted Staphylococcus Aureus 12/15/21 Gram Stain - Final, Resulted 12/15/21 Aerobic and Anaerobic Culture - Preliminary, Resulted Staphylococcus Aureus 12/14/21 Blood Culture - Preliminary, Resulted NO GROWTH AFTER 1 DAY Objective Assessment 2. Postsurgical infection with abscess, status post drainage December 15 2021. Operative cultures positive for MSSA Blood cultures negative 2. Lumbar laminectomy on 11/30/2021. 3. Leukocytosis. 4. Low-grade fever. 5. Diabetes. 6. Hypertension. 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
[2021-12-20 15:00] VITALS: BP 91/64
[2021-12-20] MEDS: RIVAROXABAN 10 MG TABLET. PO SCH (18:17)
[2021-12-20 19:00] VITALS: BP 108/66
[2021-12-20] MEDS: ATORVASTATIN CALCIUM 20 MG TABLET PO SCH (21:41)
[2021-12-20] MEDS: INSULIN GLARGINE SYRINGE. SQ SCH (21:45)
[2021-12-20 23:00] VITALS: BP 113/82
[2021-12-21 03:27] VITALS: BP 124/73
[2021-12-21 07:00] VITALS: BP 108/78
[2021-12-21] MEDS: INSULIN LISPRO 300 UNITS/3 ML VIAL. SQ SCH ×4 (07:30→22:51)
[2021-12-21] MEDS: LISINOPRIL 5 MG TABLET. PO SCH (09:00)
[2021-12-21] MEDS: METOPROLOL TART IMMED RELEASE 25 MG TABLET. PO SCH ×2 (09:00→22:43)
--- NOTE | 2021-12-21 10:31 | PDOC ---
[employer] [facility] PROGRESS NOTE Date of Service DOS: DATE: 12/21/21 TIME: 10:30 Chief Complaint Chief Complaint Cellulitis - with abscess of back status post IR drain with Staphylococcus. ID consulted Back and left leg pain - redness at laminectomy site, no dehiscence. There is a small site at inferior margin of surgical site that has a scab Chronic AFIB - rate controlled, actually sinus currently on Xarelto for stroke prophylaxis. Will hold pending surgical recommendations. took at dose around 2100 on 12/13/2021 Hypertension - cont home meds, toprol, lisinopril Hyperlipemia - statin Diabetes, II - sliding scale, jardiance. Split his toujeo 100u into 50u BID lantus SUMMER with CPAP - not compliant for 2 years due to missing parts FEN - ADA diet PPX - xarelto FULL CODE DIspo - PICC, rehab History of Present Illness History of Present Illness 12/21/2021 Patient seen exam Discussed with RN Discussed with case management Chart reviewed He seems to be doing relatively well We hope to discharge problems placed today 12/20/2021 Patient seen and examined Discussed with RN Chart reviewed His SELENE drain came out of his back yesterday He is close to his baseline we will hope to discharge soon 12/20/2019 Patient seen and examined Discussed with RN Chart reviewed He still has a SELENE drain in the lumbar spine Dressing appears clean dry and intact 12/18/2021 Patient seen and examined Discussed with RN Chart reviewed He has a SELENE drain in the lumbar spine region He is going for PICC line today States he would like to have home health on discharge Mr Limon is a 61yo male with PMHx chronic afib, HTN, HLD, DM2, SUMMER on CPAP (hasn't worn it in 1-2years) who comes as a direct admission from neurosurgery clinic for concerns about surgical site infection and worsening left leg pain. He underwent L4-5 laminectomy and L5 nerve root decompression on 11/30/2021 without event and was home recuperating with symptomatic improvement in his left leg pain and weakness, but overnight on 12/13/2021 after holding his grandchild and changing diaper he noted a pop in his back and severe pain in his left gluteal area shooting down his left leg into his foot and noted some leaking down his back and some reddish discharge at the top of his underwear. He also noted subjective fever and chills overnight and pain on urination and on defecation. He had neurosurgery clinic follow up and was sent to the hospital for further care. Bedside his wound does look red, no discharge noted, some right toe tingling and left gluteal pain on palpation. He hasn't check his blood glucose, thinks it is high. CT lumbar spine with abscess. Consults: Infectious diseases 12/15: Patient seen working with PT today. I was able to express some fluid from his wound site and collection aerobic and anaerobic cultures; sent to lab. I will defer antibiotic management to ID. Still complaining of back pain 04/11. Discussed with patient, will still keep n.p.o. as to not interfere with any surgical intervention neurosurgery as planned. Discussed with RN. 12/16: SELENE drain with serosanguineous fluid 50 cc. Staph on preliminary culture results. He had pretty severe pain overnight around 3 AM. Still with pain on having a bowel movement. On vancomycin and Zosyn. 12/17: Changed to IV cefazolin per ID. Discussed with neurosurgery will take over as primary as there are no surgical issues currently. Still with significant drain output. Still with some pain with bowel movements. Will need PICC and plan to place on 12/18/2021 and set up outpatient infusions for antibiotics. Will need graded physical therapy program as well and likely will need acute rehab versus SNF Vitals/I&O Vitals/I&O: Vital Signs Date Time Temp Pulse Resp B/P (MAP) Pulse Ox O2 Delivery O2 Flow Rate FiO2 12/21/21 07:00 98.4 69 18 108/78 (88) 97 Room Air 98.4 I & O 12/20/21 12/20/21 12/21/21 15:00 23:00 07:00 Intake Total 290 ml 490 ml 1600 ml Output Total 700 ml 800 ml 400 ml Balance -410 ml -310 ml 1200 ml Physical Exam Physical Exam: GENERAL: Alert, oriented gentleman, not in distress. VITAL SIGNS: Stable HEENT: Both pupils are round and reacting. No conjunctival lesion, no lesion in the mouth. NECK: Supple, no JVP, no lymphadenopathy. LUNGS: Clear. HEART: S1, S2, regular. ABDOMEN: Soft, nontender, no organomegaly. EXTREMITIES: No edema, cyanosis. SKIN: Unremarkable. Surgical site, lower part of the incision has a SELENE drain in place, which is draining. NEUROLOGIC: The patient is alert, awake, and appropriate. No focal neurologic deficit. General: Alert, Oriented X3, Cooperative Heart: Regular rate, Normal S1, Normal S2, No murmurs Lungs: Clear Abdomen: Normal bowel sounds, Soft, No tenderness, No hepatosplenomegaly, No masses Extremities: No clubbing, No cyanosis, Normal pulses, Other (swelling lower back, bruising on left gluteal area, point tenderness) Skin: Other (dressing intact, drain in place with yellow tinged serous fluid) Labs Labs: Laboratory Tests Test 12/20/21 11:10 12/20/21 17:00 12/20/21 20:32 12/21/21 07:08 Glucose (Fingerstick) 192 mg/dL (70-99) 173 mg/dL (70-99) 203 mg/dL (70-99) 149 mg/dL (70-99) Assessment and Plan Assessmemt and Plan Lumbar spine infection Plan We are hoping to discharge to [facility] today for long term For now continue the following; IV antibiotics Wound care Encourage p.o. intake DVT prophylaxis Full code Follow labs Comment Review of Relevant I have reviewed the following items noris (where applicable) has been applied. Justifications for Admission Other Justification FLORESITA MURRAY III DO Dec 21, 2021 10:31
--- NOTE | 2021-12-21 10:33 | SNU/HH DC ---
DISCHARGE ORDERS DISCHARGE INFORMATION: CONDITION ON DISCHARGE: Stable CODE STATUS: Code Status: Full CORRECTION: SNF STAY <30 DAYS: Yes HOSPICE: HOSPICE: No HOSPICE EVAL & TREAT: No LTAC: ADMIT TO LTAC: No POST DISCHARGE ORDERS: ACTIVITY ORDERS: Activity as tolerated, Avoid exertion WEIGHT BEARING STATUS: No restrictions DIET AFTER DISCHARGE: Cardiac WOUND/INCISION CARE: Ice to area for comfort, No wound care needed CHECKS AFTER DISCHARGE: CHECKS AFTER DISCHARGE: Check blood press - daily, Check blood sugar, ac/hs TREATMENT/EQUIPMENT ORDERS: ADAPTIVE EQUIPMENT NEEDED: None Physical Therapy For: Evalulation/Treatment Occupational Therapy For: Evaluation/Treatment DISCHARGE MEDICATIONS: Home Meds Active Scripts Empagliflozin (Jardiance) 10 Mg Tablet, 10 MG PO DAILY for . for 30 Days, #30 TAB Prov:FLORESITA MURRAY III DO 12/20/21 Insulin Glargine,Hum.rec.anlog (LANTUS) 100 Unit/1 Ml Vial, 50 UNIT SQ QHS for . for 30 Days, #1 EACH Prov:FLORESITA MURRAY III, DO 12/20/21 Oxycodone/Apap 5-325 (PERCOCET 5-325 MG TABLET ) 1 Each Tablet, 1 TAB PO QIDPRN PRN for MODERATE PAIN 4-6 MDD 4 Tablet(s) for 5 Days, #40 TAB 0 Refills Prov:ROSAMARIA ANDERSON MD 11/30/21 Methocarbamol (METHOCARBAMOL) 750 Mg Tablet, 750 MG PO TID PRN PRN for MUSCLE SPASMS, #60 TAB Prov:ROSAMARIA ANDERSON MD 11/30/21 Metoprolol Tartrate (METOPROLOL TARTRATE) 25 Mg Tablet, 25 MG PO BID for FOR HYPERTENSION for 30 Days, #60 TAB 0 Refills Prov:ALTHEA LOPEZ MD 07/30/21 Rivaroxaban (XARELTO) 20 Mg Tablet, 20 MG PO QHS, #30 TAB 2 Refills Prov:HESHAM UPTON MD 03/27/18 Reported Medications Insulin Lispro (HUMALOG) 100 Unit/1 Ml Cartridge, 36 UNIT SQ TIDAC for diabetes, EACH 11/21/21 Ondansetron (ONDANSETRON ODT) 4 Mg Tab.rapdis, 8 MG PO BID PRN for NAUSEA/VOMITING, TAB 11/21/21 Dulaglutide (Trulicity) 1.5 Mg/0.5 Ml Pen.injctr, 0.75 MG SQ WEEKLY for DIABETES CONTROL, EACH 07/05/20 Digoxin (DIGOXIN) 250 Mcg Tablet, 250 MCG PO DAILYWSUP for AFIB/HEART FAILURE, TAB 07/05/20 Diltiazem Hcl (CARTIA XT) 180 Mg Cap.er.24h, 180 MG PO BID for 06/13/20 Lisinopril (LISINOPRIL) 5 Mg Tablet, 5 MG PO DAILY for FOR HYPERTENSION, #30 TAB 0 Refills 06/13/20 Insulin Glargine,Hum.rec.anlog (Elizabeth Nguyen) 300 Unit/1 Ml Insuln.pen, 100 UNIT SQ QHS for DIABETES, EACH 03/24/18 Fish Oil/Dha/Epa (FISH OIL 1,200 MG FISH OIL) 1 Each Capsule, 1 EACH PO DAILY 08/26/15 Atorvastatin Calcium (ATORVASTATIN CALCIUM) 20 Mg Tablet, 20 MG PO HS for FOR CHOLESTEROL, #30 TAB 0 Refills 08/26/15 Aspirin (ASPIRIN) 81 Mg Tab.chew, 81 MG PO DAILY for heart, TAB.CHEW 11/10/14 Metformin Hcl (METFORMIN HCL) 500 Mg Tablet, 1000 MG PO BIDWMEALS for ANTI- DIABETIC, TAB 0 Refills 11/09/14 FLORESITA MURRAY III DO Dec 21, 2021 10:33
[2021-12-21] MEDS ORDERED: OXYC-325 PO (10:35)
[2021-12-21] MEDS: DOCUSATE SODIUM 100 MG CAPSULE. PO SCH ×2 (10:37→22:44)
[2021-12-21] MEDS: EMPAGLIFLOZIN 10 MG TABLET. PO SCH (10:38)
[2021-12-21] MEDS: LACTOBACILLUS RHAMNOSUS GG 1 CAPSULE. PO SCH ×2 (10:38→22:44)
[2021-12-21 11:00] VITALS: BP 100/72
--- NOTE | 2021-12-21 13:26 | PDOC ---
Infectious Disease Note Subjective Subjective Patient feeling much better Denies fever, nausea, vomiting, shortness of breath, diarrhea, abdominal pain, rash Otherwise as above ROS ROS no n/v/d/sob Vital Sign Vital Signs Vital Signs Date Time Temp Pulse Resp B/P (MAP) Pulse Ox O2 Delivery O2 Flow Rate FiO2 12/21/21 11:00 98.6 58 18 100/72 (81) 98 Room Air 98.6 Physical Exam PHYSICAL EXAM GENERAL: Alert, oriented gentleman, not in distress. VITAL SIGNS: Stable HEENT: Both pupils are round and reacting. No conjunctival lesion, no lesion in the mouth. NECK: Supple, no JVP, no lymphadenopathy. LUNGS: Clear. HEART: S1, S2, regular. ABDOMEN: Soft, nontender, no organomegaly. EXTREMITIES: No edema, cyanosis. SKIN: Unremarkable. Surgical site, lower part of the incision has a SELENE drain in place, which is draining. NEUROLOGIC: The patient is alert, awake, and appropriate. No focal neurologic deficit. Labs Lab Laboratory Tests Test 12/20/21 17:00 12/20/21 20:32 12/21/21 07:08 12/21/21 10:50 Glucose (Fingerstick) 173 mg/dL (70-99) 203 mg/dL (70-99) 149 mg/dL (70-99) 186 mg/dL (70-99) Micro Microbiology 12/15/21 Gram Stain - Final, Resulted 12/15/21 Aerobic and Anaerobic Culture - Preliminary, Resulted Staphylococcus Aureus 12/15/21 Gram Stain - Final, Resulted 12/15/21 Aerobic and Anaerobic Culture - Preliminary, Resulted Staphylococcus Aureus 12/14/21 Blood Culture - Preliminary, Resulted NO GROWTH AFTER 1 DAY Objective Assessment 2. Postsurgical infection with abscess, status post drainage December 15 2021. Operative cultures positive for MSSA Blood cultures negative 2. Lumbar laminectomy on 11/30/2021. 3. Leukocytosis. 4. Low-grade fever. 5. Diabetes. 6. Hypertension. 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
[2021-12-21 15:00] VITALS: BP 109/79
[2021-12-21] MEDS: ACETAMINOPHEN 325 MG TABLET. PO PRN (15:18)
[2021-12-21] MEDS: RIVAROXABAN 10 MG TABLET. PO SCH (18:24)
[2021-12-21 19:00] VITALS: BP 111/80
[2021-12-21] MEDS: ATORVASTATIN CALCIUM 20 MG TABLET PO SCH (22:43)
[2021-12-21] MEDS: INSULIN GLARGINE SYRINGE. SQ SCH (22:49)
[2021-12-21 23:00] VITALS: BP 126/82
[2021-12-22 03:00] VITALS: BP 120/86
[2021-12-22] MEDS: ACETAMINOPHEN 325 MG TABLET. PO PRN (05:56)
[2021-12-22 07:15] VITALS: BP 144/65
[2021-12-22] MEDS: INSULIN LISPRO 300 UNITS/3 ML VIAL. SQ SCH ×4 (07:30→21:00)
[2021-12-22] MEDS: EMPAGLIFLOZIN 10 MG TABLET. PO SCH (08:40)
[2021-12-22] MEDS: DOCUSATE SODIUM 100 MG CAPSULE. PO SCH ×2 (08:40→21:59)
[2021-12-22] MEDS: LISINOPRIL 5 MG TABLET. PO SCH (08:41)
[2021-12-22] MEDS: METOPROLOL TART IMMED RELEASE 25 MG TABLET. PO SCH ×2 (08:42→22:00)
[2021-12-22] MEDS: LACTOBACILLUS RHAMNOSUS GG 1 CAPSULE. PO SCH ×2 (08:42→21:59)
--- NOTE | 2021-12-22 11:07 | PDOC ---
[employer] PROGRESS NOTE Date of Service DOS: DATE: 12/22/21 TIME: 11:06 Chief Complaint Chief Complaint Cellulitis - with abscess of back status post IR drain with Staphylococcus. ID consulted Back and left leg pain - redness at laminectomy site, no dehiscence. There is a small site at inferior margin of surgical site that has a scab Chronic AFIB - rate controlled, actually sinus currently on Xarelto for stroke prophylaxis. Will hold pending surgical recommendations. took at dose around 2100 on 12/13/2021 Hypertension - cont home meds, toprol, lisinopril Hyperlipemia - statin Diabetes, II - sliding scale, jardiance. Split his toujeo 100u into 50u BID lantus SUMMER with CPAP - not compliant for 2 years due to missing parts FEN - ADA diet PPX - xarelto FULL CODE DIspo - PICC, rehab History of Present Illness History of Present Illness 12/22/2021 Patient seen and examined Discussed with RN Chart reviewed Were hoping to discharge [facility] later today as his discharge had to be held yesterday due to logistics issues 12/21/2021 Patient seen exam Discussed with RN Discussed with case management Chart reviewed He seems to be doing relatively well We hope to discharge problems placed today 12/20/2021 Patient seen and examined Discussed with RN Chart reviewed His SELENE drain came out of his back yesterday He is close to his baseline we will hope to discharge soon 12/20/2019 Patient seen and examined Discussed with RN Chart reviewed He still has a SELENE drain in the lumbar spine Dressing appears clean dry and intact 12/18/2021 Patient seen and examined Discussed with RN Chart reviewed He has a SELENE drain in the lumbar spine region He is going for PICC line today States he would like to have home health on discharge Mr Limon is a 61yo male with PMHx chronic afib, HTN, HLD, DM2, SUMMER on CPAP (hasn't worn it in 1-2years) who comes as a direct admission from neurosurgery clinic for concerns about surgical site infection and worsening left leg pain. He underwent L4-5 laminectomy and L5 nerve root decompression on 11/30/2021 without event and was home recuperating with symptomatic improvement in his left leg pain and weakness, but overnight on 12/13/2021 after holding his grandchild and changing diaper he noted a pop in his back and severe pain in his left gluteal area shooting down his left leg into his foot and noted some leaking down his back and some reddish discharge at the top of his underwear. He also noted subjective fever and chills overnight and pain on urination and on defecation. He had neurosurgery clinic follow up and was sent to the hospital for further care. Bedside his wound does look red, no discharge noted, some right toe tingling and left gluteal pain on palpation. He hasn't check his blood glucose, thinks it is high. CT lumbar spine with abscess. Consults: Infectious diseases 12/15: Patient seen working with PT today. I was able to express some fluid from his wound site and collection aerobic and anaerobic cultures; sent to lab. I will defer antibiotic management to ID. Still complaining of back pain 04/11. Discussed with patient, will still keep n.p.o. as to not interfere with any surgical intervention neurosurgery as planned. Discussed with RN. 12/16: SELENE drain with serosanguineous fluid 50 cc. Staph on preliminary culture results. He had pretty severe pain overnight around 3 AM. Still with pain on having a bowel movement. On vancomycin and Zosyn. 12/17: Changed to IV cefazolin per ID. Discussed with neurosurgery will take over as primary as there are no surgical issues currently. Still with significant drain output. Still with some pain with bowel movements. Will need PICC and plan to place on 12/18/2021 and set up outpatient infusions for antibiotics. Will need graded physical therapy program as well and likely will need acute rehab versus SNF Vitals/I&O Vitals/I&O: Vital Signs Date Time Temp Pulse Resp B/P (MAP) Pulse Ox O2 Delivery O2 Flow Rate FiO2 12/22/21 08:42 64 144/65 12/22/21 07:35 Room Air 12/22/21 07:15 98.2 16 95 98.2 I & O 12/21/21 12/21/21 12/22/21 15:00 23:00 07:00 Intake Total 350 ml 800 ml Output Total 850 ml 1050 ml Balance -500 ml 800 ml -1050 ml Physical Exam Physical Exam: GENERAL: Alert, oriented gentleman, not in distress. VITAL SIGNS: Stable HEENT: Both pupils are round and reacting. No conjunctival lesion, no lesion in the mouth. NECK: Supple, no JVP, no lymphadenopathy. LUNGS: Clear. HEART: S1, S2, regular. ABDOMEN: Soft, nontender, no organomegaly. EXTREMITIES: No edema, cyanosis. SKIN: Unremarkable. Surgical site, lower part of the incision has a SELENE drain in place, which is draining. NEUROLOGIC: The patient is alert, awake, and appropriate. No focal neurologic deficit. General: Alert, Oriented X3, Cooperative Heart: Regular rate, Normal S1, Normal S2, No murmurs Lungs: Clear Abdomen: Normal bowel sounds, Soft, No tenderness, No hepatosplenomegaly, No masses Extremities: No clubbing, No cyanosis, Normal pulses, Other (swelling lower back, bruising on left gluteal area, point tenderness) Skin: Other (dressing intact, drain in place with yellow tinged serous fluid) Labs Labs: Laboratory Tests Test 12/21/21 17:13 12/21/21 20:43 12/22/21 07:17 Glucose (Fingerstick) 207 mg/dL (70-99) 271 mg/dL (70-99) 118 mg/dL (70-99) Assessment and Plan Assessmemt and Plan Lumbar spine infection Plan We are hoping to discharge to [facility] today for assisted For now continue the following; IV antibiotics Wound care Encourage p.o. intake DVT prophylaxis Full code Follow labs Comment Review of Relevant I have reviewed the following items noris (where applicable) has been applied. Justifications for Admission Other Justification FLORESITA MURRAY III DO Dec 22, 2021 11:07
[2021-12-22 11:09] VITALS: BP 101/72
--- NOTE | 2021-12-22 12:13 | PDOC ---
Infectious Disease Note Subjective Subjective Patient feeling much better Denies fever, nausea, vomiting, shortness of breath, diarrhea, abdominal pain, rash Otherwise as above ROS ROS no n/v/d/ Vital Sign Vital Signs Vital Signs Date Time Temp Pulse Resp B/P (MAP) Pulse Ox O2 Delivery O2 Flow Rate FiO2 12/22/21 11:09 97.7 64 20 101/72 (82) 95 Room Air 97.7 Physical Exam PHYSICAL EXAM GENERAL: Alert, oriented gentleman, not in distress. VITAL SIGNS: Stable HEENT: Both pupils are round and reacting. No conjunctival lesion, no lesion in the mouth. NECK: Supple, no JVP, no lymphadenopathy. LUNGS: Clear. HEART: S1, S2, regular. ABDOMEN: Soft, nontender, no organomegaly. EXTREMITIES: No edema, cyanosis. SKIN: Unremarkable. Surgical site, lower part of the incision has a SELENE drain in place, which is draining. NEUROLOGIC: The patient is alert, awake, and appropriate. No focal neurologic deficit. Labs Lab Laboratory Tests Test 12/21/21 17:13 12/21/21 20:43 12/22/21 07:17 12/22/21 11:55 Glucose (Fingerstick) 207 mg/dL (70-99) 271 mg/dL (70-99) 118 mg/dL (70-99) 200 mg/dL (70-99) Micro Microbiology 12/15/21 Gram Stain - Final, Resulted 12/15/21 Aerobic and Anaerobic Culture - Preliminary, Resulted Staphylococcus Aureus 12/15/21 Gram Stain - Final, Resulted 12/15/21 Aerobic and Anaerobic Culture - Preliminary, Resulted Staphylococcus Aureus 12/14/21 Blood Culture - Preliminary, Resulted NO GROWTH AFTER 1 DAY Objective Assessment 2. Postsurgical infection with abscess, status post drainage December 15 2021. Operative cultures positive for MSSA Blood cultures negative 2. Lumbar laminectomy on 11/30/2021. 3. Leukocytosis. 4. Low-grade fever. 5. Diabetes. 6. Hypertension. 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
[2021-12-22 14:53] VITALS: BP 96/61
--- NOTE | 2021-12-22 15:27 | NUR ---
Per [facility] policy, pt assessed and is not deemed an elopement risk at this time.
[2021-12-22] MEDS: RIVAROXABAN 10 MG TABLET. PO SCH (17:31)
[2021-12-22 19:00] VITALS: BP 126/61
[2021-12-22] MEDS: ATORVASTATIN CALCIUM 20 MG TABLET PO SCH (21:59)
[2021-12-22] MEDS: INSULIN GLARGINE SYRINGE. SQ SCH (22:04)
[2021-12-22 23:00] VITALS: BP 119/71
[2021-12-23 03:00] VITALS: BP 93/66
[2021-12-23] MEDS: ACETAMINOPHEN 325 MG TABLET. PO PRN (05:50)
[2021-12-23 07:00] VITALS: BP 105/72
[2021-12-23] MEDS: INSULIN LISPRO 300 UNITS/3 ML VIAL. SQ SCH ×4 (07:30→21:00)
--- NOTE | 2021-12-23 09:00 | NUR ---
bp 105/72 HR 54- will hold diltiazem, lisinopril, and metoprolol.
[2021-12-23] MEDS: DOCUSATE SODIUM 100 MG CAPSULE. PO SCH ×2 (09:53→21:00)
[2021-12-23] MEDS: LACTOBACILLUS RHAMNOSUS GG 1 CAPSULE. PO SCH ×2 (09:53→21:00)
[2021-12-23] MEDS: EMPAGLIFLOZIN 10 MG TABLET. PO SCH (09:54)
[2021-12-23 11:00] VITALS: BP 120/72
[2021-12-23] MEDS: ANTI-COAG MONITOR BY PHARMACY. MC PRN (11:14)
--- NOTE | 2021-12-23 12:37 | PDOC ---
[employer] PROGRESS NOTE Date of Service DOS: DATE: 12/23/21 TIME: 12:36 Chief Complaint Chief Complaint Cellulitis - with abscess of back status post IR drain with Staphylococcus. ID consulted Back and left leg pain - redness at laminectomy site, no dehiscence. There is a small site at inferior margin of surgical site that has a scab Chronic AFIB - rate controlled, actually sinus currently on Xarelto for stroke prophylaxis. Will hold pending surgical recommendations. took at dose around 2100 on 12/13/2021 Hypertension - cont home meds, toprol, lisinopril Hyperlipemia - statin Diabetes, II - sliding scale, jardiance. Split his toujeo 100u into 50u BID lantus SUMMER with CPAP - not compliant for 2 years due to missing parts FEN - ADA diet PPX - xarelto FULL CODE DIspo - PICC, rehab History of Present Illness History of Present Illness 12/24/2019 Patient seen exam Discussed with RN Chart reviewed Awaiting discharge to custodial at [facility] 12/22/2021 Patient seen and examined Discussed with RN Chart reviewed Were hoping to discharge to [facility] later today as his discharge had to be held yesterday due to logistics issues 12/21/2021 Patient seen exam Discussed with RN Discussed with case management Chart reviewed He seems to be doing relatively well We hope to discharge problems placed today 12/20/2021 Patient seen and examined Discussed with RN Chart reviewed His SELENE drain came out of his back yesterday He is close to his baseline we will hope to discharge soon 12/20/2019 Patient seen and examined Discussed with RN Chart reviewed He still has a SELENE drain in the lumbar spine Dressing appears clean dry and intact 12/18/2021 Patient seen and examined Discussed with RN Chart reviewed He has a SELENE drain in the lumbar spine region He is going for PICC line today States he would like to have home health on discharge Mr Limon is a 61yo male with PMHx chronic afib, HTN, HLD, DM2, SUMMER on CPAP (hasn't worn it in 1-2years) who comes as a direct admission from neurosurgery clinic for concerns about surgical site infection and worsening left leg pain. He underwent L4-5 laminectomy and L5 nerve root decompression on 11/30/2021 without event and was home recuperating with symptomatic improvement in his left leg pain and weakness, but overnight on 12/13/2021 after holding his grandchild and changing diaper he noted a pop in his back and severe pain in his left gluteal area shooting down his left leg into his foot and noted some leaking down his back and some reddish discharge at the top of his underwear. He also noted subjective fever and chills overnight and pain on urination and on defecation. He had neurosurgery clinic follow up and was sent to the hospital for further care. Bedside his wound does look red, no discharge noted, some right toe tingling and left gluteal pain on palpation. He hasn't check his blood glucose, thinks it is high. CT lumbar spine with abscess. Consults: Infectious diseases 12/15: Patient seen working with PT today. I was able to express some fluid from his wound site and collection aerobic and anaerobic cultures; sent to lab. I will defer antibiotic management to ID. Still complaining of back pain 04/11. Discussed with patient, will still keep n.p.o. as to not interfere with any surgical intervention neurosurgery as planned. Discussed with RN. 12/16: SELENE drain with serosanguineous fluid 50 cc. Staph on preliminary culture results. He had pretty severe pain overnight around 3 AM. Still with pain on having a bowel movement. On vancomycin and Zosyn. 12/17: Changed to IV cefazolin per ID. Discussed with neurosurgery will take over as primary as there are no surgical issues currently. Still with significant drain output. Still with some pain with bowel movements. Will need PICC and plan to place on 12/18/2021 and set up outpatient infusions for ant ibiotics. Will need graded physical therapy program as well and likely will need acute rehab versus SNF Vitals/I&O Vitals/I&O: Vital Signs Date Time Temp Pulse Resp B/P (MAP) Pulse Ox O2 Delivery O2 Flow Rate FiO2 12/23/21 08:00 Room Air 12/23/21 07:00 97.7 54 18 105/72 (83) 97 2.0 97.7 I & O 12/22/21 12/22/21 12/23/21 15:00 23:00 07:00 Intake Total 520 ml 280 ml 300 ml Output Total 1050 ml 950 ml Balance 520 ml -770 ml -650 ml Physical Exam Physical Exam: GENERAL: Alert, oriented gentleman, not in distress. VITAL SIGNS: Stable HEENT: Both pupils are round and reacting. No conjunctival lesion, no lesion in the mouth. NECK: Supple, no JVP, no lymphadenopathy. LUNGS: Clear. HEART: S1, S2, regular. ABDOMEN: Soft, nontender, no organomegaly. EXTREMITIES: No edema, cyanosis. SKIN: Unremarkable. Surgical site, lower part of the incision has a SELENE drain in place, which is draining. NEUROLOGIC: The patient is alert, awake, and appropriate. No focal neurologic deficit. General: Alert, Oriented X3, Cooperative Heart: Regular rate, Normal S1, Normal S2, No murmurs Lungs: Clear Abdomen: Normal bowel sounds, Soft, No tenderness, No hepatosplenomegaly, No masses Extremities: No clubbing, No cyanosis, Normal pulses, Other (swelling lower back, bruising on left gluteal area, point tenderness) Skin: Other (dressing intact, drain in place with yellow tinged serous fluid) Labs Labs: Laboratory Tests Test 12/22/21 16:37 12/22/21 22:38 12/23/21 07:21 12/23/21 11:31 Glucose (Fingerstick) 159 mg/dL (70-99) 143 mg/dL (70-99) 115 mg/dL (70-99) 250 mg/dL (70-99) Assessment and Plan Assessmemt and Plan Lumbar spine infection Plan We are hoping to discharge to [facility] today for custodial For now continue the following; IV antibiotics Wound care Encourage p.o. intake DVT prophylaxis Full code Follow labs Comment Review of Relevant I have reviewed the following items noris (where applicable) has been applied. Justifications for Admission Other Justification FLORESITA MURRAY III DO Dec 23, 2021 12:37
[2021-12-23] MEDS: LISINOPRIL 5 MG TABLET. PO SCH (13:02)
[2021-12-23] MEDS: METOPROLOL TART IMMED RELEASE 25 MG TABLET. PO SCH ×2 (13:03→21:00)
--- NOTE | 2021-12-23 13:49 | PDOC ---
Infectious Disease Note Subjective: Subjective Patient feeling much better Denies fever, nausea, vomiting, shortness of breath, diarrhea, abdominal pain, rash Otherwise as above Vital Signs: Vital Signs Vital Signs Date Time Temp Pulse Resp B/P (MAP) Pulse Ox O2 Delivery O2 Flow Rate FiO2 12/23/21 13:03 64 120/72 12/23/21 08:00 Room Air 12/23/21 07:00 97.7 18 97 2.0 97.7 Physical Exam: PHYSICAL EXAM GENERAL: Alert, oriented gentleman, not in distress. VITAL SIGNS: Stable HEENT: Both pupils are round and reacting. No conjunctival lesion, no lesion in the mouth. NECK: Supple, no JVP, no lymphadenopathy. LUNGS: Clear. HEART: S1, S2, regular. ABDOMEN: Soft, nontender, no organomegaly. EXTREMITIES: No edema, cyanosis. SKIN: Unremarkable. Surgical site, lower part of the incision draining minimal amount of purulent fluid drain pulled out by pt NEUROLOGIC: The patient is alert, awake, and appropriate. No focal neurologic deficit. PICC line RUE clean Medications: Inpatient Meds: Medications reviewed. Labs: Lab Laboratory Tests Test 12/22/21 16:37 12/22/21 22:38 12/23/21 07:21 12/23/21 11:31 Glucose (Fingerstick) 159 mg/dL (70-99) 143 mg/dL (70-99) 115 mg/dL (70-99) 250 mg/dL (70-99) Objective: Assessment: 1. Postsurgical infection with abscess, status post drainage December 15 2021. No HW in place Operative cultures positive for MSSA and corynebacterium striatum 2 strains,latter likely contaminant Blood cultures negative 2. Lumbar laminectomy on 11/30/2021. 3. Leukocytosis. 4. Low-grade fever. 5. Diabetes. 6. Hypertension. 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
[2021-12-23 15:00] VITALS: BP 126/74
[2021-12-23] MEDS: RIVAROXABAN 10 MG TABLET. PO SCH (18:31)
[2021-12-23 19:00] VITALS: BP 97/69
[2021-12-23] MEDS: ATORVASTATIN CALCIUM 20 MG TABLET PO SCH (21:00)
[2021-12-23] MEDS: INSULIN GLARGINE SYRINGE. SQ SCH (21:00)
[2021-12-23 23:00] VITALS: BP 98/61
[2021-12-24] MEDS: ACETAMINOPHEN 325 MG TABLET. PO PRN (00:09)
[2021-12-24 03:00] VITALS: BP 109/60
[2021-12-24 07:00] VITALS: BP 139/64
[2021-12-24] MEDS: INSULIN LISPRO 300 UNITS/3 ML VIAL. SQ SCH ×4 (07:30→21:03)
[2021-12-24] MEDS: DOCUSATE SODIUM 100 MG CAPSULE. PO SCH ×2 (08:35→20:48)
[2021-12-24] MEDS: EMPAGLIFLOZIN 10 MG TABLET. PO SCH (08:35)
[2021-12-24] MEDS: LISINOPRIL 5 MG TABLET. PO SCH (08:35)
[2021-12-24] MEDS: LACTOBACILLUS RHAMNOSUS GG 1 CAPSULE. PO SCH ×2 (08:35→20:48)
[2021-12-24] MEDS: METOPROLOL TART IMMED RELEASE 25 MG TABLET. PO SCH ×2 (08:36→20:49)
[2021-12-24] MEDS: oxyCODONE/APAP 5/325 1 TAB TABLET PO PRN ×3 (08:42→22:50)
--- NOTE | 2021-12-24 10:35 | PDOC ---
[employer] PROGRESS NOTE Date of Service DOS: DATE: 12/24/21 TIME: 10:33 Chief Complaint Chief Complaint Lumbar back infection Chronic A. fib Hypertension Hyperlipidemia Diabetes SUMMER History of Present Illness History of Present Illness 12/24/2021 Patient seen and examined Discussed with RN Chart reviewed We are still awaiting discharge to half-way 12/24/2019 Patient seen exam Discussed with RN Chart reviewed Awaiting discharge to half-way at [facility] 12/22/2021 Patient seen and examined Discussed with RN Chart reviewed Were hoping to discharge to [facility] later today as his discharge had to be held yesterday due to logistics issues 12/21/2021 Patient seen exam Discussed with RN Discussed with case management Chart reviewed He seems to be doing relatively well We hope to discharge problems placed today 12/20/2021 Patient seen and examined Discussed with RN Chart reviewed His SELENE drain came out of his back yesterday He is close to his baseline we will hope to discharge soon 12/20/2019 Patient seen and examined Discussed with RN Chart reviewed He still has a SELENE drain in the lumbar spine Dressing appears clean dry and intact 12/18/2021 Patient seen and examined Discussed with RN Chart reviewed He has a SELENE drain in the lumbar spine region He is going for PICC line today States he would like to have home health on discharge Mr Limon is a 61yo male with PMHx chronic afib, HTN, HLD, DM2, SUMMER on CPAP (hasn't worn it in 1-2years) who comes as a direct admission from neurosurgery clinic for concerns about surgical site infection and worsening left leg pain. He underwent L4-5 laminectomy and L5 nerve root decompression on 11/30/2021 without event and was home recuperating with symptomatic improvement in his left leg pain and weakness, but overnight on 12/13/2021 after holding his grandchild and changing diaper he noted a pop in his back and severe pain in his left gluteal area shooting down his left leg into his foot and noted some leaking down his back and some reddish discharge at the top of his underwear. He also noted subjective fever and chills overnight and pain on urination and on defecation. He had neurosurgery clinic follow up and was sent to the hospital for further care. Bedside his wound does look red, no discharge noted, some right toe tingling and left gluteal pain on palpation. He hasn't check his blood glucose, thinks it is high. CT lumbar spine with abscess. Consults: Infectious diseases 12/15: Patient seen working with PT today. I was able to express some fluid from his wound site and collection aerobic and anaerobic cultures; sent to lab. I will defer antibiotic management to ID. Still complaining of back pain 04/11. Discussed with patient, will still keep n.p.o. as to not interfere with any surgical intervention neurosurgery as planned. Discussed with RN. 12/16: SELENE drain with serosanguineous fluid 50 cc. Staph on preliminary culture results. He had pretty severe pain overnight around 3 AM. Still with pain on having a bowel movement. On vancomycin and Zosyn. 12/17: Changed to IV cefazolin per ID. Discussed with neurosurgery will take over as primary as there are no surgical issues currently. Still with s ignificant drain output. Still with some pain with bowel movements. Will need PICC and plan to place on 12/18/2021 and set up outpatient infusions for antibiotics. Will need graded physical therapy program as well and likely will need acute rehab versus SNF Vitals/I&O Vitals/I&O: Vital Signs Date Time Temp Pulse Resp B/P (MAP) Pulse Ox O2 Delivery O2 Flow Rate FiO2 12/24/21 09:12 Room Air 12/24/21 08:36 64 139/64 12/24/21 07:00 97.5 20 97 97.5 12/23/21 20:00 2.0 I & O 12/23/21 12/23/21 12/24/21 15:00 23:00 07:00 Intake Total 450 ml 400 ml Output Total 400 ml 700 ml Balance 50 ml -300 ml Physical Exam Physical Exam: GENERAL: Alert, oriented gentleman, not in distress. VITAL SIGNS: Stable HEENT: Both pupils are round and reacting. No conjunctival lesion, no lesion in the mouth. NECK: Supple, no JVP, no lymphadenopathy. LUNGS: Clear. HEART: S1, S2, regular. ABDOMEN: Soft, nontender, no organomegaly. EXTREMITIES: No edema, cyanosis. SKIN: Unremarkable. Surgical site, lower part of the incision draining minimal amount of purulent fluid drain pulled out by pt NEUROLOGIC: The patient is alert, awake, and appropriate. No focal neurologic deficit. PICC line RUE clean General: Alert, Oriented X3, Cooperative Heart: Regular rate, Normal S1, Normal S2, No murmurs Lungs: Clear Abdomen: Normal bowel sounds, Soft, No tenderness, No hepatosplenomegaly, No masses Extremities: No clubbing, No cyanosis, Normal pulses, Other (swelling lower back, bruising on left gluteal area, point tenderness) Skin: Other (dressing intact, drain in place with yellow tinged serous fluid) Labs Labs: Laboratory Tests Test 12/23/21 11:31 12/23/21 17:23 12/23/21 21:00 12/24/21 08:05 Glucose (Fingerstick) 250 mg/dL (70-99) 135 mg/dL (70-99) 183 mg/dL (70-99) 122 mg/dL (70-99) Assessment and Plan Assessmemt and Plan Lumbar spine infection Chronic A. fib Hypertension Hyperlipidemia Diabetes SUMMER Plan We are hoping to discharge to [facility] today for half-way For now continue the following; IV antibiotics Wound care Encourage p.o. intake DVT prophylaxis Full code Follow labs Comment Review of Relevant I have reviewed the following items noris (where applicable) has been applied. Justifications for Admission Other Justification FLORESITA MURRAY III DO Dec 24, 2021 10:35
--- NOTE | 2021-12-24 10:36 | SNU/HH DC ---
DISCHARGE ORDERS DISCHARGE INFORMATION: CONDITION ON DISCHARGE: Stable CODE STATUS: Code Status: Full [facility]: SNF STAY <30 DAYS: Yes HOSPICE: HOSPICE: No HOSPICE EVAL & TREAT: No LTAC: ADMIT TO LTAC: No POST DISCHARGE ORDERS: ACTIVITY ORDERS: Activity as tolerated, Avoid exertion WEIGHT BEARING STATUS: No restrictions DIET AFTER DISCHARGE: Cardiac WOUND/INCISION CARE: Ice to area for comfort, No wound care needed CHECKS AFTER DISCHARGE: CHECKS AFTER DISCHARGE: Check blood press - daily, Check blood sugar, ac/hs TREATMENT/EQUIPMENT ORDERS: ADAPTIVE EQUIPMENT NEEDED: None Physical Therapy For: Evalulation/Treatment Occupational Therapy For: Evaluation/Treatment DISCHARGE MEDICATIONS: Home Meds Active Scripts Oxycodone HCl/Acetaminophen (Percocet 5-325 mg Tablet) 1 Each Tablet, 1 TAB PO QIDPRN PRN for . MDD 4 Tablet(s) for 5 Days, #20 TAB 0 Refills Prov:ELSA MURRAYL K III DO 12/21/21 Empagliflozin (Jardiance) 10 Mg Tablet, 10 MG PO DAILY for . for 30 Days, #30 TAB Prov:ELSA MURRAYL K III DO 12/20/21 Insulin Glargine,Hum.rec.anlog (LANTUS) 100 Unit/1 Ml Vial, 50 UNIT SQ QHS for . for 30 Days, #1 EACH Prov:ELSA MURRAYL K III DO 12/20/21 Methocarbamol (METHOCARBAMOL) 750 Mg Tablet, 750 MG PO TID PRN PRN for MUSCLE SPASMS, #60 TAB Prov:ROSAMARIA ANDERSON MD 11/30/21 Metoprolol Tartrate (METOPROLOL TARTRATE) 25 Mg Tablet, 25 MG PO BID for FOR HYPERTENSION for 30 Days, #60 TAB 0 Refills Prov:ALTHEA LOPEZ MD 07/30/21 Rivaroxaban (XARELTO) 20 Mg Tablet, 20 MG PO QHS, #30 TAB 2 Refills Prov:HESHAM UPTON MD 03/27/18 Reported Medications Insulin Lispro (HUMALOG) 100 Unit/1 Ml Cartridge, 36 UNIT SQ TIDAC for diabetes, EACH 11/21/21 Ondansetron (ONDANSETRON ODT) 4 Mg Tab.rapdis, 8 MG PO BID PRN for NAUSEA/VOMITING, TAB 11/21/21 Dulaglutide (Trulicity) 1.5 Mg/0.5 Ml Pen.injctr, 0.75 MG SQ WEEKLY for DIABETES CONTROL, EACH 07/05/20 Digoxin (DIGOXIN) 250 Mcg Tablet, 250 MCG PO DAILYWSUP for AFIB/HEART FAILURE, TAB 07/05/20 Diltiazem Hcl (CARTIA XT) 180 Mg Cap.er.24h, 180 MG PO BID for 06/13/20 Lisinopril (LISINOPRIL) 5 Mg Tablet, 5 MG PO DAILY for FOR HYPERTENSION, #30 TAB 0 Refills 06/13/20 Insulin Glargine,Hum.rec.anlog (Elizabeth Nguyen) 300 Unit/1 Ml Insuln.pen, 100 UNIT SQ QHS for DIABETES, EACH 03/24/18 Fish Oil/Dha/Epa (FISH OIL 1,200 MG FISH OIL) 1 Each Capsule, 1 EACH PO DAILY 08/26/15 Atorvastatin Calcium (ATORVASTATIN CALCIUM) 20 Mg Tablet, 20 MG PO HS for FOR CHOLESTEROL, #30 TAB 0 Refills 08/26/15 Aspirin (ASPIRIN) 81 Mg Tab.chew, 81 MG PO DAILY for heart, TAB.CHEW 11/10/14 Metformin Hcl (METFORMIN HCL) 500 Mg Tablet, 1000 MG PO BIDWMEALS for ANTI- DIABETIC, TAB 0 Refills 11/09/14 FLORESITA MURRAY III DO Dec 24, 2021 10:36
[2021-12-24 11:00] VITALS: BP 119/75
--- NOTE | 2021-12-24 11:33 | PDOC ---
Infectious Disease Note Subjective: Subjective Patient feeling much better Vital Signs: Vital Signs Vital Signs Date Time Temp Pulse Resp B/P (MAP) Pulse Ox O2 Delivery O2 Flow Rate FiO2 12/24/21 09:12 Room Air 12/24/21 08:36 64 139/64 12/24/21 07:00 97.5 20 97 97.5 12/23/21 20:00 2.0 Physical Exam: PHYSICAL EXAM GENERAL: Alert, oriented gentleman, not in distress. VITAL SIGNS: Stable HEENT: Both pupils are round and reacting. No conjunctival lesion, no lesion in the mouth. NECK: Supple, no JVP, no lymphadenopathy. LUNGS: Clear. HEART: S1, S2, regular. ABDOMEN: Soft, nontender, no organomegaly. EXTREMITIES: No edema, cyanosis. SKIN: Unremarkable. Surgical site, lower part of the incision draining minimal amount of purulent fluid drain pulled out by pt NEUROLOGIC: The patient is alert, awake, and appropriate. No focal neurologic deficit. PICC line RUE clean Medications: Inpatient Meds: Medications reviewed. Labs: Lab Laboratory Tests Test 12/23/21 17:23 12/23/21 21:00 12/24/21 08:05 12/24/21 11:05 Glucose (Fingerstick) 135 mg/dL (70-99) 183 mg/dL (70-99) 122 mg/dL (70-99) 213 mg/dL (70-99) Objective: Assessment: 1. Postsurgical infection with abscess, status post drainage December 15 2021. No HW in place Operative cultures positive for MSSA and corynebacterium striatum 2 strains,latter likely contaminant Blood cultures negative 2. Lumbar laminectomy on 11/30/2021. 3. Leukocytosis. 4. Low-grade fever. 5. Diabetes. 6. Hypertension. 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
[2021-12-24] MEDS: ANTI-COAG MONITOR BY PHARMACY. MC PRN (13:58)
[2021-12-24 15:00] VITALS: BP 101/68
[2021-12-24] MEDS: RIVAROXABAN 10 MG TABLET. PO SCH (17:49)
[2021-12-24 19:00] VITALS: BP 105/64
[2021-12-24] MEDS: ATORVASTATIN CALCIUM 20 MG TABLET PO SCH (20:48)
[2021-12-24] MEDS: INSULIN GLARGINE SYRINGE. SQ SCH (21:04)
[2021-12-24 23:00] VITALS: BP 110/74
[2021-12-25 03:00] VITALS: BP 109/72
[2021-12-25] MEDS: oxyCODONE/APAP 5/325 1 TAB TABLET PO PRN (05:45)
[2021-12-25 07:15] VITALS: BP 112/72
[2021-12-25] MEDS: INSULIN LISPRO 300 UNITS/3 ML VIAL. SQ SCH ×2 (07:30→12:16)
[2021-12-25] MEDS: LISINOPRIL 5 MG TABLET. PO SCH (09:00)
[2021-12-25] MEDS: METOPROLOL TART IMMED RELEASE 25 MG TABLET. PO SCH (09:00)
[2021-12-25] MEDS: LACTOBACILLUS RHAMNOSUS GG 1 CAPSULE. PO SCH (09:24)
[2021-12-25] MEDS: DOCUSATE SODIUM 100 MG CAPSULE. PO SCH (09:24)
[2021-12-25] MEDS: EMPAGLIFLOZIN 10 MG TABLET. PO SCH (09:24)
[2021-12-25 11:11] VITALS: BP 96/68
--- NOTE | 2021-12-25 13:00 | NUR ---
pt discharged to [facility], report called. Pt transported off unit in wheelchair with all belongings.
--- NOTE | 2021-12-25 13:45 | PDOC ---
[employer] PROGRESS NOTE Date of Service DOS: DATE: 12/25/21 TIME: 13:45 Chief Complaint Chief Complaint Lumbar back infection Chronic A. fib Hypertension Hyperlipidemia Diabetes SUMMER History of Present Illness History of Present Illness 12/25/2021 Patient seen and examined He is at his baseline Discussed with his son and [id number] Discussed with case management Discussed with RN Chart reviewed We will go ahead and discharge to shelter at [facility] 12/24/2021 Patient seen and examined Discussed with RN Chart reviewed We are still awaiting discharge to shelter 12/24/2019 Patient seen exam Discussed with RN Chart reviewed Awaiting discharge to shelter at [facility] 12/22/2021 Patient seen and examined Discussed with RN Chart reviewed Were hoping to discharge to [facility] later today as his discharge had to be held yesterday due to logistics issues 12/21/2021 Patient seen exam Discussed with RN Discussed with case management Chart reviewed He seems to be doing relatively well We hope to discharge problems placed today 12/20/2021 Patient seen and examined Discussed with RN Chart reviewed His SELENE drain came out of his back yesterday He is close to his baseline we will hope to discharge soon 12/20/2019 Patient seen and examined Discussed with RN Chart reviewed He still has a SELENE drain in the lumbar spine Dressing appears clean dry and intact 12/18/2021 Patient seen and examined Discussed with RN Chart reviewed He has a SELENE drain in the lumbar spine region He is going for PICC line today States he would like to have home health on discharge Mr Limon is a 61yo male with PMHx chronic afib, HTN, HLD, DM2, SUMMER on CPAP (hasn't worn it in 1-2years) who comes as a direct admission from neurosurgery clinic for concerns about surgical site infection and worsening left leg pain. He underwent L4-5 laminectomy and L5 nerve root decompression on 11/30/2021 without event and was home recuperating with symptomatic improvement in his left leg pain and weakness, but overnight on 12/13/2021 after holding his grandchild and changing diaper he noted a pop in his back and severe pain in his left gluteal area shooting down his left leg into his foot and noted some leaking down his back and some reddish discharge at the top of his underwear. He also noted subjective fever and chills overnight and pain on urination and on defecation. He had neurosurgery clinic follow up and was sent to the hospital for further care. Bedside his wound does look red, no discharge noted, some right toe tingling and left gluteal pain on palpation. He hasn't check his blood glucose, thinks it is high. CT lumbar spine with abscess. Consults: Infectious diseases 12/15: Patient seen working with PT today. I was able to express some fluid from his wound site and collection aerobic and anaerobic cultures; sent to lab. I will defer antibiotic management to ID. Still complaining of back pain 04/11. Discussed with patient, will still keep n.p.o. as to not interfere with any surgical intervention neurosurgery as planned. Discussed with RN. 12/16: SELENE drain with serosanguineous fluid 50 cc. Staph on preliminary culture results. He had pretty severe pain overnight around 3 AM. Still with pain on having a bowel movement. On vancomycin and Zosyn. 12/17: Changed to IV cefazolin per ID. Discussed with neurosurgery will take over as primary as there are no surgical issues currently. Still with significant drain output. Still with some pain with bowel movements. Will need PICC and plan to place on 12/18/2021 and set up outpatient infusions for antibiotics. Will need graded physical therapy program as well and likely will need acute rehab versus SNF Vitals/I&O Vitals/I&O: Vital Signs Date Time Temp Pulse Resp B/P (MAP) Pulse Ox O2 Delivery O2 Flow Rate FiO2 12/25/21 11:11 97.8 64 18 96/68 (77) 96 Room Air 97.8 I & O 12/24/21 12/24/21 12/25/21 15:00 23:00 07:00 Intake Total 480 ml 480 ml Output Total 1100 ml 550 ml Balance -620 ml 480 ml -550 ml Physical Exam Physical Exam: GENERAL: Alert, oriented gentleman, not in distress. VITAL SIGNS: Stable HEENT: Both pupils are round and reacting. No conjunctival lesion, no lesion in the mouth. NECK: Supple, no JVP, no lymphadenopathy. LUNGS: Clear. HEART: S1, S2, regular. ABDOMEN: Soft, nontender, no organomegaly. EXTREMITIES: No edema, cyanosis. SKIN: Unremarkable. Surgical site, lower part of the incision draining minimal amount of purulent fluid drain pulled out by pt NEUROLOGIC: The patient is alert, awake, and appropriate. No focal neurologic deficit. PICC line RUE clean General: Alert, Oriented X3, Cooperative Heart: Regular rate, Normal S1, Normal S2, No murmurs Lungs: Clear Abdomen: Normal bowel sounds, Soft, No tenderness, No hepatosplenomegaly, No masses Extremities: No clubbing, No cyanosis, Normal pulses, Other (swelling lower back, bruising on left gluteal area, point tenderness) Skin: Other (dressing intact, drain in place with yellow tinged serous fluid) Labs Labs: Laboratory Tests Test 12/24/21 16:44 12/24/21 20:34 12/25/21 07:54 12/25/21 12:02 Glucose (Fingerstick) 140 mg/dL (70-99) 236 mg/dL (70-99) 96 mg/dL (70-99) 160 mg/dL (70-99) Assessment and Plan Assessmemt and Plan Lumbar spine infection Chronic A. fib Hypertension Hyperlipidemia Diabetes SUMMER Plan We are hoping to discharge to [facility] today for shelter For now continue the following; IV antibiotics Wound care Encourage p.o. intake DVT prophylaxis Full code Follow labs Comment Review of Relevant I have reviewed the following items noris (where applicable) has been applied. Justifications for Admission Other Justification FLORESITA MURRAY III DO Dec 25, 2021 13:45
--- NOTE | 2021-12-25 19:30 | DS ---
DATE OF DISCHARGE: 12/25/2021 ADMISSION DIAGNOSIS: Lumbar back infection after recent lumbar laminectomy in October of this year. DISCHARGE DIAGNOSES: 1. Resolving lumbar back infection. 2. History of chronic anticoagulation. 3. Diabetes. 4. Hypertension. 5. Hyperlipidemia. CONSULTS: Infectious Disease and Neurosurgery. PROCEDURES: None. HOSPITAL COURSE: The patient is a pleasant middle-aged male who presented with back infection after he had surgery back in October on the lumbar spine. He was admitted, a drain was placed. We gave IV cefazolin. We consulted ID. Today, I saw and examined him. He is doing well and wants to go to physical therapy. He has a PICC line. We are going to continue our cefazolin and get him over to [facility] if we can get it arrange. DISPOSITION: detention at [facility]. ACTIVITY: As tolerated. DIET: Low sodium. DISCHARGE MEDICATIONS: Please see the MRAD. Cefazolin IV per Infectious Disease. Jardiance 10 a day, insulin Lantus 50 at bedtime, oxycodone p.r.n., aspirin 81 a day, atorvastatin 20 a day, digoxin 0.25 a day, Cardizem CD 180 a day, Trulicity 0.75 a day, fish oil, Toujeo insulin, Humalog insulin 36 units t.i.d. with meals, lisinopril 5 a day, metformin 1000 b.i.d., methocarbamol 750 t.i.d., metoprolol 25 b.i.d., ondansetron p.r.n., and Xarelto 25 a day. TOTAL TIME: [address]: NARCISO/pepper TID: [id number]
== END 2021-12-25 13:00 | DRG 863 ==
LOC: 2 NORTH 16:04 → 4 NORTH 12-15 17:46
PROVIDERS: ADMIT Internal Medicine; ATTEND Internal Medicine
PROC: 02HV33Z Insertion of Infusion Device into Superior Vena Cava, Percutaneous Approach (ICD-10-PCS; principal; 2021-12-14)
PROC: B5181ZA Fluoroscopy of Superior Vena Cava using Low Osmolar Contrast, Guidance (ICD-10-PCS; 2021-12-14)
PROC: B548ZZA Ultrasonography of Superior Vena Cava, Guidance (ICD-10-PCS; 2021-12-14)
PROC: 009U30Z Drainage of Spinal Canal with Drainage Device, Percutaneous Approach (ICD-10-PCS; 2021-12-15)
DX: T81.40XA Infection following a procedure, unspecified, initial encounter (principal); I48.20 Chronic atrial fibrillation, unspecified; L02.212 Cutaneous abscess of back [any part, except buttock and flank]; L03.90 Cellulitis, unspecified; E11.9 Type 2 diabetes mellitus without complications; E78.5 Hyperlipidemia, unspecified; G47.33 Obstructive sleep apnea (adult) (pediatric); I10 Essential (primary) hypertension; I25.10 Atherosclerotic heart disease of native coronary artery without angina pectoris; M71.30 Other bursal cyst, unspecified site; Z79.01 Long term (current) use of anticoagulants; Z82.3 Family history of stroke; Z83.3 Family history of diabetes mellitus; Z95.2 Presence of prosthetic heart valve; E66.9 Obesity, unspecified; F32.A Depression, unspecified; F41.9 Anxiety disorder, unspecified; K21.9 Gastro-esophageal reflux disease without esophagitis; M19.90 Unspecified osteoarthritis, unspecified site; B95.61 Methicillin susceptible Staphylococcus aureus infection as the cause of diseases classified elsewhere
CPT/HCPCS: 10030; 36415; 36573; 72131; 80048; 80053; 80162; 82550; 82962; 85007; 85025; 85651; 87040; 87075; 87077; 87186; C1751; C1892; J0690; J0878; J1815; J2543; J3010; U0003; 97110-GO; 97110-GP; 97116-GP; 97530-GO; 97530-GP; 97535-GO; G0378

== ENCOUNTER → 2022-01-15 | Outpatient (CLI) | payer OTHER, MEDICARE ==
[2021-12-25 11:11] VITALS: BP 96/68
[~2022-01-15] MED LIST changes: +EMPA10TA3 PO; +INSU100V8 SQ; +OXYC-325 PO
--- NOTE | 2022-01-16 07:48 | RAD ---
CT LUMBAR SPINE WO History: Wound infection. Technique: Noncontrast CT was performed of the lumbar spine. Multiplanar reconstructions were perform ed. Comparison: CT lumbar spine 2021. Findings: There are 5 nonrib-bearing lumbar vertebral segments. The L5 segment is transitional with a rudimenta ry disc and sacralized transverse processes. There has been postsurgical change from L4-L5 laminectom y. No acute fracture or dislocation is identified. There is mild anterolisthesis of L4 on L5. In the subcutaneous fat at the level of the L3-L4 vertebral bodies, there is a midline hypoattenuating colle ction measuring slightly greater than simple fluid measuring 4. 3 cm AP by 1.8 cm transverse by 2.9 c m craniocaudal extending from just below the skin surface to near the L3 spinous process. Previously this contained foci of air which are no longer appreciated. There is relative irregularity and hypoat tenuation extending into the soft tissues the laminectomy level without peripherally enhancing or dis crete collection identified. No aggressive osseous erosive process is identified. Multilevel disc space narrowing and facet hypertrophy throughout the lumbar spine. Disc bulge at the L4-L5 level and facet hypertrophy cause bilateral foraminal stenosis. Limited evaluation of intra-abd ominal abscess unremarkable. Impression: 1. Persistent collection in the subcutaneous fat extending from the just below the skin to the level of L3 transverse process demonstrates resolution of air foci however remain suspicious for postopera tive abscess. Exposure: One or more of the following individualized dose reduction techniques were utilized for thi s examination: 1. Automated exposure control 2. Adjustment of the mA and/or kV according to patient size 3. Use of iterative reconstruction technique. Electronically signed by: Odin Wiseman MD (01/15/2022 4:57 PM) [id number]
== END ==
LOC: CT 10:56
PROVIDERS: ATTEND Neurological Surgery
DX: T81.42XA Infection following a procedure, deep incisional surgical site, initial encounter (principal); M47.816 Spondylosis without myelopathy or radiculopathy, lumbar region; M51.27 Other intervertebral disc displacement, lumbosacral region; M48.061 Spinal stenosis, lumbar region without neurogenic claudication; M43.16 Spondylolisthesis, lumbar region; M96.1 Postlaminectomy syndrome, not elsewhere classified; X58.XXXA Exposure to other specified factors, initial encounter; Y93.89 Activity, other specified; Y92.89 Other specified places as the place of occurrence of the external cause; Y99.8 Other external cause status
CPT/HCPCS: 72131